=== PATIENT | male | born 1950 | race Caucasian/White ===

== ENCOUNTER → 2019-02-15 11:20 | Outpatient (POV) | payer BC, SELFPAY | PROVIDERS: PCP Internal Medicine Adolescent Medicine; Visit Provider Nurse Practitioner Family | DX: Z00.00 Encounter for general adult medical examination without abnormal findings (principal) ==

== ENCOUNTER → 2019-05-24 11:34 | Outpatient (CLI) | payer MEDICARE, OTHER, SELFPAY ==
[2019-05-24 11:59] LABS: Basophils % 0.6 % (0.1-2.0); Eosinophils # 0.1 K/mm3 (0.0-0.4); Eosinophils % 1.6 % (0.1-12.0); Hematocrit 37.1 % (42.0-52.0); Hemoglobin 11.7 g/dL (14.1-18.0); Lymphocytes # 1.3 K/mm3 (0.7-4.5); Lymphocytes % 20.4 % (10-50); Mean Corpuscular HGB Conc 31.4 g/dL (31.8-35.4); Mean Corpuscular Hemoglobin 27.8 pg (27.0-31.2); Mean Corpuscular Volume 88.6 fl (80-94); Mean Platelet Volume 7.3 fl (7.4-10.4); Monocytes # 0.3 K/mm3 (0.1-1.0); Monocytes % 4.9 % (1.7-9.3); Neutrophils # 4.6 K/mm3 (1.8-7.8); Neutrophils % 72.4 % (37.0-80.0); Platelet Count 213 K/mm3 (142-424); Red Blood Count 4.19 M/mm3 (4.60-6.20); Red Cell Distribution Width 14.5 % (11.5-17.5); White Blood Count 6.3 K/mm3 (4.8-10.8)
[2019-05-24 14:30] LABS: Alanine Aminotransferase 24 U/L (12-78); Albumin Level 3.7 gm/dL (3.4-5.0); Albumin/Globulin Ratio 1.1 (1.1-1.8); Alkaline Phosphatase 166 U/L (46-116); Anion Gap 15.6 mEq/L (5-15); Aspartate Amino Transferase 15 U/L (15-37); Bilirubin,Total 0.6 mg/dL (0.2-1.0); Blood Urea Nitrogen 23 mg/dL (7-18); Carbon Dioxide 25 mmol/L (21.0-32.0); Chloride 106 mmol/L (98-107); Estimated Glomerular Filt Rate 66 ml/min (>60); GFR (African American) 80 ML/MIN (>60); Globulin 3.4 gm/dl (1.3-3.2); Glucose 106 mg/dL (74-106); Potassium 5.6 mmoL/L (3.5-5.1); Sodium 141 mmol/L (136-145); Total Protein,Serum 7.1 gm/dL (6.4-8.2)
== END ==
PROVIDERS: Visit Provider Internal Medicine Adolescent Medicine
DX: R63.4 Abnormal weight loss (principal); R06.09 Other forms of dyspnea; R10.84 Generalized abdominal pain
CPT/HCPCS: 36415; 80053; 85025

== ENCOUNTER → 2019-05-27 11:23 | Outpatient (CLI) | payer MEDICARE, OTHER, SELFPAY ==
[2019-05-27 12:15] VITALS: PULSE 76; PULSE 82
== END ==
PROVIDERS: PCP Internal Medicine Adolescent Medicine; Visit Provider Internal Medicine Adolescent Medicine
DX: R06.09 Other forms of dyspnea (principal); R63.4 Abnormal weight loss; R10.84 Generalized abdominal pain
CPT/HCPCS: 94060; 94640; 94726; 94729

== ENCOUNTER → 2019-06-02 08:43 | Outpatient (CLI) | payer MEDICARE, OTHER, SELFPAY ==
--- NOTE | 2019-06-02 08:56 | CT_ITS ---
PROCEDURE: CT ABDOMEN PELVIS WO/W CON CLINICAL INDICATION: WEIGHT LOSS,ABD PAIN Generalized abdominal pain with weight loss COMPARISON: No exams were available for comparison TECHNIQUE: IV Contrast: 75ML OPTIRAY 350 Oral Contrast 450ml Redicat Axial images obtained with sagittal and coronal reformats. All CT scans at the facility use one or more dose reduction, viz: automated exposure control, ma/kV adjustment per patient size (including targeted exams where dose is matched to indication, i.e. head), or iterative reconstruction technique. FINDINGS: The liver, spleen, adrenal glands, and pancreas and gallbladder have an unremarkable appearance. There is a heterogeneous right renal mass projecting off of the lower pole of the right kidney which measures 8 x 8.5 by 9 cm transverse AP and longitudinal. This is highly suspicious for renal cell carcinoma. This is mostly well-defined except for along the inferior border or the lesion appears to have erupted through the renal capsule and extending into the pararenal space inferiorly. There is some calcification involving the right renal hilum which may be vascular The left kidney has an unremarkable appearance. The renal vein on the right is unremarkable. No retroperitoneal adenopathy. There are few scattered small lymph nodes in the right retroperitoneum. These however are not enlarged. No intestinal obstruction or free air. No evidence of appendicitis or diverticulitis. There is diverticulosis of the colon and a moderate amount of retained colonic feces is noted. No acute bony anomalies. There are scattered sclerotic foci in the left hip and may be due to bone islands. There is sclerosis of the SI joints on both sides right more extensive than left no free fluid or free air evident IMPRESSION: 9 cm right renal mass as described above consistent with renal cell carcinoma. Dictated by: Wisam Ch MD 06/02/2019 13:01 Electronically signed by Wisam Ch MD in [facility] 06/02/2019 13:01
--- NOTE | 2019-06-02 08:56 | CT_ITS ---
PROCEDURE: CT CHEST WO/W CON CLINCAL INDICATION: DYSPNEA Shortness of breath with weight loss COMPARISON: CT ABDOMEN PELVIS WO/W CON from 06/02/2019 TECHNIQUE: IV Contrast: 75ml Optiray 350 Axial images obtained with sagittal and coronal reformats. All CT scans at the facility use one or more dose reduction, viz: automated exposure control, ma/kV adjustment per patient size (including targeted exams where dose is matched to indication, i.e. head), or iterative reconstruction technique. FINDINGS: There has been a prior CABG. There is extensive coronary artery calcification. There is gynecomastia. No evidence of aortic aneurysm or dissection. No evidence of central pulmonary embolus. No mediastinal or hilar mass or adenopathy. A 7 mm noncalcified nodule is present in the right middle lobe posteriorly. 4 mm noncalcified nodules present in the right apex. No effusions or infiltrates. The no acute bony anomalies. No adenopathy. No mediastinal or hilar mass. Thyroid gland is slightly enlarged on the left IMPRESSION: No acute finding. 7 mm right middle lobe nodule and 4 mm right upper lobe nodule. Suggest 6 month follow-up. Coronary artery calcifications. Prior CABG Dictated by: Wisam Ch MD 06/02/2019 12:47 Electronically signed by Wisam Ch MD in [facility] 06/02/2019 12:47
== END ==
PROVIDERS: PCP Internal Medicine Adolescent Medicine; Visit Provider Internal Medicine Adolescent Medicine
DX: R63.4 Abnormal weight loss (principal); R10.84 Generalized abdominal pain; R06.09 Other forms of dyspnea
CPT/HCPCS: 71270; 74178; Q9967

== ENCOUNTER → 2019-10-05 08:42 | Outpatient (CLI) | payer MEDICARE, OTHER, SELFPAY ==
--- NOTE | 2019-10-05 08:48 | NM_ITS ---
CLINICAL INDICATION: KIDNEY CA COMPARISON: Plain radiographs 10/05/2019 TECHNIQUE: Routine whole body radionuclide bone scan with delayed anterior and posterior projection whole-body images with collimated bilateral skull images. 25.9 millicuries technetium 99 M MDP was administered. FINDINGS: There are foci of increased tracer uptake in the region of the facet joints bilaterally at L5-S1 and along the right lateral margins of multiple mid to lower thoracic disc spaces. Hypertrophic degenerative changes were seen on the plain radiographs in these regions and are felt to be responsible. Increased tracer uptake is seen at both acromioclavicular and glenohumeral joints and both sternoclavicular joints, both knee joints right greater than left, and at the 3rd left metacarpophalangeal joint. This uptake at joint spaces is most consistent with degenerative joint disease. There is otherwise normal bio distribution of tracer with no findings specific for metastatic disease. Note is made of absence of the right kidney. IMPRESSION: Multiple foci of increased tracer accumulation most consistent with hypertrophic degenerative disease. No findings specific for metastatic disease. Dictated by: Sathish Mcclain 10/05/2019 16:10 Electronically signed by Sathish Mcclain in [facility] 10/05/2019 16:10
--- NOTE | 2019-10-05 12:45 | XR_ITS ---
PROCEDURE: XR MULTIPLE SPINE 6+V CLINICAL INDICATION: HOT SPOT ON BONE SCAN DONE TODAY COMPARISON: No exams were available for comparison FINDINGS: There is multilevel degenerative disc disease throughout the spine from T4-5 to L1-2. Anterior and lateral osteophytes are seen bridging multiple disc spaces. No acute fracture dislocation or destructive lesions are apparent. Postsurgical clips are seen in the right renal bed. Splenic arterial calcifications are noted. Chronic appearing slight anterior wedge deformities of T5, T6 and T7 are noted IMPRESSION: No acute findings. Chronic appearing mild wedge deformities T5 through T7 and multilevel degenerative disc disease with osteophytes Dictated by: Sathish Mcclain 10/05/2019 16:03 Electronically signed by Sathish Mcclain in [facility] 10/05/2019 16:03
== END ==
PROVIDERS: PCP Internal Medicine Adolescent Medicine; Visit Provider Internal Medicine Hematology & Oncology
DX: C64.1 Malignant neoplasm of right kidney, except renal pelvis (principal)
CPT/HCPCS: 72084; 78306; A9503

== ENCOUNTER → 2019-10-14 09:14 | Outpatient (CLI) | payer MEDICARE, OTHER, SELFPAY ==
--- NOTE | 2019-10-14 09:29 | CT_ITS ---
PROCEDURE: CT CHEST WO CON CLINICAL INDICATION: KIDNEY CANCER Follow-up renal cell carcinoma COMPARISON: CT CHEST WO/W CON from 06/02/2019 CT ABDOMEN PELVIS WO CON from 10/14/2019 TECHNIQUE: Axial images obtained with sagittal and coronal reformats. All CT scans at the facility use one or more dose reduction, viz: automated exposure control, ma/kV adjustment per patient size (including targeted exams where dose is matched to indication, i.e. head), or iterative reconstruction technique. FINDINGS: HEART AND MEDIASTINAL STRUCTURES: Prior CABG. There is dense coronary artery calcification. No mediastinal or hilar mass or adenopathy. Normal heart size. LUNGS AND PLEURAL SPACES: There are numerous noncalcified pulmonary nodules which have increased in size from the previous study. For example, there is a 10 mm nodule in the right middle lobe posteriorly previously measuring 5 mm. There are least 2 nodules in the right upper lobe at 3 and 6 mm which have slightly increased in size. A 4 mm nodule has developed in the left upper lobe. No effusions. BONY STRUCTURES: No acute bony abnormalities apparent. UPPER ABDOMEN: See abdomen report ADDITIONAL FINDINGS: There is bilateral gynecomastia. IMPRESSION: There has been slight progression small bilateral pulmonary nodules consistent with progression metastatic disease. Dictated by: Wisam Ch MD 10/14/2019 16:05 Electronically signed by Wisam Ch MD in [facility] 10/14/2019 16:05
--- NOTE | 2019-10-14 09:29 | CT_ITS ---
PROCEDURE: CT ABDOMEN PELVIS WO CON CLINICAL INDICATION: KIDNEY CANCER Follow-up renal cell carcinoma COMPARISON: CT ABDOMEN PELVIS WO CON from 06/02/2019 TECHNIQUE: Axial images obtained with sagittal and coronal reformats. All CT scans at the facility use one or more dose reduction, viz: automated exposure control, ma/kV adjustment per patient size (including targeted exams where dose is matched to indication, i.e. head), or iterative reconstruction technique. FINDINGS: Study is performed without contrast due to patient's renal function. The liver, gallbladder, spleen, and adrenal glands have an unremarkable appearance. No pancreatic mass evident. There has been a prior right nephrectomy. No evidence of tumor recurrence in the nephrectomy bed. Unremarkable appendix. There is mild ectasia of the left renal pelvis but no evidence of left renal mass or ureteral calculus. Prostate is enlarged at 6 cm. There is a moderate amount of retained colonic feces. No abdominal or pelvic mass or retroperitoneal mass or adenopathy is evident. There are 2 sclerotic foci of the left femoral head. These are not significantly changed. No bony destructive process is a IMPRESSION: Status post right nephrectomy. No evidence of abdominal or pelvic metastasis. The prostate is enlarged Dictated by: Wisam Ch MD 10/14/2019 16:10 Electronically signed by Wisam Ch MD in [facility] 10/14/2019 16:10
[2019-10-14 09:42] LABS: Blood Urea Nitrogen 23 mg/dl (9-20); Estimated Glomerular Filt Rate 40 ml/min (>60); GFR (African American) 48 ML/MIN (>60)
== END ==
PROVIDERS: PCP Internal Medicine Adolescent Medicine; Visit Provider Internal Medicine Hematology & Oncology
DX: C64.1 Malignant neoplasm of right kidney, except renal pelvis (principal)
CPT/HCPCS: 36415; 71250; 74176; 82565; 84520

== ENCOUNTER → 2020-02-11 12:02 | Outpatient (CLI) | payer MEDICARE, OTHER, SELFPAY ==
[2020-02-11 14:03] LABS: Blood Urea Nitrogen 30 mg/dl (9-20); Estimated Glomerular Filt Rate 37 ml/min (>60); GFR (African American) 45 ML/MIN (>60)
== END ==
PROVIDERS: Visit Provider Internal Medicine Hematology & Oncology
DX: Z01.818 Encounter for other preprocedural examination (principal)
CPT/HCPCS: 36415; 82565; 84520

== ENCOUNTER → 2020-02-14 08:58 | Outpatient (CLI) | payer MEDICARE, OTHER, SELFPAY ==
--- NOTE | 2020-02-14 09:05 | CT_ITS ---
PROCEDURE: CT ABDOMEN PELVIS WO CON CLINICAL INDICATION: RT KIDNEY CA,EXCEPT RENAL PELVIS COMPARISON: CT ABDOMEN PELVIS WO CON from 10/14/2019 TECHNIQUE: Axial images obtained with sagittal and coronal reformats. All CT scans at the facility use one or more dose reduction, viz: automated exposure control, ma/kV adjustment per patient size (including targeted exams where dose is matched to indication, i.e. head), or iterative reconstruction technique. FINDINGS: The liver, gallbladder, spleen, pancreas, and adrenal glands have an unremarkable appearance. There is mild ectasia of the left renal collecting system. No renal or ureteral calculi. There has been a prior right nephrectomy. The prostate is enlarged at 4.9 cm. There is a mild amount of retained colonic feces. Bone islands noted in the left femur. IMPRESSION: Prior right nephrectomy. No convincing evidence of abdominal metastasis. Dictated by: Wisam Ch MD 02/15/2020 13:25 Electronically signed by Wisam Ch MD in [facility] 02/15/2020 13:25
--- NOTE | 2020-02-14 09:05 | CT_ITS ---
PROCEDURE: CT CHEST WO CON CLINICAL INDICATION: RT KIDNEY CA,EXCEPT RENAL PELVIS Follow-up renal cell carcinoma, metastatic disease COMPARISON: CT CHEST WO CON from 10/14/2019 CT ABDOMEN PELVIS WO CON from 02/14/2020 TECHNIQUE: Axial images obtained with sagittal and coronal reformats. All CT scans at the facility use one or more dose reduction, viz: automated exposure control, ma/kV adjustment per patient size (including targeted exams where dose is matched to indication, i.e. head), or iterative reconstruction technique. FINDINGS: HEART AND MEDIASTINAL STRUCTURES: There is severe coronary artery calcification. No mediastinal or hilar mass or adenopathy. There is mild nonspecific thickening of the esophagus. Prior CABG LUNGS AND PLEURAL SPACES: There are numerous noncalcified pulmonary nodules which have slightly increased in size compared to the previous exam consistent with progression of metastatic disease for instance, there is a 14 mm nodule in the right upper lobe which previously measured 10 mm. There are at least 2 other smaller right upper lobe nodules which have slightly increased in size. No effusions. No infiltrates. BONY STRUCTURES: No acute bony abnormalities apparent. UPPER ABDOMEN: Please see abdomen report ADDITIONAL FINDINGS: Gynecomastia IMPRESSION: Scattered small bilateral noncalcified pulmonary nodules which have slightly increased in size consistent with enlarging metastatic foci Dictated by: Wisam Ch MD 02/15/2020 12:18 Electronically signed by Wisam Ch MD in [facility] 02/15/2020 12:18
== END ==
PROVIDERS: PCP Internal Medicine Adolescent Medicine; Visit Provider Internal Medicine Hematology & Oncology
DX: C64.1 Malignant neoplasm of right kidney, except renal pelvis (principal)
CPT/HCPCS: 71250; 74176

== ENCOUNTER → 2020-06-08 11:02 | Outpatient (CLI) | payer MEDICARE, OTHER, SELFPAY ==
--- NOTE | 2020-06-08 11:07 | XR_ITS ---
PROCEDURE: XR LUMBAR SPINE MIN 4V CLINICAL INDICATION: LOW BACK PAIN AT MULTIPLE SITES Chronic low back pain COMPARISON: CR XR MULTIPLE SPINE 6+V from 10/05/2019 FINDINGS: No fracture or dislocation. No lytic or blastic change. There is normal mineralization. Minimal lumbar curvature convex left. There is mild multilevel lumbar spondylosis with degenerative disc disease from L1-S1 most prominent at L1-L2. Facet arthritic changes are present at L4-5 and L5-S1. There is fusion of the right SI joint superiorly. Surgical clips are present in the right upper quadrant and right lower quadrant. Other findings:None. IMPRESSION: Degenerative changes. No acute finding with no significant change from 10/05/2019. Dictated by: Wisam Ch MD 06/08/2020 14:30 Wisam Ch MD in [facility] 06/08/2020 14:30
== END ==
PROVIDERS: PCP Internal Medicine Adolescent Medicine; Visit Provider Internal Medicine Adolescent Medicine
DX: M54.5 Low back pain (principal)
CPT/HCPCS: 72110

== ENCOUNTER → 2020-06-21 08:24 | Outpatient (CLI) | payer MEDICARE, OTHER, SELFPAY ==
--- NOTE | 2020-06-21 08:27 | CT_ITS ---
PROCEDURE: CT ABDOMEN PELVIS WO CON CLINICAL INDICATION: RT KIDNEY CA follow-up renal cell carcinoma COMPARISON: CT CT ABDOMEN PELVIS WO CON from 02/14/2020 TECHNIQUE: Axial images obtained with sagittal and coronal reformats. All CT scans at the facility use one or more dose reduction, viz: automated exposure control, ma/kV adjustment per patient size (including targeted exams where dose is matched to indication, i.e. head), or iterative reconstruction technique. FINDINGS: The liver, gallbladder, spleen, adrenal glands, have an unremarkable appearance. There are few punctate calcifications within the pancreas nonspecific and could be due to prior pancreatitis. There has been a prior right nephrectomy. No evidence of tumor recurrence in the nephrectomy bed. There are few small lymph nodes in the retroperitoneum on the right which are less than 1 cm in short axis and are not significantly changed. There is mild prominence of the left renal pelvis. There are few scattered small mesenteric lymph nodes. Mild amount of retained colonic feces is noted throughout the colon. The prostate remains enlarged. There are few scattered colonic diverticula but no evidence of diverticulitis. Small periportal lymph nodes are present which are stable. No acute bony finding. No bony destructive process. There is fusion of the right SI joint. IMPRESSION: Overall stable CT appearance of the abdomen and pelvis status post prior right nephrectomy. Dictated by: Wisam Ch MD 06/22/2020 10:36 Wisam Ch MD in [facility] 06/22/2020 10:36
--- NOTE | 2020-06-21 08:27 | CT_ITS ---
PROCEDURE: CT CHEST WO CON CLINICAL INDICATION: follow up, hx right kidney ca, right kidney removed no c/o pain or any symptoms at this time redicat prior 02/14/20 COMPARISON: CT CT CHEST WO CON from 02/14/2020 TECHNIQUE: Axial images obtained with sagittal and coronal reformats. All CT scans at the facility use one or more dose reduction, viz: automated exposure control, ma/kV adjustment per patient size (including targeted exams where dose is matched to indication, i.e. head), or iterative reconstruction technique. FINDINGS: HEART AND MEDIASTINAL STRUCTURES: No mediastinal or hilar mass or adenopathy. There has been a prior CABG. There is severe coronary artery calcification. LUNGS AND PLEURAL SPACES: There are scattered bilateral noncalcified pulmonary nodules. A few of these nodules have actually decreased in size. One nodule in the central aspect of the right upper lobe previously measured 8 mm and now measures 5 mm. However, the dominant nodule is present in the right middle lobe centrally measuring 1 point 9 cm previously measuring 1.4 cm. There is a 5 mm nodule in the lingula previously measuring 7 mm. No effusions or infiltrates. BONY STRUCTURES: No acute bony abnormalities apparent. UPPER ABDOMEN: Unremarkable. ADDITIONAL FINDINGS: No other significant abnormalities. IMPRESSION: There are noncalcified bilateral pulmonary nodules consistent with metastatic disease. These have shown a mixed response. The most dominant nodule has increased in size with other smaller nodules which have decreased in size. Dictated by: Wisam Ch MD 06/22/2020 10:23 Wisam Ch MD in [facility] 06/22/2020 10:23
== END ==
PROVIDERS: PCP Internal Medicine Adolescent Medicine; Visit Provider Internal Medicine Hematology & Oncology
DX: C64.1 Malignant neoplasm of right kidney, except renal pelvis (principal)
CPT/HCPCS: 71250; 74176

== ENCOUNTER → 2020-10-16 08:22 | Outpatient (CLI) | payer MEDICARE, OTHER, SELFPAY ==
--- NOTE | 2020-10-16 08:33 | CT_ITS ---
PROCEDURE: CT ABDOMEN PELVIS WO CON CLINICAL INDICATION: MALIGNANT NEOPLASM OF RT KIDNEY, EXCEPT RENAL PELVIS Follow up renal cancer 4 month flu COMPARISON: CT CT ABDOMEN PELVIS WO CON from 06/21/2020 TECHNIQUE: Axial images obtained with sagittal and coronal reformats. All CT scans at the facility use one or more dose reduction, viz: automated exposure control, ma/kV adjustment per patient size (including targeted exams where dose is matched to indication, i.e. head), or iterative reconstruction technique. FINDINGS: Evaluation for metastasis is somewhat limited without IV contrast. No focal liver lesion identified. The spleen and adrenal glands are unremarkable. There are few calcifications within the pancreas. No pancreatic mass or inflammatory change. There has been a prior right nephrectomy. There are few small retroperitoneal lymph nodes on the right not significantly changed. No evidence of recurrence mass in the surgical bed. The left kidney shows mild prominence of the renal pelvis. No renal calculi. This is not significantly changed. No intestinal obstruction or free air. The prostate is enlarged at 5.7 cm. No acute bony findings. There are 2 sclerotic foci of the left femoral head and may represent bone islands. IMPRESSION: Stable CT appearance of the abdomen and pelvis. Status post right nephrectomy with no convincing evidence of intra-abdominal metastasis or tumor recurrence in the renal bed. There are few small lymph nodes in the epigastric region and in the retroperitoneum and peritoneum not significantly changed. Dictated by: Wisam Ch MD 10/17/2020 11:13 Wisam Ch MD in [facility] 10/17/2020 11:13
--- NOTE | 2020-10-16 08:34 | CT_ITS ---
PROCEDURE: CT CHEST WO CON CLINICAL INDICATION: MALIGNANT NEOPLASM OF RT KIDNEY, EXCEPT RENAL PELVIS Follow up-right renal cancer 4 month flu COMPARISON: CT CT CHEST WO CON from 06/21/2020 TECHNIQUE: Axial images obtained with sagittal and coronal reformats. All CT scans at the facility use one or more dose reduction, viz: automated exposure control, ma/kV adjustment per patient size (including targeted exams where dose is matched to indication, i.e. head), or iterative reconstruction technique. FINDINGS: There has been a prior median sternotomy with CABG. Severe coronary artery calcifications are present. Normal heart size. No mediastinal or hilar mass or adenopathy. Incidental note made of gynecomastia. There is mild diffuse esophageal thickening which could be due to nondistention or esophagitis. Numerous noncalcified pulmonary nodules are once again noted. The largest nodule is in the right middle lobe posteriorly with some extension into the inferior aspect of the right upper lobe extending through the minor fissure. This mass measures 3.1 by 3.3 by 2.6 cm transverse, cephalad caudad, and a PE respectively. This has increased in size previously measuring 1.9 by 2.1 by 1.9 cm. There are other smaller nodules are present and have increased in size. No obvious new nodules identified. No effusions or infiltrates. No lytic or blastic bony lesions. IMPRESSION: Pulmonary metastasis which have increased in size compared to the previous exam Dictated by: Wisam Ch MD 10/17/2020 10:21 Wisam Ch MD in [facility] 10/17/2020 10:21
== END ==
PROVIDERS: PCP Internal Medicine Adolescent Medicine; Visit Provider Internal Medicine Hematology & Oncology
DX: C64.1 Malignant neoplasm of right kidney, except renal pelvis (principal)
CPT/HCPCS: 71250; 74176

== ENCOUNTER → 2020-12-06 11:26 | Outpatient (CLI) | payer MEDICARE, OTHER, SELFPAY ==
[2020-12-06 12:18] LABS: Alanine Aminotransferase 61 U/L (12-78); Albumin Level 4.7 g/dl (3.5-5.0); Albumin/Globulin Ratio 1.9 (1.1-1.8); Alkaline Phosphatase 121 U/L (38-126); Anion Gap 11.8 mEq/L (5-15); Aspartate Amino Transferase 51 U/L (17-59); Blood Urea Nitrogen 21 mg/dl (9-20); Calcium 9.1 mg/dl (8.4-10.2); Carbon Dioxide 27 mmol/L (22.0-30.0); Chloride 107 mmol/L (98-107); Estimated Glomerular Filt Rate 43 ml/min (>60); GFR (African American) 52 ML/MIN (>60); Globulin 2.5 g/dL (1.3-3.2); Glucose 123 mg/dl (74-100); Potassium 4.8 mmoL/L (3.5-5.1); Sodium 141 mmol/L (136-145); Total Protein,Serum 7.2 g/dl (6.3-8.2)
[2020-12-06 12:30] LABS: Hemoglobin A1C 6.5 % (4.0-6.0)
== END ==
PROVIDERS: Visit Provider Internal Medicine Adolescent Medicine
DX: E11.9 Type 2 diabetes mellitus without complications (principal); Z79.84 Long term (current) use of oral hypoglycemic drugs
CPT/HCPCS: 36415; 80053; 83036

== ENCOUNTER → 2020-12-20 11:48 | Outpatient (CLI) | payer MEDICARE, OTHER, SELFPAY ==
[2020-12-20 12:40] LABS: Chloride 105 mmol/L (98-107); Potassium 4.8 mmoL/L (3.5-5.1); Sodium 138 mmol/L (136-145)
[2020-12-20 12:42] LABS: Blood Urea Nitrogen 15 mg/dl (9-20); Estimated Glomerular Filt Rate 50 ml/min (>60); GFR (African American) 60 ML/MIN (>60)
[2020-12-20 12:43] LABS: Alanine Aminotransferase 181 U/L (12-78); Albumin Level 4.4 g/dl (3.5-5.0); Albumin/Globulin Ratio 1.8 (1.1-1.8); Alkaline Phosphatase 140 U/L (38-126); Anion Gap 14.8 mEq/L (5-15); Aspartate Amino Transferase 64 U/L (17-59); Bilirubin,Total 0.9 mg/dl (0.2-1.3); Calcium 9.1 mg/dl (8.4-10.2); Carbon Dioxide 23 mmol/L (22.0-30.0); Globulin 2.5 g/dL (1.3-3.2); Glucose 208 mg/dl (74-100); Total Protein,Serum 6.9 g/dl (6.3-8.2)
== END ==
PROVIDERS: Visit Provider Internal Medicine Hematology & Oncology
DX: C64.9 Malignant neoplasm of unspecified kidney, except renal pelvis (principal)
CPT/HCPCS: 36415; 80053

== ENCOUNTER → 2020-12-27 09:36 | Outpatient (CLI) | payer MEDICARE, OTHER, SELFPAY ==
[2020-12-27 10:45] LABS: Chloride 105 mmol/L (98-107)
[2020-12-27 10:46] LABS: Potassium 4.9 mmoL/L (3.5-5.1); Sodium 138 mmol/L (136-145)
[2020-12-27 10:48] LABS: Alanine Aminotransferase 107 U/L (12-78); Anion Gap 14.9 mEq/L (5-15); Aspartate Amino Transferase 47 U/L (17-59); Blood Urea Nitrogen 21 mg/dl (9-20); Carbon Dioxide 23 mmol/L (22.0-30.0); Estimated Glomerular Filt Rate 40 ml/min (>60); GFR (African American) 48 ML/MIN (>60)
[2020-12-27 10:49] LABS: Albumin Level 4.5 g/dl (3.5-5.0); Albumin/Globulin Ratio 1.8 (1.1-1.8); Alkaline Phosphatase 120 U/L (38-126); Calcium 9.4 mg/dl (8.4-10.2); Globulin 2.5 g/dL (1.3-3.2); Glucose 152 mg/dl (74-100)
== END ==
PROVIDERS: Visit Provider Internal Medicine Hematology & Oncology
DX: C64.9 Malignant neoplasm of unspecified kidney, except renal pelvis (principal)
CPT/HCPCS: 36415; 80053

== ENCOUNTER → 2021-01-09 08:43 | Outpatient (CLI) | payer MEDICARE, OTHER, SELFPAY ==
--- NOTE | 2021-01-09 08:50 | CT_ITS ---
PROCEDURE: CT CHEST WO CON CLINICAL INDICATION: KIDNEY CA Follow up Hx of rt renal cancer Rt kidney removed No symptoms at this time follow-up renal cell carcinoma COMPARISON: CT CT CHEST WO CON from 10/16/2020 TECHNIQUE: Axial images obtained with sagittal and coronal reformats. All CT scans at the facility use one or more dose reduction, viz: automated exposure control, ma/kV adjustment per patient size (including targeted exams where dose is matched to indication, i.e. head), or iterative reconstruction technique. FINDINGS: HEART AND MEDIASTINAL STRUCTURES: There has been a prior median sternotomy. Normal heart size. No mediastinal or hilar adenopathy. There is a small lymph node in the upper mediastinum anteriorly at approximately 10 mm unchanged. LUNGS AND PLEURAL SPACES: Numerous pulmonary nodules are once again noted as previously described. These nodules do appear slightly smaller. The largest nodule which is in the right middle lobe measures 2.8 x 2.4 x 2.8 cm previously 3.1 by 2.6 x 3.3 cm. No new nodules are identified. Previously noted nodule in the right upper lobe centrally measures 4 mm previously measuring 7 mm. Right lower lobe nodule is 6 mm previously 9 mm. Nodule within the lingula is 7 mm previously 8 mm. No effusions or infiltrates. BONY STRUCTURES: No bony destructive process apparent. UPPER ABDOMEN: Please see abdomen report ADDITIONAL FINDINGS: Gynecomastia IMPRESSION: Overall slight improvement in the pulmonary metastasis. Dictated by: Wisam Ch MD 01/10/2021 08:25 Wisam Ch MD in [facility] 01/10/2021 08:25
--- NOTE | 2021-01-09 08:50 | CT_ITS ---
PROCEDURE: CT ABDOMEN PELVIS WO CON CLINICAL INDICATION: Follow up Hx of rt renal cancer Rt kidney removed No symptoms at this time COMPARISON: CT CT ABDOMEN PELVIS WO/W CON from 06/02/[address] ABDOMEN PELVIS WO CON from 10/16/2020 TECHNIQUE: Axial images obtained with sagittal and coronal reformats. All CT scans at the facility use one or more dose reduction, viz: automated exposure control, ma/kV adjustment per patient size (including targeted exams where dose is matched to indication, i.e. head), or iterative reconstruction technique. FINDINGS: No focal liver lesion demonstrated on this unenhanced exam. The gallbladder, spleen, adrenal glands, have an unremarkable appearance. There are few scattered punctate pancreatic calcifications but no obvious pancreatic mass. There are small nodes in the periportal region and portal caval area not significantly changed. Prior right nephrectomy. No evidence of tumor recurrence in the renal bed. There is mild prominence of the left renal pelvis as before. Unremarkable bowel gas pattern. No evidence of appendicitis. There is a mild amount of retained colonic feces. The prostate is enlarged at 5.8 cm. Stable sclerotic foci are present in the left femoral head and may be due to bone islands. No bony destructive process. IMPRESSION: Stable CT appearance of the abdomen. Prior right nephrectomy with no convincing evidence of intra-abdominal metastasis. Dictated by: Wisam Ch MD 01/10/2021 08:56 Wisam Ch MD in [facility] 01/10/2021 08:56
== END ==
PROVIDERS: PCP Internal Medicine Adolescent Medicine; Visit Provider Internal Medicine Hematology & Oncology
DX: C64.1 Malignant neoplasm of right kidney, except renal pelvis (principal)
CPT/HCPCS: 71250; 74176

== ENCOUNTER → 2021-03-07 11:18 | Outpatient (CLI) | payer MEDICARE, OTHER, SELFPAY ==
[2021-03-07 12:22] LABS: Chloride 108 mmol/L (98-107); Potassium 4.9 mmoL/L (3.5-5.1); Sodium 145 mmol/L (136-145)
[2021-03-07 12:24] LABS: Alanine Aminotransferase 32 U/L (12-78); Blood Urea Nitrogen 21 mg/dl (9-20); Estimated Glomerular Filt Rate 50 ml/min (>60); GFR (African American) 60 ML/MIN (>60)
[2021-03-07 12:25] LABS: Albumin Level 4.3 g/dl (3.5-5.0); Albumin/Globulin Ratio 1.7 (1.1-1.8); Alkaline Phosphatase 109 U/L (38-126); Anion Gap 12.9 mEq/L (5-15); Aspartate Amino Transferase 26 U/L (17-59); Bilirubin,Total 0.9 mg/dl (0.2-1.3); Calcium 9.1 mg/dl (8.4-10.2); Carbon Dioxide 29 mmol/L (22.0-30.0); Chol/HDL Ratio 2.9 (1-3.5); Cholesterol 111 mg/dl (140-200); Globulin 2.6 g/dL (1.3-3.2); Glucose 72 mg/dl (74-100); HDL Cholesterol 38 mg/dl (40-60); Magnesium 1.9 mg/dl (1.6-2.3); Total Protein,Serum 6.9 g/dl (6.3-8.2); Triglycerides 72 mg/dl (30-150); VLDL Cholesterol 14 mg/dL (0-40)
[2021-03-07 12:35] LABS: Basophils % 0.5 % (0.1-2.0); Eosinophils # 0.1 K/mm3 (0.0-0.4); Eosinophils % 1.4 % (0.1-12.0); Hematocrit 41.4 % (42.0-52.0); Hemoglobin 14.4 g/dL (14.1-18.0); Lymphocytes # 1.2 K/mm3 (0.7-4.5); Lymphocytes % 23.3 % (10-50); Mean Corpuscular HGB Conc 34.8 g/dL (31.8-35.4); Mean Corpuscular Hemoglobin 32.5 pg (27.0-31.2); Mean Corpuscular Volume 93.4 fl (80-94); Mean Platelet Volume 7.7 fl (7.4-10.4); Monocytes # 0.4 K/mm3 (0.1-1.0); Neutrophils # 3.4 K/mm3 (1.8-7.8); Neutrophils % 67.9 % (37.0-80.0); Platelet Count 179 K/mm3 (142-424); Red Blood Count 4.43 M/mm3 (4.60-6.20); Red Cell Distribution Width 15.4 % (11.5-17.5)
[2021-03-07 12:36] LABS: Direct LDL Cholesterol 56.59 mg/dL (100-129)
[2021-03-07 12:42] LABS: Free Thyroxine Index 3.5 ug/dL (5.93-13.13); T4 (Thyroxine) 12.5 ug/dl (5.53-11.0); Triiodothryronine (T3) Uptake 28 % (23.5-40.5)
[2021-03-07 12:56] LABS: Thyroid Stimulating Hormone 2.17 uIU/mL (0.465-4.68)
[2021-03-07 13:30] LABS: 25-OH Vitamin D, Total 50.4 ng/mL (30-100)
[2021-03-07 14:02] LABS: Vitamin B12 556 pg/mL (239-931)
== END ==
PROVIDERS: Visit Provider Internal Medicine Adolescent Medicine
DX: I25.10 Atherosclerotic heart disease of native coronary artery without angina pectoris (principal); E78.2 Mixed hyperlipidemia; R27.0 Ataxia, unspecified; Z85.528 Personal history of other malignant neoplasm of kidney
CPT/HCPCS: 36415; 80053; 80061; 82306; 82607; 83735; 84436; 84443; 84479; 85025

== ENCOUNTER → 2021-04-18 08:53 | Outpatient (CLI) | payer MEDICARE, OTHER, SELFPAY ==
--- NOTE | 2021-04-18 08:55 | CT_ITS ---
PROCEDURE: CT ABDOMEN PELVIS WO CON CLINICAL INDICATION: MALIGNANT NEOPLASM OF RT KIDNEY, EXCEPT RENAL PELVIS COMPARISON: CT CT ABDOMEN PELVIS WO/W CON from 06/02/[address] ABDOMEN PELVIS WO CON from 01/09/[address] CHEST WO CON from 04/18/2021 TECHNIQUE: Axial images obtained with sagittal and coronal reformats. All CT scans at the facility use one or more dose reduction, viz: automated exposure control, ma/kV adjustment per patient size (including targeted exams where dose is matched to indication, i.e. head), or iterative reconstruction technique. FINDINGS: LOWER THORAX: Please see chest CT report performed on the same day ABDOMEN & PELVIS: The liver, gallbladder, spleen, and adrenal glands are unremarkable. Pancreas has an unremarkable appearance. There has prior right nephrectomy. No evidence of tumor recurrence in the nephrectomy bed. Small area of decreased attenuation is present left kidney may be due to small renal cyst. There is mild ectasia of the left renal collecting system similar to the previous exam. No renal or ureteral calculi evident on the left. Unremarkable appendix. No intestinal obstruction or free air. There is colonic diverticulosis but no evidence of diverticulitis. There is a mild amount of residual colonic feces. The prostate is enlarged at 5.8 cm. There is partial fusion of the right SI joint. Small sclerotic foci are present in the left femoral head may be due to bone islands IMPRESSION: Stable CT appearance of the abdomen and pelvis. Prior right nephrectomy with no convincing evidence of abdominal or pelvic metastasis. Dictated by: Wisam Ch MD 04/18/2021 11:37 Wisam Ch MD in [facility] 04/18/2021 11:37
--- NOTE | 2021-04-18 08:55 | CT_ITS ---
PROCEDURE: CT CHEST WO CON CLINICAL INDICATION: MALIGNANT NEOPLASM OF RT KIDNEY, EXCEPT RENAL PELVIS COMPARISON: CT CT CHEST WO CON from 01/09/2021 TECHNIQUE: Axial images obtained with sagittal and coronal reformats. All CT scans at the facility use one or more dose reduction, viz: automated exposure control, ma/kV adjustment per patient size (including targeted exams where dose is matched to indication, i.e. head), or iterative reconstruction technique. FINDINGS: HEART AND MEDIASTINAL STRUCTURES: No mediastinal or hilar mass or adenopathy. There is mild thickening of the esophagus throughout. There has been a prior CABG with coronary artery calcification noted. Aortic valve calcification also present. LUNGS AND PLEURAL SPACES: There are numerous bilateral noncalcified pulmonary nodules consistent with metastatic disease. The largest nodule is in the right middle lobe posteriorly measuring 3.3 x 2.5 x 3 cm previously 2.8 x 2.4 x 2.8 cm. A nodule is present in the lingula which measures 1.4 by 1.3 cm previously 0.7 cm. A 5 mm nodules present in the right upper lobe centrally previously 4 mm. No new nodules are evident. There are mild atelectatic changes in the left lung base. No pleural effusions apparent.. Right lower lobe nodule at 6 mm is unchanged. BONY STRUCTURES: No acute bony abnormalities apparent. UPPER ABDOMEN: See abdomen report ADDITIONAL FINDINGS: No other significant abnormalities. IMPRESSION: Progression of pulmonary metastasis. Three nodules have increased in size with 1 nodule unchanged. Dictated by: Wisam Ch MD 04/18/2021 11:26 Wisam Ch MD in [facility] 04/18/2021 11:26
== END ==
PROVIDERS: PCP Internal Medicine Adolescent Medicine; Visit Provider Internal Medicine Hematology & Oncology
DX: C64.1 Malignant neoplasm of right kidney, except renal pelvis (principal)
CPT/HCPCS: 71250; 74176

== ENCOUNTER 2021-04-18 09:30 | Outpatient (RCR) | payer MEDICARE, OTHER, SELFPAY ==
--- NOTE | 2021-03-13 11:55 | [facility].PTOPEV ---
PT Outpatient Evaluation Rehab PT Outpatient Evaluation Start: 03/13/21 11:38 Freq: Status: Active Protocol: Document 03/13/21 11:39 THOR (Rec: 03/13/21 11:55 THOR [id number]) Electronically Signed By Taurus Parker, PT 03/13/21 11:39 Outpatient Therapy Subjective History Subjective History Pt reports shortness of breath and limited endurance for ~ 1 yr, which he contributes to bilateral LE weakness. Pt reports x2 falls in the last 2 weeks d/t 'I rosa get going forward, and I can't slow down so I get going faster and faster until I fall.' Pt reports last two falls 'banged up the left knee'. Pt reports 'shuffling feet' has become more problematic in this time frame as well. PMH: kidney cx- kidney sx., now progressed to lung cx., receiving daily chemotherapy. Chief Complaint Pain,Weakness,Decreased Coordination Symptom Type Ache,Dull Symptoms Relieved By Rest/Positioning Symptoms Aggravated By Standing,Physical Activity, Walking Prior Functional Limitations Standing,Walking,Stairs, Balance Current Functional Limitations Standing,Walking,Stairs, Balance Symptom Description Constant but Variable Level of pain today (0-10) 3 Pain scale - at its best (0-10) 2 Pain scale - at its worst (0-10) 4 Hip/Knee Eval Gait Observation General Gait Pattern Observation Ataxic Gait,Shuffling Step MMT bilateral Hip Flexion Strength Grade 4- Good- Hip Abduction Strength Grade 4- Good- Hip Adduction Strength Grade 4- Good- Hip Extension Strength Grade 4 Good Knee Extension Strength Grade 4 Good Knee Flexion Strength Grade 4 Good Balance Eval Timed Up and Go Test 3. Is the Timed Up and Go Test result < yes 12 seconds? Tinetti Sitting Balance Sitting Balance Steady, safe Arising from Chair Ability to Arise Able, uses arms to help Attempts to Arise Able, requires >1 attempt Standing Balance Immediate Standing Balance Steady with support Standing Balance Steady, wide stance Nudged Response Begins to fall Standing with Eyes Closed Unsteady Turning Step Pattern Turning 360 Degrees Discontinuous
--- NOTE | 2021-04-11 10:04 | HMH.RHREAS ---
Rehab Reassessment Rehab OP Re-assessment Start: 04/11/21 09:46 Freq: Status: Active Protocol: Document 04/11/21 09:46 THOR (Rec: 04/11/21 10:04 THOR [id number]) Electronically Signed By Taurus Parker, PT 04/11/21 09:46 Rehab Re-assessment Subjective Subjective PT REPORTS IMPROVED STRENGTH IN BILATERAL LE'S SINCE I EVAL , WELL IMPROVED BALANCE AND OVERALL FUNCTION RELATED TO T/F'S Objective Objective Notes MMT:B HIP FLX 4+-5/5, B HIP ABD 4/5, B HIP ADD 4/5, B HIP EXT 4-4+/5, B KNEE FLX 4+-5/5, B KNEE EXT 5/5 TINETTI: 12 TU SEC W/SC Assessment Progress Assessment Progressing as Expected Assessment Notes IMPROVED BALANCE, STRENGTH, HOWEVER STILL HAS SIGNIFICANT GAIT AND PROPRIOCEPTIVE DEFICIT Patient goals met STG'S 12/23 LTG'S 09/26 Goals Not Met STG'S 10/23, LTG'S 02/23 Plan Plan PT TO CONT. W/SKILLED P.T. TO MAKE FURTHER IMPROVEMENTS IN BALANCE, GAIT, AND STRENGTH TO ALLOW FOR OPTIMAL FUNCTION Frequency of Therapy 1-2X/WK Duration of therapy 3-4WKS Time and Billing Re-Eval Time 15 Re-Eval Billing Units 0 PHYSICIAN CERTIFICATION: I certify the specified therapy services for Tito Daniel are required, authorized, and reviewed every 30 days.
== END 2021-04-18 09:35 | disposition home or self-care (01) ==
LOC: PT 09:30
PROVIDERS: PCP Internal Medicine Adolescent Medicine; Visit Provider Internal Medicine Adolescent Medicine
DX: R26.89 Other abnormalities of gait and mobility (principal)
CPT/HCPCS: 97110; 97112; 97163; 97164

== ENCOUNTER → 2021-06-04 12:51 | Outpatient (CLI) | payer MEDICARE, OTHER, SELFPAY ==
--- NOTE | 2021-06-04 12:59 | XR_ITS ---
PROCEDURE: XR RIBS RT MIN 3V W CXR1V CLINICAL INDICATION: RT SIDED CHEST WALL PAIN COMPARISON: CT CT CHEST WO CON from 04/18/2021 FINDINGS: No fracture or dislocation. No obvious lytic or blastic change. IMPRESSION: No acute findings. Dictated by: Wisam Ch MD 06/04/2021 13:35 Wisam Ch MD in [place] 06/04/2021 13:35
--- NOTE | 2021-06-04 12:59 | XR_ITS ---
PROCEDURE: XR CHEST 2V CLINICAL HISTORY: RT SIDED CHEST WALL PAIN COMPARISON: CT CT CHEST WO CON from 04/18/2021 FINDINGS: There is cardiomegaly without failure. There has been a prior CABG . There is a 3.4 x 2.8 cm mass in the right upper lobe centrally and a a 1.6 cm nodule in the left upper lobe anteriorly similar to the previous CT scan 04/18/2021. These findings are suspicious for neoplasm/metastatic disease. No acute bony abnormalities. IMPRESSION: Findings compatible with pulmonary metastasis. Dictated by: Wisam Ch MD 06/04/2021 13:32 Wisam Ch MD in [place] 06/04/2021 13:32
== END ==
PROVIDERS: PCP Internal Medicine Adolescent Medicine; Visit Provider Internal Medicine Adolescent Medicine
DX: R07.89 Other chest pain (principal)
CPT/HCPCS: 71046; 71101

== ENCOUNTER 2021-06-20 10:00 | Outpatient (RCR) | payer MEDICARE, OTHER, SELFPAY ==
--- NOTE | 2021-05-28 13:55 | HMH.PTOPEV ---
PT Outpatient Evaluation Rehab PT Outpatient Evaluation Start: 05/28/21 13:23 Freq: Status: Active Protocol: Document 05/28/21 13:23 THOR (Rec: 05/28/21 13:55 THOR [id number]) Electronically Signed By Taurus Parker, PT 05/28/21 13:23 Outpatient Therapy Subjective History Subjective History Pt reports h/o falls and balance issues secondary to Parkinson's disease for the last ~2 years. Pt reports loss of balance or sudden weakness , maile. right foot/ankle, 'it seems to drag a lot'. Pt reports intermittent LBP and R hip pain as well. PMH: kidney cx. Chief Complaint Pain,Weakness,Decreased Coordination Symptom Type Ache,Dull Symptoms Relieved By Nothing Symptoms Aggravated By Standing,Walking Prior Functional Limitations Standing,Walking,Balance Current Functional Limitations Standing,Walking,Balance Symptom Description Constant but Variable Level of pain today (0-10) 6 Pain scale - at its best (0-10) 3 Pain scale - at its worst (0-10) 6 Hip/Knee Eval Gait Observation General Gait Pattern Observation Ataxic Gait,Shuffling Step Assistive Device Assistive Devices Straight Cane MMT bilateral Hip Flexion Strength Grade 4 Good Hip Abduction Strength Grade 4- Good- Hip Adduction Strength Grade 4- Good- Hip Extension Strength Grade 4 Good Knee Extension Strength Grade 5 Normal Knee Flexion Strength Grade 5 Normal Ankle/Foot Eval MMT Ankle Dorsiflexion Strength Grade 4 Good Balance Eval Hx of Falls Hx Falls Yes Number in last 6 months 6 Timed Up and Go Test 1. Is the Timed Up and Go test result > yes or = to 12 seconds? Tinetti Sitting Balance Sitting Balance Steady, safe Arising from Chair Ability to Arise Able, uses arms to help Attempts to Arise Able, requires >1 attempt Standing Balance Immediate Standing Balance Steady with support Standing Balance Steady, wide stance Nudged Response Staggers, catches self Standing with Eyes Closed Unsteady Turning Step Pattern Turning 360 Degrees Discontinuous steps Stability Turning 360 Degrees Unsteady, grabs/staggers Sitting Down Sitting Down Uses arms or unsteady Gait and Step Initiation of Gait Hesitancy, mult. attempts Right Foot Step Length Does pass stance foot Right Foot Step Height Does not clear floor Left Foot Step Length
== END 2021-06-20 10:05 | disposition home or self-care (01) ==
LOC: PT 10:00
PROVIDERS: PCP Internal Medicine Adolescent Medicine; Visit Provider Internal Medicine Adolescent Medicine
DX: R26.89 Other abnormalities of gait and mobility (principal)
CPT/HCPCS: 97014; 97110; 97112; 97163; G0283

== ENCOUNTER → 2021-07-01 10:00 | Outpatient (CLI) | payer MEDICARE, OTHER, SELFPAY ==
[2021-07-01] VITALS (8 sets, daily range): BP systolic 105–122; BP diastolic 66–80; PULSE 76–84; RESP 18; TEMP 36.9–37; O2SAT 94–96
== END ==
PROVIDERS: PCP Internal Medicine Adolescent Medicine; Visit Provider Internal Medicine Adolescent Medicine
DX: U07.1 COVID-19 (principal); Z23 Encounter for immunization
CPT/HCPCS: 96365

== ENCOUNTER 2021-07-06 13:11 | Observation (INO) | payer MEDICARE, OTHER, SELFPAY ==
[2021-07-06 10:59] VITALS: BMI 29.3
--- NOTE | 2021-07-06 11:07 | CA_ITS ---
APPROVED REPORT Right Lower Extremity Venous Study for DVT. 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: CT Indications Lower Extremity Pain: Right Lower Extremity Edema: Right RIGHT LEG SWELLING Risk Factors Malignancy renal cancer, HTN, HLD, CAD, Smoker Vein Imaging CFV (R): compressive, spontaneous, phasic, augmentation SFJ (R): compressive, spontaneous, phasic, augmentation FEM (R): compressive, spontaneous, phasic, augmentation POP (R): compressive, spontaneous, phasic, augmentation DFV (R): compressive, spontaneous, phasic, augmentation PTV (R): compressive, spontaneous, phasic, augmentation GSV (R): compressive, spontaneous, phasic, augmentation SSV (R): Not Visualized Peroneals (R):compressive, spontaneous, phasic, augmentation GAS (R): compressive, spontaneous, phasic, augmentation Findings RLE negative for DVT/SVT Vessels fully compressible. Mid calf difficult to scan due to edema Conclusion RLE negative for DVT/SVT Vessels fully compressible. Mid calf difficult to scan due to edema Electronically signed by : Wisam Ch MD 07/06/2021 12:49:56
[2021-07-06 11:18] VITALS: BP 114/62; PULSE 64; RESP 18; TEMP 36; O2SAT 95
--- NOTE | 2021-07-06 11:25 | PC.NURSE ---
1125-gretchen from vascular lab here to do rle doppler
[2021-07-06 11:27] LABS: Basophils % 0.2 % (0.1-2.0); Hematocrit 37.5 % (42.0-52.0); Hemoglobin 12.9 g/dL (14.1-18.0); Lymphocytes # 0.5 K/mm3 (0.7-4.5); Lymphocytes % 8.4 % (10-50); Mean Corpuscular HGB Conc 34.5 g/dL (31.8-35.4); Mean Corpuscular Volume 86.9 fl (80-94); Mean Platelet Volume 7.9 fl (7.4-10.4); Monocytes # 0.3 K/mm3 (0.1-1.0); Monocytes % 5.4 % (1.7-9.3); Neutrophils # 5.1 K/mm3 (1.8-7.8); Neutrophils % 85.9 % (37.0-80.0); Platelet Count 370 K/mm3 (142-424); Red Blood Count 4.31 M/mm3 (4.60-6.20); White Blood Count 5.9 K/mm3 (4.8-10.8)
[2021-07-06 11:29] LABS: MANUAL DIFFERENTIAL MANUAL DIFFERENTIAL (MANUAL DIFF)
[2021-07-06 11:37] LABS: Alanine Aminotransferase 6 U/L (12-78); Albumin Level 3.3 g/dl (3.5-5.0); Albumin/Globulin Ratio 1.1 (1.1-1.8); Alkaline Phosphatase 211 U/L (38-126); Aspartate Amino Transferase 39 U/L (17-59); Bilirubin,Total 0.8 mg/dl (0.2-1.3); Blood Urea Nitrogen 62 mg/dl (9-20); Calcium 8.3 mg/dl (8.4-10.2); Carbon Dioxide 21 mmol/L (22.0-30.0); Chloride 98 mmol/L (98-107); Creatinine Clearance Estimated 31 mL/min (50-200); Estimated Glomerular Filt Rate 23 ml/min (>60); GFR (African American) 28 ML/MIN (>60); Globulin 3.1 g/dL (1.3-3.2); Glucose 80 mg/dl (74-100); Sodium 130 mmol/L (136-145); Total Protein,Serum 6.4 g/dl (6.3-8.2)
[2021-07-06 11:56] LABS: Eosinophils % 1 % (0-3); Lymphocytes % 10 % (10-50); Monocytes % 5 % (2-9); Neutrophils % 81 % (42-76); Nucleated Red Blood Cells 1; Platelet Estimate Normal; RBC Morphology Normal; Total Cells Counted 100
--- NOTE | 2021-07-06 11:58 | PC.NURSE ---
1158-spoke with darshan jimenez aprn to increase ns rate to 150ml/hr
[2021-07-06 12:08] LABS: Thyroid Stimulating Hormone 1.33 uIU/mL (0.465-4.68)
[2021-07-06 13:16] VITALS: BMI 29.8
--- NOTE | 2021-07-06 13:30 | PC.NURSE ---
1330-gave report to fabby morris; pt to room 201 will transfer after echo.
--- NOTE | 2021-07-06 13:30 | PC.NURSE ---
1330- [facility] operating room surgical technologist here to do echo.
--- NOTE | 2021-07-06 13:36 | NM_ITS ---
PROCEDURE: NM PUL VENT AND PERFUSE CLINICAL INDICATION: shortness of breath COMPARISON: CR XR CHEST 2V from 07/06/2021 TECHNIQUE: Dose 36.5 mCi technetium DTPA the a inhaled and 8.67 mCi technetium MAA IV. FINDINGS: No segmental mismatch perfusion/ventilation defects are evident. Matching segmental defect is present in the left upper lobe anteriorly and in the left perihilar region. There is some clumping of the radiopharmaceutical centrally which may be seen with small airway disease. IMPRESSION: Low probability for pulmonary embolus. Dictated by: Wisam Ch MD 07/06/2021 16:42 Wisam Ch MD in [facility] 07/06/2021 16:42
--- NOTE | 2021-07-06 13:42 | P.CONPHA_ITS ---
[facility] Pharmacy VTE Monitoring - Patient Demographics Admission date: 07/06/21 Report Date: 07/06/21 Time: 13:42 Allergies/Adverse Reactions: Patient Allergies No Known Allergies Allergy (Verified 06/08/19 11:12) Height: 1.73 m Weight: 87.543 kg - VTE Risk Labs: VTE Related Lab Results Hgb 12.9 g/dL (14.1-18.0) L 07/06/21 11:10 Hct 37.5 % (42.0-52.0) L 07/06/21 11:10 Plt Count 370 K/mm3 (142-424) 07/06/21 11:10 BUN 62 mg/dl (9-20) H 07/06/21 11:10 Creatinine 2.70 mg/dl (0.66-1.25) H 07/06/21 11:10 Estimated Creat Clear 31 mL/min (50-200) 07/06/21 11:10 - Prophylaxis VTE Prophylaxis Ordered?: Yes Types of VTE Prophylaxis: TEDS Knee High, Pharmacological Location of Applied Device: Bilateral Lower Extremeties Pharmacologic Type: Enoxaparin
[2021-07-06 14:15] VITALS: BP 154/68; PULSE 72; RESP 18
--- NOTE | 2021-07-06 14:15 | PC.NURSE ---
1415-pt transferred to 2nd floor room 201 via wheelchair; gave report to tyshawn sewell rn.
--- NOTE | 2021-07-06 15:54 | XR_ITS ---
PROCEDURE: XR CHEST 2V CLINICAL HISTORY: s/p covid, sob COMPARISON: CT CT CHEST WO CON from 04/18/2021 CR XR RIBS RT MIN 3V W CXR1V from 06/04/2021 CR XR CHEST 2V from 06/04/2021 FINDINGS: There is cardiomegaly. There has been a prior CABG. No CHF. There is a small left pleural effusion. Two pulmonary nodules are visualized 1 in the right midlung at 18 mm previously 28 mm. Left midlung nodule at 7 mm previously 19 mm. IMPRESSION: Cardiomegaly with small left effusion with decreasing size pulmonary nodules suggesting improvement in metastatic disease. Dictated by: Wisam Ch MD 07/06/2021 17:01 Wisam hC MD in [facility] 07/06/2021 17:01
[2021-07-06 16:00] VITALS: BP 119/63; PULSE 94; RESP 18; TEMP 36.8; O2SAT 94
--- NOTE | 2021-07-06 18:03 | HMH.HP ---
*Admission Date: 07/06/21 *Chief complaint: weakness, dehydration *History of present illness: 71 year old with metastatic renal cell carcinoma who recently had COVID-19 was seen today for increased weakness, dehydration and confusion. reported 2 week history of diarrhea and poor oral intake. Seen at PCP office last week, dx with COVID-19. Treated with regeneron. (Released from quarantine yesterday.) Patient reports orthostasis, headaches and decreased urine output. He has developed ascites and significant LE over the last week. Currently followed by Dr. Piyush Pierre for RCC, getting Q3 week treatments of Opdivo and Yervoy. reports he was scheduled for 4th and final treatment today. Sent to [facility] for labs/IVF's. Found to have creatinine of 2.7 and sodium 130. He was admitted for aggressive hydration and further evaluation. Preliminary echo- Mild , MR/TR with EF 55%. Venous Doppler RLE negative for DVT. VQ scan is pending. [facility] History I have reviewed the patient's past medical history: Yes Medical History: Reports:: Coronary Artery Disease, Diabetes Mellitus Type 2, Gastroesophageal Reflux Disease(GERD), Hyperlipidemia, Hypertension, Kidney Stones Denies:: Cancer, Diabetes Mellitus Type 1, Internal Pacemaker, Lung Disease, MRSA, Seizures *Have you ever received a pneumonia vaccine?: No *Have you received a flu vaccine this season?: No Other Medical History: Reports: Glaucoma, Other (metastatic renal cell carcinoma) Laterality Cases: Bilateral: Tonsillectomy Other Surgeries: Yes: CABG (3 vessel), Cancer Surgery, Colonoscopy, Other (renal stone, eye). No: Pacemaker Amputation: No Fractures: No - *Social History Smoking Status: Former smoker # Packs/Day (cigarettes): 1 #Yrs smoked (if former smoker): 30 Alcohol Intake: never Substance Use Type: denies use *Occupational Status:: unemployed Housing: house Household Members: spouse *Travel in the last 8 weeks: None Family Hx:: Other Review of Systems - Review of Systems Review of systems:: pertinent systems reviewed and negative unless documented below - Constitutional Reports fatigue, Reports malaise, Reports weight loss - *Cardiovascular Reports leg swelling - *Respiratory Reports cough, Reports shortness of breath - *Gastrointestinal Reports loose stools - *Genitourinary Reports decreased urination - *Musculoskeletal Reports muscle weakness - *Neurologic Reports confusion Meds Home Medications Medication Instructions Recorded Confirmed Type Amlodipine Besylate [Amlodipine 5 mg PO DAILY 04/20/19 06/08/19 History 10mg Tab] Aspirin [Aspir 81] 81 mg PO DAILY 04/20/19 06/08/19 History Atorvastatin Calcium [Atorvastatin 80 mg PO HS 04/20/19 06/08/19 History 80mg Tab] Calcium Carb/Vitamin D3/Vit K1 1 each PO DAILY 04/20/19 06/08/19 History [Calcium + D Soft Chewable Tab] Celecoxib [Celebrex 200mg cap] 200 mg PO BID 04/20/19 06/08/19 History Citalopram Hydrobromide 20 mg PO DAILY 04/20/19 06/08/19 History [Citalopram HBr] Ezetimibe [Zetia] 10 mg PO DAILY 04/20/19 06/08/19 History Metformin HCl [Metformin ER 500 mg PO BID 04/20/19 06/08/19 History Gastric] [place]-3 Fatty Acids [Fish Oil] 300 mg PO DAILY 04/20/19 06/08/19 History Omeprazole 20 mg PO DAILY 04/20/19 06/08/19 History Allergies Allergy/AdvReac Type Severity Reaction Status Date / Time No Known Allergies Allergy Verified 06/08/19 11:12 Exam Vital signs and Labs for Last 24 Hours: Temp Pulse Resp BP Pulse Ox 98.2 F 94 H 18 119/63 94 L 07/06/21 16:00 07/06/21 16:00 07/06/21 16:00 07/06/21 16:00 07/06/21 16:00 Laboratory Results - last 24 hr 07/06/21 11:10: WBC 5.9, RBC 4.31 L, Hgb 12.9 L, Hct 37.5 L, MCV 86.9, MCH 30.0, MCHC 34.5, RDW 14.0, Plt Count 370, MPV 7.9, Neut % (Auto) 85.9 H, Lymph % (Auto) 8.4 L, [place] % (Auto) 5.4, Eos % (Auto) 0.0 L, Baso % (Auto) 0.2, Neut # (Auto) 5.1, Lymph # (Auto) 0.5 L, [place] # (Auto) 0.3, Eos # (Auto) 0.0,
[2021-07-06 18:10] LABS: Coronavirus 19, PCR Not Detected (NotDetected); Influenza A, PCR Not Detected (NotDetected); Influenza B, PCR Not Detected (NotDetected)
[2021-07-06 18:12] LABS: Microscopic, Urine URINE MICROSCOPIC (MICROSCOPIC)
[2021-07-06 18:42] LABS: Appearance,Urine CLEAR (Clear); Bilirubin,Urine Negative (Negative); Blood, Urine Negative (Negative); Color,Urine YELLOW (Yellow); Glucose,Urine (UA) Negative (Negative); Ketones,Urine Negative (Negative); Leukocyte Esterase,Urine Negative (Negative); Nitrate,Urine Negative (Negative); PH,Urine 5.5 (5.0-8.5); Protein,Urine TRACE (Negative); Specific Gravity, Urine 1.025 (1.005-1.030); Urobilinogen,Urine 0.2 EU/dl (0.2)
[2021-07-06 19:36] VITALS: BP 141/72; PULSE 79; RESP 18; TEMP 36.7; O2SAT 93
[2021-07-06 22:15] LABS: POC Glucose,Bedside 193 (70-110)
[2021-07-07 04:00] VITALS: BP 123/87; PULSE 83; RESP 14; TEMP 36.8; O2SAT 93
[2021-07-07 05:30] VITALS: BMI 29.6
[2021-07-07 08:00] VITALS: BP 134/86; PULSE 93; RESP 16; TEMP 36.8; O2SAT 96
--- NOTE | 2021-07-07 08:19 | HMH.ACPN2 ---
Internal Medicine - PN: Subj *Date: 07/07/21 *Time: 08:19 Interval history: Patient is pleasant, alert but somewhat disoriented as to his symptoms and to time of year. He is smiling and cooperative. Exam Vital signs and Labs for Last 24 Hours: Temp Pulse Resp BP Pulse Ox 98.2 F 83 14 123/87 93 L 07/07/21 04:00 07/07/21 04:00 07/07/21 04:00 07/07/21 04:00 07/07/21 04:00 Laboratory Results - last 24 hr 07/06/21 11:10: WBC 5.9, RBC 4.31 L, Hgb 12.9 L, Hct 37.5 L, MCV 86.9, MCH 30.0, MCHC 34.5, RDW 14.0, Plt Count 370, MPV 7.9, Neut % (Auto) 85.9 H, Lymph % (Auto) 8.4 L, [place] % (Auto) 5.4, Eos % (Auto) 0.0 L, Baso % (Auto) 0.2, Neut # (Auto) 5.1, Lymph # (Auto) 0.5 L, [place] # (Auto) 0.3, Eos # (Auto) 0.0, Baso # (Auto) 0.0, Total Counted 100, Neutrophils % (Manual) 81 H, Band Neutrophils % 3.0, Lymphocytes % (Manual) 10, Monocytes % (Manual) 5, Eosinophils % (Manual) 1, Nucleated RBCs 1, Platelet Estimate Normal, RBC Morphology Normal 07/06/21 11:10: Sodium 130 L, Potassium 5.0, Chloride 98, Carbon Dioxide 21 L, Anion Gap 16.0 H, BUN 62 H, Creatinine 2.70 H, Estimated Creat Clear 31, Estimated GFR 23 L, Est GFR ( Amer) 28 L, Glucose 80, Calcium 8.3 L, Total Bilirubin 0.8, AST 39, ALT 6 L, Alkaline Phosphatase 211 H, Total Protein 6.4, Albumin 3.3 L, Globulin 3.1, Albumin/Globulin Ratio 1.1, TSH 1.33 07/06/21 17:45: Urine Color Yellow, Urine Appearance Clear, Urine pH 5.5, Ur Specific [place] 1.025, Urine Protein Trace, Urine Glucose (UA) Negative, Urine Ketones Negative, Urine Blood Negative, Urine Nitrate Negative, Urine Bilirubin Negative, Urine Urobilinogen 0.2, Ur Leukocyte Esterase Negative, Urine RBC None, Urine WBC None, Ur Squamous Epith Cells None, Urine Bacteria None 07/06/21 17:45: SARS-CoV-2 (PCR) Not detected, Influenza A Untype (PCR) Not detected, Influenza Type B (PCR) Not detected 07/06/21 20:19: POC Glucose 193 H I & O for Last 24 hours: Intake & Output 07/04/21 07/05/21 07/06/21 07/07/21 11:59 11:59 11:59 11:59 Intake Total 2876 / 2876 Output Total 550 / 550 Balance 2326 / 2326 Weight 193 lb 195 lb 5.273 oz Narrative: Breathing easily. No oxygen requirement. Lungs have rhonchi bilaterally. Heart rate regular with previously noted systolic ejection murmur. No gallops. Abdomen soft, some evidence of ascitic fluid. Extremities have 2+ edema to mid recinos. No skin breakdown. Alvarado catheter is draining clear yellow urine. Neurologic exam is nonfocal but he is a little bit cognitively impaired compared to his baseline. 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 Category: Medical Code(s): C78.00 - Secondary malignant neoplasm of unspecified lung; C64.9 - Malignant neoplasm of unspecified kidney, except renal pelvis (2) Type 2 diabetes mellitus Status: Chronic Qualifiers: Diabetes mellitus intermediate insulin use: without intermediate use Diabetes mellitus complication status: without complication Qualified Code(s): E11.9 - Type 2 diabetes mellitus without complications Category: Medical Code(s): E11.9 - Type 2 diabetes mellitus without complications (3) Essential (primary) hypertension Status: Chronic Category: Medical Code(s): I10 - Essential (primary) hypertension (4) HEIDE (acute kidney injury) Status: Acute Category: Medical Code(s): N17.9 - Acute kidney failure, unspecified (5) Dehydration Status: Acute Category: Medical Code(s): E86.0 - Dehydration (6) Ascites Status: Acute Category: Medical Code(s): R18.8 - Other ascites (7) Depression Status: Chronic Category: Medical Code(s): F32.A - Depression, unspecified (8) Hyperlipidemia Status: Acute Category: Medical Code(s): E78.5 - Hyperlipidemia, unspecified - Assessment and plan all Dx Assessment and Plan for all problems:: Labs pending this morning related to kidney injury. Echocardiogram shows preserved ejecti
--- NOTE | 2021-07-07 08:41 | MR_ITS ---
PROCEDURE INFORMATION: Exam: MR Head Without Contrast Exam date and time: 07/07/2021 8:41 AM Age: 71 years old Clinical indication: Altered mental status/memory loss; Confusion or disorientation; Patient HX: AMS, mental status change, HX liver cancer TECHNIQUE: Imaging protocol: MR of the head without contrast. COMPARISON: NM BONE SCAN WHOLE BODY 10/05/2019 12:24 PM FINDINGS: Brain: T2/FLAIR hyperintense signal within the periventricular and subcortical white matter bilaterally, compatible with chronic small vessel ischemic changes, demyelination, or gliosis. There is parenchymal atrophy. No mass, hemorrhage, or acute infarction. Old lacunar infarction within the left basal ganglia and left caudate head nucleus. Cerebral ventricles: Normal. No ventriculomegaly. Bones/joints: Unremarkable. Paranasal sinuses: Right maxillary sinus mucous retention cysts. Mastoid air cells: Normal as visualized. No mastoid effusion. Orbital cavity: Unremarkable. Soft tissues: Unremarkable. IMPRESSION: No acute intracranial abnormality.
[2021-07-07 09:12] LABS: Basophils % 0.4 % (0.1-2.0); Hematocrit 35.7 % (42.0-52.0); Hemoglobin 12.4 g/dL (14.1-18.0); Lymphocytes # 0.8 K/mm3 (0.7-4.5); Lymphocytes % 12.9 % (10-50); Mean Corpuscular HGB Conc 34.7 g/dL (31.8-35.4); Mean Corpuscular Hemoglobin 29.4 pg (27.0-31.2); Mean Corpuscular Volume 84.8 fl (80-94); Mean Platelet Volume 7.7 fl (7.4-10.4); Monocytes # 0.4 K/mm3 (0.1-1.0); Monocytes % 5.9 % (1.7-9.3); Neutrophils % 80.7 % (37.0-80.0); Platelet Count 371 K/mm3 (142-424); Red Blood Count 4.21 M/mm3 (4.60-6.20); Red Cell Distribution Width 14.1 % (11.5-17.5); White Blood Count 6.2 K/mm3 (4.8-10.8)
[2021-07-07 09:20] LABS: Chloride 101 mmol/L (98-107); Potassium 4.9 mmoL/L (3.5-5.1); Sodium 131 mmol/L (136-145)
[2021-07-07 09:23] LABS: Alanine Aminotransferase 8 U/L (12-78); Albumin Level 3.3 g/dl (3.5-5.0); Alkaline Phosphatase 251 U/L (38-126); Anion Gap 15.9 mEq/L (5-15); Aspartate Amino Transferase 35 U/L (17-59); Bilirubin,Total 0.6 mg/dl (0.2-1.3); Blood Urea Nitrogen 55 mg/dl (9-20); Carbon Dioxide 19 mmol/L (22.0-30.0); Creatinine Clearance Estimated 35 mL/min (50-200); Estimated Glomerular Filt Rate 27 ml/min (>60); GFR (African American) 32 ML/MIN (>60); Globulin 3.2 g/dL (1.3-3.2); Glucose 111 mg/dl (74-100); Total Protein,Serum 6.5 g/dl (6.3-8.2)
[2021-07-07 16:00] VITALS: BP 131/71; PULSE 82; RESP 22; TEMP 36.7; O2SAT 94
--- NOTE | 2021-07-07 18:57 | PC.NURSE ---
pt is confused. he is able to be somewhat reoriented but is having trouble remembering simple ques and following through with tasks.
[2021-07-07 20:00] VITALS: BP 141/85; PULSE 87; RESP 16; TEMP 36.9; O2SAT 94
[2021-07-08 04:00] VITALS: BP 128/67; PULSE 78; RESP 20; TEMP 36.8; O2SAT 95
[2021-07-08 04:38] VITALS: BMI 29.5
[2021-07-08 04:49] VITALS: BMI 29.0
--- NOTE | 2021-07-08 06:33 | PC.NURSE ---
Patient is alert to his name, date of , and knowing that he is in the hospital. Patient has some mild cognitive deficit. He will ramble very softly some words that this RN is unable to understand. When asked about what was said patient doesn't respond with an answer, he just giggles.
[2021-07-08 06:36] LABS: POC Glucose,Bedside 98 (70-110)
[2021-07-08 08:00] VITALS: BP 141/75; PULSE 81; RESP 22; TEMP 36.9; O2SAT 96
--- NOTE | 2021-07-08 08:04 | HMH.ACPN2 ---
Internal Medicine - PN: Subj *Date: 07/08/21 *Time: 08:04 Interval history: Over the last 24 hours patient's urine output has improved. He has had no further diarrhea. MRI of brain yesterday was negative for acute processes or metastases. Patient continues to be somewhat sluggish, continues to state that he feels poorly and tired. Exam Vital signs and Labs for Last 24 Hours: Temp Pulse Resp BP Pulse Ox 98.3 F 78 20 128/67 95 07/08/21 04:00 07/08/21 04:00 07/08/21 04:00 07/08/21 04:00 07/08/21 04:00 Laboratory Results - last 24 hr 07/07/21 08:52: WBC 6.2, RBC 4.21 L, Hgb 12.4 L, Hct 35.7 L, MCV 84.8, MCH 29.4, MCHC 34.7, RDW 14.1, Plt Count 371, MPV 7.7, Neut % (Auto) 80.7 H, Lymph % (Auto) 12.9, [place] % (Auto) 5.9, Eos % (Auto) 0.0 L, Baso % (Auto) 0.4, Neut # (Auto) 5.0, Lymph # (Auto) 0.8, [place] # (Auto) 0.4, Eos # (Auto) 0.0, Baso # (Auto) 0.0 07/07/21 08:52: Sodium 131 L, Potassium 4.9, Chloride 101, Carbon Dioxide 19 L, Anion Gap 15.9 H, BUN 55 H, Creatinine 2.40 H, Estimated Creat Clear 35, Estimated GFR 27 L, Est GFR ( Amer) 32 L, Glucose 111 H D, Calcium 8.0 L, Total Bilirubin 0.6, AST 35, ALT 8 L D, Alkaline Phosphatase 251 H, Total Protein 6.5, Albumin 3.3 L, Globulin 3.2, Albumin/Globulin Ratio 1.0 L 07/08/21 06:10: POC Glucose 98 I & O for Last 24 hours: Intake & Output 07/05/21 07/06/21 07/07/21 07/08/21 11:59 11:59 11:59 11:59 Intake Total 3356 / 3356 360 / 360 Output Total 550 / 550 1575 / 1575 Balance 2806 / 2806 -1215 / -1215 Weight 193 lb 195 lb 5.273 oz 191 lb 12.835 oz Narrative: Patient is oriented to place and person, disoriented to year and month. He appears somewhat sluggish but is able to focus and have a conversation although his speech is very slowed although not slurred. Lungs have some rhonchi but good air movement, heart rate regular. Abdomen is soft, swelling is improved. Leg swelling is improved. Alvarado catheter draining clear yellow urine. ENT exam clear. 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 Category: Medical Code(s): C78.00 - Secondary malignant neoplasm of unspecified lung; C64.9 - Malignant neoplasm of unspecified kidney, except renal pelvis (2) Type 2 diabetes mellitus Status: Chronic Qualifiers: Diabetes mellitus circulation supervisor insulin use: without circulation supervisor use Diabetes mellitus complication status: without complication Qualified Code(s): E11.9 - Type 2 diabetes mellitus without complications Category: Medical Code(s): E11.9 - Type 2 diabetes mellitus without complications (3) Essential (primary) hypertension Status: Chronic Category: Medical Code(s): I10 - Essential (primary) hypertension (4) HEIDE (acute kidney injury) Status: Acute Category: Medical Code(s): N17.9 - Acute kidney failure, unspecified (5) Dehydration Status: Acute Category: Medical Code(s): E86.0 - Dehydration (6) Ascites Status: Acute Category: Medical Code(s): R18.8 - Other ascites (7) Depression Status: Chronic Category: Medical Code(s): F32.A - Depression, unspecified (8) Hyperlipidemia Status: Acute Category: Medical Code(s): E78.5 - Hyperlipidemia, unspecified - Assessment and plan all Dx Assessment and Plan for all problems:: Kidney injury improving. Mental status is still sluggish. Continue IV fluids and supportive care, no further diarrhea. We will discuss with tomorrow next step/goals of care given his significant downward trend in his physiologic status.
[2021-07-08 13:06] VITALS: BMI 29.0
[2021-07-08 16:00] VITALS: BP 140/74; PULSE 79; RESP 20; TEMP 36.6; O2SAT 95
[2021-07-08 20:00] VITALS: BP 140/69; PULSE 83; RESP 20; TEMP 36.6; O2SAT 94
[2021-07-08 21:16] LABS: POC Glucose,Bedside 176 (70-110)
[2021-07-08 21:16] LABS: POC Glucose,Bedside 84 (70-110)
[2021-07-08 21:16] LABS: POC Glucose,Bedside 160 (70-110)
[2021-07-08 21:16] LABS: POC Glucose,Bedside 105 (70-110)
[2021-07-08 21:16] LABS: POC Glucose,Bedside 141 (70-110)
[2021-07-08 21:16] LABS: POC Glucose,Bedside 158 (70-110)
[2021-07-09 04:00] VITALS: BP 136/70; PULSE 78; RESP 20; TEMP 36.6; O2SAT 94
[2021-07-09 04:31] VITALS: BMI 29.5
[2021-07-09 07:35] LABS: Basophils % 0.2 % (0.1-2.0); Hematocrit 36.3 % (42.0-52.0); Lymphocytes # 1.1 K/mm3 (0.7-4.5); Lymphocytes % 18.6 % (10-50); Mean Corpuscular HGB Conc 33.2 g/dL (31.8-35.4); Mean Corpuscular Hemoglobin 28.7 pg (27.0-31.2); Mean Corpuscular Volume 86.6 fl (80-94); Mean Platelet Volume 7.7 fl (7.4-10.4); Monocytes # 0.4 K/mm3 (0.1-1.0); Monocytes % 6.1 % (1.7-9.3); Neutrophils # 4.3 K/mm3 (1.8-7.8); Neutrophils % 75.1 % (37.0-80.0); Platelet Count 302 K/mm3 (142-424); Red Blood Count 4.19 M/mm3 (4.60-6.20); Red Cell Distribution Width 14.3 % (11.5-17.5); White Blood Count 5.7 K/mm3 (4.8-10.8)
[2021-07-09 07:52] VITALS: BP 134/72; PULSE 81; RESP 20; TEMP 37.3; O2SAT 95
[2021-07-09 07:59] LABS: Anion Gap 9.2 mEq/L (5-15); Blood Urea Nitrogen 37 mg/dl (9-20); Calcium 7.9 mg/dl (8.4-10.2); Carbon Dioxide 21 mmol/L (22.0-30.0); Chloride 108 mmol/L (98-107); Creatinine Clearance Estimated 46 mL/min (50-200); Estimated Glomerular Filt Rate 37 ml/min (>60); GFR (African American) 45 ML/MIN (>60); Glucose 122 mg/dl (74-100); Potassium 4.2 mmoL/L (3.5-5.1); Sodium 134 mmol/L (136-145)
--- NOTE | 2021-07-09 08:55 | HMH.DCSUM ---
General - General Admission date:: 07/06/21 Discharge date: 07/09/21 HPI HPI: 71 year old with metastatic renal cell carcinoma who recently had COVID-19 was seen today for increased weakness, dehydration and confusion. reported 2 week history of diarrhea and poor oral intake. Seen at PCP office last week, dx with COVID-19. Treated with regeneron. (Released from quarantine yesterday.) Patient reports orthostasis, headaches and decreased urine output. He has developed ascites and significant LE over the last week. Currently followed by Dr. Piyush Pierre for RCC, getting Q3 week treatments of Opdivo and Yervoy. reports he was scheduled for 4th and final treatment today. Sent to [facility] for labs/IVF's. Found to have creatinine of 2.7 and sodium 130. He was admitted for aggressive hydration and further evaluation. Preliminary echo- Mild , MR/TR with EF 55%. Venous Doppler RLE negative for DVT. VQ scan is pending. Hospital Course Hospital Course: Patient was admitted to hospital. IV fluids were given because of acute kidney injury. Because of his increasing edema echocardiogram was done which revealed preserved ejection fraction. MRI of brain was done which revealed no lesions, no evidence of stroke and essentially normal exam. Patient improved slowly over the next couple of days with IV fluids and supportive care. This morning he was feeling better, creatinine was trending back toward his baseline. I discussed case with his and daughter and patient. They note that his confusion has been present for the past couple of weeks but it comes and goes. His exam had improved with improvement of his edema as his urine output and kidney function improved and the decision was made to discharge patient. He will have a PT and OT evaluation before discharge. Probable home health referral for PT/OT/nursing care/home safety evaluation if recommended by PT as patient can only leave the house with a great deal of difficulty. We will continue his regular medicines and I will see him on his follow-up on July 23 as scheduled. I think this episode was a consequence of residual COVID-19 effect with gastritis and pneumonitis as well as side effects of his recent chemotherapy and immunotherapy for cancer. Objective Vital signs: Temp Pulse Resp BP Pulse Ox 99.1 F 81 20 134/72 95 07/09/21 07:52 07/09/21 07:52 07/09/21 07:52 07/09/21 07:52 07/09/21 07:52 no acute distress - *Routine HEENT Exam Head: Present: normocephalic Eye: Present: EOMI, PERRL ENT: Present: mucous membranes moist - *Routine Neck Exam Present: supple - *Routine Respiratory Exam Present: CTA bilaterally - *Routine Cardiovascular Exam Present: RRR - *Routine Abdominal Exam Present: soft, normoactive bowel sounds. Absent: tenderness - *Routine Extremities Exam Present: edema. Absent: cyanosis, clubbing Comments: 1+ ankle edema to shins, improved over admission - *Routine Skin Exam Present: warm. Absent: rash - *Routine Neurological Exam Present: alert, CN II-XII intact Minimally confused to date and year but oriented to place and person. Oriented to reason why he is here and his recent cancer treatments. - Detailed Eye Exam Eyelids: Bilateral normal inspection Results Labs on day of discharge: Labs from last 24 hours 07/09/21 07/09/21 07/08/21 07:19 07:19 16:24 WBC 5.7 RBC 4.19 L Hgb 12.0 L Hct 36.3 L MCV 86.6 MCH 28.7 MCHC 33.2 RDW 14.3 Plt Count 302 MPV 7.7 Neut % (Auto) 75.1 Lymph % (Auto) 18.6 [place] % (Auto) 6.1 Eos % (Auto) 0.0 L Baso % (Auto) 0.2 Neut # (Auto) 4.3 Lymph # (Auto) 1.1 [place] # (Auto) 0.4 Eos # (Auto) 0.0 Baso # (Auto) 0.0 Sodium 134 L Potassium 4.2 Chloride 108 H Carbon Dioxide 21 L Anion Gap 9.2 BUN 37 H D Creatinine 1.80 H D Estimated Creat Clear 46 Estimated GFR 37 L Est GFR (Af
--- NOTE | 2021-07-09 10:30 | HMH.PTEV ---
Physical Therapy Evaluation Rehab PT IP Evaluation Start: 07/08/21 11:48 Freq: ONCE Status: Active Protocol: Document 07/09/21 10:19 PHOMELITON (Rec: 07/09/21 10:30 PHORNE [id number]) Subjective/History History History 71 yowm adm to [facility] with dehydration. Hx of Parkinson's disease and metastatic renal cell CA. He lives with , ramp to enter the home, uses cane or walker for ambulation at home. Subjective Subjective Pt reports feeling tired, but agrees to treatment this am. Rehab PT IP Eval Objective Appearance Patient Behavior Appropriate Patient Orientation Person,Place Difficulty following instructions none Speech Pattern Clear Ambulation Patient Able to Ambulate Yes Ambulation Observation IP General Gait Pattern Observation Shuffling Step Ambulation Distance (feet) 30 Ambulation Assistive Device None Ambulation Ability Contact Guard/Hand Hold Balance Ability to Arise Able, uses arms to help Sitting Balance Steady, safe Standing Balance Steady, wide stance Dynamic Sitting Balance Ability Good Dynamic Standing Balance Ability Fair Transfers Bed Transfer Ability Contact Guard/Hand Hold Chair Transfer Ability Contact Guard/Hand Hold Sit to Stand Bed Transfer Ability Contact Guard/Hand Hold Sit to Stand Chair Transfer Ability Contact Guard/Hand Hold Rehab PT IP prob,goals,plan Problems Date of Evaluation: 07/09/21 Discharge Plan PT Discharge Plan Pt is appropriate to return home once medically stable. Recommend home health therapy. G -code Required No Eval Complexity Eval Charge Codes 04316 - Moderate Complexity PHYSICIAN CERTIFICATION: I certify the specified therapy services for Tito Daniel are required, authorized, and reviewed every 30 days.
--- NOTE | 2021-07-09 10:44 | HMH.OTEV ---
OT Inpatient Evaluation Rehab OT IP Evaluation Start: 07/08/21 11:48 Freq: ONCE Status: Complete Protocol: Document 07/09/21 10:31 [facility] (Rec: 07/09/21 10:43 [facility] [id number]) Rehab OT IP Assessment Subjective History Pt oriented x 3 on arrival. Pt agreeable to engage in therapy evaluation. present and supportive. Pt was admitted on 07/06/21 due to weakness and dehydration following COVID dx. Pt has a past medical history of Parkinson's, Coronary Artery Disease, Diabetes Mellitus Type 2, Gastroesophageal Reflux Disease(GERD), Hyperlipidemia, Hypertension, Kidney Stones. Pt reports prior to being in the hosptial he lived at home with his . Pt claims he is able to dress, feed, and shower himself independently. However, he is dependent upon his for all IADLS. Pt does use a walker to increase functional mobility. Subjective I can usually do a lot. Pt completed bed mobility with sba and went from supine to sitting at eob. Pt stood from eob with cga. Objective Patient Orientation Person,Place,Birthday Upper Extremity Gross ROM Min Limitation <25% Shoulder ROM Limitations Muscle Weakness Elbow ROM Limitations Muscle Weakness Wrist Limitations of Range of Motion Muscle Weakness Bed Mobility bed mobility-scooting,bed mobility - supine/sit,bed mobility - rolling Assist Level Supervision/Stand by Transfer Training Sit/Stand Transfer Assist Level Contact Guard/Hand Hold Rehab OT IP prob,goals,plan Problems Date of Evaluation: 07/09/21 Rehab Potential Rehab Potential Innapropriate for Skilled Therapy Discharge Plan OT Discharge Plan At this time patient is being discharged home with assistance/supervision 10/03 from . Pt would benefit from Home h
--- NOTE | 2021-07-09 15:47 | SW/DCPLANNER ---
RECEIVED REFERRAL FOR HOME HEALTH SERVICES FOR THIS PATIENT THAT DISCHARGED TODAY HE WILL RECEIVE HOME HEALTH PT/OT SN EVAL AND TREAT, ALSO HOME SAFETY.. PATIENT WILL BE SEEN IN THE AM AND WILL RECEIVE SERVICES FROM [facility]....
[2021-07-09 20:46] LABS: POC Glucose,Bedside 129 (70-110)
== END 2021-07-09 10:25 | disposition home health service (06) ==
LOC: 2ND 13:14
PROVIDERS: Admitting Provider Internal Medicine Adolescent Medicine; PCP Internal Medicine Adolescent Medicine; Visit Provider Nurse Practitioner Family
DX: E86.0 Dehydration (principal); C78.02 Secondary malignant neoplasm of left lung; C64.1 Malignant neoplasm of right kidney, except renal pelvis; R18.8 Other ascites; Z86.16 Personal history of COVID-19; E11.9 Type 2 diabetes mellitus without complications; N17.9 Acute kidney failure, unspecified; I10 Essential (primary) hypertension; I25.10 Atherosclerotic heart disease of native coronary artery without angina pectoris; K21.9 Gastro-esophageal reflux disease without esophagitis; Z79.899 Other long term (current) drug therapy; Z79.84 Long term (current) use of oral hypoglycemic drugs; Z95.1 Presence of aortocoronary bypass graft; Z20.822 Contact with and (suspected) exposure to COVID-19
CPT/HCPCS: G0378; G0379; 36415; 70551; 71046; 78582; 80048; 80053; 81001; 82962; 84443; 85007; 85025; 93306; 93971; 96360; 96361; 97162; 97166; A9540; A9567; C9803; U0003; U0005

== ENCOUNTER 2021-07-11 12:16 | Observation (INO) | payer MEDICARE, OTHER, SELFPAY ==
[2021-07-11] VITALS (14 sets, daily range): BP systolic 125–161; BP diastolic 64–95; PULSE 84–98; RESP 16–20; TEMP 36.7–37.6; O2SAT 92–96; BMI 29.3; BMI 30.9; BMI 31.0
[2021-07-11 13:16] LABS: Chloride 108 mmol/L (98-107); Potassium 4.9 mmoL/L (3.5-5.1); Sodium 137 mmol/L (136-145)
[2021-07-11 13:18] LABS: Basophils % 0.2 % (0.1-2.0); Hematocrit 38.8 % (42.0-52.0); Hemoglobin 12.5 g/dL (14.1-18.0); Lymphocytes # 0.6 K/mm3 (0.7-4.5); Lymphocytes % 5.5 % (10-50); Mean Corpuscular HGB Conc 32.3 g/dL (31.8-35.4); Mean Corpuscular Hemoglobin 28.5 pg (27.0-31.2); Mean Corpuscular Volume 88.2 fl (80-94); Mean Platelet Volume 7.5 fl (7.4-10.4); Monocytes # 0.4 K/mm3 (0.1-1.0); Monocytes % 3.2 % (1.7-9.3); Neutrophils # 10.1 K/mm3 (1.8-7.8); Neutrophils % 90.9 % (37.0-80.0); Platelet Count 276 K/mm3 (142-424); Red Blood Count 4.39 M/mm3 (4.60-6.20); Red Cell Distribution Width 14.6 % (11.5-17.5); White Blood Count 11.1 K/mm3 (4.8-10.8)
--- NOTE | 2021-07-11 13:18 | HMH.EDGENADL ---
ED Disposition Clinical Impression: Anasarca Sepsis Qualifiers: Sepsis type: sepsis due to unspecified organism Sepsis acute organ dysfunction status: without acute organ dysfunction Qualified Code(s): A41.9 - Sepsis, unspecified organism UTI (urinary tract infection) Qualifiers: Urinary tract infection type: acute pyelonephritis Qualified Code(s): N10 - Acute pyelonephritis Disposition: Admitted as Observation Condition on Discharge: Fair Referrals: Anson Davison MD [Primary Care Provider] - - Critical Care Critical Care Time: No Attestation: On 07/11/21, the high probability of a clinically significant, sudden or life threatening deterioration of the following system(s) required my full and direct attention, intervention and personal management. The time I documented below is in addition to time spent performing reported procedures but includes the following listed in this critical care notation. Medical Decision Making - Medical Records Medical records reviewed: Yes: I reviewed the patient's medical records. MR Comment: Reviewed discharge summary from admission 07/06/2021. Reviewed results of imaging studies including brain MRI which showed no acute disease, pulmonary perfusion study which was low probability for pulmonary embolus, Dopplers of the legs which did not show any DVT, chest x-ray which showed small left effusion, cardiomegaly, and decreased size of nodules. Reviewed labs which were remarkable for acute kidney injury and hyponatremia. Creatinine 2.7 on admission, decreased to 1.8 by discharge. - Sina Inquiry Pt receiving controlled substance: No Vital Signs: 07/11/21 12:18 07/11/21 13:01 07/11/21 13:31 Temperature 98.7 F 99.7 F H Temperature Source Oral Oral Pulse Rate 93 H 92 H Pulse Rate [Right Radial] 97 H Respiratory Rate 20 20 Blood Pressure 125/83 134/77 Blood Pressure [Right Arm] 146/95 H Blood Pressure Mean 98 95 Blood Pressure Mean [Right Arm] 112 Blood Pressure Source [Right Arm] Automatic Cuff Blood Pressure Position [Right Arm] Sitting 02 Sat by Pulse Oximetry 94 L 94 L 94 L Oxygen Delivery Method Room Air Room Air 07/11/21 14:01 07/11/21 14:30 Temperature Temperature Source Pulse Rate 95 H 92 H Pulse Rate [Right Radial] Respiratory Rate Blood Pressure 161/88 H 139/86 Blood Pressure [Right Arm] Blood Pressure Mean 112 102 Blood Pressure Mean [Right Arm] Blood Pressure Source [Right Arm] Blood Pressure Position [Right Arm] 02 Sat by Pulse Oximetry 96 92 L Oxygen Delivery Method - Lab Data Lab Results 07/11/21 12:58: WBC 11.1 H D, RBC 4.39 L, Hgb 12.5 L, Hct 38.8 L, MCV 88.2, MCH 28.5, MCHC 32.3, RDW 14.6, Plt Count 276, MPV 7.5, Neut % (Auto) 90.9 H, Lymph % (Auto) 5.5 L, [place] % (Auto) 3.2, Eos % (Auto) 0.0 L, Baso % (Auto) 0.2, Neut # (Auto) 10.1 H, Lymph # (Auto) 0.6 L, [place] # (Auto) 0.4, Eos # (Auto) 0.0, Baso # (Auto) 0.0, Total Counted 100, Neutrophils % (Manual) 84 H, Lymphocytes % (Manual) 12, Monocytes % (Manual) 4, Platelet Estimate Normal, RBC Morphology Normal 07/11/21 12:58: Sodium 137, Potassium 4.9, Chloride 108 H, Carbon Dioxide 21 L, Anion Gap 12.9, BUN 28 H, Creatinine 1.80 H, Estimated Creat Clear 46, Estimated GFR 37 L, Est GFR ( Amer) 45 L, Glucose 146 H, Calcium 8.6, Total Bilirubin 0.9, AST 37, ALT < 4 L, Alkaline Phosphatase 281 H, Total Protein 6.6, Albumin 3.4 L, Globulin 3.2, Albumin/Globulin Ratio 1.1 07/11/21 12:58: Lactate 0.9 07/11/21 12:58: Troponin I < 0.01 07/11/21 14:17: Urine Color Dk yellow, Urine Appearance Cloudy, Urine pH 6.0, Ur Specific [place] 1.020, Urine Protein 2+, Urine Glucose (UA) Negative, Urine Ketones Negative, Urine Blood 1+, Urine Nitrate Positive, Urine Bilirubin Negative, Urine Urobilinogen 0.2, Ur Leukocyte Esterase 1+ A, Urine RBC 3-5, Urine WBC 20-50, Ur Squamous Epith Cells Occasional, Urine Bacteria 4+ Result diagrams: 07/11/21 12:58 07/11/21 12:58 Orders (Tests/
[2021-07-11 13:19] LABS: Albumin Level 3.4 g/dl (3.5-5.0); Albumin/Globulin Ratio 1.1 (1.1-1.8); Alkaline Phosphatase 281 U/L (38-126); Anion Gap 12.9 mEq/L (5-15); Aspartate Amino Transferase 37 U/L (17-59); Bilirubin,Total 0.9 mg/dl (0.2-1.3); Blood Urea Nitrogen 28 mg/dl (9-20); Calcium 8.6 mg/dl (8.4-10.2); Carbon Dioxide 21 mmol/L (22.0-30.0); Creatinine Clearance Estimated 46 mL/min (50-200); Estimated Glomerular Filt Rate 37 ml/min (>60); GFR (African American) 45 ML/MIN (>60); Globulin 3.2 g/dL (1.3-3.2); Glucose 146 mg/dl (74-100); Lactic Acid 0.9 mmol/L (0.7-2.1); Total Protein,Serum 6.6 g/dl (6.3-8.2)
[2021-07-11 13:21] LABS: Alanine Aminotransferase < 4 U/L (12-78)
[2021-07-11 13:27] LABS: MANUAL DIFFERENTIAL MANUAL DIFFERENTIAL (MANUAL DIFF)
--- NOTE | 2021-07-11 13:28 | XR_ITS ---
PROCEDURE: XR CHEST PORTABLE CLINICAL HISTORY: fever COMPARISON: CT CT CHEST WO CON from 04/18/2021 CR XR RIBS RT MIN 3V W CXR1V from 06/04/2021 CR XR CHEST 2V from 06/04/2021 CR XR CHEST 2V from 07/06/2021 FINDINGS: Mild cardiomegaly without failure. Prior CABG. Small left pleural effusion once again noted. No lobar consolidation or collapse. No change pulmonary nodules. No acute bony findings. IMPRESSION: Overall no change small left pleural effusion with pulmonary metastasis Dictated by: Wisam Ch MD 07/11/2021 14:38 Wisam Ch MD in [place] 07/11/2021 14:38
--- NOTE | 2021-07-11 13:38 | ECG_ITS ---
APPROVED REPORT Exam: Resting ECG HR:88 bpm ECG Measurements Heart Rate 88 AXES WI 206 P 45 QRSd 134 QRS 63 QT 392 T 12 QTc 474 Conclusion Normal sinus rhythm Right bundle branch block T wave abnormality, consider inferior ischemia Abnormal ECG Electronically signed by : Anson Davison MD 07/13/2021 12:13:46
[2021-07-11 13:48] LABS: Lymphocytes % 12 % (10-50); Monocytes % 4 % (2-9); Neutrophils % 84 % (42-76); Platelet Estimate Normal; RBC Morphology Normal; Total Cells Counted 100
[2021-07-11 13:54] LABS: Troponin I < 0.01 ng/ml (0.00-0.034)
[2021-07-11 14:21] LABS: Microscopic, Urine URINE MICROSCOPIC (MICROSCOPIC)
[2021-07-11 14:25] LABS: Appearance,Urine CLOUDY (Clear); Bilirubin,Urine Negative (Negative); Blood, Urine 1+ (Negative); Color,Urine DK YELLOW (Yellow); Glucose,Urine (UA) Negative (Negative); Ketones,Urine Negative (Negative); Leukocyte Esterase,Urine 1+ (Negative); Nitrate,Urine POSITIVE (Negative); Protein,Urine 2+ (Negative); Urobilinogen,Urine 0.2 EU/dl (0.2)
[2021-07-11 14:42] LABS: Bacteria,Urine 4+ /lpf; Squamous Epithelial Cell,Urine Occasional #/hpf (0-5); WBC,Urine 20-50 #/hpf (0-3)
--- NOTE | 2021-07-11 14:57 | PC.NURSE ---
telephone interceptor operator paging Dr. Franklin who is welder production line combination for Dr. Davison per their office staff
--- NOTE | 2021-07-11 15:02 | PC.NURSE ---
Dr Ram speaking to Dr Franklin
[2021-07-11 15:51] LABS: Influenza B, PCR Not Detected (NotDetected)
[2021-07-11 15:53] LABS: Coronavirus 19, PCR Not Detected (NotDetected); Influenza A, PCR Not Detected (NotDetected)
--- NOTE | 2021-07-11 17:08 | PC.NURSE ---
report called to [facility] on second floor, states she will send staff to transport pt to assigned room
[2021-07-11 17:24] LABS: Troponin I < 0.01 ng/ml (0.00-0.034)
--- NOTE | 2021-07-11 18:08 | HMH.HP ---
*Admission Date: 07/11/21 *Chief complaint: weakness, anasarca *History of present illness: Mr. Daniel is a 71yo M with metastatic renal cell ca., recent COVID-19 ~2 weeks ago, solitary kidney, and recent admission from 07/06-07/09. Previous admission for dehydration, weakness, and confusion. Improved with IV fluids. He has had progressive weakness, swelling of LE bilaterally and diarrhea. Of note, RCC treated with Dual MAb therapy (opdivo/Yervoy). On presentation today his reports he has had diarrhea for 2 weeks. His appetite is still poor, states was barely able to get pt out of bed this morning, states generalized weakness. reports BLE swelling is worsening, 3+edema noted. 2+ edema noted to RUE. Reports pt had a fever earlier this morning. States pt has diarrhea this morning, she gave him lomotil, reports he was nauseated, she gave him zofran for this. states that he is now swelling in his arms as well as his legs. He had a fever of 101.9F this morning. No antipyretic given. He has had nausea and dry heaves. Weakness continues, worse today, she could not get him up to walk today. Poor appetite continues. denies cough. Patient denies any pain currently but has had some headaches past few days. Denies abdominal pain. His abdomen has been distended, he was diagnosed with ascites in the hospital. Recent ECHO obtained last visit with normal EF 55% [facility] History I have reviewed the patient's past medical history: Yes Medical History: Reports:: Cancer, Coronary Artery Disease, Diabetes Mellitus Type 2, Gastroesophageal Reflux Disease(GERD), Hyperlipidemia, Hypertension, Kidney Stones Denies:: Diabetes Mellitus Type 1, Internal Pacemaker, Lung Disease, MRSA, Seizures *Have you ever received a pneumonia vaccine?: Yes *Have you received a flu vaccine this season?: Yes Other Medical History: Reports: Glaucoma, Other (metastatic renal cell carcinoma) Laterality Cases: Bilateral: Tonsillectomy Other Surgeries: Yes: CABG (3 vessel), Cancer Surgery, Colonoscopy, Other (renal stone, eye). No: Pacemaker Amputation: No Fractures: No - *Social History Smoking Status: Former smoker # Packs/Day (cigarettes): 1 #Yrs smoked (if former smoker): 30 Smoking End Date: 2006 Alcohol Intake: former Substance Use Type: denies use *Occupational Status:: retired Housing: house Household Members: spouse *Travel in the last 8 weeks: Outside the [facility] Family Hx:: Other Review of Systems - Review of Systems Review of systems:: pertinent systems reviewed and negative unless documented below (14 point review of systems performed, pertinent positives and negatives as per HPI) - *Neurologic Reports weakness Meds Home Medications Medication Instructions Recorded Confirmed Type Amlodipine Besylate [Amlodipine 10 mg PO DAILY 04/20/19 07/11/21 History 10mg Tab] Atorvastatin Calcium [Lipitor 80mg 80 mg PO HS 04/20/19 07/11/21 History Tab] Calcium Carb/Vitamin D3/Vit K1 1 each PO DAILY 04/20/19 07/11/21 History [Calcium + D Soft Chewable Tab] Citalopram Hydrobromide 20 mg PO DAILY 04/20/19 07/11/21 History [Citalopram HBr] Omeprazole 20 mg PO DAILY 04/20/19 07/11/21 History Aspirin [Aspirin 81mg EC Tab] 81 mg PO DAILY 07/07/21 07/11/21 History Carbidopa/Levodopa [Sinemet CR 1 tab PO TID 07/07/21 07/11/21 History 50/200mg tablet] [place]-3 Fatty Acids/Fish Oil 1 each PO DAILY 07/07/21 07/11/21 History [[place] 3 Fish Oil Softgel] carvediloL [Carvedilol 12.5mg Tab] 12.5 mg PO BID 07/07/21 07/11/21 History Ezetimibe 10 mg PO DAILY 07/11/21 07/11/21 History Glimepiride 1 mg PO DAILY 07/11/21 07/11/21 History Metformin HCl 500 mg PO BID 07/11/21 07/11/21 History Allergies Allergy/AdvReac Type Severity Reaction Status Date / Time No Known Allergies Allergy Verified 06/08/19 11:12 Exam Vital signs and Labs for Last 24 Hours: Temp Pulse Resp BP Pulse Ox 98.1 F 84 20
--- NOTE | 2021-07-11 20:54 | HMH.PHAVTE ---
[facility] Pharmacy VTE Monitoring - Patient Demographics Admission date: 07/11/21 Report Date: 07/11/21 Time: 20:54 Allergies/Adverse Reactions: Patient Allergies No Known Allergies Allergy (Verified 06/08/19 11:12) Height: 1.73 m Weight: 92.675 kg Patient Problems: Current Active Problems Metastatic renal cell carcinoma to lung (Chronic) Type 2 diabetes mellitus (Chronic) Essential (primary) hypertension (Chronic) Ascites (Acute) Sepsis (Acute) UTI (urinary tract infection) (Acute) Anasarca (Acute) Anasarca associated with disorder of kidney (Acute) - VTE Risk Labs: VTE Related Lab Results Hgb 12.5 g/dL (14.1-18.0) L 07/11/21 12:58 Hct 38.8 % (42.0-52.0) L 07/11/21 12:58 Plt Count 276 K/mm3 (142-424) 07/11/21 12:58 BUN 28 mg/dl (9-20) H 07/11/21 12:58 Creatinine 1.80 mg/dl (0.66-1.25) H 07/11/21 12:58 Estimated Creat Clear 46 mL/min (50-200) 07/11/21 12:58 VTE Risk Level: Moderate Risk Clinical Trial Participant: No - Prophylaxis VTE Prophylaxis Ordered?: Yes Types of VTE Prophylaxis: TEDS Knee High
--- NOTE | 2021-07-11 21:04 | HMH.PHAINT ---
verified home medication list using list from [facility] outpatient pharmacy
[2021-07-11 22:05] LABS: Chloride 107 mmol/L (98-107); Potassium 3.9 mmoL/L (3.5-5.1); Sodium 136 mmol/L (136-145)
[2021-07-11 22:08] LABS: Anion Gap 10.9 mEq/L (5-15); Blood Urea Nitrogen 30 mg/dl (9-20); Calcium 7.9 mg/dl (8.4-10.2); Carbon Dioxide 22 mmol/L (22.0-30.0); Creatinine Clearance Estimated 51 mL/min (50-200); Estimated Glomerular Filt Rate 40 ml/min (>60); GFR (African American) 48 ML/MIN (>60); Glucose 109 mg/dl (74-100)
[2021-07-11 22:55] LABS: Adenovirus F 40/41, stool Not Detected (NotDetected); Astrovirus Not Detected (NotDetected); Campylobacter Not Detected (NotDetected); Clostridium Difficile A/B, PCR Not Detected (NotDetected); Cryptosporidium Not Detected (NotDetected); Cyclospora Cayetanesis Not Detected (NotDetected); Entamoeba histolytica Not Detected (NotDetected); Enteroaggregative E coli Not Detected (NotDetected); Enteropathogenic E coli Not Detected (NotDetected); Enterotoxigenic E coli Not Detected (NotDetected); Giardia lamblia Not Detected (NotDetected); Norovirus Not Detected (NotDetected); Plesimonas Shigalloides, PCR Not Detected (NotDetected); Rotavirus A Not Detected (NotDetected); Salmonella, PCR Not Detected (NotDetected); Sapovirus Not Detected (NotDetected); Shiga-like toxin E coli Not Detected (NotDetected); Shigella Enterovasive E coli Not Detected (NotDetected); Vibrio Cholerae Not Detected (NotDetected); Vibrio, PCR Not Detected (NotDetected); Yersinia Entercolitica, PCR Not Detected (NotDetected)
--- NOTE | 2021-07-12 03:49 | PC.NURSE ---
A&OX4, BUT IS VERY SLOW TO RESPOND AND FOLLOW COMMANDS. TOLERATING RA WELL. PT IS A X2 ASSIST IN BED. PT HAS REMAINED INCONTINENT OF BOWELS. HAS HAD DIARRHEA, SAMPLE COLLECTED. NEGATIVE RESULTS FROM PANEL. KEPT CLEAN AND DRY. F/C DRAINING BRIGHT YELLOW URINE. MONITORING I&OS. PT HAS HAD NO C/O THUS FAR. ABLE TO SWALLOW NIGHTTIME MEDS WITHOUT DIFFICULTY. HAS SLEPT MAJORITY OF SHIFT. VSS WILL CONTINUE TO MONITOR.
[2021-07-12 04:00] VITALS: BP 126/70; PULSE 96; RESP 20; TEMP 36.5; O2SAT 95
[2021-07-12 04:44] VITALS: BMI 30.4
[2021-07-12 05:16] LABS: POC Glucose,Bedside 106 (70-110)
[2021-07-12 05:16] LABS: POC Glucose,Bedside 102 (70-110)
--- NOTE | 2021-07-12 07:29 | HMH.ACPN2 ---
Internal Medicine - PN: Subj *Date: 07/12/21 *Time: 08:33 Interval history: Resting on interview today. Slept well overnight. Has diuresed well over the past 24 hours with -1-1/2 L of urine output. Reviewed labs this morning, electrolytes stable. Breathing a little bit more comfortably today. Currently awaiting microbiology/cultures to propagate for adjustments in antibiotics. Afebrile. Diarrhea panel reviewed, no infectious etiology. Exam Vital signs and Labs for Last 24 Hours: Temp Pulse Resp BP Pulse Ox 97.7 F 96 H 20 126/70 95 07/12/21 04:00 07/12/21 04:00 07/12/21 04:00 07/12/21 04:00 07/12/21 04:00 Laboratory Results - last 24 hr 07/11/21 12:58: WBC 11.1 H D, RBC 4.39 L, Hgb 12.5 L, Hct 38.8 L, MCV 88.2, MCH 28.5, MCHC 32.3, RDW 14.6, Plt Count 276, MPV 7.5, Neut % (Auto) 90.9 H, Lymph % (Auto) 5.5 L, [place] % (Auto) 3.2, Eos % (Auto) 0.0 L, Baso % (Auto) 0.2, Neut # (Auto) 10.1 H, Lymph # (Auto) 0.6 L, [place] # (Auto) 0.4, Eos # (Auto) 0.0, Baso # (Auto) 0.0, Total Counted 100, Neutrophils % (Manual) 84 H, Lymphocytes % (Manual) 12, Monocytes % (Manual) 4, Platelet Estimate Normal, RBC Morphology Normal 07/11/21 12:58: Sodium 137, Potassium 4.9, Chloride 108 H, Carbon Dioxide 21 L, Anion Gap 12.9, BUN 28 H, Creatinine 1.80 H, Estimated Creat Clear 46, Estimated GFR 37 L, Est GFR ( Amer) 45 L, Glucose 146 H, Calcium 8.6, Total Bilirubin 0.9, AST 37, ALT < 4 L, Alkaline Phosphatase 281 H, Total Protein 6.6, Albumin 3.4 L, Globulin 3.2, Albumin/Globulin Ratio 1.1 07/11/21 12:58: Lactate 0.9 07/11/21 12:58: Troponin I < 0.01 07/11/21 14:17: Urine Color Dk yellow, Urine Appearance Cloudy, Urine pH 6.0, Ur Specific [place] 1.020, Urine Protein 2+, Urine Glucose (UA) Negative, Urine Ketones Negative, Urine Blood 1+, Urine Nitrate Positive, Urine Bilirubin Negative, Urine Urobilinogen 0.2, Ur Leukocyte Esterase 1+ A, Urine RBC 3-5, Urine WBC 20-50, Ur Squamous Epith Cells Occasional, Urine Bacteria 4+ 07/11/21 15:51: SARS-CoV-2 (PCR) Not detected, Influenza A Untype (PCR) Not detected, Influenza Type B (PCR) Not detected 07/11/21 16:45: Troponin I < 0.01 07/11/21 20:01: POC Glucose 106 07/11/21 21:52: Sodium 136, Potassium 3.9 D, Chloride 107, Carbon Dioxide 22, Anion Gap 10.9, BUN 30 H, Creatinine 1.70 H, Estimated Creat Clear 51, Estimated GFR 40 L, Est GFR ( Amer) 48 L, Glucose 109 H D, Calcium 7.9 L 07/11/21 22:30: Stl Aeromonas (PCR) Not detected, Stl C. cayetanensis PCR Not detected, Stool Rotavirus (PCR) Not detected, Stl Adenov F 40/41 PCR Not detected, Stool Astrovirus (PCR) Not detected, Stool Campylobacter PCR Not detected, Stl C.difficile Tox PCR Not detected, Stool Cryptosporidium PCR Not detected, Stl E.coli Shiga Tox PCR Not detected, Stool E coli O157 PCR Not detected, Stl Enterotoxigenic E PCR Not detected, Stool EPEC (PCR) Not detected, Stool EAEC (PCR) Not detected, Stl E. histolytica PCR Not detected, Stool Giardia Lamblia PCR Not detected, Stool Salmonella PCR Not detected, Stool Sapovirus (PCR) Not detected, Stl P. shigelloides PCR Not detected, Stl Shigella/EIEC PCR Not detected, St Y.enterocolitica PCR Not detected, Stool Vibrio (PCR) Not detected, Stl Vibrio cholerae PCR Not detected, Stl Norovirus GI/GII PCR Not detected 07/12/21 05:02: POC Glucose 102 I & O for Last 24 hours: Intake & Output 11/22/07/10/21 07/11/21 07/12/21 23:59 23:59 23:59 23:59 Intake Total 290 / 290 Output Total 1125 / 1775 1650 / 1650 Balance -1125 / -1775 -1360 / -1360 Weight 92.675 kg 91.172 kg Narrative: - Constitutional NAD on RA, chronically ill appearing - *Routine HEENT Exam Head: Present: normocephalic Eye: Present: EOMI, PERRL ENT: Present: mucous membranes moist - *Routine Neck Exam Present: supple. Absent: lymphadenopathy - *Routine Respiratory Exam Present: intervally improved crackles, diminished air movement; no wheeze or rhonchi - *Routine Cardiovascular Exam Present:
[2021-07-12 07:48] LABS: Basophils % 0.1 % (0.1-2.0); Hematocrit 33.4 % (42.0-52.0); Lymphocytes # 0.9 K/mm3 (0.7-4.5); Lymphocytes % 9.3 % (10-50); Mean Corpuscular HGB Conc 32.7 g/dL (31.8-35.4); Mean Corpuscular Hemoglobin 28.7 pg (27.0-31.2); Mean Corpuscular Volume 87.8 fl (80-94); Mean Platelet Volume 8.1 fl (7.4-10.4); Monocytes # 0.4 K/mm3 (0.1-1.0); Monocytes % 4.7 % (1.7-9.3); Neutrophils # 8.2 K/mm3 (1.8-7.8); Neutrophils % 85.8 % (37.0-80.0); Platelet Count 218 K/mm3 (142-424); Red Blood Count 3.81 M/mm3 (4.60-6.20); Red Cell Distribution Width 14.6 % (11.5-17.5); White Blood Count 9.5 K/mm3 (4.8-10.8)
[2021-07-12 07:49] LABS: MANUAL DIFFERENTIAL MANUAL DIFFERENTIAL (MANUAL DIFF)
[2021-07-12 08:00] VITALS: BP 151/84; PULSE 91; RESP 17; TEMP 36.8; O2SAT 95
[2021-07-12 08:01] LABS: Anion Gap 8.6 mEq/L (5-15); Blood Urea Nitrogen 28 mg/dl (9-20); Carbon Dioxide 23 mmol/L (22.0-30.0); Chloride 107 mmol/L (98-107); Creatinine Clearance Estimated 48 mL/min (50-200); Estimated Glomerular Filt Rate 37 ml/min (>60); GFR (African American) 45 ML/MIN (>60); Glucose 98 mg/dl (74-100); Potassium 3.6 mmoL/L (3.5-5.1); Sodium 135 mmol/L (136-145)
[2021-07-12 08:03] LABS: Magnesium 1.7 mg/dl (1.6-2.3)
[2021-07-12 08:56] LABS: NT Pro Brain Natriuretic Pep. 1020 pg/mL (0-125)
[2021-07-12 09:05] LABS: Lymphocytes % 10 % (10-50); Monocytes % 6 % (2-9); Neutrophils % 84 % (42-76); Total Cells Counted 100
[2021-07-12 09:06] LABS: Platelet Estimate Normal; RBC Morphology Normal
[2021-07-12 09:23] LABS: Hemoglobin 10.9 g/dL (14.1-18.0)
[2021-07-12 12:29] LABS: POC Glucose,Bedside 174 (70-110)
[2021-07-12 15:23] VITALS: BP 142/75; PULSE 86; RESP 18; TEMP 36.7; O2SAT 94
[2021-07-12 18:16] LABS: Anion Gap 8.7 mEq/L (5-15); Blood Urea Nitrogen 29 mg/dl (9-20); Calcium 7.9 mg/dl (8.4-10.2); Carbon Dioxide 24 mmol/L (22.0-30.0); Chloride 104 mmol/L (98-107); Creatinine Clearance Estimated 54 mL/min (50-200); Estimated Glomerular Filt Rate 43 ml/min (>60); GFR (African American) 52 ML/MIN (>60); Glucose 178 mg/dl (74-100); Potassium 3.7 mmoL/L (3.5-5.1); Sodium 133 mmol/L (136-145)
[2021-07-12 20:00] VITALS: BP 146/74; PULSE 84; RESP 18; TEMP 37; O2SAT 94
[2021-07-13 04:00] VITALS: BP 116/72; PULSE 85; RESP 16; TEMP 37.4; O2SAT 93
--- NOTE | 2021-07-13 05:05 | PC.NURSE ---
pt A&Ox4, has rested t/o most of shift, has remained on room air t/o shift with O2 sats 93-94%, did complain of a headache this shift and was treated per OCT, lasix given per OCT, pt had 750 mL out to calderon at bedside, did have one loose stool this shift
[2021-07-13 06:35] LABS: Basophils % 0.2 % (0.1-2.0); Hematocrit 32.1 % (42.0-52.0); Hemoglobin 10.9 g/dL (14.1-18.0); Lymphocytes # 0.4 K/mm3 (0.7-4.5); Lymphocytes % 8.7 % (10-50); Mean Corpuscular Hemoglobin 28.8 pg (27.0-31.2); Mean Corpuscular Volume 84.6 fl (80-94); Mean Platelet Volume 7.5 fl (7.4-10.4); Monocytes # 0.2 K/mm3 (0.1-1.0); Monocytes % 3.7 % (1.7-9.3); Neutrophils # 4.1 K/mm3 (1.8-7.8); Neutrophils % 87.4 % (37.0-80.0); Platelet Count 196 K/mm3 (142-424); Red Blood Count 3.79 M/mm3 (4.60-6.20); Red Cell Distribution Width 14.3 % (11.5-17.5); White Blood Count 4.6 K/mm3 (4.8-10.8)
[2021-07-13 06:40] LABS: MANUAL DIFFERENTIAL MANUAL DIFFERENTIAL (MANUAL DIFF)
[2021-07-13 06:44] LABS: Albumin Level 2.5 g/dl (3.5-5.0); Albumin/Globulin Ratio 0.9 (1.1-1.8); Alkaline Phosphatase 203 U/L (38-126); Anion Gap 8.6 mEq/L (5-15); Aspartate Amino Transferase 32 U/L (17-59); Bilirubin,Total 0.5 mg/dl (0.2-1.3); Blood Urea Nitrogen 27 mg/dl (9-20); Calcium 7.9 mg/dl (8.4-10.2); Carbon Dioxide 25 mmol/L (22.0-30.0); Chloride 105 mmol/L (98-107); Creatinine Clearance Estimated 48 mL/min (50-200); Estimated Glomerular Filt Rate 37 ml/min (>60); GFR (African American) 45 ML/MIN (>60); Globulin 2.8 g/dL (1.3-3.2); Glucose 123 mg/dl (74-100); Magnesium 1.7 mg/dl (1.6-2.3); Potassium 3.6 mmoL/L (3.5-5.1); Sodium 135 mmol/L (136-145); Total Protein,Serum 5.3 g/dl (6.3-8.2)
[2021-07-13 06:48] LABS: Alanine Aminotransferase < 4 U/L (12-78)
[2021-07-13 06:58] LABS: Hypochromasia 1+; Lymphocytes % 5 % (10-50); Microcytosis 1+; Monocytes % 1 % (2-9); Neutrophils % 94 % (42-76); Platelet Estimate Normal; Total Cells Counted 100
[2021-07-13 08:00] VITALS: BP 131/74; PULSE 90; RESP 16; TEMP 37.3; O2SAT 93
--- NOTE | 2021-07-13 08:42 | HMH.ACPN2 ---
Internal Medicine - PN: Subj *Date: 07/13/21 *Time: 10:26 Interval history: at bedside this morning. Patient breathing comfortably. Has diuresed quite well with negative 700 cc yesterday, -600 cc so far today. Viewed labs this morning, kidney function remained stable. Afebrile. Urine culture still pending but showing gram-negative rods at this time. Still having diarrhea/loose stools 2-3 times a day. Questions answered this morning. Concern for 's ability to care for patient at home and need for possible rehab or placement. Discussed having physical therapy see Mr. Daniel today Exam Vital signs and Labs for Last 24 Hours: Temp Pulse Resp BP Pulse Ox 99.3 F 85 16 116/72 93 L 07/13/21 04:00 07/13/21 04:00 07/13/21 04:00 07/13/21 04:00 07/13/21 04:00 Laboratory Results - last 24 hr 07/11/21 14:17: Urine Color Dk yellow, Urine Appearance Cloudy, Urine pH 6.0, Ur Specific [place] 1.020, Urine Protein 2+, Urine Glucose (UA) Negative, Urine Ketones Negative, Urine Blood 1+, Urine Nitrate Positive, Urine Bilirubin Negative, Urine Urobilinogen 0.2, Ur Leukocyte Esterase 1+ A, Urine RBC 3-5, Urine WBC 20-50, Ur Squamous Epith Cells Occasional, Urine Bacteria 4+ 07/12/21 06:45: NT-Pro-B Natriuret Pep 1020 H 07/12/21 06:50: Hgb 10.9 L D, Total Counted 100, Neutrophils % (Manual) 84 H, Lymphocytes % (Manual) 10, Monocytes % (Manual) 6, Platelet Estimate Normal, RBC Morphology Normal 07/12/21 12:12: POC Glucose 174 H 07/12/21 17:54: Sodium 133 L, Potassium 3.7, Chloride 104, Carbon Dioxide 24, Anion Gap 8.7, BUN 29 H, Creatinine 1.60 H, Estimated Creat Clear 54, Estimated GFR 43 L, Est GFR ( Amer) 52 L, Glucose 178 H D, Calcium 7.9 L 07/13/21 06:13: WBC 4.6 L D, RBC 3.79 L, Hgb 10.9 L, Hct 32.1 L, MCV 84.6, MCH 28.8, MCHC 34.0, RDW 14.3, Plt Count 196, MPV 7.5, Neut % (Auto) 87.4 H, Lymph % (Auto) 8.7 L, [place] % (Auto) 3.7, Eos % (Auto) 0.0 L, Baso % (Auto) 0.2, Neut # (Auto) 4.1, Lymph # (Auto) 0.4 L, [place] # (Auto) 0.2, Eos # (Auto) 0.0, Baso # (Auto) 0.0, Total Counted 100, Neutrophils % (Manual) 94 H, Lymphocytes % (Manual) 5 L, Monocytes % (Manual) 1 L, Platelet Estimate Normal, Hypochromasia 1+, Microcytosis 1+ 07/13/21 06:13: Sodium 135 L, Potassium 3.6, Chloride 105, Carbon Dioxide 25, Anion Gap 8.6, BUN 27 H, Creatinine 1.80 H, Estimated Creat Clear 48, Estimated GFR 37 L, Est GFR ( Amer) 45 L, Glucose 123 H D, Calcium 7.9 L, Magnesium 1.7, Total Bilirubin 0.5, AST 32, ALT < 4 L, Alkaline Phosphatase 203 H, Total Protein 5.3 L, Albumin 2.5 L, Globulin 2.8, Albumin/Globulin Ratio 0.9 L I & O for Last 24 hours: Intake & Output 07/10/21 07/11/21 07/12/21 07/13/21 23:59 23:59 23:59 23:59 Intake Total 1370 / 1370 Output Total 1125 / 1775 2075 / 2825 750 / 750 Balance -1125 / -1775 -705 / -1455 -750 / -750 Weight 92.675 kg 91.172 kg Microbiology Reports for the Last 24 Hours: Microbiology 07/11/21 14:17 Urine,Clean Catch Urine Culture - Preliminary Gram Negative Rods Narrative: - Constitutional NAD on RA, chronically ill appearing - *Routine HEENT Exam Head: Present: normocephalic Eye: Present: EOMI, PERRL ENT: Present: mucous membranes moist - *Routine Neck Exam Present: supple. Absent: lymphadenopathy - *Routine Respiratory Exam Present: Diminished air movement, clear to auscultation bilaterally, no wheeze, crackles, or rhonchi - *Routine Cardiovascular Exam Present: RRR, murmur - *Routine Abdominal Exam Present: soft, normoactive bowel sounds, tenderness, distended - *Routine Extremities Exam Present: 2+ edema to knee, improved with noticeable wrinkles in legs.. Absent: cyanosis, clubbing - *Routine Skin Exam Present: warm. Absent: rash - *Routine Neurological Exam Present: alert Assessment and Plan (1) Sepsis Status: Acute Qualifiers: Sepsis type: sepsis due to unspecified organism Sepsis acute organ dysfunctio
[2021-07-13 09:06] VITALS: BMI 29.7
[2021-07-13 09:14] VITALS: BMI 29.7
--- NOTE | 2021-07-13 11:54 | SW/DCPLANNER ---
Addendum entered by Cassi Erazo 07/13/21 14:23: DID A CALL BACK TO [facility]NA[facility] AT [facility] AND PATIENT HAS NOT BEE ACCEPTED YET.. THERE WAS QUESTION REGARDING HIS CHEMOTHERAPY AND SHE HAS TO GET AN APPROVAL BEFORE SHE CAN COMMIT.. WAITING TO HEAR BACK. Original Note: RECEIVED A CALL FROM [facility] STATING DAUGHTER WAS THERE AND WISHES FOR HER FATHER TO GO THERE FOR SOME REHAB SERVICES POST HOSPITAL STAY... DAUGHTER WAS ON THE PHONE WITH PATIENT AND AND THEY ARE IN AGREEMENT TO GO IF ACCEPTED. I DID TELL YVONNE @ [facility] THAT PATIENT IS IN AN OBSERVATION STATUS... WILL FAX OVER PT/OT EVAL ONCE IT HAS BEEN COMPLETED..
--- NOTE | 2021-07-13 15:01 | HMH.OTEV ---
OT Inpatient Evaluation Rehab OT IP Evaluation Start: 07/13/21 10:24 Freq: ONCE Status: Complete Protocol: Document 07/13/21 14:55 ILYAROXANA (Rec: 07/13/21 15:00 ILYAROXANA [id number]) Rehab OT IP Assessment Subjective History Mr. Daniel is a 71yo M with metastatic renal cell ca., recent COVID-19 ~2 weeks ago, solitary kidney, and recent admission from 07/06-07/09. Previous admission for dehydration, weakness, and confusion. Improved with IV fluids. He has had progressive weakness, swelling of LE bilaterally and diarrhea. Of note, RCC treated with Dual MAb therapy (opdivo/Yervoy). On presentation today his reports he has had diarrhea for 2 weeks. His appetite is still poor, states was barely able to get pt out of bed this morning, states generalized weakness. reports BLE swelling is worsening, 3+edema noted. 2+ edema noted to RUE . Reports pt had a fever earlier this morning. States pt has diarrhea this morning, she gave him lomotil, reports he was nauseated, she gave him zofran for this. states that he is now swelling in his arms as well as his legs. He had a fever of 101.9F this morning. No antipyretic given. He has had nausea and dry heaves. Weakness continues, worse today, she could not get him up to walk today. Poor appetite continues. denies cough. Patient denies any pain currently but has had some headaches past few days. Denies abdominal pain. His abdomen has been distended, he was diagnosed with ascites in the hospital. Recent ECHO obtained last
--- NOTE | 2021-07-13 15:38 | HMH.PTEV ---
Physical Therapy Evaluation Rehab PT IP Evaluation Start: 07/13/21 10:24 Freq: ONCE Status: Active Protocol: Document 07/13/21 15:19 PDESEROUX (Rec: 07/13/21 15:38 PDESEROUX [id number]) Subjective/History History History Pt. is a 71 year old male who is readmitted to [facility] Inpatient secondary to c/o diarrhea, CHF, Sepsis, and an UTI. Pt. reports, I was in here a few weeks ago for the same thing. Pt. also c/o fatigue, weaknesss, and a poor appetite. Pt. stated having a fall at home last week secondary to weakness and fatigue. Pt. reports having a decline of food and drink intake secondary to having diarrhea consistently. Pt. reports wanting to eat, but states having to go to the bathroom everytime. Pt. reports living in a 1-story home w/ his spouse w/ no stairs to negotiate on the inside. Pt. reports having a walker, bed-side commode, and a shower chair at home. Pt. reports having assistance w/ his ADLs at home from his spouse, but states she has a bad back. Physical Therapist mentioned SNF and an Inpatient rehab Facility to work on getting stonger and returning back to ADLs, pt. stated I'll do whatever it takes. PMH includes Cancer, Coronary Artery Disease, Diabetes Mellitus Type 2, Gastroesophageal Reflux Disease(GERD), Hyperlipidemia, Hypertension, and Kidney Stones. Subjective Subjective Pt. reports, I've been having a lot of diarrhea. Rehab PT IP Eval Objective Appearance Patient Behavior Appropriate,Cooperative, Fatigued,Wandering Patient Orientation Person,Place,Day of Week, Situation Difficulty fo
--- NOTE | 2021-07-13 15:38 | HMH.PTEV ---
Physical Therapy Evaluation Rehab PT IP Evaluation Start: 07/13/21 10:24 Freq: ONCE Status: Active Protocol: Document 07/13/21 15:19 PDESEROUX (Rec: 07/13/21 15:38 PDESEROUX [id number]) Subjective/History History History Pt. is a 71 year old male who is readmitted to [facility] Inpatient secondary to c/o diarrhea, CHF, Sepsis, and an UTI. Pt. reports, I was in here a few weeks ago for the same thing. Pt. also c/o fatigue, weaknesss, and a poor appetite. Pt. stated having a fall at home last week secondary to weakness and fatigue. Pt. reports having a decline of food and drink intake secondary to having diarrhea consistently. Pt. reports wanting to eat, but states having to go to the bathroom everytime. Pt. reports living in a 1-story home w/ his spouse w/ no stairs to negotiate on the inside. Pt. reports having a walker, bed-side commode, and a shower chair at home. Pt. reports having assistance w/ his ADLs at home from his spouse, but states she has a bad back. Physical Therapist mentioned SNF and an Inpatient rehab Facility to work on getting stonger and returning back to ADLs, pt. stated I'll do whatever it takes. PMH includes Cancer, Coronary Artery Disease, Diabetes Mellitus Type 2, Gastroesophageal Reflux Disease(GERD), Hyperlipidemia, Hypertension, and Kidney Stones. Subjective Subjective Pt. reports, I've been having a lot of diarrhea. Rehab PT IP Eval Objective Appearance Patient Behavior Appropriate,Cooperative, Fatigued,Wandering Patient Orientation Person,Place,Day of Week, Situation Difficulty fo
[2021-07-13 16:00] VITALS: BP 134/80; PULSE 86; RESP 18; TEMP 37.2; O2SAT 94
[2021-07-13 16:38] LABS: POC Glucose,Bedside 124 (70-110)
--- NOTE | 2021-07-13 17:50 | PC.NURSE ---
Pt has been pleasant this shift. x6 small, watery bowel movements thus far this shift. Pt medicated per OCT. Alvarado cath removed this shift, clear dark yellow urine noted. VSS. No other acute changes or complaints, will continue to monitor.
[2021-07-13 18:38] LABS: Chloride 103 mmol/L (98-107); Potassium 3.6 mmoL/L (3.5-5.1); Sodium 135 mmol/L (136-145)
[2021-07-13 18:41] LABS: Anion Gap 11.6 mEq/L (5-15); Blood Urea Nitrogen 31 mg/dl (9-20); Carbon Dioxide 24 mmol/L (22.0-30.0); Creatinine Clearance Estimated 49 mL/min (50-200); Estimated Glomerular Filt Rate 40 ml/min (>60); GFR (African American) 48 ML/MIN (>60); Glucose 170 mg/dl (74-100)
[2021-07-13 20:00] VITALS: BP 138/75; PULSE 93; RESP 17; TEMP 37.8
[2021-07-14] VITALS: BP 126/72; PULSE 84; RESP 17; TEMP 36.6; O2SAT 95
[2021-07-14 05:00] VITALS: BMI 64.3
--- NOTE | 2021-07-14 07:09 | PC.NURSE ---
Pt temp 100.1 at beginning of shift, tylenol administered per MAR with favorable results. No complaints voiced to staff thus far.
[2021-07-14 08:00] VITALS: BP 133/78; PULSE 83; RESP 18; TEMP 37; O2SAT 93
[2021-07-14 08:01] LABS: Basophils % 0.2 % (0.1-2.0); Hematocrit 34.4 % (42.0-52.0); Hemoglobin 11.5 g/dL (14.1-18.0); Lymphocytes # 0.6 K/mm3 (0.7-4.5); Lymphocytes % 10.9 % (10-50); Mean Corpuscular HGB Conc 33.3 g/dL (31.8-35.4); Mean Corpuscular Hemoglobin 28.2 pg (27.0-31.2); Mean Corpuscular Volume 84.6 fl (80-94); Mean Platelet Volume 8.4 fl (7.4-10.4); Monocytes # 0.3 K/mm3 (0.1-1.0); Monocytes % 5.4 % (1.7-9.3); Neutrophils # 4.3 K/mm3 (1.8-7.8); Neutrophils % 83.5 % (37.0-80.0); Platelet Count 238 K/mm3 (142-424); Red Blood Count 4.07 M/mm3 (4.60-6.20); Red Cell Distribution Width 14.2 % (11.5-17.5); White Blood Count 5.1 K/mm3 (4.8-10.8)
[2021-07-14 08:02] LABS: Albumin Level 2.4 g/dl (3.5-5.0); Albumin/Globulin Ratio 0.8 (1.1-1.8); Alkaline Phosphatase 253 U/L (38-126); Anion Gap 8.7 mEq/L (5-15); Aspartate Amino Transferase 52 U/L (17-59); Bilirubin,Total 0.5 mg/dl (0.2-1.3); Blood Urea Nitrogen 30 mg/dl (9-20); Calcium 7.9 mg/dl (8.4-10.2); Carbon Dioxide 26 mmol/L (22.0-30.0); Chloride 104 mmol/L (98-107); Creatinine Clearance Estimated 36 mL/min (50-200); Estimated Glomerular Filt Rate 37 ml/min (>60); GFR (African American) 45 ML/MIN (>60); Glucose 146 mg/dl (74-100); Magnesium 1.6 mg/dl (1.6-2.3); Potassium 3.7 mmoL/L (3.5-5.1); Sodium 135 mmol/L (136-145); Total Protein,Serum 5.4 g/dl (6.3-8.2)
[2021-07-14 08:08] LABS: Alanine Aminotransferase < 4 U/L (12-78)
--- NOTE | 2021-07-14 08:20 | HMH.DCSUM ---
General - General Admission date:: 07/11/21 Discharge date: 07/14/21 HPI HPI: Mr. Daniel is a 71yo M with metastatic renal cell ca., recent COVID-19 ~2 weeks ago, solitary kidney, and recent admission from 07/06-07/09. Previous admission for dehydration, weakness, and confusion. Improved with IV fluids. He has had progressive weakness, swelling of LE bilaterally and diarrhea. Of note, RCC treated with Dual MAb therapy (opdivo/Yervoy). On presentation today his reports he has had diarrhea for 2 weeks. His appetite is still poor, states was barely able to get pt out of bed this morning, states generalized weakness. reports BLE swelling is worsening, 3+edema noted. 2+ edema noted to RUE. Reports pt had a fever earlier this morning. States pt has diarrhea this morning, she gave him lomotil, reports he was nauseated, she gave him zofran for this. states that he is now swelling in his arms as well as his legs. He had a fever of 101.9F this morning. No antipyretic given. He has had nausea and dry heaves. Weakness continues, worse today, she could not get him up to walk today. Poor appetite continues. denies cough. Patient denies any pain currently but has had some headaches past few days. Denies abdominal pain. His abdomen has been distended, he was diagnosed with ascites in the hospital. Recent ECHO obtained last visit with normal EF 55% Hospital Course Hospital Course: 71yo M with metastatic RCC, CKD, Solitary kidney, recent COVID, Parkinson's, worsening weakness and anasarca. HEIDE on CKD on admission, findings consistent with Sepsis and UTI. Concern for volume overload/CHF exacerbation. Abx initiated in ED. Problems addressed as follows during admission: [facility] Systolic CHF exacerbation Volume overload/anasarca -On admission BNP was obtained along with echo. BNP elevated above the thousand. Echo showed reduced ejection fraction with left ventricular EF 40 to 50%. This was decreased from his previous admission. Initiated diuresis with Lasix IV twice daily. Alvarado catheter was placed to monitor strict fluid balance. Was -1 L/day during admission. Transition to oral Bumex. Plan for 1 mg Bumex daily moving forward. Will need to monitor electrolytes closely in the outpatient setting as well as kidney function given the competing conditions of heart failure and CKD with solitary kidney. Compression stockings initiated to assist with fluid mobilization and improve edema in lower extremities. -Required intermittent potassium and magnesium repletion during admission. -No oxygen required during admission, lung exam improved with diuresis UTI -Abnormal UA on admission. Culture obtained. Culture grew E. coli that is pansensitive. Patient was initiated on ceftriaxone, received 4 days total of therapy including day of discharge. Transition to oral cefdinir to complete 7-day total empiric. Diarrhea - diarrhea panel obtained, no infectious etiology. - If greater than 3 bowel movements a day, administered Lomotil - initiated probiotic Debility -Acute on chronic. Physical therapy assessed patient, recommended custodial care to help with improving mobility. Patient is a 2 person max assist at this time. Also recommend speech eval once he gets to the intermediate. We will continue to follow along at [facility]. -Verbal order for PT/OT/speech to eval and treat. nutritional deficiency, moderate protein calorie malnutrition Medically stable for discharge to the intermediate setting. Examined on day of discharge. Extensive discussion with about multiple chronic progressive conditions. Recommended she and family have goals of care discussion moving forward in light of patient's chronic kidney disease with solitary kidney, CHF, progressive Parkinson's, and metastatic renal cell carcinoma. Please obtain labs Friday of next week (July 17) obtain CBC, CMP, magnesium levels. Objective Vital
[2021-07-14 16:46] LABS: POC Glucose,Bedside 139 (70-110)
[2021-07-14 16:46] LABS: POC Glucose,Bedside 152 (70-110)
== END 2021-07-14 12:20 ==
LOC: ER 15:12 → 2ND 15:21
PROVIDERS: Admitting Provider Internal Medicine Adolescent Medicine; Emergency Provider Emergency Medicine; PCP Internal Medicine Adolescent Medicine; Visit Provider Internal Medicine Adolescent Medicine
DX: I13.0 Hypertensive heart and chronic kidney disease with heart failure and stage 1 through stage 4 chronic kidney disease, or unspecified chronic kidney disease (principal); N39.0 Urinary tract infection, site not specified; I50.23 Acute on chronic systolic (congestive) heart failure; C78.00 Secondary malignant neoplasm of unspecified lung; Z86.16 Personal history of COVID-19; N18.9 Chronic kidney disease, unspecified; Z90.5 Acquired absence of kidney; C64.9 Malignant neoplasm of unspecified kidney, except renal pelvis; I25.10 Atherosclerotic heart disease of native coronary artery without angina pectoris; Z95.1 Presence of aortocoronary bypass graft; Z79.84 Long term (current) use of oral hypoglycemic drugs; Z79.899 Other long term (current) drug therapy; E11.22 Type 2 diabetes mellitus with diabetic chronic kidney disease
CPT/HCPCS: G0378; 36415; 71045; 80048; 80053; 81001; 82962; 83605; 83735; 83880; 84484; 85007; 85025; 87040; 87086; 87088; 87186; 87507; 93005; 96374; 96375; 97161; 97165; 99285; C9803; U0003; U0005

== ENCOUNTER → 2021-07-28 10:04 | Outpatient (REF) | payer MEDICARE, OTHER, SELFPAY | LOC: LAB 10:04 | PROVIDERS: Visit Provider Nurse Practitioner Family | DX: R19.7 Diarrhea, unspecified (principal) ==

== ENCOUNTER → 2021-07-29 09:31 | Outpatient (CLI) | payer MEDICARE, OTHER, SELFPAY | PROVIDERS: PCP Internal Medicine Adolescent Medicine; Visit Provider Internal Medicine Adolescent Medicine | DX: N39.0 Urinary tract infection, site not specified (principal) ==

== ENCOUNTER → 2021-09-20 10:02 | Outpatient (CLI) | payer MEDICARE, OTHER, SELFPAY ==
[2021-09-20 10:31] LABS: Basophils # 0.1 K/mm3 (0-0.2); Basophils % 1.4 % (0.1-2.0); Eosinophils % 0.6 % (0.1-12.0); Hematocrit 38.5 % (42.0-52.0); Hemoglobin 12.5 g/dL (14.1-18.0); Lymphocytes # 2.2 K/mm3 (0.7-4.5); Lymphocytes % 49.3 % (10-50); Mean Corpuscular HGB Conc 32.3 g/dL (31.8-35.4); Mean Corpuscular Hemoglobin 28.4 pg (27.0-31.2); Mean Corpuscular Volume 87.8 fl (80-94); Mean Platelet Volume 7.4 fl (7.4-10.4); Monocytes # 0.4 K/mm3 (0.1-1.0); Monocytes % 7.9 % (1.7-9.3); Neutrophils # 1.8 K/mm3 (1.8-7.8); Neutrophils % 40.9 % (37.0-80.0); Platelet Count 232 K/mm3 (142-424); Red Blood Count 4.39 M/mm3 (4.60-6.20); Red Cell Distribution Width 18.8 % (11.5-17.5); White Blood Count 4.4 K/mm3 (4.8-10.8)
[2021-09-20 11:12] LABS: Alanine Aminotransferase 13 U/L (12-78); Albumin Level 3.1 g/dl (3.5-5.0); Albumin/Globulin Ratio 1.1 (1.1-1.8); Alkaline Phosphatase 231 U/L (38-126); Anion Gap 8.9 mEq/L (5-15); Aspartate Amino Transferase 38 U/L (17-59); Bilirubin,Total 0.6 mg/dl (0.2-1.3); Blood Urea Nitrogen 20 mg/dl (9-20); Calcium 8.4 mg/dl (8.4-10.2); Carbon Dioxide 30 mmol/L (22.0-30.0); Chloride 101 mmol/L (98-107); Estimated Glomerular Filt Rate 50 ml/min (>60); GFR (African American) 60 ML/MIN (>60); Globulin 2.8 g/dL (1.3-3.2); Glucose 114 mg/dl (74-100); Potassium 4.9 mmoL/L (3.5-5.1); Sodium 135 mmol/L (136-145); Total Protein,Serum 5.9 g/dl (6.3-8.2)
[2021-09-20 11:39] LABS: Hemoglobin A1C 6.2 % (4.0-6.0)
== END ==
PROVIDERS: PCP Internal Medicine Adolescent Medicine; Visit Provider Internal Medicine Adolescent Medicine
DX: C64.9 Malignant neoplasm of unspecified kidney, except renal pelvis (principal); E11.9 Type 2 diabetes mellitus without complications; Z79.84 Long term (current) use of oral hypoglycemic drugs
CPT/HCPCS: 36415; 80053; 83036; 85025

== ENCOUNTER → 2021-09-27 09:15 | Outpatient (CLI) | payer MEDICARE, OTHER, SELFPAY ==
--- NOTE | 2021-09-27 09:20 | CT_ITS ---
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 Oral contrast was administered. Coronal reformatted images were also obtained.This study was performed with techniques to keep radiation doses as low as reasonably achievable (ALARA). Individualized dose reduction techniques using automated exposure control or adjustment of mA and/or kV according to the patient's size were employed. Abdomen: There are postoperative changes from right nephrectomy. There is no evidence of renal stone or hydronephrosis. There is gallbladder wall thickening of uncertain significance. The liver, spleen and pancreas have an unremarkable, unenhanced appearance. No mass or adenopathy is seen. There are moderate vascular calcifications. Pelvis: The appendix appears normal. There is no evidence of ureteral dilation or ureteral stone. There are multiple, small retroperitoneal lymph nodes which are stable. There is no definite adenopathy. There is mild ascending colon wall thickening, mild colitis is not excluded. There is scattered diverticula in the descending colon. There is mild wall thickening of small bowel loops in the right pelvis which is likely inflammatory. IMPRESSION: Postoperative changes from right nephrectomy. Findings are worrisome for colitis/enteritis. Gallbladder wall thickening of uncertain significance. Consider right upper quadrant ultrasound. Reviewed, Interpreted and Dictated by Chris Guillen III, MD Transcribed by Yin Simental Authenticated by Chris Guillen III, MD on 09/27/2021 11:24:05 AM [facility]
--- NOTE | 2021-09-27 09:20 | CT_ITS ---
FINAL REPORT TECHNIQUE: Axial images were obtained from the lung apex to the mid abdomen by computed tomography. Coronal reformatted images were obtained. This study was performed with techniques to keep radiation doses as low as reasonably achievable, (ALARA). Individualized dose reduction techniques using automated exposure control or adjustment of mA and/or kV according to the patient''s size were employed. CLINICAL HISTORY: maliganant neoplasm of right kidney removal of right renal f/u COMPARISON: April 18, 2021 FINDINGS: There is no axillary adenopathy. There is no hilar adenopathy. An anterior mediastinal nodule measures 12 mm and was 11 mm. This may represent a borderline sized lymph node. Heart size is normal. There has been median sternotomy. There is no pericardial or pleural effusion. There has been overall improvement in pulmonary nodules. There is a right upper lobe nodule measuring 2 mm on image 22 and was previously 5 mm. A right middle lobe nodule measures 19 mm and previously measured 26 mm. A left upper lobe nodule measures 8 mm and was previously 16 mm. No new masses or nodules are identified. IMPRESSION: Overall improvement in pulmonary nodules consistent with improvement in pulmonary metastatic disease. Stable anterior mediastinal nodule of uncertain etiology. Reviewed, Interpreted and Dictated by Chris Guillen III, MD Transcribed by Yin Simental Authenticated by Chris Guillen III, MD on 09/27/2021 11:23:58 AM [facility]
== END ==
PROVIDERS: PCP Internal Medicine Adolescent Medicine; Visit Provider Internal Medicine Hematology & Oncology
DX: C64.1 Malignant neoplasm of right kidney, except renal pelvis (principal)
CPT/HCPCS: 71250; 74176

== ENCOUNTER 2022-01-15 15:30 | Outpatient (RCR) | payer MEDICARE, OTHER, SELFPAY ==
--- NOTE | 2021-11-13 16:42 | HMH.PTOPEV ---
PT Outpatient Evaluation Rehab PT Outpatient Evaluation Start: 11/13/21 15:48 Freq: Status: Active Protocol: Document 11/13/21 16:04 SCARLETTLAUREN (Rec: 11/13/21 16:42 MARLEE [id number]) Electronically Signed By Mansoor Daniel PT 11/13/21 16:04 Outpatient Therapy Subjective History Subjective History THis is the initial Physical Therapy evalaution for Tito Daniel. Pt is a 71 y/o male referred to PT for frquent falls and gait disturbances. Pt reports he has not had any falls but is significantly weakened from long hopsital stay. Pt reports he was hospitalized for ~ 3 months due to reaction to Chemo which produced severe diarrhea, dehydration and weakness. Pt has PMH of Renal cell carcinoma, RCC metasteses, Parkinson's, CKD, and Type II DM Chief Complaint Weakness Symptom Type Other Symptoms Relieved By Rest/Positioning Symptoms Aggravated By Physical Activity,Walking Prior Functional Limitations None Current Functional Limitations Housework,Standing,Recreation Activity,Walking,Stairs, Balance Symptom Description Constant and Continuous Balance Eval Subjective Hx of Complaint Comment started after long hospitalization and NSG home stay Chief Complaint vertigo No Did you feel dizzy, unsteady or faint? Yes Prior Functional Limitations Prior Functional [place] Level Fully Independent Current Functional Limitations Comment Assistive device, SBA/CGA for transfers and gait Hx of Falls Hx Falls Yes Number in last 6 months 2 Gait/Posture Asssessment General Gait Observation Shuffling Step,Decrease Stride Lngth (R),Decrease Stride Lngth (L) Assistive Devices Straight Cane Level of Transfer Assist Standby Assistance Body Alignment Posture Rigid Timed Up and Go Test 1. Is the Timed Up and Go test result > yes or = to 12 seconds? [place] Feet Together/Eyes open/Stable Surface pass Feet Together/Eyes Closed/Stable Surface pass Feet Together/Eyes open/Unstable Surface pass Feet Together/Eyes Closed/Unstable fail Surface
== END 2022-01-15 15:35 | disposition home or self-care (01) ==
LOC: PT 15:30
PROVIDERS: PCP Internal Medicine Adolescent Medicine; Visit Provider Internal Medicine Adolescent Medicine
DX: R29.6 Repeated falls (principal); R26.89 Other abnormalities of gait and mobility
CPT/HCPCS: 97110; 97112; 97163; 97164

== ENCOUNTER → 2022-01-22 07:56 | Outpatient (CLI) | payer MEDICARE, OTHER, SELFPAY ==
--- NOTE | 2022-01-22 08:02 | CT_ITS ---
FINAL REPORT TECHNIQUE: Axial images through the abdomen and pelvis were performed without contrast. Oral contrast was given. This study was performed with techniques to keep radiation doses as low as reasonably achievable, (ALARA). Individualized dose reduction techniques using automated exposure control or adjustment of mA and/or kV according to the patient's size were employed. CLINICAL HISTORY: KIDNEY CANCER COMPARISON: 09/27/2021 FINDINGS: ABDOMEN: The lung bases are clear. The heart size is normal. Limited images of the liver are unremarkable. There is a gallstone in the gallbladder. The spleen is normal. No adrenal mass is identified. The aorta is normal in caliber. There is no significant free fluid. The right kidney has been removed. The left kidney is normal. There is increased stranding in the small bowel mesentery with multiple small lymph nodes, may represent mesenteric panniculitis or postinflammatory change. Note is made of moderate vascular calcification. PELVIS: The appendix is unremarkable. The urinary bladder is unremarkable. There is no significant free fluid. IMPRESSION: Cholelithiasis. Findings may represent mesenteric panniculitis or postinflammatory change. Reviewed, Interpreted and Dictated by Chris Guillen III, MD Transcribed by Stacie Rajan Authenticated and [facility]
--- NOTE | 2022-01-22 08:02 | CT_ITS ---
FINAL REPORT TECHNIQUE: Axial CT images were performed from the lung apices through the upper abdomen. Coronal reformats were submitted. This study was performed with techniques to keep radiation doses as low as reasonably achievable (ALARA). Individualized dose reduction techniques using automated exposure control or adjustment of mA and/or kV according to the patient's size were employed. CLINICAL HISTORY: kidney cancer with poss lung mets COMPARISON: 09/27/2021 FINDINGS: The patient is status post median sternotomy. Note is made of mild gynecomastia. There is a small right thyroid lobe nodule, stable. There is no axillary adenopathy. There is no hilar or mediastinal mass or adenopathy. Heart size is normal. There is no pericardial or pleural effusion. Right middle lobe nodule measures 12 mm, previously measured 19 mm. There is a lingular nodule measuring 5 mm, previously measuring 8 mm. No new pulmonary mass or nodule is identified. There is postoperative change in the right abdomen. IMPRESSION: Right middle lobe and lingular nodules have decreased in size. Reviewed, Interpreted and Dictated by Chris Guillen III, MD Transcribed by Stacie Rajan Authenticated and . [facility]
== END ==
PROVIDERS: PCP Internal Medicine Adolescent Medicine; Visit Provider Internal Medicine Hematology & Oncology
DX: C64.1 Malignant neoplasm of right kidney, except renal pelvis (principal)
CPT/HCPCS: 71250; 74176

== ENCOUNTER → 2022-05-28 07:50 | Outpatient (CLI) | payer MEDICARE, OTHER, SELFPAY ==
--- NOTE | 2022-05-28 07:53 | CT_ITS ---
FINAL REPORT CLINICAL HISTORY: MALIGNANT NEOPLASM OF RT KIDNEY COMPARISON: January 22, 2022 FINDINGS: Axial images were obtained from the lung apex to the mid abdomen by computed tomography. Coronal reformatted images were obtained. This study was performed with techniques to keep radiation doses as low as reasonably achievable, (ALARA). Individualized dose reduction techniques using automated exposure control or adjustment of mA and/or kV according to the patient's size were employed. There is evidence of median sternotomy. There is no axillary adenopathy. There is no hilar or mediastinal adenopathy. Heart size is normal. There is no pericardial or pleural effusion. A spiculated right middle lobe nodule measures 16 mm and previously measured 16 mm, worrisome for neoplasm. A 5 mm nodule in the lingula previously measured 5 mm. There is no new mass or pulmonary nodule. IMPRESSION: Stable pulmonary nodules worrisome for neoplasm. Reviewed, Interpreted and Dictated by Chris Guillen III, MD Transcribed by Marquis Grey Authenticated and [facility]
--- NOTE | 2022-05-28 07:53 | CT_ITS ---
FINAL REPORT TECHNIQUE: Axial CT images were performed from the lung bases through the pubic symphysis. Coronal reformats were submitted and reviewed. This study was performed with techniques to keep radiation doses as low as reasonably achievable (ALARA). Individualized dose reduction techniques using automated exposure control or adjustment of mA and/or kV according to the patient's size were employed. CLINICAL HISTORY: malignant neoplasm of right kidney COMPARISON: January 22, 2022 FINDINGS: Abdomen: There is a gallstone in the gallbladder. The liver, spleen and pancreas are unremarkable. There are no adrenal masses. There has been right nephrectomy. There is a stable 11 mm low-attenuation mass in the mid left kidney that cannot be accurately characterized without contrast. There is no hydronephrosis. There is moderate vascular calcification. There is persistent but improved mesenteric stranding that may represent mesenteric panniculitis. Pelvis: The appendix is unremarkable. There are no distal ureteral stones. The urinary bladder is unremarkable. There is diverticulosis of the descending and sigmoid colon. The prostate is enlarged. There are small inguinal hernias containing fat. IMPRESSION: Prior right nephrectomy. Stable low-attenuation mass in the mid left kidney cannot be accurately characterized without contrast. This could be further evaluated with follow-up renal mass protocol CT or MRI. Persistent but improved mesenteric panniculitis. Cholelithiasis. Reviewed, Interpreted and Dictated by Chris Guillen III, MD Transcribed by Marquis Grey Authenticated and . [facility]
== END ==
PROVIDERS: PCP Internal Medicine Adolescent Medicine; Visit Provider Internal Medicine Hematology & Oncology
DX: C64.1 Malignant neoplasm of right kidney, except renal pelvis (principal)
CPT/HCPCS: 71250; 74176

== ENCOUNTER → 2022-09-30 07:47 | Outpatient (CLI) | payer MEDICARE, OTHER, SELFPAY ==
--- NOTE | 2022-09-30 07:51 | CT_ITS ---
FINAL REPORT TECHNIQUE: Thin section axial images were obtained from the lung apices through the upper abdomen without contrast. This study was performed with techniques to keep radiation doses as low as reasonably achievable (ALARA). Individualized dose reduction techniques using automated exposure control or adjustment of mA and/or kV according to the patient's size were employed. CLINICAL HISTORY: UROLOGIC CANCER,SURVEILLANCE,RT KIDNEY CA COMPARISON: 05/28/2022 FINDINGS: There is no axillary lymphadenopathy. There is an anterior mediastinal lymph node measuring 13 mm which is unchanged. There are no additional mediastinal or hilar lymph nodes. A subcarinal lymph node is stable. There is no pleural or pericardial effusion. A spiculated right middle lobe nodule measures 15 mm and is unchanged. There is a stable lingular nodule. No new nodules are identified. There is no acute osseous abnormality. IMPRESSION: Stable nodules as above with no new nodule identified. 13 mm anterior mediastinal lymph node, unchanged. Reviewed, Interpreted and Dictated by Angela Childers MD Transcribed by Yin Simental Authenticated and . [facility]
--- NOTE | 2022-09-30 07:51 | CT_ITS ---
FINAL REPORT TECHNIQUE: Thin section axial images were obtained from the lung bases to the pubic symphysis without IV contrast. Coronal reconstruction images were obtained from the axial data. Exam was performed using dose reduction technique. CLINICAL HISTORY: pain COMPARISON: 05/28/2022 FINDINGS: There are no renal or ureteral stones. There is no hydronephrosis or perinephric stranding. The liver is homogeneous. There are gallstones in the gallbladder. There is mild abnormal attenuation surrounding the gallbladder this is unchanged from the prior exam. The spleen, pancreas and adrenals are unremarkable. The right kidney is absent. The hypodense left renal mass described on the prior exam is not well visualized today. Abdominal GI tract is without acute abnormality. No abdominal lymphadenopathy or ascites is identified. There is no evidence of small bowel obstruction. The appendix is normal. There is stable abnormal attenuation at the root of the mesentery. No lymphadenopathy or ascites is identified. The prostate is enlarged. Wall thickening of the urinary bladder is likely related to chronic outlet obstruction. There is diverticulosis without diverticulitis. No acute osseous abnormality is identified. IMPRESSION: 1. No convincing evidence of metastatic disease to the abdomen or pelvis. 2. Left renal lesion less well appreciated. 3. Abnormal attenuation surrounding the gallbladder is unchanged. Reviewed, Interpreted and Dictated by Angela Childers MD Transcribed by Yin Simental Authenticated and . [facility]
== END ==
PROVIDERS: PCP Internal Medicine Adolescent Medicine; Visit Provider Internal Medicine Hematology & Oncology
DX: C64.1 Malignant neoplasm of right kidney, except renal pelvis (principal)
CPT/HCPCS: 71250; 74176

== ENCOUNTER → 2023-02-03 07:38 | Outpatient (CLI) | payer MEDICARE, OTHER, SELFPAY ==
--- NOTE | 2023-02-03 07:44 | CT_ITS ---
FINAL REPORT TECHNIQUE: Axial images were obtained through the chest without contrast. CLINICAL HISTORY: UROLOGIC CANCER SERVEILLANCE 3 month check up COMPARISON: 09/30/2022 FINDINGS: A prior sternotomy is noted. There is a 12 mm mediastinal node, anterior, seen best in image number 20, there is slightly smaller than noted on the previous chest CT of 2021. There is a 16 mm subcarinal node which is stable. Dense calcifications are noted in the coronary arteries. There are no new mediastinal nodes visualized. There is a noncalcified 12 mm mass in the right mid lung, seen best on image number 40, which is also stable. The heart size is normal. There is no pericardial or pleural effusion. Limited images of the upper abdomen are unremarkable. No suspicious infiltrate identified. IMPRESSION: Noncalcified 12 mm mass in the right mid lung, stable since the prior chest CT of September 2022. 12 mm anterior mediastinal node not significantly changed since September 2022 but smaller in size since September 2021. 15 mm subcarinal node, stable since September 2022 Reviewed, Interpreted and Dictated by Micheal Parker MD Transcribed by Pamela Healy Authenticated and [facility]
--- NOTE | 2023-02-03 07:44 | CT_ITS ---
FINAL REPORT TECHNIQUE: Axial images through the abdomen and pelvis were performed without contrast. This study was performed with techniques to keep radiation doses as low as reasonably achievable, (ALARA). Individualized dose reduction techniques using automated exposure control or adjustment of mA and/or kV according to the patient's size were employed. CLINICAL HISTORY: UROLOGIC CANCER SERVEILLANCE 3 month check up COMPARISON: 09/30/2022 FINDINGS: Abdomen: The lung bases are clear. The liver parenchyma is homogeneous. The gallbladder is present with a few tiny calcified stones once again noted. The spleen, pancreas, and adrenals are unremarkable. The right kidney is surgically absent. There is mild stranding in the root of the mesentery, similar to previous CT examinations. Pelvis: The urinary bladder is unremarkable. The appendix is not visualized. There is no pelvic mass or inflammation. There is a large amount of stool in the sigmoid colon and rectum, and a large prostate is once again identified. IMPRESSION: Right kidney surgically absent. Mild stranding in the root of the mesentery, similar to previous exam of 09/30/2022. Large amount of stool in the sigmoid colon and rectum. A prominent prostate gland is once again noted. Few tiny dependent stones in the gallbladder, also unchanged since the previous exam. Reviewed, Interpreted and Dictated by Micheal Parker MD Transcribed by Pamela Healy Authenticated and [facility]
== END ==
PROVIDERS: PCP Internal Medicine Adolescent Medicine; Visit Provider Internal Medicine Hematology & Oncology
DX: C64.1 Malignant neoplasm of right kidney, except renal pelvis (principal)
CPT/HCPCS: 71250; 74176

== ENCOUNTER → 2023-03-13 10:41 | Outpatient (CLI) | payer MEDICARE, OTHER, SELFPAY ==
[2023-03-13 10:52] LABS: Microscopic, Urine URINE MICROSCOPIC (MICROSCOPIC)
[2023-03-13 11:05] LABS: Basophils % 0.6 % (0.1-2.0); Eosinophils # 0.2 K/mm3 (0.0-0.4); Eosinophils % 3.6 % (0.1-12.0); Hematocrit 38.7 % (42.0-52.0); Hemoglobin 12.8 g/dL (14.1-18.0); Lymphocytes # 1.7 K/mm3 (0.7-4.5); Lymphocytes % 36.6 % (10-50); Mean Corpuscular HGB Conc 33.1 g/dL (31.8-35.4); Mean Corpuscular Hemoglobin 27.7 pg (27.0-31.2); Mean Corpuscular Volume 83.7 fl (80-94); Mean Platelet Volume 8.4 fl (7.4-10.4); Monocytes # 0.3 K/mm3 (0.1-1.0); Monocytes % 5.7 % (1.7-9.3); Neutrophils # 2.4 K/mm3 (1.8-7.8); Neutrophils % 53.6 % (37.0-80.0); Platelet Count 146 K/mm3 (142-424); Red Blood Count 4.63 M/mm3 (4.60-6.20); Red Cell Distribution Width 14.1 % (11.5-17.5); White Blood Count 4.6 K/mm3 (4.8-10.8)
[2023-03-13 11:23] LABS: Albumin Level 4.1 g/dl (3.5-5.0); Anion Gap 12.1 mEq/L (5-15); Blood Urea Nitrogen 22 mg/dl (9-20); Calcium 8.5 mg/dl (8.4-10.2); Carbon Dioxide 26 mmol/L (22.0-30.0); Chloride 109 mmol/L (98-107); Estimated Glomerular Filt Rate 37 ml/min (>60); GFR (African American) 45 ML/MIN (>60); Glucose 182 mg/dl (74-100); Phosphorous 3.7 mg/dl (2.5-4.5); Potassium 5.1 mmoL/L (3.5-5.1); Sodium 142 mmol/L (136-145)
[2023-03-13 12:05] LABS: Appearance,Urine CLEAR (Clear); Bilirubin,Urine Negative (Negative); Blood, Urine TRACE-I (Negative); Color,Urine YELLOW (Yellow); Glucose,Urine (UA) TRACE (Negative); Ketones,Urine Negative (Negative); Leukocyte Esterase,Urine Negative (Negative); Nitrate,Urine Negative (Negative); Protein,Urine 2+ (Negative); Urobilinogen,Urine 0.2 EU/dl (0.2)
[2023-03-13 12:21] LABS: Creatinine,Urine Random 85 mg/dL (Not Estab.)
[2023-03-13 12:30] LABS: Bacteria,Urine Trace /lpf; Squamous Epithelial Cell,Urine Occasional #/hpf (0-5)
== END ==
PROVIDERS: PCP Internal Medicine Adolescent Medicine; Visit Provider Internal Medicine Nephrology
DX: N28.9 Disorder of kidney and ureter, unspecified (principal)
CPT/HCPCS: 36415; 80069; 81001; 82570; 84155; 85025

== ENCOUNTER → 2023-03-26 07:38 | Outpatient (CLI) | payer MEDICARE, OTHER, SELFPAY ==
--- NOTE | 2023-03-26 07:40 | CA_ITS ---
FINAL REPORT TECHNIQUE: Grayscale, color Doppler and duplex Doppler ultrasound of the kidneys, aorta and renal arteries was performed. Multiple velocities were measured. CLINICAL HISTORY: NO STENOSIS SEEN IN THE LEFT RENAL ARTERY. RIGHT KIDNEY IS SURGICALLY ABSENT PROMINENT LEFT RENAL PELVIS COMPARISON: None FINDINGS: Aorta velocity: 257 cm/sec Right kidney surgically absent. Left Kidney: 11.8 cm. No evidence of hydronephrosis or mass. Left intrarenal RI: 0.55-0.78 Left renal artery velocity: 180 cm/sec. Left RAR (Renal Artery-Aortic Ratio): 0.70 IMPRESSION: Less than 60% stenosis with elevated left renal artery velocity. Consider correlation with CT angiogram. Reviewed, Interpreted and Dictated by Chris Guillen III, MD Transcribed by Cassi Lao Authenticated and [facility]
== END ==
PROVIDERS: PCP Internal Medicine Adolescent Medicine; Visit Provider Internal Medicine Nephrology
DX: N17.8 Other acute kidney failure (principal); I10 Essential (primary) hypertension
CPT/HCPCS: 93976

== ENCOUNTER → 2023-04-14 11:21 | Outpatient (CLI) | payer MEDICARE, OTHER, SELFPAY ==
[2023-04-14 11:48] LABS: Microscopic, Urine URINE MICROSCOPIC (MICROSCOPIC)
[2023-04-14 12:33] LABS: Appearance,Urine CLEAR (Clear); Bilirubin,Urine Negative (Negative); Blood, Urine TRACE-I (Negative); Color,Urine YELLOW (Yellow); Glucose,Urine (UA) Negative (Negative); Ketones,Urine Negative (Negative); Leukocyte Esterase,Urine Negative (Negative); Nitrate,Urine Negative (Negative); Protein,Urine 2+ (Negative); Urobilinogen,Urine 0.2 EU/dl (0.2)
[2023-04-14 12:51] LABS: Creatinine,Urine Random 132 mg/dL (Not Estab.)
[2023-04-14 13:01] LABS: Albumin Level 4.1 g/dl (3.5-5.0); Anion Gap 14.9 mEq/L (5-15); Blood Urea Nitrogen 30 mg/dl (9-20); Calcium 8.7 mg/dl (8.4-10.2); Carbon Dioxide 28 mmol/L (22.0-30.0); Chloride 102 mmol/L (98-107); Creatine Kinase 54 U/L (55-170); Estimated Glomerular Filt Rate 35 ml/min (>60); GFR (African American) 42 ML/MIN (>60); Glucose 186 mg/dl (74-100); Phosphorous 3.9 mg/dl (2.5-4.5); Potassium 4.9 mmoL/L (3.5-5.1); Sodium 140 mmol/L (136-145)
[2023-04-14 13:03] LABS: Bacteria,Urine Trace /lpf; RBC,Urine Occasional #/hpf (0-3); Squamous Epithelial Cell,Urine Occasional #/hpf (0-5)
[2023-04-14 13:14] LABS: Intact Parathyroid Hormone 130.7 pg/mL (7.5-53.5)
[2023-04-16 15:59] LABS: Albumin, U 75.2 % (.); Alpha-2-Globulin, U 3.6 % (.); Beta Globulin, U 9.6 % (.); Gamma Globulin, U 7.6 % (.); M-Spike, % Not Observed % (Not Observed); Protein,Total,Urine 136.2 mg/dL (Not Estab.)
== END ==
PROVIDERS: PCP Internal Medicine Adolescent Medicine; Visit Provider Internal Medicine Nephrology
DX: N17.9 Acute kidney failure, unspecified (principal)
CPT/HCPCS: 36415; 80069; 81001; 82550; 82570; 83970; 84155; 84156; 84166; 86335; 87205

== ENCOUNTER → 2023-05-07 10:53 | Outpatient (CLI) | payer MEDICARE, OTHER, SELFPAY ==
[2023-05-07 11:02] LABS: Microscopic, Urine URINE MICROSCOPIC (MICROSCOPIC)
[2023-05-07 11:18] LABS: Appearance,Urine CLEAR (Clear); Bilirubin,Urine Negative (Negative); Blood, Urine TRACE-I (Negative); Color,Urine YELLOW (Yellow); Glucose,Urine (UA) Negative (Negative); Ketones,Urine Negative (Negative); Leukocyte Esterase,Urine Negative (Negative); Nitrate,Urine Negative (Negative); Protein,Urine 2+ (Negative); Specific Gravity, Urine 1.025 (1.005-1.030); Urobilinogen,Urine 0.2 EU/dl (0.2)
[2023-05-07 11:22] LABS: Basophils % 0.5 % (0.1-2.0); Eosinophils # 0.2 K/mm3 (0.0-0.4); Hematocrit 42.3 % (42.0-52.0); Hemoglobin 14.2 g/dL (14.1-18.0); Lymphocytes # 1.7 K/mm3 (0.7-4.5); Mean Corpuscular HGB Conc 33.6 g/dL (31.8-35.4); Mean Corpuscular Hemoglobin 28.3 pg (27.0-31.2); Mean Corpuscular Volume 84.4 fl (80-94); Mean Platelet Volume 7.5 fl (7.4-10.4); Monocytes # 0.3 K/mm3 (0.1-1.0); Monocytes % 5.6 % (1.7-9.3); Neutrophils # 3.5 K/mm3 (1.8-7.8); Platelet Count 157 K/mm3 (142-424); Red Blood Count 5.01 M/mm3 (4.60-6.20); Red Cell Distribution Width 14.4 % (11.5-17.5); White Blood Count 5.7 K/mm3 (4.8-10.8)
[2023-05-07 12:05] LABS: Creatinine,Urine Random 121 mg/dL (Not Estab.)
[2023-05-07 12:14] LABS: Albumin Level 4.2 g/dl (3.5-5.0); Anion Gap 12.9 mEq/L (5-15); Blood Urea Nitrogen 29 mg/dl (9-20); Calcium 8.7 mg/dl (8.4-10.2); Carbon Dioxide 25 mmol/L (22.0-30.0); Chloride 107 mmol/L (98-107); Estimated Glomerular Filt Rate 35 ml/min (>60); GFR (African American) 42 ML/MIN (>60); Glucose 153 mg/dl (74-100); Phosphorous 4.2 mg/dl (2.5-4.5); Potassium 4.9 mmoL/L (3.5-5.1); Sodium 140 mmol/L (136-145)
[2023-05-07 12:29] LABS: Bacteria,Urine Trace /lpf; RBC,Urine Occasional #/hpf (0-3); Squamous Epithelial Cell,Urine Occasional #/hpf (0-5)
== END ==
PROVIDERS: PCP Internal Medicine Adolescent Medicine; Visit Provider Internal Medicine Nephrology
DX: N17.9 Acute kidney failure, unspecified (principal)
CPT/HCPCS: 36415; 80069; 81001; 82570; 84155; 85025

== ENCOUNTER → 2023-05-20 14:07 | Outpatient (CLI) | payer MEDICARE, OTHER, SELFPAY ==
--- NOTE | 2023-05-20 14:13 | MR_ITS ---
FINAL REPORT CLINICAL HISTORY: HEADACHE ABOVE EYE REGION on the lt side COMPARISON: July 07, 2021 MRI FINDINGS: Multiplanar MR imaging of the brain was performed without contrast. There is age-appropriate atrophy. There are scattered foci of increased T2 signal in the cerebral white matter that have a nonspecific appearance but are consistent with moderate chronic ischemic/gliotic changes. Several chronic lacunar infarcts are seen which are stable. There is no evidence of intracranial hemorrhage or mass. No abnormal ventricular dilatation is identified. No abnormal extra-axial fluid collection is seen. No abnormality is seen on the diffusion weighted images. The posterior fossa and brainstem are unremarkable. Normal major vessel vascular flow voids are seen. Mucosal thickening is noted in multiple sinuses. IMPRESSION: Moderate chronic ischemic/gliotic changes. Stable multifocal chronic lacunar infarcts. No acute intracranial abnormality. Authenticated and [facility]
== END ==
PROVIDERS: PCP Internal Medicine Adolescent Medicine; Visit Provider Internal Medicine Adolescent Medicine
DX: R51.9 Headache, unspecified (principal)
CPT/HCPCS: 70551

== ENCOUNTER → 2023-06-05 08:13 | Outpatient (CLI) | payer MEDICARE, OTHER, SELFPAY ==
--- NOTE | 2023-06-05 08:20 | CT_ITS ---
FINAL REPORT TECHNIQUE: Axial images through the abdomen and pelvis were performed without contrast. This study was performed with techniques to keep radiation doses as low as reasonably achievable, (ALARA). Individualized dose reduction techniques using automated exposure control or adjustment of mA and/or kV according to the patient's size were employed. CLINICAL HISTORY: .CANCER FOLLOW-UP COMPARISON: 02/03/2023 FINDINGS: ABDOMEN: The lung bases are clear. The heart size is normal. Limited images of the liver are unremarkable. The spleen is normal. No adrenal mass is identified. The aorta is normal in caliber. A right nephrectomy has been performed as seen on the prior CT of January. There is interval improvement in the mild stranding in the small bowel mesentery noted on prior CTs. There are multiple small mesenteric nodes, also stable. Gallstones with mild gallbladder wall thickening remain present. Vascular calcifications are again noted. PELVIS: The appendix is normal in appearance. Scattered diverticula remain present in the colon. The prostate remains somewhat enlarged, however stable. There are small bilateral inguinal hernias containing fat. The urinary bladder is unremarkable. There is no significant free fluid or adenopathy. IMPRESSION: Prior right nephrectomy. Interval improvement in the mild stranding in the small bowel mesentery since the prior CT of January 2023. Gallstones are once again identified. No new intra abdominal abnormalities are identified. Reviewed, Interpreted and Dictated by Chris Guillen III, MD Transcribed by Pamela Healy Authenticated and [facility]
--- NOTE | 2023-06-05 08:20 | CT_ITS ---
FINAL REPORT TECHNIQUE: Axial images were obtained from the lung apex to the mid abdomen by computed tomography. Coronal reformatted images were obtained. This study was performed with techniques to keep radiation doses as low as reasonably achievable, (ALARA). Individualized dose reduction techniques using automated exposure control or adjustment of mA and/or kV according to the patient''s size were employed. CLINICAL HISTORY: MALIGNANT NEOPLASM OF RT KIDNEY COMPARISON: 02/03/2023 FINDINGS: There is an 8 mm focus of decreased signal in the right lobe of the thyroid gland, likely a nodule, stable since the prior CT of January. There is an anterior mediastinal node, 12 mm in size, also stable. There is a subcarinal node, 15 mm in size, also stable. There is a spiculated nodule in the right middle lobe lateral segment, 12 mm in size, stable. No new masses or nodules are identified. Mild gynecomastia is present. There is no axillary adenopathy. Heart size is normal. There is no pericardial or pleural effusion. IMPRESSION: 12 mm spiculated nodule in the lateral segment of the right middle lobe remained stable since January. The anterior mediastinal and subcarinal nodes noted on the prior CT also remained stable. 8 mm right thyroid lobe mass, stable. No new masses or nodules are identified. Reviewed, Interpreted and Dictated by Chris Guillen III, MD Transcribed by Pamela Healy Authenticated and [facility]
== END ==
PROVIDERS: PCP Internal Medicine Adolescent Medicine; Visit Provider Internal Medicine Hematology & Oncology
DX: C64.1 Malignant neoplasm of right kidney, except renal pelvis (principal)
CPT/HCPCS: 71250; 74176

== ENCOUNTER → 2023-06-09 09:28 | Outpatient (CLI) | payer MEDICARE, OTHER, SELFPAY ==
[2023-06-09 10:00] LABS: Basophils % 0.3 % (0.1-2.0); Eosinophils # 0.1 K/mm3 (0.0-0.4); Eosinophils % 1.1 % (0.1-12.0); Hematocrit 31.2 % (42.0-52.0); Hemoglobin 11.1 g/dL (14.1-18.0); Lymphocytes # 1.7 K/mm3 (0.7-4.5); Lymphocytes % 25.6 % (10-50); Mean Corpuscular HGB Conc 35.5 g/dL (31.8-35.4); Mean Corpuscular Hemoglobin 30.5 pg (27.0-31.2); Mean Corpuscular Volume 86.1 fl (80-94); Mean Platelet Volume 7.3 fl (7.4-10.4); Monocytes # 0.3 K/mm3 (0.1-1.0); Monocytes % 4.7 % (1.7-9.3); Neutrophils # 4.6 K/mm3 (1.8-7.8); Neutrophils % 68.4 % (37.0-80.0); Platelet Count 174 K/mm3 (142-424); Red Blood Count 3.63 M/mm3 (4.60-6.20); Red Cell Distribution Width 14.4 % (11.5-17.5); White Blood Count 6.7 K/mm3 (4.8-10.8)
[2023-06-09 10:35] LABS: Alanine Aminotransferase 15 U/L (12-78); Albumin Level 3.8 g/dl (3.5-5.0); Albumin/Globulin Ratio 1.4 (1.1-1.8); Alkaline Phosphatase 97 U/L (38-126); Anion Gap 14.5 mEq/L (5-15); Aspartate Amino Transferase 21 U/L (17-59); Bilirubin,Total 0.5 mg/dl (0.2-1.3); Blood Urea Nitrogen 39 mg/dl (9-20); Calcium 8.7 mg/dl (8.4-10.2); Carbon Dioxide 24 mmol/L (22.0-30.0); Chloride 103 mmol/L (98-107); Chol/HDL Ratio 3.7 (1-3.5); Cholesterol 89 mg/dl (140-200); Estimated Glomerular Filt Rate 35 ml/min (>60); GFR (African American) 42 ML/MIN (>60); Globulin 2.7 g/dL (1.3-3.2); Glucose 157 mg/dl (74-100); HDL Cholesterol 24 mg/dl (40-60); Potassium 4.5 mmoL/L (3.5-5.1); Sodium 137 mmol/L (136-145); Total Protein,Serum 6.5 g/dl (6.3-8.2); Triglycerides 115 mg/dl (30-150); VLDL Cholesterol 23 mg/dL (0-40)
[2023-06-09 10:46] LABS: Direct LDL Cholesterol 47.41 mg/dL (100-129)
== END ==
PROVIDERS: PCP Internal Medicine Adolescent Medicine; Visit Provider Internal Medicine Adolescent Medicine
DX: I25.10 Atherosclerotic heart disease of native coronary artery without angina pectoris (principal); I10 Essential (primary) hypertension; E78.5 Hyperlipidemia, unspecified; Z85.528 Personal history of other malignant neoplasm of kidney; Z87.891 Personal history of nicotine dependence
CPT/HCPCS: 36415; 80053; 80061; 85025

== ENCOUNTER → 2023-07-05 09:56 | Outpatient (CLI) | payer MEDICARE, OTHER, SELFPAY ==
[2023-07-05 10:15] LABS: Basophils % 0.3 % (0.1-2.0); Eosinophils # 0.1 K/mm3 (0.0-0.4); Eosinophils % 2.3 % (0.1-12.0); Hematocrit 26.4 % (42.0-52.0); Hemoglobin 8.8 g/dL (14.1-18.0); Lymphocytes # 1.5 K/mm3 (0.7-4.5); Lymphocytes % 26.9 % (10-50); Mean Corpuscular HGB Conc 33.5 g/dL (31.8-35.4); Mean Corpuscular Hemoglobin 28.9 pg (27.0-31.2); Mean Corpuscular Volume 86.2 fl (80-94); Mean Platelet Volume 9.1 fl (7.4-10.4); Monocytes # 0.2 K/mm3 (0.1-1.0); Monocytes % 4.1 % (1.7-9.3); Neutrophils # 3.6 K/mm3 (1.8-7.8); Neutrophils % 66.4 % (37.0-80.0); Platelet Count 99 K/mm3 (142-424); Red Blood Count 3.07 M/mm3 (4.60-6.20); Red Cell Distribution Width 15.9 % (11.5-17.5); White Blood Count 5.5 K/mm3 (4.8-10.8)
[2023-07-05 10:36] LABS: Alanine Aminotransferase 12 U/L (12-78); Albumin Level 4.1 g/dl (3.5-5.0); Albumin/Globulin Ratio 1.6 (1.1-1.8); Alkaline Phosphatase 89 U/L (38-126); Aspartate Amino Transferase 29 U/L (17-59); Bilirubin,Total 0.8 mg/dl (0.2-1.3); Blood Urea Nitrogen 32 mg/dl (9-20); Carbon Dioxide 25 mmol/L (22.0-30.0); Chloride 103 mmol/L (98-107); Estimated Glomerular Filt Rate 31 ml/min (>60); GFR (African American) 38 ML/MIN (>60); Globulin 2.5 g/dL (1.3-3.2); Glucose 179 mg/dl (74-100); Sodium 138 mmol/L (136-145); Total Protein,Serum 6.6 g/dl (6.3-8.2)
== END ==
PROVIDERS: PCP Internal Medicine Adolescent Medicine; Visit Provider Internal Medicine Adolescent Medicine
DX: Z95.2 Presence of prosthetic heart valve (principal)
CPT/HCPCS: 36415; 80053; 85025

== ENCOUNTER 2023-07-15 10:03 | Outpatient (RCR) | payer MEDICARE, OTHER, SELFPAY | END 2023-08-17 11:30 | disposition home or self-care (01) | LOC: PT 10:03 | PROVIDERS: Visit Provider Internal Medicine Cardiovascular Disease | DX: I35.0 Nonrheumatic aortic (valve) stenosis (principal) ==

== ENCOUNTER 2023-08-14 11:48 | Outpatient (CLI) | payer MEDICARE, OTHER, SELFPAY ==
[2023-08-14 11:51] VITALS: BMI 29.0
--- NOTE | 2023-08-14 12:03 | PC.NURSE ---
[id number] carey collected labs via venipuncture stick with butterfly needle; pt d/c home; to call results.
[2023-08-14 12:38] LABS: Lactate Dehydrogenase 527 U/L (313-618)
[2023-08-14 13:45] LABS: Vitamin B12 495 pg/mL (239-931)
[2023-08-15 12:10] LABS: Haptoglobin <10 mg/dL (34-355)
[2023-08-16 12:28] LABS: Peripheral Smear Review Scanned Result
== END 2023-08-14 12:20 | disposition home or self-care (01) ==
PROVIDERS: Visit Provider Internal Medicine Medical Oncology
DX: D50.9 Iron deficiency anemia, unspecified (principal)
CPT/HCPCS: 36415; 82607; 82746; 83010; 83615; 85044; 86880

== ENCOUNTER 2023-08-19 09:43 | Outpatient (CLI) | payer MEDICARE, OTHER, SELFPAY ==
[2023-08-19 09:56] VITALS: BMI 29.0
[2023-08-19 10:15] VITALS: BP 130/62; PULSE 63; RESP 16; TEMP 36.6; O2SAT 99
[2023-08-19] MEDS: SODIUM CHLORIDE 0.9% 10ML FLUSH SYRINGE 10 ML IV (10:15)
[2023-08-19] MEDS: SODIUM CHLORIDE 0.9% 50ML BAG 50 ML IV (10:15)
[2023-08-19] MEDS: IRON SUCROSE COMPLEX 200 MG in 0.9 % SODIUM CHLORIDE 100 ML 220 MG IV (10:15)
[2023-08-19 10:21] LABS: Basophils % 0.6 % (0.1-2.0); Eosinophils # 0.1 K/mm3 (0.0-0.4); Eosinophils % 1.6 % (0.1-12.0); Hematocrit 29.5 % (42.0-52.0); Hemoglobin 9.7 g/dL (14.1-18.0); Lymphocytes # 1.3 K/mm3 (0.7-4.5); Lymphocytes % 26.3 % (10-50); Mean Corpuscular HGB Conc 32.7 g/dL (31.8-35.4); Mean Corpuscular Hemoglobin 25.9 pg (27.0-31.2); Mean Corpuscular Volume 79.2 fl (80-94); Mean Platelet Volume 8.5 fl (7.4-10.4); Monocytes # 0.2 K/mm3 (0.1-1.0); Monocytes % 4.8 % (1.7-9.3); Neutrophils # 3.2 K/mm3 (1.8-7.8); Neutrophils % 66.6 % (37.0-80.0); Platelet Count 123 K/mm3 (142-424); Red Blood Count 3.73 M/mm3 (4.60-6.20); Red Cell Distribution Width 16.9 % (11.5-17.5); White Blood Count 4.8 K/mm3 (4.8-10.8)
[2023-08-19 10:32] LABS: Blood Urea Nitrogen 36 mg/dl (9-20); Carbon Dioxide 25 mmol/L (22.0-30.0); Chloride 106 mmol/L (98-107); Creatinine Clearance Estimated 38 mL/min (50-200); Estimated Glomerular Filt Rate 33 ml/min (>60); GFR (African American) 40 ML/MIN (>60); Phosphorous 3.9 mg/dl (2.5-4.5)
[2023-08-19 10:35] LABS: Albumin Level 4.5 g/dl (3.5-5.0); Anion Gap 10.8 mEq/L (5-15); Calcium 8.5 mg/dl (8.4-10.2); Glucose 194 mg/dl (74-100); Potassium 4.8 mmoL/L (3.5-5.1); Sodium 137 mmol/L (136-145)
[2023-08-19 10:52] VITALS: BP 128/64; PULSE 65; RESP 16; TEMP 36.6; O2SAT 98
[2023-08-19 11:16] LABS: Microscopic, Urine URINE MICROSCOPIC (MICROSCOPIC)
[2023-08-19 11:20] LABS: Appearance,Urine CLEAR (Clear); Bilirubin,Urine Negative (Negative); Blood, Urine TRACE-I (Negative); Color,Urine YELLOW (Yellow); Glucose,Urine (UA) Negative (Negative); Ketones,Urine Negative (Negative); Leukocyte Esterase,Urine Negative (Negative); Nitrate,Urine Negative (Negative); PH,Urine 5.5 (5.0-8.5); Protein,Urine 1+ (Negative); Urobilinogen,Urine 0.2 EU/dl (0.2)
[2023-08-19 11:35] LABS: Occult Blood,Stool Negative (Negative)
[2023-08-19 11:53] LABS: Squamous Epithelial Cell,Urine Occasional #/hpf (0-5)
[2023-08-19 15:29] LABS: Creatinine,Urine Random 112 mg/dL (Not Estab.)
== END 2023-08-19 11:00 | disposition home or self-care (01) ==
LOC: INF 09:45
PROVIDERS: Student in an Organized Health Care Education/Training Program; Surgery; PCP Internal Medicine Adolescent Medicine; Visit Provider Internal Medicine Medical Oncology
DX: D50.9 Iron deficiency anemia, unspecified (principal)
CPT/HCPCS: 36415; 80069; 81001; 82272; 82570; 84155; 85025; 96365; G0328; J1756

== ENCOUNTER 2023-08-26 09:20 | Outpatient (CLI) | payer MEDICARE, OTHER, SELFPAY ==
[2023-08-26 09:39] VITALS: BP 127/58; PULSE 57; RESP 16; TEMP 36.9; O2SAT 97
[2023-08-26] MEDS: SODIUM CHLORIDE 0.9% 50ML BAG 50 ML IV (09:39)
[2023-08-26] MEDS: SODIUM CHLORIDE 0.9% 10ML FLUSH SYRINGE 10 ML IV (09:39)
[2023-08-26] MEDS: IRON SUCROSE COMPLEX 200 MG in 0.9 % SODIUM CHLORIDE 100 ML 220 MG IV (09:39)
[2023-08-26 10:14] VITALS: BP 130/69; PULSE 59; RESP 16; TEMP 36.9; O2SAT 97
== END 2023-08-26 10:20 | disposition home or self-care (01) ==
LOC: INF 09:22
PROVIDERS: PCP Internal Medicine Adolescent Medicine; Visit Provider Internal Medicine Medical Oncology
DX: D50.9 Iron deficiency anemia, unspecified (principal)
CPT/HCPCS: 96365; J1756

== ENCOUNTER 2023-09-02 12:22 | Outpatient (CLI) | payer MEDICARE, OTHER, SELFPAY ==
[2023-09-02] MEDS: SODIUM CHLORIDE 0.9% 50ML BAG 50 ML IV (12:39)
[2023-09-02 12:40] VITALS: BP 154/76; PULSE 64; RESP 16; TEMP 36.6; O2SAT 97
[2023-09-02] MEDS: SODIUM CHLORIDE 0.9% 10ML FLUSH SYRINGE 10 ML IV (12:40)
[2023-09-02] MEDS: IRON SUCROSE COMPLEX 200 MG in 0.9 % SODIUM CHLORIDE 100 ML 220 MG IV (12:40)
[2023-09-02 13:15] VITALS: BP 141/70; PULSE 60; RESP 18; TEMP 36.6; O2SAT 98
== END 2023-09-02 13:15 | disposition home or self-care (01) ==
LOC: INF 12:23
PROVIDERS: PCP Internal Medicine Adolescent Medicine; Visit Provider Internal Medicine Medical Oncology
DX: D50.9 Iron deficiency anemia, unspecified (principal)
CPT/HCPCS: 96365; J1756

== ENCOUNTER 2023-09-09 11:38 | Outpatient (CLI) | payer MEDICARE, OTHER, SELFPAY ==
[2023-09-09 12:01] VITALS: BP 140/74; PULSE 59; RESP 18; TEMP 36.3; O2SAT 98
[2023-09-09] MEDS: IRON SUCROSE COMPLEX 200 MG in 0.9 % SODIUM CHLORIDE 100 ML 220 MG IV (12:01)
[2023-09-09] MEDS: SODIUM CHLORIDE 0.9% 10ML FLUSH SYRINGE 10 ML IV (12:41)
[2023-09-09] MEDS: SODIUM CHLORIDE 0.9% 50ML BAG 50 ML IV (12:41)
[2023-09-09 12:45] VITALS: BP 135/79; PULSE 62; RESP 18; O2SAT 98
== END 2023-09-09 12:55 | disposition home or self-care (01) ==
LOC: INF 11:39
PROVIDERS: PCP Internal Medicine Adolescent Medicine; Visit Provider Internal Medicine Medical Oncology
DX: D50.9 Iron deficiency anemia, unspecified (principal)
CPT/HCPCS: 96365; J1756

== ENCOUNTER 2023-09-10 09:44 | Outpatient (CLI) | payer MEDICARE, OTHER, SELFPAY ==
[2023-09-10 10:38] LABS: Basophils % 0.7 % (0.1-2.0); Eosinophils # 0.2 K/mm3 (0.0-0.4); Eosinophils % 3.4 % (0.1-12.0); Hemoglobin 11.6 g/dL (14.1-18.0); Lymphocytes # 1.3 K/mm3 (0.7-4.5); Lymphocytes % 27.2 % (10-50); Mean Corpuscular HGB Conc 34.2 g/dL (31.8-35.4); Mean Corpuscular Hemoglobin 27.8 pg (27.0-31.2); Mean Corpuscular Volume 81.3 fl (80-94); Mean Platelet Volume 8.1 fl (7.4-10.4); Monocytes # 0.3 K/mm3 (0.1-1.0); Monocytes % 6.1 % (1.7-9.3); Neutrophils % 62.6 % (37.0-80.0); Platelet Count 105 K/mm3 (142-424); Red Blood Count 4.17 M/mm3 (4.60-6.20); Red Cell Distribution Width 19.4 % (11.5-17.5); White Blood Count 4.9 K/mm3 (4.8-10.8)
[2023-09-10 10:42] LABS: Chloride 108 mmol/L (98-107)
[2023-09-10 10:43] LABS: Potassium 5.4 mmoL/L (3.5-5.1); Sodium 139 mmol/L (136-145)
[2023-09-10 10:45] LABS: Alanine Aminotransferase 14 U/L (12-78); Albumin Level 4.2 g/dl (3.5-5.0); Albumin/Globulin Ratio 1.5 (1.1-1.8); Alkaline Phosphatase 95 U/L (38-126); Anion Gap 12.4 mEq/L (5-15); Aspartate Amino Transferase 31 U/L (17-59); Bilirubin,Total 0.8 mg/dl (0.2-1.3); Blood Urea Nitrogen 24 mg/dl (9-20); Carbon Dioxide 24 mmol/L (22.0-30.0); Estimated Glomerular Filt Rate 42 ml/min (>60); GFR (African American) 51 ML/MIN (>60); Globulin 2.8 g/dL (1.3-3.2)
[2023-09-10 10:46] LABS: Calcium 8.5 mg/dl (8.4-10.2); Chol/HDL Ratio 3.2 (1-3.5); Cholesterol 96 mg/dl (140-200); Glucose 119 mg/dl (74-100); HDL Cholesterol 30 mg/dl (40-60); Triglycerides 79 mg/dl (30-150); VLDL Cholesterol 16 mg/dL (0-40)
[2023-09-10 10:57] LABS: Direct LDL Cholesterol 53.88 mg/dL (100-129)
[2023-09-10 13:22] LABS: Hemoglobin A1C 5.2 % (4.0-6.0)
== END 2023-09-10 23:59 ==
LOC: LAB 09:45
PROVIDERS: PCP Internal Medicine Adolescent Medicine; Visit Provider Internal Medicine Adolescent Medicine
DX: E11.59 Type 2 diabetes mellitus with other circulatory complications (principal); I25.10 Atherosclerotic heart disease of native coronary artery without angina pectoris; D50.9 Iron deficiency anemia, unspecified; I13.0 Hypertensive heart and chronic kidney disease with heart failure and stage 1 through stage 4 chronic kidney disease, or unspecified chronic kidney disease; Z79.84 Long term (current) use of oral hypoglycemic drugs
CPT/HCPCS: 36415; 80053; 80061; 83036; 85025

== ENCOUNTER 2023-09-16 11:32 | Outpatient (CLI) | payer MEDICARE, OTHER, SELFPAY ==
[2023-09-16 11:50] VITALS: BP 136/64; PULSE 53; RESP 18; TEMP 36.9; O2SAT 97
[2023-09-16] MEDS: IRON SUCROSE COMPLEX 200 MG in 0.9 % SODIUM CHLORIDE 100 ML 220 MG IV (11:50)
[2023-09-16 12:36] VITALS: BP 148/69; PULSE 64; RESP 18; O2SAT 97
[2023-09-16] MEDS: SODIUM CHLORIDE 0.9% 10ML FLUSH SYRINGE 10 ML IV (12:41)
[2023-09-16] MEDS: SODIUM CHLORIDE 0.9% 50ML BAG 50 ML IV (12:41)
== END 2023-09-16 12:40 | disposition home or self-care (01) ==
LOC: INF 11:32
PROVIDERS: PCP Internal Medicine Adolescent Medicine; Visit Provider Internal Medicine Medical Oncology
DX: D50.9 Iron deficiency anemia, unspecified (principal)
CPT/HCPCS: 96365; J1756

== ENCOUNTER 2023-09-19 07:22 | Day surgery (SDC) | payer MEDICARE, OTHER, SELFPAY ==
[2023-09-17 13:33] VITALS: BMI 28.8
[2023-09-19] VITALS (8 sets, daily range): BP systolic 110–147; BP diastolic 64–80; PULSE 61–73; RESP 17–20; TEMP 36.9–37.3; O2SAT 92–99
[2023-09-19] MEDS: LACTATED RINGERS 1000ML 1,000 ML 25 ML IV (07:44)
--- NOTE | 2023-09-19 07:58 | P.PNANES_ITS ---
[facility] Disclaimer: The information contained in this section may have been updated after the patient was seen, as this information can be updated by other users. Medical History Anemia Depression Diabetes type 2, controlled Heart failure HLD (hyperlipidemia) HTN (hypertension) Iron deficiency anemia Parkinson disease Renal cell carcinoma Surgical History History of colonoscopy History of esophagogastroduodenoscopy (EGD) Family History Other No significant family history Social History Smoking Status: Former smoker second hand exposure: No alcohol intake: former substance use type: denies use current occupational status: retired Travel in the last 8 weeks: Outside the [facility] household members: spouse housing: house caffeine: No [facility] Anesthesia Checklist Patient Identification Patient Identification: Arm Band Structural Data Admitted From: Home Planned Operative Procedure/s: EGD/Colonoscopy Consent for Planned Operative Procedure(s) Verified: Yes Verified Documents: Surgical Consent and History and Physical NPO Status Verified Time NPO: 00:00 Additional verifications Anesthesia Reactions: No Airway Assessment Mallampati Score:: Class II C-Spine Mobility Assessed: Yes TMJ Mobility Assessed: Yes Dentition: Good Dentition Neurological Assessment Level of Consciousness: Awake, Alert and Appropriate Anesthesia Plan Anesthesia Risk discussed: Yes Anesthesia Plan: Verified ASA Class: III Anesthesia Type: MAC
[2023-09-19 09:04] LABS: POC Glucose,Bedside 129 (70-110)
--- NOTE | 2023-09-19 10:13 | P.HP_ITS ---
HPI HPI HPI: Patient is a 73-year-old male with complex medical history and numerous medical problems apparently referred by Sera Mcdonough for guillory endoscopy for evaluation of anemia. Patient has a history of renal cell cancer metastatic to the lung, diabetes, hypertension, chronic renal insufficiency, hyperlipidemia, congestive heart failure. He had apparently undergone heart valve replacement in [place] about a month ago. Recently he was found to have hemoglobin of 8.8 with hematocrit of 26.4. He has a baseline hemoglobin of approximately 12 which is variable. In 2019 he had been having weight loss and Dr. Lázaro Juarez performed EGD on 04/26/2019 which revealed nonerosive GERD and mild prepyloric gastropathy. This was followed with colonoscopy on 05/21/2019 which revealed a transverse colon serrated adenoma. Ultimately was proven that his weight loss was secondary to the renal cell cancer and he underwent surgery later that year. He had undergone transcatheter aortic valve replacement with bioprosthetic valve on 06/26/2023. Apparently after his aortic valve surgery he was on clopidogrel. He was having major nosebleed which had subsequently stopped. He is currently not on any anticoagulant. . He is seeing hematology/oncology after my appointment for his anemia. Initially his states that she feels colonoscopy may be a bit much for him to undergo and that consideration may be given for possible upper endoscopy initially. Patient denies any rectal bleeding. Denies any symptoms of melena. After patient was seen by hematology it was recommended he undergo upper endoscopy and colonoscopy. [facility] Disclaimer: The information contained in this section may have been updated after the patient was seen, as this information can be updated by other users. Medical History Anemia Depression Diabetes type 2, controlled Heart failure HLD (hyperlipidemia) HTN (hypertension) Iron deficiency anemia Parkinson disease Renal cell carcinoma Surgical History History of colonoscopy History of esophagogastroduodenoscopy (EGD) Family History Other No significant family history Social History Smoking Status: Former smoker second hand exposure: No alcohol intake: former substance use type: denies use current occupational status: retired Travel in the last 8 weeks: Outside the [facility] household members: spouse housing: house caffeine: No Review of Systems Review of Systems Review of systems:: pertinent systems reviewed and negative unless documented below Meds Home Medications and Allergies Home Medications Medication Instructions Recorded Confirmed Type amlodipine 10 mg tablet 10 mg PO DAILY bp 30 days #30 tabs 07/13/21 09/19/23 Rx aspirin 81 mg tablet,delayed 81 mg PO DAILY CIRCULATION 30 days 07/13/21 09/19/23 Rx release #30 tabs atorvastatin 80 mg tablet 80 mg PO HS Cholesterol 30 days 07/13/21 09/19/23 Rx #30 tabs carbidopa ER 50 mg-levodopa 200 mg 1 tab PO TID parkinsons 30 days 07/13/21 09/19/23 Rx tablet,extended release #90 tabs carvedilol 12.5 mg tablet 12.5 mg PO BID High blood pressure 07/13/21 09/19/23 Rx 30 days #60 tabs citalopram 20 mg tablet 20 mg PO DAILY Anxiety 30 days #30 07/13/21 09/19/23 Rx tabs glimepiride 1 mg tablet 1 mg PO DAILY Diabetes 30 days #30 07/13/21 09/19/23 Rx tabs tramadol 50 mg tablet 50 mg PO BIDP PRN Pain 08/14/23 09/19/23 History New Prescriptions to Start Prescriptions: Allergies Allergy/AdvReac Type Severity Reaction Status Date / Time No Known Allergies Allergy Verified 09/19/23 07:35 Exam Data for Last 24 hours Vital signs and Labs for Last 24 Hours: Temp Pulse Resp BP Pulse Ox O2 Del Method O2 Flow Rate 98.5 F 73 17 140/71 97 Nasal Cannula 5 09/19/23 07:36 09/19/23 07:36 09/19/23 07:36 09/19/23 07:36 09/19/23 07:36 09/19/23 09:29 09/19/23 09:29 Laboratory Results - last 24 hr 09/19/23 07:39: POC Glucose 129 H I & O for Last 24 hours: Intake & Output 09/16/23 09/17/23 09/18/23 09/19/23 11:59 11:59 11:59 11:59 Weight 184 lb Constitutional Constitutional: no acute distress *Routine HEENT Exam Head: Present normocephalic Eye: Present EOMI ENT: Present mucous membranes moist *Routine Respiratory Exam Respiratory: Present CTA bilaterally *Routine Cardiovascular Exam Cardiovascular: Present RRR *Routine Abdominal Exam Abdominal: Present soft *Routine Rectal Exam Rectal:: deferred *Routine Genitalia Exam Genitalia:: deferred Results Results Lab Results Last 24 Hours:: Laboratory Results - last 24 hr 09/19/23 07:39: POC Glucose 129 H Assessment and Plan *Assessment and plan (1) Iron deficiency anemia: Status: Acute Category: Medical Code(s): D50.9 - Iron deficiency anemia, unspecified Plan Proceed with panendoscopy for iron deficiency anemia.
--- NOTE | 2023-09-19 10:17 | P.PCN_ITS ---
Procedure: Date: 09/19/23 Patient Date of :: 1950 Procedure Performed:: Esophagogastroduodenoscopy with biopsy Total colonoscopy with polypectomy using hot snare and cold snare Indications:: Patient is a 73-year-old male with complex medical history and numerous medical problems apparently referred by Sera Mcdonough for guillory endoscopy for evaluation of anemia. Patient has a history of renal cell cancer metastatic to the lung, diabetes, hypertension, chronic renal insufficiency, hyperlipidemia, congestive heart failure. He had apparently undergone heart valve replacement in [place] about a month ago. Recently he was found to have hemoglobin of 8.8 with hematocrit of 26.4. He has a baseline hemoglobin of approximately 12 which is variable. In 2019 he had been having weight loss and Dr. Lázaro Juarez performed EGD on 04/26/2019 which revealed nonerosive GERD and mild prepyloric gastropathy. This was followed with colonoscopy on 05/21/2019 which revealed a transverse colon serrated adenoma. Ultimately was proven that his weight loss was secondary to the renal cell cancer and he underwent surgery later that year. He had undergone transcatheter aortic valve replacement with bioprosthetic valve on 06/26/2023. Apparently after his aortic valve surgery he was on clopidogrel. He was having major nosebleed which had subsequently stopped. He is currently not on any anticoagulant. . He is seeing hematology/oncology after my appointment for his anemia. Initially his states that she feels colonoscopy may be a bit much for him to undergo and that consideration may be given for possible upper endoscopy initially. Patient denies any rectal bleeding. Denies any symptoms of melena. After patient was seen by hematology it was recommended he undergo upper endoscopy and colonoscopy. Performing Provider:: Chris Mehta MD Referring Provider:: Anson Davison MD Sedation:: MAC sedation Procedure:: Patient history was obtained and appropriate physical examination was performed. Patient's medications and allergies were reviewed. Informed consent was obtained after explaining the benefits, alternatives, and risks of the procedure including, but not limited to, bleeding, perforation, missed lesions, and adverse reaction to anesthesia medications. Patient was transported to endoscopy procedure room. Patient was connected to monitoring devices. Throughout the procedure the patient's blood pressure, pulse, and oxygen saturations were monitored continuously. Patient identification and planned procedure were verified by the staff. Patient was positioned in lateral decubitus position. Attention was first turned to upper endoscopy. Olympus endoscope was inserted via the oropharynx. There was some minor cricopharyngeal spasm. Overall esophagus appeared relativ venkat unremarkable. Gastroesophageal junction was encountered at 42 cm from the incisors. Stomach was cannulated and insufflated. Retroflexion was difficult to evaluate the gastroesophageal junction. Patient had diffuse erosive gastritis characterized by multiple punctate erosions with some heme material and minor blood clot. No active bleeding. Pylorus was traversed. Duodenum appeared normal. Endoscope was withdrawn into the stomach. Gastric antral mucosal biopsy was obtained for histopathologic analysis and H. pylori assessment. Endoscope was withdrawn Next attention was turned to colonoscopy. Digital anorectal exam was performed. Variable stiffness Olympus colonoscope was inserted and advanced under direct visualization to the cecum. Adequacy of the colonic preparation was noted. The colonoscope was advanced a short distance into the terminal ileum. The colonoscope was then slowly withdrawn while carefully examining the color, texture, anatomy, and integrity of the mucosoa circumferentially. Within the rectum retroflexion was performed. Colonoscope was then withdrawn. . There were noted to be a few diverticuli. In the descending colon there was a moderate adenomatous appearing polyp removed with hot snare. Adjacent to this there was a tiny diminutive polyp removed with cold snare. Colonoscope was withdrawn. . Findings:: Gastroesophageal junction at 42 cm Somewhat erosive diffuse hemorrhagic gastritis Left-sided diverticuli Polyps as noted above (moderate approximately 10 mm adenomatous polyp in the soraida cending colon, diminutive to 90 adjacent polyp) Recommendations:: Patient likely benefit from proton pump inhibitors given the gastritis. I will see about his H. pylori status and treat if appropriate. If H. pylori is positive consideration may be given for interval follow-up endoscopy to assess for adequate treatment and healing of the hemorrhagic gastric erosions. Complications:: None immediately apparent Estimated blood obtained (mL): 2 Colonoscopy Component Colonoscopy Component Was a colonoscopy performed during today's procedure?: Yes Recommended follow up colonoscopy of at least 10 years?: No If no, follow up colonoscopy recommended in ___ years?: 5 Reason for not recommending >/= 10 yr follow-up interval?: Polyps
--- NOTE | 2023-09-19 10:20 | P.PNANES_ITS ---
[facility] Anesthesia Record Part I Anesthesia Record I Intake, IV Amount: 300 Hydration: Adequate Estimated blood loss (mL): 1 Urine output (mL): 0 Blood Products used (#): none Blood Pressure: 110/64 SaO2: 92 Pulse Rate: 67 Airway Patency: Patent Respiratory Rate: 18 Temperature: 99.1 F Patient is:: Drowsy and Stable Stable to PACU at:: 10:20
--- NOTE | 2023-09-19 10:43 | SUR.PHASEII ---
Pt has eyes open and answers questions but is not alert, just staring out into the air. VSS, drinking water when offered. Continue to talk to him and at bedside and allow pt to wake up more.
--- NOTE | 2023-09-19 11:08 | SUR.PHASEII ---
Pt doing better, alert and at baseline.
== END 2023-09-19 11:08 | disposition home or self-care (01) ==
PROVIDERS: PCP Internal Medicine Adolescent Medicine; Visit Provider Surgery
PROC: 0DJ08ZZ Inspection of Upper Intestinal Tract, Via Natural or Artificial Opening Endoscopic (ICD-10-PCS; CPT 43235; principal; 2023-09-19 08:30)
DX: D50.9 Iron deficiency anemia, unspecified (principal); K29.01 Acute gastritis with bleeding; D12.4 Benign neoplasm of descending colon; E11.9 Type 2 diabetes mellitus without complications
CPT/HCPCS: 43239; 45385; 82962; 88305; J2704

== ENCOUNTER 2023-10-13 08:28 | Outpatient (CLI) | payer MEDICARE, OTHER, SELFPAY ==
--- NOTE | 2023-10-13 08:35 | CT_ITS ---
FINAL REPORT TECHNIQUE: Thin section axial images were obtained from the lung bases to the pubic symphysis without IV contrast. Coronal reconstruction images were obtained from the axial data. Exam was performed using dose reduction technique. CLINICAL HISTORY: MALIGNANT NEOPLASM OF RT KIDNEY COMPARISON: 06/05/2023 FINDINGS: The unenhanced liver is homogeneous without focal lesion. Gallstones are seen in the gallbladder. The spleen and adrenal glands are without acute abnormality. The pancreas is unremarkable. There are changes from right nephrectomy. There is no evidence of renal stones in left kidney. An extrarenal pelvis is noted. There is no evidence of mass. The abdominal GI tract demonstrates apparent endoscopy clip in the mid stomach. There is mild wall thickening of the proximal small bowel loops without evidence of small bowel obstruction. There is abnormal attenuation at the root of the mesentery which is unchanged. Small mesenteric lymph nodes are stable. There is no lymphadenopathy or ascites. The prostate is enlarged. There is wall thickening of the urinary bladder, likely related to chronic outlet obstruction. The appendix is unremarkable. Pelvic GI tract demonstrates no acute findings. There is no lymphadenopathy. No free fluid is seen. No acute osseous abnormality is identified. IMPRESSION: No evidence of recurrent or metastatic disease to the abdomen or pelvis. Stable chronic findings. Wall thickening of the proximal small bowel, enteritis not excluded. Reviewed, Interpreted and Dictated by Angela Childers MD Transcribed by Cassi Lao Authenticated and . [facility]
--- NOTE | 2023-10-13 08:35 | CT_ITS ---
FINAL REPORT TECHNIQUE: Thin section axial images were obtained from the lung apices through the upper abdomen without contrast. This study was performed with techniques to keep radiation doses as low as reasonably achievable (ALARA). Individualized dose reduction techniques using automated exposure control or adjustment of mA and/or kV according to the patient's size were employed. CLINICAL HISTORY: MALIGNANT NEOPLASM OF RT KIDNEY COMPARISON: 06/05/2023 FINDINGS: There is no mediastinal, hilar, or axillary lymphadenopathy. There are stable mediastinal and subcarinal nodes. There is a stable hypodense nodule in the right thyroid. No pleural or pericardial effusion. There is a stable 14 mm right middle lobe nodule. No new mass or nodule identified. There is no consolidation.. Limited, unenhanced evaluation of the upper abdomen is without acute abnormality. There is no acute osseous abnormality. IMPRESSION: Stable right middle lobe nodule. Stable mediastinal and subcarinal nodes. No new abnormality. Reviewed, Interpreted and Dictated by Angela Childers MD Transcribed by Cassi Lao Authenticated and [facility]
[2023-10-13] MEDS: BARIUM SULFATE(READI-CAT2);450ML BOTTLE 450 ML PO (11:01)
== END 2023-10-13 23:59 ==
LOC: RAD 08:28
PROVIDERS: PCP Internal Medicine Adolescent Medicine; Visit Provider Internal Medicine Hematology & Oncology
DX: C64.1 Malignant neoplasm of right kidney, except renal pelvis (principal)
CPT/HCPCS: 71250; 74176

== ENCOUNTER 2023-11-07 12:37 | Outpatient (CLI) | payer MEDICARE, OTHER, SELFPAY ==
[2023-11-07 12:58] LABS: Basophils # 0.1 K/mm3 (0-0.2); Basophils % 0.9 % (0.1-2.0); Eosinophils # 0.3 K/mm3 (0.0-0.4); Eosinophils % 3.7 % (0.1-12.0); Hematocrit 43.7 % (42.0-52.0); Hemoglobin 14.4 g/dL (14.1-18.0); Lymphocytes # 1.5 K/mm3 (0.7-4.5); Lymphocytes % 22.6 % (10-50); Mean Corpuscular Hemoglobin 29.3 pg (27.0-31.2); Mean Corpuscular Volume 88.9 fl (80-94); Mean Platelet Volume 7.9 fl (7.4-10.4); Monocytes # 0.3 K/mm3 (0.1-1.0); Monocytes % 5.1 % (1.7-9.3); Neutrophils # 4.5 K/mm3 (1.8-7.8); Neutrophils % 67.7 % (37.0-80.0); Platelet Count 109 K/mm3 (142-424); Red Blood Count 4.92 M/mm3 (4.60-6.20); Red Cell Distribution Width 17.6 % (11.5-17.5); White Blood Count 6.7 K/mm3 (4.8-10.8)
[2023-11-07 13:34] LABS: Iron 110 ug/dL (49-181)
[2023-11-07 13:44] LABS: Total Iron Binding Capacity 287 ug/dL (261-462)
[2023-11-07 14:09] LABS: Ferritin 75.3 ng/ml (17.9-464)
== END 2023-11-07 23:59 ==
PROVIDERS: PCP Internal Medicine Adolescent Medicine; Visit Provider Internal Medicine Medical Oncology
DX: D64.9 Anemia, unspecified (principal)
CPT/HCPCS: 36415; 82728; 83540; 83550; 85025

== ENCOUNTER 2023-11-17 12:37 | Outpatient (CLI) | payer MEDICARE, OTHER, SELFPAY ==
[2023-11-17 12:42] LABS: Microscopic, Urine URINE MICROSCOPIC (MICROSCOPIC)
[2023-11-17 12:56] LABS: Basophils # 0.1 K/mm3 (0-0.2); Basophils % 0.8 % (0.1-2.0); Eosinophils # 0.2 K/mm3 (0.0-0.4); Eosinophils % 3.9 % (0.1-12.0); Hemoglobin 13.1 g/dL (14.1-18.0); Lymphocytes # 1.5 K/mm3 (0.7-4.5); Mean Corpuscular HGB Conc 32.8 g/dL (31.8-35.4); Mean Corpuscular Volume 88.7 fl (80-94); Mean Platelet Volume 8.1 fl (7.4-10.4); Monocytes # 0.3 K/mm3 (0.1-1.0); Monocytes % 4.8 % (1.7-9.3); Neutrophils % 66.4 % (37.0-80.0); Platelet Count 94 K/mm3 (142-424); Red Blood Count 4.51 M/mm3 (4.60-6.20); Red Cell Distribution Width 16.9 % (11.5-17.5); White Blood Count 6.1 K/mm3 (4.8-10.8)
[2023-11-17 13:00] LABS: Appearance,Urine CLEAR (Clear); Bilirubin,Urine Negative (Negative); Blood, Urine TRACE-I (Negative); Color,Urine YELLOW (Yellow); Glucose,Urine (UA) Negative (Negative); Ketones,Urine Negative (Negative); Leukocyte Esterase,Urine Negative (Negative); Nitrate,Urine Negative (Negative); Protein,Urine 2+ (Negative); Specific Gravity, Urine 1.025 (1.005-1.030); Urobilinogen,Urine 0.2 EU/dl (0.2)
[2023-11-17 13:23] LABS: Bacteria,Urine Trace /lpf; Squamous Epithelial Cell,Urine Occasional #/hpf (0-5)
[2023-11-17 13:47] LABS: Creatinine,Urine Random 82 mg/dL (Not Estab.)
[2023-11-17 14:00] LABS: Albumin Level 3.9 g/dl (3.5-5.0); Anion Gap 8.1 mEq/L (5-15); Blood Urea Nitrogen 34 mg/dl (9-20); Calcium 8.7 mg/dl (8.4-10.2); Carbon Dioxide 27 mmol/L (22.0-30.0); Chloride 108 mmol/L (98-107); Estimated Glomerular Filt Rate 37 ml/min (>60); GFR (African American) 45 ML/MIN (>60); Glucose 224 mg/dl (74-100); Phosphorous 4.1 mg/dl (2.5-4.5); Potassium 5.1 mmoL/L (3.5-5.1); Sodium 138 mmol/L (136-145)
== END 2023-11-17 23:59 ==
PROVIDERS: PCP Internal Medicine Adolescent Medicine; Visit Provider Student in an Organized Health Care Education/Training Program
DX: N18.9 Chronic kidney disease, unspecified (principal)
CPT/HCPCS: 36415; 80069; 81001; 82570; 84156; 85025

== ENCOUNTER 2024-01-19 09:50 | Outpatient (CLI) | payer MEDICARE, OTHER, SELFPAY ==
[2024-01-19 09:59] LABS: Microscopic, Urine URINE MICROSCOPIC (MICROSCOPIC)
[2024-01-19 10:43] LABS: Appearance,Urine CLEAR (Clear); Bilirubin,Urine Negative (Negative); Blood, Urine TRACE-I (Negative); Color,Urine YELLOW (Yellow); Glucose,Urine (UA) Negative (Negative); Ketones,Urine Negative (Negative); Leukocyte Esterase,Urine Negative (Negative); Nitrate,Urine Negative (Negative); PH,Urine 5.5 (5.0-8.5); Protein,Urine 2+ (Negative); Specific Gravity, Urine 1.025 (1.005-1.030); Urobilinogen,Urine 0.2 EU/dl (0.2)
[2024-01-19 10:58] LABS: Creatinine,Urine Random 80 mg/dL (Not Estab.)
[2024-01-19 10:59] LABS: Bacteria,Urine Trace /lpf; Squamous Epithelial Cell,Urine Occasional #/hpf (0-5)
[2024-01-19 11:03] LABS: Chloride 109 mmol/L (98-107); Potassium 4.9 mmoL/L (3.5-5.1); Sodium 139 mmol/L (136-145)
[2024-01-19 11:04] LABS: Chol/HDL Ratio 3.5 (1-3.5); Cholesterol 112 mg/dl (140-200); HDL Cholesterol 32 mg/dl (40-60); Triglycerides 104 mg/dl (30-150); VLDL Cholesterol 21 mg/dL (0-40)
[2024-01-19 11:06] LABS: Anion Gap 11.9 mEq/L (5-15); Blood Urea Nitrogen 39 mg/dl (9-20); Carbon Dioxide 23 mmol/L (22.0-30.0); Estimated Glomerular Filt Rate 29 ml/min (>60); GFR (African American) 36 ML/MIN (>60); Phosphorous 3.6 mg/dl (2.5-4.5)
[2024-01-19 11:07] LABS: Calcium 9.1 mg/dl (8.4-10.2); Glucose 128 mg/dl (74-100)
[2024-01-19 11:15] LABS: Direct LDL Cholesterol 61.08 mg/dL (100-129)
== END 2024-01-19 23:59 | disposition home or self-care (01) ==
LOC: LAB 09:52
PROVIDERS: Internal Medicine Nephrology; PCP Internal Medicine Adolescent Medicine; Visit Provider Internal Medicine Endocrinology, Diabetes & Metabolism
DX: E11.22 Type 2 diabetes mellitus with diabetic chronic kidney disease (principal); N18.9 Chronic kidney disease, unspecified; R80.9 Proteinuria, unspecified; Z79.4 Long term (current) use of insulin
CPT/HCPCS: 36415; 80061; 80069; 81001; 82570; 84156

== ENCOUNTER 2024-02-17 09:24 | Outpatient (CLI) | payer MEDICARE, OTHER, SELFPAY ==
[2024-02-17 09:30] LABS: Microscopic, Urine URINE MICROSCOPIC (MICROSCOPIC)
[2024-02-17 10:22] LABS: Appearance,Urine CLEAR (Clear); Bilirubin,Urine Negative (Negative); Blood, Urine Negative (Negative); Color,Urine YELLOW (Yellow); Glucose,Urine (UA) Negative (Negative); Ketones,Urine Negative (Negative); Leukocyte Esterase,Urine Negative (Negative); Nitrate,Urine Negative (Negative); Protein,Urine 2+ (Negative); Urobilinogen,Urine 0.2 EU/dl (0.2)
[2024-02-17 10:25] LABS: Basophils % 0.7 % (0.1-2.0); Eosinophils # 0.2 K/mm3 (0.0-0.4); Eosinophils % 3.1 % (0.1-12.0); Hematocrit 37.6 % (42.0-52.0); Hemoglobin 12.8 g/dL (14.1-18.0); Lymphocytes # 1.6 K/mm3 (0.7-4.5); Lymphocytes % 26.4 % (10-50); Mean Corpuscular Hemoglobin 30.4 pg (27.0-31.2); Mean Corpuscular Volume 89.3 fl (80-94); Mean Platelet Volume 7.2 fl (7.4-10.4); Monocytes # 0.3 K/mm3 (0.1-1.0); Monocytes % 4.1 % (1.7-9.3); Neutrophils % 65.8 % (37.0-80.0); Platelet Count 118 K/mm3 (142-424); Red Blood Count 4.21 M/mm3 (4.60-6.20); Red Cell Distribution Width 14.3 % (11.5-17.5); White Blood Count 6.1 K/mm3 (4.8-10.8)
[2024-02-17 10:33] LABS: Creatinine,Urine Random 101 mg/dL (Not Estab.)
[2024-02-17 11:07] LABS: Chloride 111 mmol/L (98-107); Sodium 140 mmol/L (136-145)
[2024-02-17 11:08] LABS: Albumin Level 4.2 g/dl (3.5-5.0); Potassium 5.9 mmoL/L (3.5-5.1)
[2024-02-17 11:10] LABS: Blood Urea Nitrogen 45 mg/dl (9-20); Estimated Glomerular Filt Rate 27 ml/min (>60); GFR (African American) 32 ML/MIN (>60)
[2024-02-17 11:11] LABS: Anion Gap 11.9 mEq/L (5-15); Carbon Dioxide 23 mmol/L (22.0-30.0); Glucose 134 mg/dl (74-100); Phosphorous 4.2 mg/dl (2.5-4.5)
== END 2024-02-17 23:59 | disposition home or self-care (01) ==
LOC: LAB 09:26
PROVIDERS: PCP Internal Medicine Adolescent Medicine; Visit Provider Student in an Organized Health Care Education/Training Program
DX: N18.9 Chronic kidney disease, unspecified (principal)
CPT/HCPCS: 36415; 80069; 81001; 82570; 84156; 85025

== ENCOUNTER 2024-04-20 10:44 | Outpatient (CLI) | payer MEDICARE, OTHER, SELFPAY ==
[2024-04-20 10:51] LABS: Microscopic, Urine URINE MICROSCOPIC (MICROSCOPIC)
[2024-04-20 11:16] LABS: Basophils % 0.7 % (0.1-2.0); Eosinophils # 0.2 K/mm3 (0.0-0.4); Hematocrit 40.3 % (42.0-52.0); Hemoglobin 12.9 g/dL (14.1-18.0); Lymphocytes # 1.5 K/mm3 (0.7-4.5); Lymphocytes % 29.3 % (10-50); Mean Corpuscular HGB Conc 31.9 g/dL (31.8-35.4); Mean Corpuscular Hemoglobin 29.8 pg (27.0-31.2); Mean Corpuscular Volume 93.3 fl (80-94); Mean Platelet Volume 8.2 fl (7.4-10.4); Monocytes # 0.2 K/mm3 (0.1-1.0); Monocytes % 4.8 % (1.7-9.3); Neutrophils # 3.1 K/mm3 (1.8-7.8); Neutrophils % 62.2 % (37.0-80.0); Platelet Count 120 K/mm3 (142-424); Red Blood Count 4.32 M/mm3 (4.60-6.20); Red Cell Distribution Width 14.2 % (11.5-17.5)
[2024-04-20 11:26] LABS: Appearance,Urine CLEAR (Clear); Bilirubin,Urine Negative (Negative); Blood, Urine TRACE-I (Negative); Color,Urine YELLOW (Yellow); Glucose,Urine (UA) Negative (Negative); Ketones,Urine Negative (Negative); Leukocyte Esterase,Urine Negative (Negative); Nitrate,Urine Negative (Negative); Protein,Urine 3+ (Negative); Specific Gravity, Urine 1.025 (1.005-1.030); Urobilinogen,Urine 0.2 EU/dl (0.2)
[2024-04-20 11:58] LABS: Albumin Level 3.6 g/dl (3.5-5.0); Anion Gap 6.1 mEq/L (5-15); Blood Urea Nitrogen 25 mg/dl (9-20); Calcium 8.8 mg/dl (8.4-10.2); Carbon Dioxide 26 mmol/L (22.0-30.0); Chloride 111 mmol/L (98-107); Estimated Glomerular Filt Rate 35 ml/min (>60); GFR (African American) 42 ML/MIN (>60); Glucose 161 mg/dl (74-100); Phosphorous 3.4 mg/dl (2.5-4.5); Potassium 5.1 mmoL/L (3.5-5.1); Sodium 138 mmol/L (136-145)
[2024-04-20 12:10] LABS: RBC,Urine Occasional #/hpf (0-3)
[2024-04-20 13:12] LABS: Creatinine,Urine Random 79 mg/dL (Not Estab.)
== END 2024-04-20 23:59 | disposition home or self-care (01) ==
LOC: LAB 10:46
PROVIDERS: PCP Internal Medicine Adolescent Medicine; Visit Provider Hospitalist
DX: N28.9 Disorder of kidney and ureter, unspecified (principal)
CPT/HCPCS: 36415; 80069; 81001; 82570; 84156; 85025

== ENCOUNTER 2025-06-20 12:01 | Inpatient (IN) | payer MEDICARE, SELFPAY ==
--- OUTSIDE RECORDS SUMMARY | 2024-08-16 09:00 | XMS_ITS ---
Author Organization [facility] Address [address] [facility] [address] [place] [address] Care Team Providers Care Mixing Place Supervisor Name Role Phone Anson Davison Primary Care Provider [phone] REASON FOR VISIT diarrhea, coughing, nausea Encounters Encounter Location Date Provider Diagnosis [facility] [address] [place], [place] [address] 08/16/2024 Anson Davison Plan Of Treatment Next Appt Details Provider Name:Anson Davison, 09/14/2025 09:30:00 AM, [address], [address], [place], [place], [address], Progress Notes * Tito DANIEL WDOB:[birth year] (75 yo M)Acc No.[id number]:08/16/2024 Progress Notes Patient: Kyle ROJAS Tito Rose Provider: Kyle Davison MD :1950 A ge:74 Y S ex:Male Date:08/16/2024 Address:[place], [id number] Subjective: * Chief Complaints: * 1 . Diarrhea, coughing, nausea. * Medical History: Objective: * Vitals: Assessment: Plan: * Treatment: * * Electronic signature of Tayo Davison MD FAAP on 06/20/2025 at 12:22 PM EST Sign off status: Pending * Provider: Kyle Davison MD Date: 1 Generated for Lily ramirez/Carmen/Janine on: 08/20/2024 12:22 PM EST
--- OUTSIDE RECORDS SUMMARY | 2024-08-25 09:30 | XMS_ITS ---
Author Organization [facility] Address [address] [facility] [address] [facility] [address] [place] [address] Care Team Providers Care Online Marketer Name Role Phone Anson Davison Primary Care Provider REASON FOR VISIT 3 Month F/U, SPV, Need a CSA Encounters Encounter Location Date Provider Diagnosis [facility] [address] [facility] [address] [facility] [address] [place] [address] 08/25/2024 Anson Davison Plan Of Treatment Next Appt Details Provider Name:Anson Davison, 09/14/2025 09:30:00 AM, [address] [facility] [address] [facility], [address], [place], [place], [address], Progress Notes * RONITito WDOB:[birth year] (75 yo M)Acc No.[id number]:08/25/2024 Progress Notes Patient: Tito FLOWERS Provider: Kyle Davison MD :1950 A ge:74 Y S ex:Male Date:08/25/2024 Address:[place], [id number] Subjective: * Chief Complaints: * 1 . 3 Month F/U, SPV, Need a CSA. * Medical History: Objective: * Vitals: Assessment: Plan: * Treatment: * * Electronic signature of Tayo Davison MD FAAP on 06/20/2025 at 12:21 PM EST Sign off status: Pending * Provider: Kyle Davison MD Date: 0 08/25/2024 Generated for Lily ramirez/Carmen/Janine on: 1 08/20/2024 12:21 PM EST
--- OUTSIDE RECORDS SUMMARY | 2024-11-20 16:30 | XMS_ITS ---
Author Organization [facility] Address [address] [place] [address] Care Team Providers Care Pediatric Medical Assistant Name Role Phone Anson Davison Primary Care Provider Migration, Provider Unavailable Unavailable REAS[facility] VISIT [facility] Conversion Encounter Medications Medication SIG (Take, Route, Frequency, Duration) Notes Start Date End Date Status Carvedilol 25 MG 1 tab orally 2 times a day; Duration: 90 days Active Citalopram Hydrobromide 20 MG 1 tab(s) orally once a day; Duration: 90 days Active Omeprazole 40 MG 1 cap(s) orally once a day; Duration: 90 days Active Magnesium Oxide 400 MG 1 tab(s) orally once a day; Duration: 90 days Active Atorvastatin Calcium 80 MG 1 tab(s) orally once a day; Duration: 90 days Active Farxiga 10 MG 1 tab(s) orally once a day Active Glimepiride 1 MG 1 tab(s) orally once a day; Duration: 90 days Active amLODIPine Besylate 10 MG 1 tab(s) orally once a day; Duration: 90 day(s) Active PreserVision AREDS 2 ANTIOXIDANT MULTIPLE VITAMINS AND MINERALS 1 TAB(S) CHEWED 2 TIMES A DAY *Please review and pick correct strength[facility]ulatio n [facility]. If intended option is not shown, discontinue and re-order from Quick Search* Active NURTEC ODT 75 MG 1 TAB(S) ORALLY ONCE prn *Please review for potential replacement for e-prescription and drug interaction check* 03/24/2024 Active Carbidopa-Levodopa 25-100 MG 1 tab orally 2 times a day; Duration: 90 days Active traMADol HCl 50 MG 1 tab(s) orally twice daily; Duration: 30 days 09/13/2024 Active Zetia 10 MG 1 tab(s) orally once a day; Duration: 90 days Active Qulipta 30 MG 1 tab(s) orally once a day 09/13/2024 Active Encounters Encounter Location Date Provider Diagnosis [facility] [address] [facility] [address] [facility] [address] [place] [address] 11/20/2024 Provider Migration Plan Of Treatment Next Appt Details Provider Name:Anson Davison, 09/14/2025 09:30:00 AM, [address], [address], [place], [address], Progress Notes * Tito DANIEL WDOB:[birth year] (75 yo M)Acc No.[id number]:11/20/2024 Patient: Tito FLOWERS Provider: Carlo alvarenga Migration :1950 A ge:74 Y S ex:Male Date:11/20/2024 Address:[address] [place] [address] [place], [id number] Pcp:Anson Davison Subjective: * Chief Complaints: * 1 . [facility] To [facility] Conversion Encounter. * Medical History: * Medications: T aking Farxiga 10 MG Tablet 1 tab(s) orally once a day , Taking PreserVision AREDS 2 ANTIOXIDANT MULTIPLE VITAMINS AND MINERALS TABLET, CHEWABLE 1 TAB(S) CHEWED 2 TIMES A DAY , Notes to Pharmacist: *Please [facility] and [facility]. If intended option is not shown, discontinue and re-order from Quick Search*, Taking Glimepiride 1 MG Tablet 1 tab(s) orally once a day , Taking NURTEC ODT 75 MG TABLET, DISINTEGRATING 1 TAB(S) ORALLY ONCE , Notes to Pharmacist: prn *Please review for potential replacement for e-prescription and drug interaction check*, Taking Carvedilol 25 MG Tablet 1 tab orally 2 times a day , Taking Omeprazole 40 MG Capsule Delayed Release 1 cap(s) orally once a day , Taking Citalopram Hydrobromide 20 MG Tablet 1 tab(s) orally once a day , Taking Atorvastatin Calcium 80 MG Tablet 1 tab(s) orally once a day , Taking Magnesium Oxide 400 MG Tablet 1 tab(s) orally once a day , Taking Qulipta 30 MG Tablet 1 tab(s) orally once a day , Taking traMADol HCl 50 MG Tablet 1 tab(s) orally twice daily , Taking Carbidopa- Levodopa 25-100 MG Tablet 1 tab orally 2 times a day , Taking Zetia 10 MG Tablet 1 tab(s) orally once a day , Taking amLODIPine Besylate 10 MG Tablet 1 tab(s) orally once a day Objective: * Vitals: Assessment: Plan: * Treatment: * * Electronic signature of Prov ider Migration on 06/20/2025 at 12:22 PM EST Sign off status: Pending * Provider: Carlo alvarenga Migration Date: 0 11/20/2024 Generated for Lily ramirez/Carmen/Janine on: 08/20/2024 12:22 PM EST
--- OUTSIDE RECORDS SUMMARY | 2025-04-26 06:40 | XMS_ITS | Encounter Summary ---
Author Organization [facility] Address [address] [place] [address] Care Team Providers Care Batch Room Technician Name Role Phone Anson Davison MD Primary Care Provider [phone] Encounter Details Date Type Department Care Team (Late Contact Info) Description 04/26/2025 7:40 AM EDT Ancillary Procedure [facility] [address] [place] [address] Social History Tobacco Use Types Packs/Day Years Used Date Smoking Tobacco: Former Cigarettes Q uit: 2010 Passive Smoke Exposure: Past Smokeless Tobacco: Never Alcohol Use Standard Drinks/Week Comments Not Currently 0 (1 standard drink = 0.6 oz pur e alcohol) PHQ-2 Answer Date Recorded Patient Health Questionnaire-2 Score 0 01/04/2025 PHQ-2A Answer Date Recorded Patient Health Questionnaire-2 Score 0 12/27/2022 Sex and Gender Information Value Date Recorded Sex Assigned at Not on file Legal Sex Male 8:40 PM EDT Gender Identity Not on file Sexual Orientation Not on file documented as of this encounter Plan of Treatment Upcoming Encounters Date Type Department Care Team (Late st Contact Info) Description 06/28/2025 11:00 AM EST Office Visit [facility] [address] [place] [address] Tushar Mcgee MD [address] [address] 07/12/2025 8:00 AM EST Office Visit [facility] [address] [place] [id number] (1), Elliott Worthy Fellow 09/07/2025 9:15 AM EST Office Visit [facility] [address] [place] [address] Leonardo Cali MD [address] [place] [address] documented as of this encounter Procedures Procedure Name Priority Date/Time Associated Diagnosis Comments OCT, RETINA - OU - BOTH EYES Routine 04/26/2025 9:12 AM EDT Exudative age-related macular degeneration of left eye with active choroidal neovascularization ([facility]/HCC) documented in this encounter Results * OCT, Retina - OU - Both Eyes (04/26/2025 9:12 AM EDT) Anatomical Region Laterality Modality Head Optical Coherenc e Tomography Narrative 04/26/2025 9:12 AM EDT Right Eye Quality was good. Scan locations included subfoveal. Progression has been stable. Left Eye Quality was good. Scan locations included subfoveal. Progression has worsened. Notes Right eye (OD) drusen, no Choroidal Neovascular Membrane, no subretinal fluid (SRF) Left eye (OS) Choroidal Neovascular Membrane with increased Intraretinal fluid us Tushar Mcgee MD OPHTH TOMOGRAPHY Final Result documented in this encounter Visit Diagnoses Not on filedocumented in this encounter Additional Health Concerns Assessment Noted Time A fall risk assessment has been complete d for the patient 04/26/2025 8:08 AM EDT A Body Mass Index follow-up plan has been documented for the patient 02/07/2025 8:43 AM EDT documented as of this encounter Care Teams Batch Room Technician Relationship Specialty Start Date End Date Anson Davison MD [address] [place] [address] PCP - General 12/29/20 documented as of this encounter
--- OUTSIDE RECORDS SUMMARY | 2025-04-26 07:00 | XMS_ITS | Encounter Summary ---
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 Name Role Phone Anson Davison MD Primary Care Provider [phone] Reason for Referral * Clinic-Administered Medication (Routine) - Authorized Specialty Diagnoses / Procedures Referred By Wilfrid montoya Referred To Contact Diagnoses Exudative age-related macular degeneration of left eye with active choroidal neovascularization (CMS/HCC) Procedures [place] AFLIBERCEPT INJECTION Tushar Mcgee MD [address] [address] Phone: tel: fax: Referral ID Status Reason Start Date Expiration Date V isits Requested Visits Authorized [id number] Authorized 04/26/2025 10/26/2026 1 1 Reason for Visit * Reason Comments Follow-up Encounter Details Date Type Department Care Team (Latest Contact Info) Description 04/26/2025 8:00 AM EDT Procedure Visit [facility] [address] [place] [address] Tushar Mcgee MD [address] [address] Exudative age-related macular degeneration of left eye with active choroidal neovascularization (CMS/HCC) (Primary Dx); 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 Exudative age-related macular degeneration of left eye with active choroidal neovascularization (CMS/HCC) OCT, Retina - OU - Both Eyes, Intravitreal Injection, Pharmacologic Agent - OS - Left Eye,Aflibercept (Eylea) prefilled syringe solution prefilled syringe 2 mg 2. Early dry stage nonexudative 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 3. 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 Combined forms of age-related cataract of right eye 5. Pseudophakia of left eye Clinic Note: Tito Daniel is a 75 y.o. male who presents to the clinic today for the follow up of Right eye (OD) Non exudative age-related macular degeneration (AMD) - last evaluated 02/07/25 Left eye (OS) Exudative age-related macular degeneration (AMD) - status post (s/p) multiple IntraVitreal Avastin, last 10/20/23 - Switch to Intravitreal Eylea last 02/07/25 - visual acuity (VA) 20/30 - OCT trace increase in Intraretinal fluid, Choroidal Neovascular Membrane - Intravitreal Eylea today at 11 weeks instead of 9-10 weeks - Reduce interval to 9 weeks Right eye (OD) Cataract Left eye (OS) Pseudophakia - managed with Dr Cali Type 2 diabetes mellitus (DM) -Since 9-10 years, on Glimepiride. -Last HbA1C: 5.9 -No signs of diabetic retinopathy Follow up in 9 weeks (on 06/28/2025) for Dilated Exam OS, OCT, Injection, OK to OB. Patient expressed understanding of the diagnoses, plan, and follow up. Thanks for involving Retina / Ocular Oncology services at [facility] in the care. Electronically signed by: Tushar Mcgee MD 04/26/2025 9:13 AM Tobacco Cessation Initiative: Tobacco Use: Medium Risk (04/26/2025) Patient History Smoking Tobacco Use: Former Smokeless Tobacco Use: Never Passive Exposure: Past The patient has been counseled on tobacco cessation: Not Applicable Cosigned by Tushar Mcgee MD at 04/26/2025 9:13 AM EDT Associated attestation - Tushar Mcgee MD - 04/26/2025 9:13 AM EDT I saw and evaluated the patient with the resident/fellow. I discussed the case with the resident/fellow and agree with the findings and plan as documented. documented in this encounter Plan of Treatment Upcoming Encounters Date Type Department Care Team (Late st Contact Info) Description 06/28/2025 11:00 AM EST Office Visit [facility] [address] [place] [address] Tushar Mcgee MD [address] [address] 07/12/2025 8:00 AM EST Office Visit [facility] [address] [place] [address] (1), Elliott Worthy Fellow 09/07/2025 9:15 AM EST Office Visit [facility] [address] [place] [address] Leonardo Cali MD [address] [phone] documented as of this encounter Procedures Procedure Name Priority Date/Time Associated Diagnosis Comments INTRAVITREAL INJECTION, PHARMACOLOGIC AGENT - OS - LEFT EYE Routine 04/26/2025 9:13 AM EDT Exudative age-related macular degeneration of left eye with active choroidal neovascularization (CMS/HCC) OCT, RETINA - OU - BOTH EYES Routine 04/26/2025 9:12 AM EDT Exudative age-related macular degeneration of left eye with active choroidal neovascularization (CMS/HCC) documented in this encounter Results * Intravitreal Injection, Pharmacologic Agent - OS - Left Eye (04/26/2025 9:13 AM EDT) Anatomical Region Laterality Modality Head Other Narrative 04/26/2025 9:13 AM EDT Time Out 04/26/2025. 9:13 AM. Confirmed correct patient, procedure, site, and patient consented. Anesthesia Topical anesthesia was used. Anesthetic medications included Proparacaine 0.5%. Procedure Preparation included 5% betadine to ocular surface. A 30 gauge needle was used. Injection: 2 mg Aflibercept 2 MG/0.05ML Route: Intravitreal, Site: Left Eye [facility]: [id number], Lot: [id number], Expiration date: 07/17/2026 Post-op Post injection exam found visual acuity of at least counting fingers. The patient tolerated the procedure well. There were no complications. The patient received written and verbal post procedure care education. Post injection medications were not given. 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 type 2 diabetes mellitus Combined forms of age-related cataract of right eye Pseudophakia of left eye Lens replaced by other means documented in this encounter Administered Medications Inactive Administered Medications - up to 3 most recent administrations Medication Order MAR Action Action Date Dose Rate Site Aflibercept (Eylea) prefilled syringe solution prefilled syringe 2 mg 2 mg, Intravitreal, Once PRN Procedure, 1 dose, Starting on Fri04/26/25 at 0913, Until Fri04/26/25 at 09, RoutineIndications:Exudative age-related macular degeneration of left eye with active choroidal neovascularization (CMS/HCC) Given 04/26/2025 9:13 AM EDT 2 mg Left Eye documented in this encounter Additional Health Concerns Assessment Noted Time A fall risk assessment has been complete d for the patient 04/26/2025 8:08 AM EDT A Body Mass Index follow-up plan has been documented for the patient 02/07/2025 8:43 AM EDT documented as of this encounter Care Teams Concrete Paving Machine Operator Relationship Specialty Start Date End Date Anson Davison MD [address] [place] [address] PCP - General 12/29/20 documented as of this encounter
--- OUTSIDE RECORDS SUMMARY | 2025-04-29 07:30 | XMS_ITS | Encounter Summary ---
Author Organization [employer] ([place], [place], [place], [place], [place]) Address [address] [place] [address] Care Team Providers Care K 9 Handler/ Deputy Name Role Phone Diego Johnson MD Unavailable Piyush Pierre MD Unavailable [phone] Reason for Referral * Consultation (Routine) - Authorized Specialty Diagnoses / Procedures Referred By Wilfrid t Referred To Contact Neurology Diagnoses Parkinson's disease (HCC) Dizziness Chronic headache New PT - Parksinson's, Dizziness, Chronic LIZ's [place] [address] [place] [phone] Phone: tel: fax: Jenn Celis MD [address] [place] [address] [address] [place] [address] Phone: tel: fax: Referral ID Status Reason Start Date Expiration Date Visits Requested Visits Authorized [id number] Authorized Specialty Services Required 04/29/2025 04/29/2026 1 1 * Echocardiography (Routine) - Closed Specialty Diagnoses / Procedures Referred By Wilfrid montoya Referred To Contact Cardiology Diagnoses CAD (coronary artery disease) Parkinson's disease (HCC) S/P TAVR (transcatheter aortic valve replacement) Procedures ECHO COMPLETE (DOPPLER / COLOR) [place] [address] [place] [phone] Phone: tel: fax: [facility] [address] [place] [address] Phone: tel: fax: Referral ID Status Reason Start Date Expiration Date Visits Re quested Visits Authorized [id number] Closed 04/29/2025 04/29/2026 1 1 Reason for Visit * Reason Comments Follow-up Annual visit Encounter Details Date Type Department Care Team (Late st Contact Info) Description 04/29/2025 8:30 AM EDT Office Visit [facility] Cardiology [address] [place] [phone] Cricket Zimmerman MD [address] [place] [phone] Dizziness (Primary Dx); CAD (coronary artery disease); Primary hypertension; Diabetes (HCC); Parkinson's disease (HCC); Personal history of kidney cancer; Mixed hyperlipidemia; S/P TAVR (transcatheter aortic valve replacement) Social History Tobacco Use Types Packs/Day Years Used Date Smoking Tobacco: Former Cigarettes 977 2006 Passive Smoke Exposure: Past Smokeless Tobacco: Never Alcohol Use Standard Drinks/Week Comments Never 0 (1 standard drink = 0.6 oz pur e alcohol) Family and Community Support Answer Brando e Recorded Help with Day to Day Activities Not on file 08/29/2023 Feeling Lonely or Isolated Not on file 08/29 Educational Attainment Answer Date Roni rded Speak language other than Bengali at home Not on file 08/29/2023 Want help with school or training Not on file 08/29/2023 Substance Use Answer Date Recorded Used prescription meds for non-medical reasons N ot on file 08/29/2023 Used illegal drugs past 12 months Not on file 08/29/2023 Sex and Gender Information Value Date Recorded Sex Assigned at Not on file Legal Sex Male 1:09 PM CDT Gender Identity Not on file Sexual Orientation Not on file Occupation Industry Job Start Date Job End Date Retired Not on file Not on file Not on file documented as of this encounter Last Filed Vital Signs Vital Sign Reading Time Taken Comments Blood Pressure 142/84 04/29/2025 8:19 AM EDT Pulse 51 04/29/2025 8:19 AM EDT Temperature - - Respiratory Rate - - Oxygen Saturation - - Inhaled Oxygen Concentration - - Weight 84.8 kg (187 lb) 04/29/2025 8:19 AM EDT Height 172.7 cm (5' 8 ) 04/29/2025 8:19 AM EDT Body Mass Index 28.43 04/29/2025 8:19 AM EDT documented in this encounter Progress Notes * Cricket Zimmerman MD - 04/29/2025 8:30 AM EDT Basic Information: Name: Tito Daniel, :1950 PCP: Anson Davison MD Referring MD: Anson Davison MD Reason for Visit: Chief Complaint Patient presents with Follow-up Annual visit HPI: Tito Daniel is a 75 y.o. male with prior history/studies of: CAD, severe aortic stenosis, DM, PD, HTN, HLD, Hx of cancer (kidney, lung) LABS: -01/2025 Cr- 2.2 . Troponin-12.5 (2022) , BNP-2,125 (2022) , LDL-61 (2023) , A1c-5.9 -TAVR 06/2023, Successful BAV 12/24/2022 -ECHO 10/2021- EF 65%, Moderate aortic stenosis, Mildly dilated aortic root -ECHO 08/2020-EF 60% sclerotic aortic valve leaflets, mild AR , mild , AV max PG 23.5 and Mean PG 13.45 mmHg -ECHO 12/2018- EF 60%, mild /AI -LHC 12/2016 -WILLIAM graft to mid LAD: patent SVG to Dist RCA: patent, SVG to OM1: patent -Nkcbkumqvs95/2011- EF 58% No evidence of ischemia -CABG X3 11/2007 Patient, a former [facility] patient, last was here 01/2024, is here for his annual visit. Patient's Renee is here with him today. She states he has been having all day dizzy spells for several weeks. She states his health has been on the decline since he Had parkinsons, he's constantly having balance issues. Had kidney cancer. And so forth. Pt states he has chronic heaache and feels like the room is spinning constantly instead of blacking out or nausea/vomiting/palpitation/dizziness. He did not take his BP meds today, BP today is 142/84. His says it is usually lower and he is usually very compliant with his meds, this morning is just in case if he needed to get labs. Patientdenies chest pain, shortness of breath, palpitations, or swelling. Otherwise patient and describe no significant issue. Objective: BP (!) 142/84 (BP Location: Left arm, Patient Position: Sitting) Pulse 51 Ht 1.727 m (5' 8 ) Wt 84.8 kg (187 lb) BMI 28.43 kg/m?? General- alert and aware, no acute distress. Appears stated age. Ambulating with cane. HEENT- normocephalic, sclera clear, oral membranes moist Neck- supple, No noted JVD Lungs- clear to auscultate throughout, no wheezes Heart- Normal S1,S2. Regular rate and rhythm Abd- soft, nondistended. + BS Ext- palpable pulses. No LE edema. Skin- Clear, dry. Warm Neuro- demonstrates normal mental status without neurologic deficit Psych- orientated to person, place, and time. Appropriate mood. EKG: sinus benson HR 51, 1st degree HB, RBBB. GA 252ms. QRS 162. Assessment/Plan: Plan: Dizziness spells/chronic headaches - dizzy all the time, room is spinning constantly - recently worse, episodic dizziness also over past few weeks. - EKG showed Sinus benson HR 51 with 1st dregg HB, RBBB - get ziopatch for 2 weeks to ensure no pauses causing his symptoms - refer to neurology for further evaluation in meantime. (Pt said she is making appointment). - pt with hx of BPPV before without much residual symptoms. - continue current meds, amlodipine 10, ASA 81, lipitor 80mg, zetia 10mg. - on coreg 25mg bid, decrease to 12.5mg BID. - not had an echo since 2022, will repeat to ensure no post TAVR issue. - RTC 1-2 months after seeing neurology Other medical conditions: CAD Hypertension Status post TAVR Renal cancer with metastases to the lungs Normal left ventricular systolic function History of CABG with patent grafts as of 2016 Continue current medications and managements. Extensive discussion was held with the patient regarding their condition and potential contributingfactors. The conversation addressed healthy lifestyle practices, including regular mild- to moderate-intensity exercise, a balanced diet, stress management techniques, and optimizing fluid status/hydration. The patient was educated on how to recognize and respond to any changes in symptoms, and theimportance of timely communication with the care team was emphasized. Follow-up appointments were encouraged to ensure ongoing assessment and adjustment of the treatment plan, and the patient expressed understanding and willingness to incorporate these strategies into their daily routine. I spent 45 minutes today on this patient's care, including chart review, discussion with the patient (plan of care, explaining their condition, and providing relevant education), medical decision making, and documentation. Review of Systems: Complete 14 point ROS Normal or Non-contributory except complaints described in HPI or other sections of this note. 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 Patient has a past surgical history that includes Coronary bypass surgery (2007); Nephrectomy (Right, 07/09/2019); Kidney stone surgery; and Tonsillectomy (1968). Patient reports that he quit smoking about 18 years ago. His smoking use included cigarettes. He started smoking about 48 years ago. He has a 30 pack- year smoking history. He has been exposed to tobacco smoke. He has never used smokeless tobacco. Allergies Patient has no known allergies. Home Medications Outpatient Medications Marked as Taking for the 04/29/25 encounter (Office Visit) with Cricket Zimmerman MD Medication Sig Dispense Refill amLODIPine (NORVASC) 10 MG tablet Take 1 tablet (10 mg total) by mouth daily. aspirin 81 MG EC tablet Take 1 tablet (81 mg total) by mouth daily. aspirin/acetaminophen/caffeine (EXCEDRIN EXTRA STRENGTH ORAL) Take by mouth. atogepant (Qulipta) 10 mg tab Take 60 mg by mouth daily. atorvastatin (LIPITOR) 80 MG tablet Take 1 tablet (80 mg total) by mouth nightly. carbidopa-levodopa (SINEMET) 25-100 mg per tablet Take by mouth 3 (three) times daily. carvediloL (COREG) 25 MG tablet 0.5 tablets (12.5 mg total) 2 (two) times daily with breakfast and dinner. (Patient taking differently: 1 tablet (25 mg total) 2 (two) times daily with breakfast and dinner.) citalopram (CeleXA) 20 MG tablet Take 1 tablet (20 mg total) by mouth daily. dapagliflozin propanediol (Farxiga) 5 mg tablet Take 1 tablet (5 mg total) by mouth daily. ezetimibe (ZETIA) 10 mg tablet Take 1 tablet (10 mg total) by mouth nightly. ferrous sulfate 325 (65 FE) MG tablet Take 1 tablet (325 mg total) by mouth daily with breakfast. glimepiride (AMARYL) 1 MG tablet Take by mouth every morning before breakfast. magnesium oxide (MAG-OX) 400 mg (241.3 mg magnesium) tablet Take 1 tablet (400 mg total) by mouth nightly. Missing or Non-Formulary Medication OTC 2 hemp capsules oral at bedtime and AM 1/2 dropper of hemp oil daily. rimegepant (Nurtec ODT) 75 mg TbDL 1 TAB(S) ORALLY ONCE traMADoL (ULTRAM) 50 mg tablet Take 1 tablet (50 mg total) by mouth 2 (two) times daily as needed (headaches). Labs Office Visit on 01/24/2025 Component Date Value WBC 01/24/2025 6.3 RBC 01/24/2025 4.91 Hemoglobin 01/24/2025 14.5 Hematocrit 01/24/2025 43.4 MCV 01/24/2025 88 MCH 01/24/2025 29.5 MCHC 01/24/2025 33.4 RDW 01/24/2025 13.5 Platelets 01/24/2025 103 (L) MPV 01/24/2025 9.1 % Neutros 01/24/2025 63 % Lymphs 01/24/2025 27 % Monos 01/24/2025 7 % Eos 01/24/2025 3 % Baso 01/24/2025 0 # Neutros 01/24/2025 3.94 # Lymphs 01/24/2025 1.72 # Monos 01/24/2025 0.42 # Eos 01/24/2025 0.19 # Baso 01/24/2025 0.02 Protein, Total 01/24/2025 7.5 Albumin 01/24/2025 3.9 Total Bilirubin 01/24/2025 0.7 Bilirubin, Direct 01/24/2025 0.2 Alkaline Phosphatase 01/24/2025 144 (H) Globulin 01/24/2025 3.6 A/G Ratio 01/24/2025 1.1 AST 01/24/2025 20 ALT 01/24/2025 29 Sodium 01/24/2025 137 Potassium 01/24/2025 5.0 Chloride 01/24/2025 109 CO2 01/24/2025 26 Anion Gap 01/24/2025 7 (L) BUN 01/24/2025 33 (H) Creatinine 01/24/2025 2.20 (H) BUN/Creatinine 01/24/2025 15 Glucose 01/24/2025 167 (H) Calcium 01/24/2025 8.9 Osmolality Calc 01/24/2025 284.9 eGFR (mL/min/1.73m2) 01/24/2025 30 (L) No results found for: TROPONINTHS , TROPONINI , PROBNP , LACTATE , HGBA1C , LDL Results Review: Prev Cardiac and Vascular Hx/Eval CAD, severe aortic stenosis, DM, PD, HTN, HLD, Hx of cancer (kidney, lung) LABS: Cr- 2.2 . Troponin-12.5 (2022) , BNP-2,125 (2022) , LDL-61 (2023) , A1c-5.9 -TAVR 06/2023, Successful BAV 12/24/2022 -ECHO 10/2021- EF 65%, Moderate aortic stenosis, Mildly dilated aortic root -ECHO 08/2020-EF 60% sclerotic aortic valve leaflets, mild AR , mild , AV max PG 23.5 and Mean PG 13.45 mmHg -ECHO 12/2018- EF 60%, mild /AI -LHC 12/2016 -WILLIAM graft to mid LAD: patent SVG to Dist RCA: patent, SVG to OM1: patent -Gujtnddyyh62/2011- EF 58% No evidence of ischemia -CABG X3 11/2007 Problem List: Patient Active Problem List Diagnosis Malignant neoplasm of right kidney, except renal pelvis (HCC) CAD (coronary artery disease) Murmur HTN (hypertension) HLD (hyperlipidemia) Diabetes (HCC) Personal history of kidney cancer Personal history of lung cancer Parkinson's disease (HCC) CAD (coronary artery disease) Severe aortic stenosis S/P TAVR (transcatheter aortic valve replacement) Assessment: 1. CAD (coronary artery disease) 2. Primary hypertension 3. Diabetes (HCC) 4. Parkinson's disease (HCC) 5. Personal history of kidney cancer 6. Mixed hyperlipidemia 7. S/P TAVR (transcatheter aortic valve replacement) Requested Prescriptions No prescriptions requested or ordered in this encounter No orders of the defined types were placed in this encounter. documented in this encounter Miscellaneous Notes * Addendum Note - Bernice Witt - 04/29/2025 8:30 AM EDTAddended by: BERNICE WITT on: 05/04/2025 08:38 AM Modules accepted: Orders documented in this encounter Plan of Treatment Upcoming Encounters Date Type Department Care Team (Late st Contact Info) Description 06/21/2025 7:30 AM EST Office Visit [facility] Neurology - [place] [address] [place] [address] Cricket Zimmerman MD [address] [place] [phone] Jenn Celis MD [address] [facility] [address] [place], [place] [id number] 06/27/2025 11:15 AM EST Office Visit [facility] Cardiology [address] [place] [address] Cricket Zimmerman MD [address] [place] [address] 11/01/2025 10:45 AM EDT Office Visit [facility] [address] [place] [address] Piyush Pierre MD [address] [facility] [address] [place] [address] Pending Results Name Type Priority Associated Diagnoses Date /Time 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 Cardiac Services Routine CAD (coronary artery disease) Parkinson's disease (HCC) S/P TAVR (transcatheter aortic valve replacement) 06/09/2025 1:47 PM EDT Scheduled Orders Name Type Priority Associated Diagnoses Orde r Schedule 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 Cardiac Services Routine CAD (coronary artery disease) Parkinson's disease (HCC) S/P TAVR (transcatheter aortic valve replacement) Expected: 04/29/2025, Expires: 05/29/2026 Scheduled Referrals Name Type Priority Associated Diagnoses Order Schedule Ambulatory referral to Neurology Outpatient Referral Routine CAD (coronary artery disease) Parkinson's disease (HCC) S/P TAVR (transcatheter aortic valve replacement) Expected: 04/29/2025, Expires: 10/27/2025 documented as of this encounter Procedures Procedure Name Priority Date/Time Associated Diagnosis Comments [id number] 12-LEAD Routine 05/04/2025 8:38 AM EDT CAD (coronary artery disease) Dizziness documented in this encounter Results * ECHO COMPLETE (DOPPLER / COLOR) WO CONTRAST (05/09/2025 12:43 PM EDT) Anatomical Region Laterality Modality Heart Vascular Ultraso und 05/09/2025 8:38 AM EDT Narrative 05/09/2025 4:37 PM EDT TRANSTHORACIC ECHOCARDIOGRAPHY REPORT Demographics Patient Name: RONI Rose : 1950 Medical Record [id number] Age: 75 year(s) Number: Corporate ID Number: [id number] Gender Male Hand Filer Balance Wheel: Fredy Cisneros RVT Height: 67 inches ,RDCS Referring Physician: CRICKET ZIMMERMAN MD Weight: 187 pounds Interpreting YRN GABRIEL MD BMI: 29.29 kg/m^2 Physician: Date of Service: 05/09/2025 Blood 134/77 mmHg Pressure: Type of Study: TTE procedure: ECHO COMPLETE (DOPPLER / COLOR) W OR WO CONTRAST. Patient Status: Routine OP Study Location: Echo LabTechnical Quality: Adequate visualization Allergies - NKDA. History/Tech Notes: Indication: coronary artery disease I25.10, S/P TAVR Z95.2, Parkinsons disease G20.A1 Impression: ######################################## Normal sized left ventricle. Mild to moderate left ventricular hypertrophy. Visually estimated ejection fraction 60% +/- 5%. Abnormal systolic strain pattern. Normal left ventricular diastolic function. S/P TAVR. Peak/Mean P.5/16mmHg, V max 2.8 m/s. Moderate paravalvular aortic regurgitation with multiple jets. No central aortic regurgitation. ######################################## Measurements Summary: LVEDd: 4.76 cm LVESd: 2.13 cm IVSEd: 1.22 cm AO Root:3.35 cm LVPWd: 1.31 cm Contractility Score Normal Left Ventricular contractility was noted. LV regional wall motion: (0-Not visualized 1-Normal 2-Hypokinesis 3-Akinesis 4-Dyskinesis 5-Aneurysm) Left Ventricle Peak E-wave: 0.9 m/s Peak A-wave: 1.01 m/s E/A ratio: 0.9 Volume tivgjdkmu747.62 ml Volume .91 ml LVOT diameter: 1.91 cm Normal sized left ventricle. Mild to moderateleft ventricular hypertrophy. Visually estimated ejection fraction 60% +/- 5%. Abnormal systolic strain pattern. Normal left ventricular diastolic function. No left ventricular masses or thrombi. Right Ventricle Diastolic dimension: 3.73 RV systolic pressure: 14.68 mmHg cm Normal sized right ventricle. Normal TAPSE c/w normal right ventricular function Left Atrium LA area: 17.86 cm^2 LA volume:55.68 ml LA dimension: 3.6 cm LA/Aorta: 1.07 Normal sized left atrium. Normal left atrial volume index 28 ml/m^2. Intact atrial septum. No atrial mass or thrombus. Right Atrium Normal sized right atrium. Intact atrial septum. No atrial mass or thrombus. Mitral Valve Deceleration time: 321.74 msec Thickened mitral valve leaflets. Mild (1+) mitral regurgitation. No mitral stenosis. No masses or vegetations seen. Aortic Valve AI P1/2t: 637.78 Area continuity: 1.09 Peak velocity: 2.85 msec cm^2 m/s AV VTI: 60.97 cm Mean velocity: 1.87 Peak gradient: 32.5 LVOT VTI: 23.2 cm m/s mmHg Mean gradient: 16.25 mmHg S/P TAVR. Peak/Mean P.5/16mmHg. Moderate paravalvular aortic regurgitation with multiple jets. No central aortic regurgitation. No aortic stenosis. No masses or vegetations seen. Tricuspid Valve TR velocity: 1.71 m/s TR gradient: 11.62144 mmHg Estimated RAP: 3 mmHg RVSP: 14.68 mmHg Structurally normal tricuspid valve. Mild (1+) tricuspid regurgitation. No tricuspid stenosis. No masses or vegetations seen. Pulmonic Valve Acceleration time: 117.98 msec PASP: 14.68 mmHg Structurally normal pulmonic valve. No pulmonic regurgitation. No pulmonic stenosis. No masses or vegetations seen. Great Vessels Aorta Aortic Root: 3.35 cm LVOT Diameter: 1.91 cm Visualized thoracic aorta is normal. Normal aortic root. No evidence of dissection. Normal IVC with appropriate collapse. Pericardium / Pleura No pericardial effusion. Procedure Note Yrn Gabriel MD - 05/09/2025 TRANSTHORACIC ECHOCARDIOGRAPHY REPORT Demographics Patient Name: RONI Rose : 1950 Medical Record [id number] Age: 75 year(s) Number: Corporate ID Number: [id number] Gender Male Hand Filer Balance Wheel: Fredy Cisneros RVT Height: 67 inches ,[facility] Referring Physician: CRICKET ZIMMERMAN MD Weight: 187 pounds Interpreting YRN GABRIEL MD BMI: 29.29kg/m^2 Physician: Date of Service: 05/09/2025 Blood 134/77 mmHg Pressure: Type of Study: TTE procedure: ECHO COMPLETE (DOPPLER / COLOR) W OR WO CONTRAST. Patient Status: Routine OP Study Location: Echo LabTechnical Quality: Adequate visualization Allergies - NKDA. History/Tech Notes: Indication: coronary artery disease I25.10, S/P TAVR Z95.2, Parkinsons disease G20.A1 Impression: ######################################## Normal sized left ventricle. Mild to moderate left ventricular hypertrophy. Visually estimated ejection fraction 60% +/- 5%. Abnormal systolic strain pattern. Normal left ventricular diastolic function. S/P TAVR. Peak/Mean P.5/16mmHg, V max 2.8 m/s. Moderateparavalvular aortic regurgitation with multiple jets. No central aorticregurgitation. ######################################## Measurements Summary: LVEDd: 4.76 cm LVESd: 2.13 cm IVSEd: 1.22 cm AO Root:3.35 cm LVPWd: 1.31 cm Contractility Score Normal Left Ventricular contractility was noted. LV regional wall motion: (0-Not visualized 1-Normal 2-Hypokinesis 3-Akinesis 4-Dyskinesis 5-Aneurysm) Left Ventricle Peak E-wave: 0.9 m/s Peak A-wave: 1.01 m/s E/A ratio: 0.9 Volume yjxrlzxng206.62 ml Volume wbotkqxm12.91 ml LVOT diameter: 1.91 cm Normal sized left ventricle. Mild to moderateleft ventricular hypertrophy. Visually estimated ejection fraction 60% +/- 5%. Abnormal systolic strain pattern. Normal left ventricular diastolic function. No left ventricular masses or thrombi. Right Ventricle Diastolic dimension: 3.73 RV systolic pressure: 14.68 mmHg cm Normal sized right ventricle. Normal TAPSE c/w normal right ventricular function Left Atrium LA area: 17.86 cm^2 LA volume:55.68 ml LA dimension: 3.6 cm LA/Aorta: 1.07 Normal sized left atrium. Normal left atrial volume index 28 ml/m^2. Intact atrial septum. No atrial mass or thrombus. Right Atrium Normal sized right atrium. Intact atrial septum. No atrial mass or thrombus. Mitral Valve Deceleration time: 321.74 msec Thickened mitral valve leaflets. Mild (1+) mitral regurgitation. No mitral stenosis. No masses or vegetations seen. Aortic Valve AI P1/2t: 637.78 Area continuity: 1.09 Peak velocity: 2.85 msec cm^2 m/s AV VTI: 60.97 cm Mean velocity: 1.87 Peak gradient: 32.5 LVOT VTI: 23.2 cm m/s mmHg Mean gradient: 16.25 mmHg S/P TAVR. Peak/Mean P.5/16mmHg. Moderate paravalvular aortic regurgitation with multiple jets. No central aortic regurgitation. No aortic stenosis. No masses or vegetations seen. Tricuspid Valve TR velocity: 1.71 m/s TR gradient: 11.72752 mmHg Estimated RAP: 3 mmHg RVSP: 14.68 mmHg Structurally normal tricuspid valve. Mild (1+) tricuspid regurgitation. No tricuspid stenosis. No masses or vegetations seen. Pulmonic Valve Acceleration time: 117.98 msec PASP: 14.68 mmHg Structurally normal pulmonic valve. No pulmonic regurgitation. No pulmonic stenosis. No masses or vegetations seen. Great Vessels Aorta Aortic Root: 3.35 cm LVOT Diameter: 1.91 cm Visualized thoracic aorta is normal. Normal aortic root. No evidence of dissection. Normal IVC with appropriate collapse. Pericardium / Pleura No pericardial effusion. us Cricket Zimmerman MD CV ECHO ORDERABLES Final Resul t * ECG 12 lead (05/04/2025 8:38 AM EDT) us Cricket Zimmerman MD ECG ORDERABLES Final Result documented in this encounter Visit Diagnoses Diagnosis Dizziness- Primary Dizziness and giddiness CAD (coronary artery disease) Coronary atherosclerosis of unspecified type of vessel, [place] or graft Primary hypertension Unspecified essential hypertension Diabetes (HCC) Type II or unspecified type diabetes mellitus without mention of complication, not stated as uncontrolled Parkinson's disease (HCC) Paralysis agitans Personal history of kidney cancer Personal history of malignant neoplasm of kidney Mixed hyperlipidemia S/P TAVR (transcatheter aortic valve replacement) CAD (coronary artery disease) Coronary atherosclerosis of unspecified type of vessel, [place] or graft Parkinson's disease (HCC) Paralysis agitans S/P TAVR (transcatheter aortic valve replacement) documented in this encounter Care Teams K 9 Handler/ Deputy Relationship Specialty Start Date End Date Diego Johnson MD [address] [facility] [address] [place] [address] Interventional Cardiology 01/23/[address] MD [facility] [address] [address] Hematology and Oncology 01/25/25 documented as of this encounter
--- OUTSIDE RECORDS SUMMARY | 2025-05-06 07:21 | XMS_ITS | Encounter Summary ---
Author Organization [employer] ([place], [place], [place], [place], [place]) Address [address] [place] [address] Care Team Providers Care Turning Sander Tender Name Role Phone Diego Johnson MD Unavailable [phone] Piyush Pierre MD Unavailable [phone] Reason for Referral * CAT Scan (Routine) - Closed Specialty Diagnoses / Procedures Referred By Wilfrid montoya Referred To Contact Radiology Diagnoses Malignant neoplasm of right kidney, except renal pelvis (HCC) Procedures [place] [address] [place] [address] [address] [place] [address] Phone: tel: fax: [facility] - [facility] [address] [facility] [address] [place] [address] Phone: tel: fax: Referral ID Status Reason Start Date Expiration Date Visits Re quested Visits Authorized [id number] Closed 04/29/2025 04/29/2026 1 1 Reason for Visit * CAT Scan (Routine) - Closed Specialty Diagnoses / Procedures Referred By Wilfrid montoya Referred To Contact Radiology Diagnoses Malignant neoplasm of right kidney, except renal pelvis (HCC) Procedures CT CAP w/o Piyush Pierre MD [address] [facility] [address] [place] [address] Phone: tel: fax: [facility] [address] [facility] [address] [place] [address] Phone: tel: fax: Referral ID Status Reason Start Date Expiration Date Visits Re quested Visits Authorized [id number] Closed 04/29/2025 04/29/2026 1 1 Encounter Details Date Type Department Care Team (Latest Contact Info) Description 05/06/2025 8:21 AM EDT - 05/06/2025 11:59 PM EDT Hospital Encounter [facility] [address] [facility] [address] [place] [address] Piyush Pierre MD [address] [facility] [address] [place] [address] Malignant neoplasm of right kidney, except renal pelvis (HCC) Discharge Disposition: Home or Self Care Social History Tobacco Use Types Packs/Day Years Used Date Smoking Tobacco: Former Cigarettes 30 1 977 - 2007 Passive Smoke Exposure: Past Smokeless Tobacco: Never Alcohol Use Standard Drinks/Week Comments Never 0 (1 standard drink = 0.6 oz pur e alcohol) Family and Community Support Answer Brando e Recorded Help with Day to Day Activities Not on file 08/29/2023 Feeling Lonely or Isolated Not on file 08/29 Educational Attainment Answer Date Roni rded Speak language other than Uzbek at home Not on file 08/29/2023 Want [...] on file documented as of this encounter Medications at Time of Discharge amLODIPine (NORVASC) 10 MG tablet Take 1 tablet (10 mg total) by mouth daily. 07/29/2022 aspirin 81 MG EC tablet Take 1 tablet (81 mg total) by mouth daily. aspirin/acetamino phen/caffeine (EXCEDRIN EXTRA STRENGTH ORAL) Take by mouth. atogepant (Qulipta) 10 mg tab Take 60 mg by mouth daily. atorvastatin (LIPITOR) 80 MG tablet Take 1 tablet (80 mg total) by mouth nightly. 07/15/2022 carbidopa-levodop a (SINEMET) 25-100 mg per tabletIndications :parkinsonism Take by mouth 3 (three) times daily. citalopram (CeleXA) 20 MG tablet Take 1 tablet (20 mg total) by mouth daily. 07/29/2022 dapagliflozin propanediol (Farxiga) 5 mg tablet Take 1 tablet (5 mg total) by mouth daily. ezetimibe (ZETIA) 10 mg tablet Take 1 tablet (10 mg total) by mouth nightly. ferrous sulfate 325 (65 FE) MG tablet Take 1 tablet (325 mg total) by mouth daily with breakfast. glimepiride (AMARYL) 1 MG tablet Take by mouth every morning before breakfast. 09/27/2022 magnesium oxide (MAG-OX) 400 mg (241.3 mg magnesium) tablet Take 1 tablet (400 mg total) by mouth nightly. 01/18/2022 Missing or Non-Formulary Medication OTC 2 hemp capsules oral at bedtime and AM 1/2 dropper of hemp oil daily. rimegepant (Nurtec ODT) 75 mg TbDL 1 TAB(S) ORALLY ONCE 03/24/2024 traMADoL (ULTRAM) 50 mg tablet Take 1 tablet (50 mg total) by mouth 2 (two) times daily as needed (headaches). 05/28/2023 carvediloL (COREG) 25 MG tablet 0.5 tablets (12.5 mg total) 2 (two) times daily with breakfast and dinner. 05/02/2022 documented as of this encounter Plan of Treatment Upcoming Encounters Date Type Department Care Team (Late st Contact Info) Description 06/21/2025 7:30 AM EST Office Visit [facility] [address] [place] [phone] [place] [address] [place] [phone] Jenn Celis MD [address] [place], [place] [id number] 06/27/2025 11:15 AM EST Office Visit [facility] [address] [place] [address] [place] [address] [place] [phone] 11/01/2025 10:45 AM EDT Office Visit [facility] [place] [id number] [place] [phone] Piyush Pierre MD [address] [facility] [address] [place] [address] documented as of this encounter Procedures Procedure Name Priority Date/Time Associated Diagnosis Comments CT CHEST ABDOMEN PELVIS WO CONTRAST Routine 05/06/2025 9:13 AM EDT Malignant neoplasm of right kidney, except renal pelvis (HCC) documented in this encounter Results * CT CAP w/o (05/06/2025 9:13 AM EDT) Anatomical Region Laterality Modality Chest, Abdomen, Pelvis, Hip Comp uted Tomography (CT) 05/06/2025 10:1 8 AM EDT Impressions 05/06/2025 10:53 AM EDT Essentially stable exam from prior. Recommend continued follow-up. The prostate is enlarged measuring up to 6 cm, correlate clinically. The urinary bladder is decompressed but somewhat thick-walled, correlate clinically. Images reviewed, interpreted, and dictated by Dr. Sathish Singh. Transcribed by Oriana Will PA-C. Narrative 05/06/2025 10:[address] SCAN OF THE CHEST, ABDOMEN, AND PELVIS WITHOUT CONTRAST. HISTORY: Renal cell carcinoma with lung metastasis, restaging. COMPARISON: January 2025. PROCEDURE: Axial images were obtained from the lung apex to the pubic symphysis by computed tomography. This study was performed with techniques to keep radiation doses as low as reasonably achievable, (ALARA). Automatic exposure control and/or changing of the mA/ kV according to patient size were utilized for radiation dose reduction. FINDINGS: CHEST: A lack of IV contrast limits assessment of solid organs, the mediastinum and vascularity. There is atherosclerosis. There is no axillary adenopathy. There is no hilar or mediastinal adenopathy. Heart size is normal. There is no pericardial or pleural effusion. There is evidence of prior granulomatous disease. There is a prosthetic aortic valve. There is a stable-appearing 9 mm nodule in the right middle lobe on image 29 of series 2. There is no pneumothorax. There is no significant pleural effusion. There are bilateral retroareolar soft tissue densities, correlate for gynecomastia. ABDOMEN: The liver is normal. There are small stones in the neck of the gallbladder. The spleen is unremarkable. No adrenal mass is present. The pancreas is normal. There are surgical clips in the right nephrectomy bed. There is no definite evidence of recurrence in the nephrectomy bed. There is an extrarenal pelvis on the left. There is no renal stone identified. The aorta is normal in caliber. There is atherosclerosis. There is no free fluid. There is no mesenteric or periaortic adenopathy. There is scattered diverticulosis. There is no abnormally dilated bowel. PELVIS: The appendix is not identified. The prostate is enlarged measuring up to 6 cm, correlate clinically. The urinary bladder is decompressed but somewhat thick-walled, correlate clinically. There is no significant free fluid or adenopathy. There is no acute osseous abnormality. Procedure Note Sathish Singh DO - 05/06/2025 CT SCAN OF THE CHEST, ABDOMEN, AND PELVIS WITHOUT CONTRAST. HISTORY: Renal cell carcinoma with lung metastasis, restaging. COMPARISON: January 2025. PROCEDURE: Axial images were obtained from the lung apex to the pubic symphysis by computed tomography. This study was performed with techniques to keep radiation doses as low as reasonably achievable, (ALARA). Automatic exposure control and/or changing of the mA/ kV according to patient size were utilized for radiation dose reduction. FINDINGS: CHEST: A lack of IV contrast limits assessment of solid organs, the mediastinum and vascularity. There is atherosclerosis. There is no axillary adenopathy. There is no hilar or mediastinal adenopathy. Heart size is normal. There is no pericardial or pleural effusion. There is evidence of prior granulomatous disease. There is a prosthetic aortic valve. There is a stable-appearing 9 mm nodule in the right middle lobe on image 29 of series 2. There is no pneumothorax. There is no significant pleural effusion. There are bilateral retroareolar soft tissue densities, correlate for gynecomastia. ABDOMEN: The liver is normal. There are small stones in the neck of the gallbladder. The spleen is unremarkable. No adrenal mass is present. The pancreas is normal. There are surgical clips in the right nephrectomy bed. There is no definite evidence of recurrence in the nephrectomy bed. There is an extrarenal pelvis on the left. There is no renal stone identified. The aorta is normal in caliber. There is atherosclerosis. There is no free fluid. There is no mesenteric or periaortic adenopathy. There is scattered diverticulosis. There is no abnormally dilated bowel. PELVIS: The appendix is not identified. The prostate is enlarged measuring up to 6 cm, correlate clinically. The urinary bladder is decompressed but somewhat thick-walled, correlate clinically. There is no significant free fluid or adenopathy. There is no acute osseous abnormality. IMPRESSION: Essentially stable exam from prior. Recommend continued follow-up. The prostate is enlarged measuring up to 6 cm, correlate clinically. The urinary bladder is decompressed but somewhat thick-walled, correlate clinically. Images reviewed, interpreted, and dictated by Dr. Sathish Singh. Transcribed by Oriana Will PA-C. us Piyush Pierre MD IMG CT ORDERABLES Final Result documented in this encounter Visit Diagnoses Diagnosis Malignant neoplasm of right kidney, except renal pelvis (HCC) documented in this encounter Administered Medications Inactive Administered Medications - up to 3 most recent administrations Medication Order MAR Action Action Date Dose Rate Site barium (READI-CAT 2) suspension 2% 450 mL Once, oral, On Fri05/06/25 at 0930, For 1 dose, Intra-op Given 05/06/2025 9:07 AM EDT 450 mLs documented in this encounter Care Teams Turning Sander Tender Relationship Specialty Start Date End Date Diego Johnson MD [address] [facility] [address] [place] [address] Interventional Cardiology 01/23/24 Piyush Pierre MD [address] [facility] [address] [place] [address] Hematology and Oncology 01/25/25 documented as of this encounter
--- OUTSIDE RECORDS SUMMARY | 2025-05-06 09:15 | XMS_ITS | Encounter Summary ---
Author Organization [facility] ([place], [place], [place], [place], [place]) Address [address] [place] [address] Care Team Providers Care Supervisor Gas Meter Repair Name Role Phone Diego Johnson MD Unavailable [phone] Piyush Pierre MD Unavailable [phone] Reason for Referral * CAT Scan (Routine) - New Request Specialty Diagnoses / Procedures Referred By Wilfrid montoya Referred To Contact Radiology Diagnoses Malignant neoplasm of right kidney, except renal pelvis (HCC) Procedures [place] [address] [place] [phone] Phone: tel: fax: Referral ID Status Reason Start Date Expiration Date V isits Requested Visits Authorized [id number] New Request 11/04/2025 11/04/2026 1 1 Encounter Details Date Type Department Care Team (Late st Contact Info) Description 05/06/2025 10:15 AM EDT [facility] [address] [place] [address] Piyush Pierre MD [address] [facility] [address] [place] [address] Malignant neoplasm of right kidney, except renal pelvis (HCC) Social History Tobacco Use Types Packs/Day Years Used Date Smoking Tobacco: Former Cigarettes 09 16 1 977 - 2006 Passive Smoke Exposure: Past Smokeless Tobacco: Never Tobacco Cessation:Counseling Given: Not Answered Alcohol Use Standard Drinks/Week Comments Never 0 (1 standard drink = 0.6 oz pur e alcohol) Family and Community Support Answer Brando e Recorded Help with Day to Day Activities Not on file 08/29/2023 Feeling Lonely or Isolated Not on file 08/29 Educational Attainment Answer Date Roni rded Speak language other than Finnish at home Not on file 08/29/2023 Want [...] Sign Reading Time Taken Comments Blood Pressure 125/71 05/06/2025 10:37 AM EDT Pulse 62 05/06/2025 10:37 AM EDT Temperature 36.6 C (97.8 F) 05/06/2025 10:37 AM EDT Respiratory Rate 18 05/06/2025 10:37 AM EDT Oxygen Saturation 95% 05/06/2025 10:37 AM EDT Inhaled Oxygen Concentration - - Weight - - Height 170.2 cm (5' 7 ) 05/06/2025 10:37 AM EDT Body Mass Index - - documented in this encounter Progress Notes * Piyush Pierre MD - 05/06/2025 10:15 AM EDT Chief Complaint: History of Present Illness: Tito Daniel is a 75 y.o. male who presents today for follow up of renal cell carcinoma. He is 6years out from his diagnosis. He has not had any new issues. He of course has the Parkinson's disease and that also limits him. He had a nosebleed this morning when I saw him. 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, NYHA class II and CKD stage III (HCC) CAD (coronary artery disease) 11/07/2022 Dyslipidemia GERD (gastroesophageal reflux disease) HLD (hyperlipidemia) 11/07/2022 HTN (hypertension) 11/07/2022 Kidney cancer, primary, with metastasis from kidney to other site (HCC) Murmur 11/07/2022 Nephrolithiasis Parkinson's disease (HCC) 11/07/2022 Personal history of kidney cancer 11/07/2022 no tx since 2020 Personal history of lung cancer 11/07/2022 from kidney -monitoring w/ CT scans 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 A. 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 B. Pulmonary lesions found 10/07 concerning for recurrent disease. C. Votrient 10/27/2020-04/2021. Progression D. Opdivo/yervoy 04/2021-05/2021. Discontinued due to diarrhea. Response Malignant neoplasm of right kidney, except renal pelvis (HCC) 10/02/2022 Initial Diagnosis Malignant neoplasm of right kidney, except renal pelvis (HCC) Allergies: Patient has no known allergies. Medications: Current Outpatient Medications on File Prior to Visit Medication Sig Dispense Refill amLODIPine (NORVASC) 10 [...] 2 (two) times daily as needed (headaches). No current facility-administered medications on file prior to visit. Review of Systems: Review of Systems All other systems reviewed and are negative. Vitals: Vitals: 05/06/25 1037 BP: 125/71 Pulse: 62 Resp: 18 Temp: 97.8 ??F (36.6 ??C) SpO2: 95% Height: 1.702 m (5' 7 ) Physical Exam: Physical Exam Vitals reviewed. Constitutional: Appearance: Normal appearance. HENT: Head: Normocephalic and atraumatic. Mouth/Throat: Mouth: Mucous membranes are moist. Pharynx: Oropharynx is clear. No oropharyngeal exudate. Eyes: Extraocular Movements: Extraocular movements intact. Conjunctiva/sclera: Conjunctivae normal. Pupils: Pupils are equal, round, and reactive to light. Neck: Comments: No cervical supraclavicular or axillary adenopathy Cardiovascular: Rate and Rhythm: Normal rate and regular rhythm. Pulses: Normal pulses. Heart sounds: Normal heart sounds. Pulmonary: Effort: Pulmonary effort is normal. Breath sounds: Normal breath sounds. Comments: No dullness to percussion in the lung bases bilaterally Abdominal: General: Abdomen is flat. Palpations: Abdomen is soft. Comments: No hepatomegaly below the right costal margin Musculoskeletal: General: Normal range of motion. Cervical back: Normal range of motion and neck supple. Comments: No areas of bone pain Neurological: General: No focal deficit present. Mental Status: He is alert. Mental status is at baseline. Comments: He has an antalgic gait and stone facies as 1 would predict with his neurologic diagnosis. He has no other deficits Relevant Results: Office Visit on 05/06/2025 Component Date Value Ref Range Status WBC 05/06/2025 5.5 4.5 - 11.0 K/??L Final RBC 05/06/2025 5.16 4.50 - 5.50 M/??L Final Hemoglobin 05/06/2025 15.4 13.5 - 17.5 GM/DL Final Hematocrit 05/06/2025 44.8 41.0 - 53.0 % Final MCV 05/06/2025 87 80 - 100 fL Final MCH 05/06/2025 29.8 26.0 - 34.0 pg Final MCHC 05/06/2025 34.4 31.0 - 37.0 GM/DL Final RDW 05/06/2025 13.3 12.0 - 16.8 % Final Platelets 05/06/2025 119 (L) 140 - 440 K/CU MM Final MPV 05/06/2025 9.8 6.7 - 10.8 fL Final % Neutros 05/06/2025 64 45 - 80 % Final % Lymphs 05/06/2025 26 15 - 45 % Final % Monos 05/06/2025 7 0 - 10 % Final % Eos 05/06/2025 2 0 - 5 % Final % Baso 05/06/2025 0 0 - 3 % Final # Neutros 05/06/2025 3.51 2.00 - 8.80 K/??L Final # Lymphs 05/06/2025 1.44 0.70 - 5.50 K/??L Final # Monos 05/06/2025 0.40 0.00 - 1.70 K/??L Final # Eos 05/06/2025 0.12 0.00 - 0.80 K/??L Final # Baso 05/06/2025 0.02 0.00 - 0.20 K/??L Final Sodium 05/06/2025 138 136 - 146 meq/L Final Potassium 05/06/2025 5.0 3.5 - 5.1 meq/L Final Chloride 05/06/2025 105 98 - 108 meq/L Final CO2 05/06/2025 25 22 - 29 meq/L Final Anion Gap 05/06/2025 13 9 - 20 Final BUN 05/06/2025 30 (H) 7 - 18 mg/dL Final Creatinine 05/06/2025 2.00 (H) 0.70 - 1.30 mg/dL Final BUN/Creatinine 05/06/2025 15 8 - 20 Final Glucose 05/06/2025 104 70 - 105 mg/dL Final Calcium Ionized (mg/dL) 05/06/2025 4.74 4.36 - 5.20 mg/dL Final Protein, Total 05/06/2025 7.7 6.4 - 8.2 gm/dL Final Albumin 05/06/2025 3.9 3.4 - 5.0 g/dL Final Total Bilirubin 05/06/2025 0.7 0.2 - 1.3 mg/dL Final Bilirubin, Direct 05/06/2025 0.2 0.0 - 0.2 mg/dL Final Alkaline Phosphatase 05/06/2025 155 (H) 27 - 136 U/L Final Globulin 05/06/2025 3.8 1.5 - 4.5 g/dL Final A/G Ratio 05/06/2025 1.0 (L) 1.1 - 2.5 Final AST 05/06/2025 16 5 - 37 U/L Final [employer] has become aware of sulfasalazine and sulfapyridine drug interference in the assays ALT, AST, T4, CKMB, glucose, and ammonia. The probability of misinterpretation of results for the assays is remote and would be limited to scenarios where a patient has taken the drug and had a blood sample drawn before clearance of the drug to a level that does not interfere with laboratory testing. Venipuncture should occur prior to administration of the drug. ALT 05/06/2025 20 12 - 78 U/L Final [employer] has become aware of sulfasalazine and sulfapyridine drug interference in the assays ALT, AST, T4, CKMB, glucose, and ammonia. The probability of misinterpretation of results for the assays is remote and would be limited to scenarios where a patient has taken the drug and had a blood sample drawn before clearance of the drug to a level that does not interfere with laboratory testing. Venipuncture should occur prior to administration of the drug. CT CAP w/o Result Date: 05/06/2025 CT SCAN OF THE CHEST, ABDOMEN, AND PELVIS WITHOUT CONTRAST. HISTORY: Renal cell carcinoma with lungmetastasis, restaging. COMPARISON: January 2025. PROCEDURE: Axial images were obtained from the lung apex to the pubic symphysis by computed tomography. This study was performed with techniques to keep radiation doses as low as reasonably achievable, (ALARA). Automatic exposure control and/or changingof the mA/ kV according to patient size were utilized for radiation dose reduction. FINDINGS: CHEST: A lack of IV contrast limits assessment of solid organs, the mediastinum and vascularity. There isatherosclerosis. There is no axillary adenopathy. There is no hilar or mediastinal adenopathy. Heart size is normal. There is no pericardial or pleural effusion. There is evidence of prior granulomatous disease. There is a prosthetic aortic valve. There is a stable- appearing 9 mm nodule in the right middle [...] adenopathy. There is no acute osseous abnormality. Essentially stable exam from prior. Recommend continued follow-up. The prostate is enlarged measuring up to 6 cm, correlate clinically. The urinary bladder is decompressed but somewhat thick-walled, correlate clinically. Images reviewed, interpreted, and dictated by Dr. Sathish Singh. Transcribed by Oriana Will PA-C. Intravitreal Injection, Pharmacologic Agent - OS - Left Eye Result Date: 04/26/2025 Time Out 04/26/2025. 9:13 AM. Confirmed correct patient, procedure, site, and patient consented. Anesthesia Topical anesthesia was used. Anesthetic medications included Proparacaine 0.5%. Procedure Preparation included 5% betadine to ocular surface. A 30 gauge needle was used. Injection: 2 mg Afliberc ept 2 MG/0.05ML Route: Intravitreal, Site: Left Eye [facility]: [id number], Lot: [id number], Expiration date: 07/17/2026 Post-op Post injection exam found visual acuity of at least counting fingers. The patient tolerated the procedure well. There were no complications. The patient received written and verbal post procedure care education. Post injection medications were not given. OCT, Retina - OU - Both Eyes Result Date: 04/26/2025 Right Eye Quality was good. Scan locations included subfoveal. Progression has been stable. Left Eye Quality was good. Scan locations included subfoveal. Progression has worsened. Notes Right eye (OD) drusen, no Choroidal Neovascular Membrane, no subretinal fluid (SRF) Left eye (OS) Choroidal Neovascular Membrane with increased Intraretinal fluid Cancer Staging Malignant neoplasm of right kidney, except renal pelvis (HCC) Staging form: Kidney, AJCC 8th Edition - Clinical stage from 07/09/2019: Stage III (cT3a, cN0, cM0) - Unsigned Plan: His CT scan was great as was his blood test. His creatinine stable at 2. He will return to see me in 6 months. I think after 6 years we can go farther and his agreed. Will do a CT and blood test at that time. I have answered their questions Signed: Electronically signed by Piyush Pierre MD 05/06/25 4:04 PM EDT Anson Davison MD documented in this encounter Plan of Treatment Upcoming Encounters Date Type Department Care Team (Late st Contact Info) Description 06/21/2025 7:30 AM EST Office Visit [facility] Neurology - [place] [address] [place] [phone] [place] [address] [place] [phone] Jenn Celis MD [address] [place] [address] 06/27/2025 11:15 AM EST Office Visit [facility] Cardiology [address] [place] [address] [place] [address] [place] [phone] 11/01/2025 10:45 AM EDT [facility] [address] [place] [phone] Piyush Pierre MD [address] [place] [address] [place] [address] Scheduled Orders Name Type Priority Associated Diagnoses Orde r Schedule CBC with automated diff Lab Routine Malignant neoplasm of right kidney, except renal pelvis (HCC) Expected: 11/04/2025, Expires: 02/02/2026 Comprehensive metabolic panel Lab Routine Malignant neoplasm of right kidney, except renal pelvis (HCC) Expected: 11/04/2025 (Approximate), Expires: 02/02/2026 CT CAP w/o Imaging Routine Malignant neoplasm of right kidney, except renal pelvis (HCC) Expected: 11/04/2025, Expires: 06/05/2026 documented as of this encounter Procedures Procedure Name Priority Date/Time Associated Diagnosis Comments CBC W/ AUTO DIFF Routine 05/06/2025 10:1 3 AM EDT Malignant neoplasm of right kidney, except renal pelvis (HCC) ONOCOLOGY CHEMISTRY PANEL Routine 05/06/2025 10:13 AM EDT Malignant neoplasm of right kidney, except renal pelvis (HCC) HEPATIC FUNCTION PANEL Routine 05/06/2025 10:13 AM EDT Malignant neoplasm of right kidney, except renal pelvis (HCC) documented in this encounter Results * (ABNORMAL) Hepatic function panel (05/06/2025 10:13 AM EDT) Protein, Total 7.7 6.4 - 8.2 gm/dL 05/06/2025 11:37 AM [facility] Albumin 3.9 3.4 - 5.0 g/dL 05/06/2025 11:37 AM [facility] Total Bilirubin 0.7 0.2 - 1.3 mg/dL 05/06/2025 11:37 AM [facility] Bilirubin, Direct 0.2 0.0 - 0.2 mg/dL 05/06/2025 11:37 AM [facility] Alkaline Phosphatase 155(H) 27 - 136 U/L 05/06/2025 11:37 AM [facility] Globulin 3.8 1.5 - 4.5 g/dL 05/06/2025 11:37 AM [facility] A/G Ratio 1.0(L) 1.1 - 2.5 05/06/2025 11:37 AM [facility] AST 16 5 - 37 U/L 05/06/2025 11:37 AM [facility] Comment:[employer] has become aware of sulfasalazine and sulfapyridine drug interference in the assays ALT, AST, T4, CKMB, glucose, and ammonia. The probability of misinterpretation of results for the assays is remote and would be limited to scenarios where a patient has taken the drug and had a blood sample drawn before clearance of the drug to a level that does not interfere with laboratory testing. Venipuncture should occur prior to administration of the drug. ALT 20 12 - 78 U/L 05/06/2025 11:37 AM [facility] Comment:[employer] has become aware of sulfasalazine and sulfapyridine drug interference in the assays ALT, AST, T4, CKMB, glucose, and ammonia. The probability of misinterpretation of results for the assays is remote and would be limited to scenarios where a patient has taken the drug and had a blood sample drawn before clearance of the drug to a level that does not interfere with laboratory testing. Venipuncture should occur prior to administration of the drug. Blood Venipuncture / Unknown 05/06/2025 10:13 AM EDT 05/06/2025 10:18 AM EDT us Piyush Pierre MD LAB BLOOD ORDERABLES Final Res ult [facility] [address] [phone] * (ABNORMAL) Oncology Basic Metabolic Panel (05/06/2025 10:13 AM EDT) Sodium 138 136 - 146 meq/L 05/06/2025 10:31 AM EDT [facility] Potassium 5.0 3.5 - 5.1 meq/L 05/06/2025 10:31 AM EDT [facility] Chloride 105 98 - 108 meq/L 05/06/2025 10:31 AM EDT [facility] CO2 25 22 - 29 meq/L 05/06/2025 10:31 AM EDT [facility] Anion Gap 13 9 - 20 05/06/2025 10:31 AM EDT [facility] BUN 30(H) 7 - 18 mg/dL 05/06/2025 10:31 AM EDT [facility] Creatinine 2.00(H) 0.70 - 1.30 mg/dL 05/06/2025 10:31 AM EDT [facility] BUN/Creatinine 15 8 - 20 05/06/2025 10:31 AM EDT [facility] Glucose 104 70 - 105 mg/dL 05/06/2025 10:31 AM EDT [facility] Calcium Ionized (mg/dL) 4.74 4.36 - 5.20 mg/dL 05/06/2025 10:31 AM EDT [facility] Blood Venipuncture / Unknown 05/06/2025 10:13 AM EDT 05/06/2025 10:18 AM EDT us Piyush Pierre MD LAB BLOOD ORDERABLES Final Res ult [facility] [address] [place] [address], [facility] [phone] * (ABNORMAL) CBC with automated diff (05/06/2025 10:13 AM EDT) WBC 5.5 4.5 - 11.0 K/ L 05/06/2025 10:25 AM EDT [facility] RBC 5.16 4.50 - 5.50 M/ L 05/06/2025 10:25 AM EDT [facility] Hemoglobin 15.4 13.5 - 17.5 GM/DL 05/06/2025 10:25 AM EDT [facility] Hematocrit 44.8 41.0 - 53.0 % 05/06/2025 10:25 AM EDT [facility] MCV 87 80 - 100 fL 05/06/2025 10:25 AM EDT [facility] MCH 29.8 26.0 - 34.0 pg 05/06/2025 10:25 AM EDT [facility] MCHC 34.4 31.0 - 37.0 GM/DL 05/06/2025 10:25 AM EDT [facility] RDW 13.3 12.0 - 16.8 % 05/06/2025 10:25 AM EDT [facility] Platelets 119(L) 140 - 440 K/CU MM 05/06/2025 10:25 AM EDT [facility] MPV 9.8 6.7 - 10.8 fL 05/06/2025 10:25 AM EDT [facility] % Neutros 64 45 - 80 % 05/06/2025 10:25 AM EDT [facility] % Lymphs 26 15 - 45 % 05/06/2025 10:25 AM EDT [facility] % Monos 7 0 - 10 % 05/06/2025 10:25 AM EDT [facility] % Eos 2 0 - 5 % 05/06/2025 10:25 AM EDT [facility] % Baso 0 0 - 3 % 05/06/2025 10:25 AM EDT [facility] # Neutros 3.51 2.00 - 8.80 K/ L 05/06/2025 10:25 AM EDT [facility] # Lymphs 1.44 0.70 - 5.50 K/ L 05/06/2025 10:25 AM EDT [facility] # Monos 0.40 0.00 - 1.70 K/ L 05/06/2025 10:25 AM EDT [facility] # Eos 0.12 0.00 - 0.80 K/ L 05/06/2025 10:25 AM EDT [facility] # Baso 0.02 0.00 - 0.20 K/ L 05/06/2025 10:25 AM EDT [facility] Blood Venipuncture / Unknown 05/06/2025 10:13 AM EDT 05/06/2025 10:18 AM EDT Narrative [facility] - 05/06/2025 10:25 AM EDT When CBC w/ Auto Diff is ordered the lab will add a Manual Differential as a quality check at no additional charge if: Lymphocytes greater than seventy five percent with normal or increased WBC Monocytes greater than Fifteen percent Basophil greater than four percent Bands >10% or several immature myeloids are seen on scan Blast? Flag noted Atypical Lymph flag noted us Piyush Pierre MD LAB BLOOD ORDERABLES Final Res ult [facility] [address] [place] [address] documented in this encounter Visit Diagnoses Diagnosis Malignant neoplasm of right kidney, except renal pelvis (HCC) documented in this encounter Care Teams Supervisor Gas Meter Repair Relationship Specialty Start Date End Date Diego Johnson MD [address] [facility] [address] [place] [address] Interventional Cardiology 01/23/24 Piyush Pierre MD [address] [place] [address] [address] [place] [address] Hematology and Oncology 01/25/25 documented as of this encounter
--- OUTSIDE RECORDS SUMMARY | 2025-05-06 11:30 | XMS_ITS | Encounter Summary ---
Author Organization [employer] ([place], [place], [place], [place], [place]) Address [address] [place] [address] Care Team Providers Care Gm Mobile Name Role Phone Diego Johnson MD Unavailable Piyush Pierre MD Unavailable [phone] Encounter Details Date Type Department Care Team (Late st Contact Info) Description 05/06/2025 12:30 PM EDT Office Visit [facility] Electrophysiology [address] [place] [address] CAD (coronary artery disease); Parkinson's disease (HCC); S/P TAVR (transcatheter aortic valve replacement) Social [...] Date Roni rded Speak language other than Portuguese at home Not on file 08/29/2023 Want [...] Description 06/21/2025 7:30 AM EST Office Visit [facility] Neurology - [facility] [address] [place] [phone] [place] [address] [place] [phone] Jenn Celis MD [facility] [address] [place], [place] [phone] 06/27/2025 11:15 AM EST Office Visit [facility] Cardiology [address] [place], [place] [phone] [place] [address] [place] [phone] 11/01/2025 10:45 AM EDT Office Visit [facility] - [facility] [address] [place] [phone] Piyush Pierre MD [address] [place] [address] [place] [address] Pending Results Name Type Priority Associated Diagnoses Date /Time 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 Cardiac Services Routine CAD (coronary artery disease) Parkinson's disease (HCC) S/P TAVR (transcatheter aortic valve replacement) 06/09/2025 1:47 PM EDT documented as of this encounter Visit Diagnoses Diagnosis CAD (coronary artery disease) Coronary atherosclerosis of unspecified type of vessel, galena or graft Parkinson's disease (HCC) Paralysis agitans S/P TAVR (transcatheter aortic valve replacement) documented in this encounter Care Teams Gm Mobile Relationship Specialty Start Date End Date Diego Johnson MD [address] [facility] [address] [place] [address] Interventional Cardiology 01/23/24 Piyush Pierre MD [address] [facility] [address] [place] [address] Hematology and Oncology 01/25/25 documented as of this encounter
--- OUTSIDE RECORDS SUMMARY | 2025-05-09 07:16 | XMS_ITS | Encounter Summary ---
Author Organization [employer] ([place], [place], [place], [place], [place]) Address [address] [place] [address] Care Team Providers Care Director Life Sales Name Role Phone Anson Davison MD Primary Care Provider [phone] Digeo Johnson MD Unavailable [phone] Piyush Pierre MD Unavailable [phone] Reason for Referral * Echocardiography (Routine) - Closed Specialty Diagnoses / Procedures Referred By Wilfrid montoya Referred To Contact Cardiology Diagnoses CAD (coronary artery disease) Parkinson's disease (HCC) S/P TAVR (transcatheter aortic valve replacement) Procedures ECHO COMPLETE (DOPPLER / COLOR) W OR WO CONTRAST Cricket Zimmerman MD [address] [place] [phone] Phone: tel: fax: [facility] Non-Invasive Cardiology [address] [place] [phone] Phone: tel: fax: Referral ID Status Reason Start Date Expiration Date Visits Re quested Visits Authorized [id number] Closed 04/29/2025 04/29/2026 1 1 Reason for Visit * Echocardiography (Routine) - Closed Specialty Diagnoses / Procedures Referred By Wilfrid montoya Referred To Contact Cardiology Diagnoses CAD (coronary artery disease) Parkinson's disease (HCC) S/P TAVR (transcatheter aortic valve replacement) Procedures ECHO COMPLETE (DOPPLER / COLOR) W OR WO CONTRAST Cricket Zimmerman MD [address] [place] [address] Phone: tel: fax: [facility] Non-Invasive Cardiology [address] [place] [address] Phone: tel: fax: Referral ID Status Reason Start Date Expiration Date Visits Re quested Visits Authorized [id number] Closed 04/29/2025 04/29/2026 1 1 Encounter Details Date Type Department Care Team (Late st Contact Info) Description 05/09/2025 8:16 AM EDT - 05/09/2025 11:59 PM EDT Hospital Encounter [facility] Non-Invasive Cardiology [address] [place] [address] Cricket Zimmerman MD [address] [place] [address] CAD (coronary artery disease); Parkinson's disease (HCC); S/P TAVR (transcatheter aortic valve replacement) Discharge Disposition: Home or Self Care Social History Tobacco Use Types Packs/Day Years Used Date Smoking Tobacco: Former Cigarettes 1 30 1 977 - 2006 Passive Smoke Exposure: Past Smokeless Tobacco: Never Alcohol Use Standard Drinks/Week Comments Never 0 (1 standard drink = 0.6 oz pur e alcohol) Family and Community Support Answer Brando e Recorded Help with Day to Day Activities Not on file 08/29/2023 Feeling Lonely or Isolated Not on file 08/29 Educational Attainment Answer Date Roni rded Speak language other than [place] at home Not on file 08/29/2023 Want [...] Description 06/21/2025 7:30 AM EST Office Visit [facility] Neurology - [facility] [address] [place] [phone] [place] [address] [place] [phone] Jenn Celis MD [address] [place] [address] [address] [place] [address] 06/27/2025 11:15 AM EST Office Visit [facility] Cardiology [address] [place] [phone] [place] [address] [place] [phone] 11/01/2025 10:45 AM EDT Office Visit [facility] - [facility] [address] [place] [address] Piyush Pierre MD [address] [facility] [address] [place] [address] documented as of this encounter Procedures Procedure Name Priority Date/Time Associated Diagnosis Comments ECHO COMPLETE (DOPPLER / COLOR) WO CONTRAST Routine 05/09/2025 12:43 PM EDT CAD (coronary artery disease) Parkinson's disease (HCC) S/P TAVR (transcatheter aortic valve replacement) documented in this encounter Results * ECHO COMPLETE (DOPPLER / COLOR) WO CONTRAST (05/09/2025 12:43 PM EDT) Anatomical Region Laterality Modality Heart Vascular Ultraso und 05/09/2025 8:38 AM EDT Narrative 05/09/2025 4:37 PM EDT TRANSTHORACIC ECHOCARDIOGRAPHY REPORT Demographics Patient Name: RONI Rose : 1950 Medical Record [id number] Age: 75 year(s) Number: Corporate ID Number: [id number] Gender Male Store Mgr: Fredy Cisneros RVT Height: 67 inches ,RDCS [...] A-wave: 1.01 m/s E/A ratio: 0.9 Volume szitsfgsb113.62 ml Volume rdbxwkaq05.91 ml LVOT diameter: 1.91 cm Normal sized [...] Valve TR velocity: 1.71 m/s TR gradient: 11.85689 mmHg Estimated RAP: 3 mmHg RVSP: 14.68 [...] Name: RONI Rose : 1950 Medical Record [id number] Age: 75 year(s) Number: Corporate ID Number: [id number] Gender Male Store Mgr: Fredy Cisneros RVT Height: 67 inches ,RDCS [...] A-wave: 1.01 m/s E/A ratio: 0.9 Volume sqrrrpkzu019.62 ml Volume mnfzibin61.91 ml LVOT diameter: 1.91 cm Normal sized [...] Valve TR velocity: 1.71 m/s TR gradient: 11.50716 mmHg Estimated RAP: 3 mmHg RVSP: 14.68 [...] MD CV ECHO ORDERABLES Final Resul t documented in this encounter Visit Diagnoses Diagnosis CAD (coronary artery disease) Coronary atherosclerosis of unspecified type of vessel, agdaagux or graft Parkinson's disease (HCC) Paralysis agitans S/P TAVR (transcatheter aortic valve replacement) documented in this encounter Care Teams Director Life Sales Relationship Specialty Start Date End Date Anson Davison MD [address] [place] [address] [place] [address] PCP - General Adolescent Medicine 05/09/25 Diego Johnson MD [address] [facility] [address] [place] [address] Interventional Cardiology 01/23/24 Piyush Pierre MD [address] [facility] [address] [place] [address] Hematology and Oncology 01/25/25 documented as of this encounter
--- OUTSIDE RECORDS SUMMARY | 2025-05-16 03:45 | XMS_ITS ---
Author Organization [facility] Address [address] [place] [address] Care Team Providers Care Insights Manager Name Role Phone Anson Davison Primary Care Provider [phone] Allergies No Known Allergies Results Component Value Reference Range Notes LIPID PANEL, STANDARD (7600) Reviewed date:05/18/2025 01:07:18 PM Interpretation: Performing Lab:CB, [facility] [facility], [id number] Allen Otoole Notes/Report: NON-FASTING; NON-FASTING; NON-FASTING FASTING:YES FASTING: YES CHOLESTEROL, TOTAL 107 <200 mg/dL HDL CHOLESTEROL 32 > OR = 40 mg/dL TRIGLYCERIDES 130 <150 mg/dL LDL-CHOLESTEROL 54 Reference range: <100 Desirable range <100 mg/dL for primary prevention; <70 mg/dL for patients with CHD or diabetic patients with > or = 2 CHD risk factors. LDL-C is now calculated using the Yobani-Osmany calculation, which is a validated novel method providing better accuracy than the Friedewald equation in the estimation of LDL-C. Yobani SS et al. CAMILO. 2013;310(19): 0938-6723 (http://education.[employer]/faq/SIN730) CHOL/HDLC RATIO 3.3 <5.0 (calc) NON HDL CHOLESTEROL 75 <130 mg/dL (calc) For patients with diabetes plus 1 major ASCVD risk factor, treating to a non-HDL-C goal of <100 mg/dL (LDL-C of <70 mg/dL) is considered a therapeutic option. COMPREHENSIVE METABOLIC PANE L (18617) Reviewed date:05/18/2025 01:07:18 PM Interpretation: Performing Lab:[facility] [employer] [facility] [id number] [employer] [facility], [id number] Allen Otoole Notes/Report: NON-FASTING; NON-FASTING; NON-FASTING FASTING:YES FASTING: YES GLUCOSE 113 65-99 mg/dL Fasting reference interval For someone without known diabetes, a glucose value between 100 and 125 mg/dL is consistent with prediabetes and should be confirmed with a follow-up test. UREA NITROGEN (BUN) 27 7-25 mg/dL CREATININE 2.20 0.70-1.28 mg/dL EGFR 30 > OR = 60 mL/min/1.73m2 BUN/CREATININE RATIO 12 6-22 (calc) SODIUM 139 135-146 mmol/L POTASSIUM 4.5 3.5-5.3 mmol/L CHLORIDE 104 98-110 mmol/L CARBON DIOXIDE 27 20-32 mmol/L CALCIUM 8.8 8.6-10.3 mg/dL PROTEIN, TOTAL 6.7 6.1-8.1 g/dL ALBUMIN 4.1 3.6-5.1 g/dL GLOBULIN 2.6 1.9-3.7 g/dL (calc) ALBUMIN/GLOBULIN RATIO 1.6 1.0-2.5 (calc) BILIRUBIN, TOTAL 0.8 0.2-1.2 mg/dL ALKALINE PHOSPHATASE 131 35-144 U/L AST 13 10-35 U/L ALT 13 9-46 U/L CBC (INCLUDES DIFF/PLT) (639 9) Reviewed date:05/18/2025 01:07:18 PM Interpretation: Performing Lab:[facility] [employer] [facility] [facility] [id number] [employer] [facility], [id number] Allen Otoole Notes/Report: NON-FASTING; NON-FASTING; NON-FASTING FASTING:YES FASTING: YES WHITE BLOOD CELL COUNT 5.4 3.8-10.8 Thousand/ uL RED BLOOD CELL COUNT 4.24 4.20-5.80 Million/uL HEMOGLOBIN 12.8 13.2-17.1 g/dL HEMATOCRIT 39.0 38.5-50.0 % MCV 92.0 80.0-100.0 fL MCH 30.2 27.0-33.0 pg MCHC 32.8 32.0-36.0 g/dL For adults, a slight decrease in the calculated MCHC value (in the range of 30 to 32 g/dL) is most likely not clinically significant; however, it should be interpreted with caution in correlation with other red cell parameters and the patient's clinical condition. RDW 13.0 11.0-15.0 % PLATELET COUNT 135 140-400 Thousand/uL MPV 9.3 7.5-12.5 fL ABSOLUTE NEUTROPHILS 3262 5457-1567 cells/uL ABSOLUTE LYMPHOCYTES 6119 373-8137 cells/uL ABSOLUTE MONOCYTES 281 200-950 cells/uL ABSOLUTE EOSINOPHILS 151 15-500 cells/uL ABSOLUTE BASOPHILS 22 0-200 cells/uL NEUTROPHILS 60.4 LYMPHOCYTES 31.2 MONOCYTES 5.2 EOSINOPHILS 2.8 BASOPHILS 0.4 REASON FOR VISIT 3 month F/U-fasting, hedaches/dizzines, flu shot Medications Medication SIG (Take, Route, Frequency, Duration) Notes Start Date End Date Status Nurtec 75 MG 1 tablet on the tong ue and allow to dissolve Orally Not-Taking Atorvastatin Calcium 80 MG Take 1 tablet by mouth once daily; Duration: 90 Active Citalopram Hydrobromide 20 MG Take 1 tablet by mouth once daily; Duration: 90 Active Carbidopa-Levodopa 25-100 MG 1 tablet orally 2 times a day; Duration: 90 days Active Carvedilol 25 MG 1 tablet orally 2 ti mes a day; Duration: 90 days Active Qulipta 60 MG 1 tab(s) orally once a day prn 09/13/2024 Active Magnesium Oxide 400 MG 1 tab(s) orally o nce a day; Duration: 90 days Active amLODIPine Besylate 10 MG 1 tab(s) orall y once a day; Duration: 90 day(s) Active Zetia 10 MG 1 tab(s) orally once a day; Duration: 90 days Active traMADol HCl 50 MG 1 tab(s) orally twic e daily; Duration: 30 days prn 09/13/2024 Active Omeprazole 40 MG 1 cap(s) orally once a day; Duration: 90 days Active Glimepiride 1 MG 1 tab(s) orally once a day; Duration: 90 days Active PreserVision AREDS 2 ANTIOXIDANT MULTIPLE VITAMINS AND MINERALS 1 TAB(S) CHEWED 2 TIMES A DAY Active Farxiga 10 MG 1 tab(s) orally once a day Active Aspirin 81 MG 1 tablet Orally Once a day Active Immunizations Vaccine Route Administration Date Status Comme nts Fluzone High Dose IM Intramuscular 05/16/2025 Administered Social History Tobacco Use: Social History Observation Description Date Details (start date - stop date) Former Smoker NA - NA Smoking: Question Answer Notes Are you a: former smoker How long has it been since you last smoked? 5-10 years Section Notes: lives at home with and family support Problems Problem Type SNOMED Code ICD Code Onset Dates Problem Status W/U Status Risk Notes Problem Parkinson's disease (disorder) (33230486) Parkinson's disease without dyskinesia or fluctuating manifestations (G20.A1) Active confirmed Vital Signs Temperature 97.3 degrees Fahrenheit 05/16/20 25 Blood pressure systolic 156 mm Hg 05/16/20 25 Blood pressure diastolic 76 mm Hg 025 Heart Rate 74 /min 05/16/2025 Height 67.2 in 05/16/2025 Weight 182.6 lbs 05/16/2025 BMI 28.43 kg/m2 05/16/2025 Encounters Encounter Location Date Provider Diagnosis [facility] PED [facility] [address] [place] [address] 05/16/2025 Anson Davison Hypertension, essent ial I10 ; Mixed hyperlipidemia E78.2 ; Parkinson's disease without dyskinesia or fluctuating manifestations G20.A1 ; Stage 3b chronic kidney disease (CKD) N18.32 ; Immunization(s) administered Z23 and Headache disorder R51.9 Assessments Encounter Date Diagnosis (ICD Code) Assessment Notes Treatment Notes Treatment Clinical Notes Section Notes 05/16/2025 Hypertension, essential (ICD-10 - I10) Blood pressure slightly elevated but did not take medicines today, there is some confusion about whether or not he is taking it one half or a full carvedilol tablet. He will try to sort this out, see cardiology in the interim and I will see him back in 4 weeks to reevaluate his blood pressure. 05/16/2025 Mixed hyperlipidemia (ICD-10 - E78.2) Labs ordered. Drawn in the office today. Please note I have ordered these and I will review these personally. 05/16/2025 Parkinson's disease without dyskinesia or fluctuating manifestations (ICD-10 - G20.A1) Patient's tremors gone away. I think he is tolerating the carbidopa/levo dopa well. His concerned about the nausea-he seems less so. He will follow with neurology and continue the medication 05/16/2025 Stage 3b chronic kidney disease (CKD) (ICD-10 - N18.32) Labs ordered today. Remains on xiga. 05/16/2025 Immunization(s) administered (ICD-10 - Z23) 05/16/2025 Headache disorder (ICD-10 - R51.9) Getting good relief with Qulipta. Samples given Plan Of Treatment Treatment Notes Assessment Notes Hypertension, essential Blood pressure slightly elevated but did not take medicines today, there is some confusion about whether or not he is taking it one half or a full carvedilol tablet. He will try to sort this out, see cardiology in the interim and I will see him back in 4 weeks to reevaluate his blood pressure. Mixed hyperlipidemia Labs ordered. Drawn in the office today. Please note I have ordered these and I will review these personally. Parkinson's disease without dyskinesia or fluctuating manifestations Patient's tremors gone away. I think he is tolerating the carbidopa/levodopa well. His concerned about the nausea-he seems less so. He will follow with neurology and continue the medication Stage 3b chronic kidney disease (CKD) La bs ordered today. Remains on ks. Headache disorder Getting good relief with Qulipta. Samples given Next Appt Details Provider Name:Anson Davison, 09/14/2025 09:30:00 AM, [address] [facility] [address] [facility], [address], [place], [address], Progress Notes * Tito DANIEL WDOB:[birth year] (75 yo M)Acc No.[id number]:05/16/2025 Progress Notes Patient: Tito FOLWERS Provider: Kyle Davison MD :1950 A ge:75 Y S ex:Male Date:05/16/2025 Address:[address] [place] [address] [id number] Subjective: * Chief Complaints: * 1 . 3 month F/U-fasting. 2. Hedaches/dizzines. 3. Flu shot. * HPI: eliana en: Here to follow-up his chronic medical problems. And spite of a host of medical difficulties X he doing pretty well and has really good functional status. Still complains of headaches that are ameliorated with CGRP blockers-because of insurance issues he is dependent upon our office for samples and has run out recently. Also on Farxiga for chronic kidney disease and needs samples of these. His tremors are much better on Parkinson's medications but he has some dizziness. He does not complain of this but his does. He otherwise has no complaints. His blood pressure is up a little bit today, currently following with cardiology from [facility], wearing a monitor device for dysrhythmias and will go back to see them in the next month. Of note he did not take his blood pressure medicine today. 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 * Surgical History: H eart Cath - with clear bypass grafts 12/2016, Colonoscopy , Triple bypass 2007, Tonsillectomy 1969, Kidney stone removal , Heart Cath 11/2016, lt eye-cataract surgery 10/2018, colonoscopy 05/2019, Right nephrectomy 06/2019, biopsy on head 11/2020, Valve in heart stretched 12/2022, Aorta Valve Replaced 06/2023. * Hospitalization/Major Diagno stic Procedure: T riple bypass, tonsillectomy, kidney stone 2007, - Right nephrectomy 06/2019, [facility] - diarrhea, dehydration 06/2021, [place] , Aorta Valve Replaced 06/2023. * Family History: F ather: , diagnosed with Heart Disease. M other: , stomach cancer, diagnosed with Cancer. P aternal Grand Father: . P aternal Grand Mother: . M aternal Grand Father: . M aternal Grand Mother: . P aternal uncle: .?Paternal aunt: . M aternal uncle: . M aternal aunt: . S iblings: , 2 brothers/2 sisters-heart disease1 sister-cancer, diagnosed with Heart Disease, Cancer. C desire: alive. 2 brother(s) , 3 sister(s) . 1 son(s) , 2 daughter(s) - healthy. .? * Social History: S moking A re you a: f ormer smoker, H ow long has it been since you last smoked??5-10 years. R ecreational drug use: no. Exercise: yes. Home smoke detector use: no. Caffeine: yes, frequency:occ coke. Living Will: No. Alcohol: no. Sexually active: no. Travel outside [place]: no. Occupation: retired. lives at home with and family support. * Medications: T aking Aspirin 81 MG Tablet Delayed Release 1 tablet Orally Once a day , Taking Farxiga 10 MG Tablet 1 tab(s) orally once a day , Taking PreserVision AREDS 2 ANTIOXIDANT MULTIPLE VITAMINS AND MINERALS TABLET, CHEWABLE 1 TAB(S) CHEWED 2 TIMES A DAY , Taking Glimepiride 1 MG Tablet 1 tab(s) orally once a day , Taking Omeprazole 40 MG Capsule Delayed Release 1 cap(s) orally once a day , Taking Magnesium Oxide 400 MG Tablet 1 tab(s) orally once a day , Taking Qulipta 60 MG Tablet 1 tab(s) orally once a day , Notes to Pharmacist: prn, Taking traMADol HCl 50 MG Tablet 1 tab(s) orally twice daily , Notes to Pharmacist: prn, Taking Zetia 10 MG Tablet 1 tab(s) orally once a day , Taking amLODIPine Besylate 10 MG Tablet 1 tab(s) orally once a day , Taking Carvedilol 25 MG Tablet 1 tablet orally 2 times a day , Taking Carbidopa-Levodopa 25-100 MG Tablet 1 tablet orally 2 times a day , Taking Citalopram Hydrobromide 20 MG Tablet Take 1 tablet by mouth once daily , Taking Atorvastatin Calcium 80 MG Tablet Take 1 tablet by mouth once daily , Not-Taking Nurtec 75 MG Tablet Disintegrating 1 tablet on the tongue and allow to dissolve Orally , Medication List reviewed and reconciled with the patient * Allergies: N .K.D.A. Objective: * Vitals: N urse: jl, Pain: 0, Temp: 97.3, RR: 18, HR: 74, BP: 156/76, Ht: 67.2, Wt: 182.6, BMI:28.43. * Examination: G eneral Examination: General P leasant and Cooperative, NAD on RA,. Heart: R egular Rate and Rhythm, no murmur, rubs or gallops. HEENT: p harynx and tonsils normal, TM's normal. Lungs: L CTAB, No wheezes, crackles or rhonchi, Good air movement,. Abdomen: S oft, NTND, BSNA, No organomegaly or peritoneal signs.. Assessment: * Assessment: 1. H ypertension, essential - I10 (Primary) 2 . M ixed hyperlipidemia - E78.2 3 . P arkinson's disease without dyskinesia or fluctuating manifestations - G20.A1 4 . S tage 3b chronic kidney disease (CKD) - N18.32 5 . Immunization(s) administered - Z23 6 . H eadache disorder - R51.9 ? Plan: * Treatment: 2. M ixed hyperlipidemia L AB: LIPID PANEL, STANDARD (7600) Value Reference Range T RIGLYCERIDES 130 <150 - mg/dL * C HOLESTEROL, TOTAL 107 <200 - mg/dL * H DL CHOLESTEROL 32 L > OR = 40 - mg/dL * L DL-CHOLESTEROL 54 - mg/dL (calc) * C HOL/HDLC RATIO 3.3 <5.0 - (calc) * N ON HDL CHOLESTEROL 75 <130 - mg/dL (calc) * Montserrat Abel 05/18/2025 01: 06:57 PM EDT > Renee-pts informedThis lab was reviewed by Montserrat Abel on 05/18/2025 at 13:07 PM EDT ?LAB: COMPREHENSIVE METABOLIC PANEL (11858)* Value Reference Range G LUCOSE 113 H 65-99 - mg/dL * U BRENT NITROGEN (BUN) 27 H 7-25 - mg/dL * C REATININE 2.20 H 0.70-1.28 - mg/dL * B UN/CREATININE RATIO 12 6-22 - (calc) * S ODIUM 139 135-146 - mmol/L * P OTASSIUM 4.5 3.5-5.3 - mmol/L * C HLORIDE 104 98-110 - mmol/L * C ARBON DIOXIDE 27 20-32 - mmol/L * C ALCIUM 8.8 8.6-10.3 - mg/dL * P ROTEIN, TOTAL 6.7 6.1-8.1 - g/dL * A LBUMIN 4.1 3.6-5.1 - g/dL * G LOBULIN 2.6 1.9-3.7 - g/dL (calc ) * A LBUMIN/GLOBULIN RATIO 1.6 1.0-2.5 - (calc) * B ILIRUBIN, TOTAL 0.8 0.2-1.2 - mg/dL * A LKALINE PHOSPHATASE 131 35-144 - U/L * A ST 13 10-35 - U/L * A LT 13 9-46 - U/L * E GFR 30 L > OR = 60 - mL/min/1 .73m2 * Montserrat Abel 05/18/2025 01: 06:57 PM EDT > Renee-pts informedThis lab was reviewed by Montserrat Abel on 05/18/2025 at 13:07 PM EDT ?LAB: CBC (INCLUDES DIFF/PLT) (5795)* Value Reference Range W JOSUÉ BLOOD CELL COUNT 5.4 3.8-10.8 - Thousan d/uL * R ED BLOOD CELL COUNT 4.24 4.20-5.80 - Million/ uL * H EMOGLOBIN 12.8 L 13.2-17.1 - g/dL * H EMATOCRIT 39.0 38.5-50.0 - % * M CV 92.0 80.0-100.0 - fL * M CH 30.2 27.0-33.0 - pg * M CHC 32.8 32.0-36.0 - g/dL * R DW 13.0 11.0-15.0 - % * P LATELET COUNT 135 L 140-400 - Thousand/u L * N EUTROPHILS 60.4 - % * A BSOLUTE NEUTROPHILS 3262 1275-1737 - cells/uL * L YMPHOCYTES 31.2 - % * A BSOLUTE LYMPHOCYTES 1058 143-4303 - cells/uL * M ONOCYTES 5.2 - % * A BSOLUTE MONOCYTES 281 200-950 - cells/uL * E OSINOPHILS 2.8 - % * A BSOLUTE EOSINOPHILS 151 15-500 - cells/uL * B ASOPHILS 0.4 - % * A BSOLUTE BASOPHILS 22 0-200 - cells/uL * M PV 9.3 7.5-12.5 - fL * Colten Montserrat Corado 05/18/2025 01: 06:57 PM EDT > Renee-pts Ousmane lab was reviewed by Montserrat Abel on 05/18/2025 at 13:07 PM EDT Notes: Labs ordered. Drawn in the office today. Please note I have ordered these and I will review these personally.??3.?Parkinson's disease without dyskinesia or fluctuating manifestations?LAB: LIPID PANEL, STANDARD (7600)* Value Reference Range T RIGLYCERIDES 130 <150 - mg/dL * C HOLESTEROL, TOTAL 107 <200 - mg/dL * H DL CHOLESTEROL 32 L > OR = 40 - mg/dL * L DL-CHOLESTEROL 54 - mg/dL (calc) * C HOL/HDLC RATIO 3.3 <5.0 - (calc) * N ON HDL CHOLESTEROL 75 <130 - mg/dL (calc) * Montserrat Abel 05/18/2025 01: 06:57 PM EDT > Renee-pts Ousmane lab was reviewed by Montserrat Abel on 05/18/2025 at 13:07 PM EDT ?LAB: COMPREHENSIVE METABOLIC PANEL (44503)* Value Reference Range G LUCOSE 113 H 65-99 - mg/dL * U BRENT NITROGEN (BUN) 27 H 7-25 - mg/dL * C REATININE 2.20 H 0.70-1.28 - mg/dL * B UN/CREATININE RATIO 12 6-22 - (calc) * S ODIUM 139 135-146 - mmol/L * P OTASSIUM 4.5 3.5-5.3 - mmol/L * C HLORIDE 104 98-110 - mmol/L * C ARBON DIOXIDE 27 20-32 - mmol/L * C ALCIUM 8.8 8.6-10.3 - mg/dL * P ROTEIN, TOTAL 6.7 6.1-8.1 - g/dL * A LBUMIN 4.1 3.6-5.1 - g/dL * G LOBULIN 2.6 1.9-3.7 - g/dL (calc ) * A LBUMIN/GLOBULIN RATIO 1.6 1.0-2.5 - (calc) * B ILIRUBIN, TOTAL 0.8 0.2-1.2 - mg/dL * A LKALINE PHOSPHATASE 131 35-144 - U/L * A ST 13 10-35 - U/L * A LT 13 9-46 - U/L * E GFR 30 L > OR = 60 - mL/min/1 .73m2 * Montserrat Abel 05/18/2025 01: 06:57 PM EDT > Renee-pts informedThis lab was reviewed by Montserrat Abel on 05/18/2025 at 13:07 PM EDT ?LAB: CBC (INCLUDES DIFF/PLT) (6120)* Value Reference Range W JOSUÉ BLOOD CELL COUNT 5.4 3.8-10.8 - Thousan d/uL * R ED BLOOD CELL COUNT 4.24 4.20-5.80 - Million/ uL * H EMOGLOBIN 12.8 L 13.2-17.1 - g/dL * H EMATOCRIT 39.0 38.5-50.0 - % * M CV 92.0 80.0-100.0 - fL * M CH 30.2 27.0-33.0 - pg * M CHC 32.8 32.0-36.0 - g/dL * R DW 13.0 11.0-15.0 - % * P LATELET COUNT 135 L 140-400 - Thousand/u L * N EUTROPHILS 60.4 - % * A BSOLUTE NEUTROPHILS 3262 8318-8228 - cells/uL * L YMPHOCYTES 31.2 - % * A BSOLUTE LYMPHOCYTES 4957 026-5273 - cells/uL * M ONOCYTES 5.2 - % * A BSOLUTE MONOCYTES 281 200-950 - cells/uL * E OSINOPHILS 2.8 - % * A BSOLUTE EOSINOPHILS 151 15-500 - cells/uL * B ASOPHILS 0.4 - % * A BSOLUTE BASOPHILS 22 0-200 - cells/uL * M PV 9.3 7.5-12.5 - fL * Montserrat Abel 05/18/2025 01: 06:57 PM EDT > Renee-pts rose marieThis lab was reviewed by Montserrat Abel on 05/18/2025 at 13:07 PM EDT Notes: Patient's tremors gone away. I think he is tolerating the carbidopa/levodopa well. His concerned about the nausea-he seems less so. He will follow with neurology and continue the medication??4.?Stage 3b chronic kidney disease (CKD)?LAB: LIPID PANEL, STANDARD (7600)* Value Reference Range T RIGLYCERIDES 130 <150 - mg/dL * C HOLESTEROL, TOTAL 107 <200 - mg/dL * H DL CHOLESTEROL 32 L > OR = 40 - mg/dL * L DL-CHOLESTEROL 54 - mg/dL (calc) * C HOL/HDLC RATIO 3.3 <5.0 - (calc) * N ON HDL CHOLESTEROL 75 <130 - mg/dL (calc) * Montserrat Abel 05/18/2025 01: 06:57 PM EDT > Renee-pts informedThis lab was reviewed by Montserrat Abel on 05/18/2025 at 13:07 PM EDT ?LAB: COMPREHENSIVE METABOLIC PANEL (70080)* Value Reference Range G LUCOSE 113 H 65-99 - mg/dL * U BRENT NITROGEN (BUN) 27 H 7-25 - mg/dL * C REATININE 2.20 H 0.70-1.28 - mg/dL * B UN/CREATININE RATIO 12 6-22 - (calc) * S ODIUM 139 135-146 - mmol/L * P OTASSIUM 4.5 3.5-5.3 - mmol/L * C HLORIDE 104 98-110 - mmol/L * C ARBON DIOXIDE 27 20-32 - mmol/L * C ALCIUM 8.8 8.6-10.3 - mg/dL * P ROTEIN, TOTAL 6.7 6.1-8.1 - g/dL * A LBUMIN 4.1 3.6-5.1 - g/dL * G LOBULIN 2.6 1.9-3.7 - g/dL (calc ) * A LBUMIN/GLOBULIN RATIO 1.6 1.0-2.5 - (calc) * B ILIRUBIN, TOTAL 0.8 0.2-1.2 - mg/dL * A LKALINE PHOSPHATASE 131 35-144 - U/L * A ST 13 10-35 - U/L * A LT 13 9-46 - U/L * E GFR 30 L > OR = 60 - mL/min/1 .73m2 * Montserrat Abel 05/18/2025 01: 06:57 PM EDT > Renee-pts Ousmane lab was reviewed by Montserrat Abel on 05/18/2025 at 13:07 PM EDT ?LAB: CBC (INCLUDES DIFF/PLT) (3561)* Value Reference Range W JOSUÉ BLOOD CELL COUNT 5.4 3.8-10.8 - Thousan d/uL * R ED BLOOD CELL COUNT 4.24 4.20-5.80 - Million/ uL * H EMOGLOBIN 12.8 L 13.2-17.1 - g/dL * H EMATOCRIT 39.0 38.5-50.0 - % * M CV 92.0 80.0-100.0 - fL * M CH 30.2 27.0-33.0 - pg * M CHC 32.8 32.0-36.0 - g/dL * R DW 13.0 11.0-15.0 - % * P LATELET COUNT 135 L 140-400 - Thousand/u L * N EUTROPHILS 60.4 - % * A BSOLUTE NEUTROPHILS 3262 5987-7784 - cells/uL * L YMPHOCYTES 31.2 - % * A BSOLUTE LYMPHOCYTES 9783 384-1745 - cells/uL * M ONOCYTES 5.2 - % * A BSOLUTE MONOCYTES 281 200-950 - cells/uL * E OSINOPHILS 2.8 - % * A BSOLUTE EOSINOPHILS 151 15-500 - cells/uL * B ASOPHILS 0.4 - % * A BSOLUTE BASOPHILS 22 0-200 - cells/uL * M PV 9.3 7.5-12.5 - fL * Montserrat Abel 05/18/2025 01: 06:57 PM EDT > Renee-pts Ousmane lab was reviewed by Montserrat Abel on 05/18/2025 at 13:07 PM EDT Notes: Labs ordered today. Remains on Farxiga.??5.?Headache disorder? Notes: Getting good relief with Qulipta. Samples given?? * Immunizations: Fluzone High Dose : 0.7 mL (Route: Intramuscular) given by LENY Delgado on Right Arm (Immunization(s) administered) * Procedure Codes: 9 0662 Influenza High Dose Vaccine >65 Years Old, Units: 1.40 , G0008 ADMINISTRATION-FLU VACCINE MEDICARE ONLY, G2211 Complex e/m visit add on * * Sign off status: Completed true * Provider: Kyle Davison MD Date: 0 05/16/2025 Generated for Massieli ashley/Carmen/eTransmitting on: 08/20/2024 12:22 PM EST History and Physical Notes * HPI (History of Present Illness) Category Sub-Category Detail Notes Category Not es gen Here to follow-up his chronic medical problems. And spite of a host of medical difficulties X he doing pretty well and has really good functional status. Still complains of headaches that are ameliorated with CGRP blockers-because of insurance issues he is dependent upon our office for samples and has run out recently. Also on [facility] for chronic kidney disease and needs samples of these. His tremors are much better on Parkinson's medications but he has some dizziness. He does not complain of this but his does. He otherwise has no complaints. His blood pressure is up a little bit today, currently following with cardiology from [facility], wearing a monitor device for dysrhythmias and will go back to see them in the next month. Of note he did not take his blood pressure medicine today Examination Category Sub-Category Detail Notes Category Not es General Examination HEENT: pharynx and tonsils normal, TM's normal Heart: Regular Rate and Rhy thm, no murmur, rubs or gallops Lungs: LCTAB, No wheezes, c rackles or rhonchi, Good air movement, Abdomen: Soft, NTND, BSNA, No organomegaly or peritoneal signs. General Pleasant and Cooper[place] tive, NAD on RA,
--- OUTSIDE RECORDS SUMMARY | 2025-06-15 06:45 | XMS_ITS ---
Author Organization [facility] Address [address] [place] [address] Care Team Providers Care Steel Burner Name Role Phone Anson Davison Primary Care Provider [phone] Allergies No Known Allergies Results Component Value Reference Range Notes BASIC METABOLIC PANEL (43722 ) Reviewed date:06/17/2025 12:14:23 PM Interpretation: Performing Lab:[facility], [facility] [address], [id number] [place] Notes/Report: NON-FASTING GLUCOSE 168 65-99 mg/dL Fasting reference interval For someone without known diabetes, a glucose value >125 mg/dL indicates that they may have diabetes and this should be confirmed with a follow-up test. UREA NITROGEN (BUN) 24 7-25 mg/dL CREATININE 2.06 0.70-1.28 mg/dL EGFR 33 > OR = 60 mL/min/1.73m2 BUN/CREATININE RATIO 12 6-22 (calc) SODIUM 141 135-146 mmol/L POTASSIUM 4.5 3.5-5.3 mmol/L CHLORIDE 105 98-110 mmol/L CARBON DIOXIDE 27 20-32 mmol/L CALCIUM 8.8 8.6-10.3 mg/dL REASON FOR VISIT 4 Week follow up, Blood pressure, still having headaches Medications Medication SIG (Take, Route, Frequency, Duration) Notes Start Date End Date Status amLODIPine Besylate 10 MG Take 1 tablet by mouth once daily; Duration: 90 Active Atorvastatin Calcium 80 MG Take 1 tablet by mouth once daily; Duration: 90 Active Carvedilol 12.5 MG 1 tablet Orally Twic e a day; Duration: 30 days 05/17/2025 Active Citalopram Hydrobromide 20 MG Take 1 tablet by mouth once daily; Duration: 90 Active Magnesium Oxide 400 MG 1 tab(s) orally o nce a day; Duration: 90 days Active Qulipta 60 MG 1 tab(s) orally once a day prn 09/13/2024 Active Carbidopa-Levodopa 25-100 MG 1 tablet orally 2 times a day; Duration: 90 days Active traMADol HCl 50 MG 1 tab(s) orally twic e daily; Duration: 30 days prn 09/13/2024 Active Zetia 10 MG 1 tab(s) orally once a day; Duration: 90 days Active Glimepiride 1 MG 1 tab(s) orally once a day; Duration: 90 days Active Omeprazole 40 MG 1 cap(s) orally once a day; Duration: 90 days Active PreserVision AREDS 2 ANTIOXIDANT MULTIPLE VITAMINS AND MINERALS 1 TAB(S) CHEWED 2 TIMES A DAY Active Aspirin 81 MG 1 tablet Orally Once a day Active Farxiga 10 MG 1 tab(s) orally once a day Active Social History Tobacco Use: Social History Observation Description Date Details (start date - stop date) Former Smoker NA - NA Smoking: Question Answer Notes Are you a: former smoker How long has it been since you last smoked? 5-10 years Section Notes: lives at home with and family support Vital Signs Temperature 98.4 degrees Fahrenheit 06/15/20 25 Blood pressure systolic 162 mm Hg 06/15/20 25 Blood pressure diastolic 80 mm Hg 025 Heart Rate 72 /min 06/15/2025 Height 67.2 in 06/15/2025 Weight 184 lbs 06/15/2025 BMI 28.64 kg/m2 06/15/2025 Encounters Encounter Location Date Provider Diagnosis [facility] PRABHA [address] [place] [address] 06/15/2025 Anson Davison Stage 3b chronic kidney disease (CKD) N18.32 ; Hypertension, essential I10 and Headache disorder R51.9 Assessments Encounter Date Diagnosis (ICD Code) Assessment Notes Treatment Notes Treatment Clinical Notes Section Notes 06/15/2025 Stage 3b chronic kidney disease (CKD) (ICD-10 - N18.32) Will track kidney function today, patient does not seem fluid overloaded. 06/15/2025 Hypertension, essential (ICD-10 - I10) Blood pressure remains little bit higher than I had like, has appoint with cardiology next week to adjust medications. Will reevaluate after this 06/15/2025 Headache disorder (ICD-10 - R51.9) Qulipta samples given. Patient is benefiting from these Plan Of Treatment Treatment Notes Assessment Notes Stage 3b chronic kidney disease (CKD) Wi ll track kidney function today, patient does not seem fluid overloaded. Hypertension, essential Blood pressure r emains little bit higher than I had like, has appoint with cardiology next week to adjust medications. Will reevaluate after this Headache disorder Qulipta samples give n. Patient is benefiting from these Next Appt Details Follow Up: prn, Reason: Provider Name:Anson Davison, 09/14/2025 09:30:00 AM, [address] [facility] [address] [facility], [address], [place], [address], Progress Notes * Tito DANIEL WDOB:[birth year] (75 yo M)Acc No.[id number]:06/15/2025 Progress Notes Patient: Tito FLOWERS Provider: Kyle Davison MD :1950 A ge:75 Y S ex:Male Date:06/15/2025 Address:[address] [place] [address] [place], [id number] Subjective: * Chief Complaints: * 1 . 4 Week follow up, Blood pressure, still having headaches. * HPI: g en: Took blood pressure this morning before coming in, and is on his medicine. Blood pressure is better, has follow-up with cardiology next week. Would like some Qulipta samples for his headaches which have really helped. 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 * Surgical History: H eart Cath - with clear bypass grafts 12/2016, Colonoscopy , Triple bypass 2007, Tonsillectomy 1970, Kidney stone removal , Heart Cath 11/2016, lt eye-cataract surgery 10/2018, colonoscopy 05/2019, Right nephrectomy 06/2019, biopsy on head 11/2020, Valve in heart stretched 12/2022, Aorta Valve Replaced 06/2023. * Hospitalization/Major Diagno stic Procedure: T riple bypass, tonsillectomy, kidney stone 2007, [facility]- Right nephrectomy 06/2019, [facility] - diarrhea, dehydration 06/2021, [facility] , Aorta Valve Replaced 06/2023. * Family [...] 2 brothers/2 sisters-heart disease1 sister-cancer, diagnosed with Cancer, Heart Disease. C desire: alive. 2 brother(s) , 3 [...] tab(s) orally once a day , Taking Carbidopa-Levodopa 25-100 MG Tablet 1 tablet orally 2 times a day , Taking Citalopram Hydrobromide 20 MG Tablet Take 1 tablet by mouth once daily , Taking Atorvastatin Calcium 80 MG Tablet Take 1 tablet by mouth once daily , Taking Carvedilol 12.5 MG Tablet 1 tablet Orally Twice a day , Taking amLODIPine Besylate 10 MG Tablet Take 1 tablet by mouth once daily , Discontinued Nurtec 75 MG Tablet Disintegrating 1 tablet on the tongue and allow to dissolve Orally , Medication List reviewed and reconciled with the patient * Allergies: N .K.D.A. Objective: * Vitals: N urse: be, Pain: 0, Temp: 98.4, RR: 16, HR: 72, BP: 162/80, Ht: 67.2, Wt: 184, BMI:28.64. * Examination: G eneral Examination: General P leasant and Cooperative, NAD on RA,. Heart: R egular Rate and Rhythm, no murmur, rubs or gallops. HEENT: p harynx and tonsils normal, TM's normal. Lungs: L CTAB, No wheezes, crackles or rhonchi, Good air movement,. Abdomen: S oft, NTND, BSNA, No organomegaly or peritoneal signs.. Assessment: * Assessment: 1. S tage 3b chronic kidney disease (CKD) - N18.32 (Primary) 2 . H ypertension, essential - I10 3 . H eadache disorder - R51.9 Plan: * Treatment: Value Reference Range G LUCOSE 168 H 65-99 - mg/dL * U BRENT NITROGEN (BUN) 24 7-25 - mg/dL * C REATININE 2.06 H 0.70-1.28 - mg/dL * B UN/CREATININE RATIO 12 6-22 - (calc) * S ODIUM 141 135-146 - mmol/L * P OTASSIUM 4.5 3.5-5.3 - mmol/L * C HLORIDE 105 98-110 - mmol/L * C ARBON DIOXIDE 27 20-32 - mmol/L * C ALCIUM 8.8 8.6-10.3 - mg/dL * E GFR 33 L > OR = 60 - mL/min/1 .73m2 * This lab was reviewed by Carmen Roach on 06/17/2025 at 12:14 PM EDT Notes: Will track kidney function today, patient does not seem fluid overloaded. ??2.?Hypertension, essential? Notes: Blood pressure remains little bit higher than I had like, has appoint with cardiology next week to adjust medications. Will reevaluate after this?? 3.?Headache disorder? Notes: Qulipta samples given. Patient is benefiting from these?? * Procedure Codes: G 2211 Complex e/m visit add on * Follow Up: p rn * * Sign off status: Completed true * Provider: Kyle Davison MD Date: Generated for Lily ramirez/Carmen/eTransmitting on: 08/20/2024 12:21 PM EST History and Physical Notes * HPI (History of Present Illness) Category Sub-Category Detail Notes Category Not es Took blood pressure this morning before coming in, and is on his medicine. Blood pressure is better, has follow-up with cardiology next week. Would like some Qulipta samples for his headaches which have really helped Examination Category Sub-Category Detail Notes Category Not es General Examination HEENT: pharynx and tonsils normal, TM's normal Heart: Regular Rate and Rhy thm, no murmur, rubs or gallops Lungs: LCTAB, No wheezes, c rackles or rhonchi, Good air movement, Abdomen: Soft, NTND, BSNA, No organomegaly or peritoneal signs. General Pleasant and Coopera tive, NAD on RA,
[2025-06-20] VITALS (22 sets, daily range): BP systolic 115–169; BP diastolic 69–88; PULSE 72–105; RESP 16–32; TEMP 36.8–39.5; O2SAT 94–99; BMI 30.6
--- NOTE | 2025-06-20 12:04 | ECG_ITS ---
APPROVED REPORT Exam: Resting ECG HR:101 bpm ECG Measurements Heart Rate 101 AXES UT 194 P 23 QRSd 152 QRS 66 QT 395 T 77 QTc 453 Conclusion SINUS TACHYCARDIA INTRAVENTRICULAR CONDUCTION DELAY [130+ ms QRS DURATION] POSSIBLE RIGHT VENTRICULAR HYPERTROPHY [SOME/ALL OF: PROMINENT R IN V1, LATE TRANSITION, RAD, FRANC, SSS] ABNORMAL ECG Electronically signed by : BETH LANIER, 06/27/2025 07:22:44
--- OUTSIDE RECORDS SUMMARY | 2025-06-20 12:20 | XMS_ITS | Encounter Summary ---
Author Organization [employer] ([place], [place], [place], [place], [place]) Address [address] [place] [address] Care Team Providers Care Scraper Hand Name Role Phone Diego Johnson MD Unavailable [phone] Piyush Pierre MD Unavailable [phone] Encounter Details Date Type Department Care Team (Latest Contact Info) Description 04/29/2025 Travel Social History Tobacco Use Types Packs/Day Years Used Date Smoking Tobacco: Former Cigarettes 977 - 2006 Passive Smoke Exposure: Past [...] Description 06/21/2025 7:30 AM EST Office Visit [facility] Neurology - Lacey García [address] [place] [phone] [place] [address] [place] [phone] Jenn Celis MD [address] [place] [address] 06/27/2025 11:15 AM EST Office Visit [facility] Cardiology [address] [place], [place] [phone] [place] [address] [place] [address] 11/01/2025 10:45 AM EDT Office Visit [facility] - [place] [address] [place] [phone] Piyush Pierre MD [address] [facility] [address] [place] [address] documented as of this encounter Visit Diagnoses Not on filedocumented in this encounter Care Teams Scraper Hand Relationship Specialty [place] [address] [place] [address] [address] [place] [address] Interventional Cardiology 01/23/24 Piyush Pierre MD [address] [facility] [address] [place] [address] Hematology and Oncology 01/25/25 documented as of this encounter
--- OUTSIDE RECORDS SUMMARY | 2025-06-20 12:21 | XMS_ITS | Referral Summary ---
Author Organization [employer] ([place], [place], [place], [place], [place]) Address [address] [place] [address] Care Team Providers Care Shrinker Name Role Phone Anson Davison MD Primary Care Provider [phone] Diego Johnson MD Unavailable [phone] Piyush Pierre MD Unavailable [phone] Encounters Date Type Department Care Team Description 05/17/2025 Orders Only [facility] Cardiology [address] [place] [phone] Alysia Ellison 05/09/2025 Travel 05/09/2025 8:16 AM EDT - 05/09/2025 11:59 PM EDT Hospital Encounter [facility] Non-Invasive Cardiology [address] [place] [address] Cricket Zimmerman MD CAD (coronary artery disease); Parkinson's disease (HCC); S/P TAVR (transcatheter aortic valve replacement) Discharge Disposition: Home or Self Care 05/06/2025 12:30 PM EDT Office Visit [facility] Electrophysiology [address] [place] [address] CAD (coronary artery disease); Parkinson's disease (HCC); S/P TAVR (transcatheter aortic valve replacement) 05/06/2025 Travel 05/06/2025 8:21 AM EDT - 05/06/2025 11:59 PM EDT Hospital Encounter [facility] [address] [facility] [address] [place] [address] Piyush Pierre MD Malignant neoplasm of right kidney, except renal pelvis (HCC) Discharge Disposition: Home or Self Care 05/06/2025 10:15 AM EDT Office Visit [facility] - [place] [address] [place] [address] Piyush Pierre MD Malignant neoplasm of right kidney, except renal pelvis (HCC) 04/29/2025 Travel 04/29/2025 8:30 AM EDT Office Visit [facility] Cardiology [address] [place] [address] Cricket Zimmerman MD Dizziness (Primary Dx); CAD (coronary artery disease); Primary hypertension; Diabetes (HCC); Parkinson's disease (HCC); Personal history of kidney cancer; Mixed hyperlipidemia; S/P TAVR (transcatheter aortic valve replacement) from Last 3 Months Allergies No known active allergies Medications amLODIPine (NORVASC) 10 MG tablet Take 1 tablet (10 mg total) by mouth daily. 2 Active atorvastatin (LIPITOR) 80 MG tablet Take 1 tablet (80 mg total) by mouth nightly. 2 Active carbidopa-levodo pa (SINEMET) 25-100 mg per tabletIndication s:parkinsonism Take by mouth 3 (three) times daily. Active citalopram (CeleXA) 20 MG tablet Take 1 tablet (20 mg total) by mouth daily. 2 Active glimepiride (AMARYL) 1 MG tablet Take by mouth every morning before breakfast. 3 Active magnesium oxide (MAG-OX) 400 mg (241.3 mg magnesium) tablet Take 1 tablet (400 mg total) by mouth nightly. 2 Active ezetimibe (ZETIA) 10 mg tablet Take 1 tablet (10 mg total) by mouth nightly. Active traMADoL (ULTRAM) 50 mg tablet Take 1 tablet (50 mg total) by mouth 2 (two) times daily as needed (headaches). 3 Active aspirin 81 MG EC tablet Take 1 tablet (81 mg total) by mouth daily. Active Missing or Non-Formulary Medication OTC 2 hemp capsules oral at bedtime and AM 1/2 dropper of hemp oil daily. Active aspirin/acetamin ophen/caffeine (EXCEDRIN EXTRA STRENGTH ORAL) Take by mouth. Active ferrous sulfate 325 (65 FE) MG tablet Take 1 tablet (325 mg total) by mouth daily with breakfast. Active dapagliflozin propanediol (Farxiga) 5 mg tablet Take 1 tablet (5 mg total) by mouth daily. Active atogepant (Qulipta) 10 mg tab Take 60 mg by mouth daily. Active rimegepant (Nurtec ODT) 75 mg TbDL 1 TAB(S) ORALLY ONCE 4 Active carvediloL (Coreg) 12.5 MG tablet Take 1 tablet (12.5 mg total) by mouth 2 (two) times daily. 30 tablet 11 5 05/17/20 26 Active Active Problems Problem Noted Date Diagnosed Date S/P TAVR (transcatheter aortic valve replacement ) 04/29/2025 Severe aortic stenosis 06/26/2023 CAD (coronary artery disease) 11/07/2022 Overview (11/07/2022): 12/23/18 ECHO EF 60%, mild /AI 12/17/16 [facility] graft to mid LAD: patent SVG to Dist RCA: patent SVG to OM1: patent 08/05/2011 Cardiolite No evidence of ischemia EF 58% 12/11/07 CABG X3 Murmur 11/07/2022 Overview (11/07/2022): 09/13/20 ECHO EF 60% sclerotic aortic valve leaflets mild AR mild AV max PG 23.5 and Mean PG 13.45 mmHg HTN (hypertension) 11/07/2022 HLD (hyperlipidemia) 11/07/2022 Diabetes 11/07/2022 Personal history of kidney cancer 11/07/2022 Personal history of lung cancer 11/07/2022 Parkinson's disease 11/07/2022 CAD (coronary artery disease) 11/07/2022 Malignant neoplasm of right kidney, except renal pelvis 10/02/2022 Cancer Staging:Clinical stage from 07/09/2019:Stage III(cT3a, cN0, cM0) - Unsigned Social History Tobacco Use Types Packs/Day Years Used Date Smoking Tobacco: Former Cigarettes 30 1 977 - 2006 Passive Smoke [...] Date Roni rded Speak language other than Peruvian at home Not on file 08/29/2023 Want [...] file Not on file Not on file Last Filed Vital Signs Vital Sign Reading Time Taken Comments Blood Pressure 125/71 05/06/2025 10:37 AM EDT Pulse 62 05/06/2025 10:37 AM EDT Temperature 36.6 C (97.8 F) 05/06/2025 10:37 AM EDT Respiratory Rate 18 05/06/2025 10:37 AM EDT Oxygen Saturation 95% 05/06/2025 10:37 AM EDT Inhaled Oxygen Concentration - - Weight 84.8 kg (187 lb) 04/29/2025 8:19 AM EDT Height 170.2 cm (5' 7 ) 05/06/2025 10:37 AM EDT Body Mass Index 28.43 04/29/2025 8:19 AM EDT Plan of Treatment Upcoming Encounters Date Type Department Care Team (Late st Contact Info) Description 06/21/2025 7:30 AM EST Office Visit [facility] Neurology - [place] [address] [facility] [address] [place] [address] Cricket Zimmerman MD [address] [place] [address] Jenn Celis MD [address] [employer] [facility] [address] [place], [place] [phone] 06/27/2025 11:15 AM EST Office Visit [facility] Cardiology [address] [place] [address] Cricket Zimmerman MD [address] [place] [address] 11/01/2025 10:45 AM EDT Office Visit [facility] - [place] [address] [place] [address] Piyush Pierre MD [address] [place] [address] Medical Devices Implanted Type Area Diversity Specialist Device Identifier Shelf Expiration Date Model / Serial / Lot Kt Abena 3 W/Comm Del Sys 23 [id number] - [id number] Implanted:Qty: 1 on 06/26/2023 by Diego Johnson MD at [facility] IMPLANTS Heart MOSELEY [employer]IFESCI 09/27/2025 [id number] / [id number] / Procedures Procedure Name Priority Date/Time Associated Diagnosis Comments ECHO COMPLETE (DOPPLER / COLOR) WO CONTRAST Routine 05/09/2025 12:43 PM EDT CAD (coronary artery disease) Parkinson's disease (HCC) S/P TAVR (transcatheter aortic valve replacement) HEPATIC FUNCTION PANEL Routine 05/06/2025 10:13 AM EDT Malignant neoplasm of right kidney, except renal pelvis (HCC) ONOCOLOGY CHEMISTRY PANEL Routine 05/06/2025 10:13 AM EDT Malignant neoplasm of right kidney, except renal pelvis (HCC) CBC W/ AUTO DIFF Routine 05/06/2025 10:1 3 AM EDT Malignant neoplasm of right kidney, except renal pelvis (HCC) CT CHEST ABDOMEN PELVIS WO CONTRAST Routine 05/06/2025 9:13 AM EDT Malignant neoplasm of right kidney, except renal pelvis (HCC) [id number]_IP_ECG 12-LEAD Routine 05/04/2025 8:38 AM EDT CAD (coronary artery disease) Dizziness from Last 3 Months Results * ECHO COMPLETE (DOPPLER / COLOR) WO CONTRAST (05/09/2025 12:43 PM EDT) Anatomical Region Laterality Modality Heart Vascular Ultraso und 05/09/2025 8:38 AM EDT Narrative 05/09/2025 4:37 PM EDT TRANSTHORACIC ECHOCARDIOGRAPHY REPORT Demographics Patient Name: RONI Rose : 1950 Medical Record [id number] Age: 75 year(s) Number: Corporate ID Number: [id number] Gender Male Junior Sales Assistant: Fredy Cisneros RVT Height: 67 inches ,[facility] Referring Physician: CRICKET ZIMMERMAN MD Weight: [...] A-wave: 1.01 m/s E/A ratio: 0.9 Volume kavxfcfsk979.62 ml Volume rmbqgydn70.91 ml LVOT diameter: 1.91 cm Normal sized [...] Valve TR velocity: 1.71 m/s TR gradient: 11.74584 mmHg Estimated RAP: 3 mmHg RVSP: 14.68 [...] Name: RONI Rose : 1950 Medical Record [id number] Age: 75 year(s) Number: Corporate ID Number: [id number] Gender Male Junior Sales Assistant: Fredy Cisneros RVT Height: 67 inches ,[facility] Referring Physician: CRICKET ZIMMERMAN MD Weight: [...] A-wave: 1.01 m/s E/A ratio: 0.9 Volume owldnthtx892.62 ml Volume cwboyied39.91 ml LVOT diameter: 1.91 cm Normal sized [...] Valve TR velocity: 1.71 m/s TR gradient: 11.63504 mmHg Estimated RAP: 3 mmHg RVSP: 14.68 [...] CV ECHO ORDERABLES Final Resul t * (ABNORMAL) CBC with automated diff (05/06/2025 10:13 AM EDT) WBC 5.5 4.5 - 11.0 K/ L 05/06/2025 10:25 AM EDT [facility] RBC 5.16 4.50 - 5.50 M/ L [...] Res ult [facility] [place] [address] [phone] * (ABNORMAL) Oncology Basic Metabolic Panel (05/06/2025 [...] Res ult [facility] [place] [address] [phone] * (ABNORMAL) Hepatic function panel (05/06/2025 10:13 AM EDT) Protein, Total 7.7 6.4 - 8.2 gm/dL 05/06/2025 11:37 AM EDT [facility] Albumin 3.9 3.4 - 5.0 g/dL 05/06/2025 11:37 AM EDT [facility] Total Bilirubin 0.7 0.2 - 1.3 mg/dL 05/06/2025 11:37 AM T [facility] Bilirubin, Direct 0.2 0.0 - 0.2 mg/dL 05/06/2025 11:37 AM T [facility] Alkaline Phosphatase 155(H) 27 - 136 U/L 05/06/2025 11:37 AM T [facility] Globulin 3.8 1.5 - 4.5 g/dL 05/06/2025 11:37 AM T [facility] A/G Ratio 1.0(L) 1.1 - 2.5 05/06/2025 11:37 AM T [facility] AST 16 5 - 37 U/L 05/06/2025 11:37 AM T [facility] Comment:[employer] has become aware of sulfasalazine and sulfapyridine [...] 12 - 78 U/L 05/06/2025 11:37 AM EDT [facility] Comment:[employer] has become aware of sulfasalazine and sulfapyridine [...] MD LAB BLOOD ORDERABLES Final Res ult Performing Organization Address City/State/[facility] Co de Phone Number [facility] [address] [phone] * CT CAP w/o (05/06/2025 9:13 AM [...] no acute osseous abnormality. Procedure Note Sathish Singh, - 05/06/2025 CT SCAN OF THE CHEST, [...] Pierre MD IMG CT ORDERABLES Final Result * ECG 12 lead (05/04/2025 8:38 AM EDT) Cricket Zimmerman MD ECG ORDERABLES Final Result from Last 3 Months Insurance Shelley [place] [phone] [address] [place] [address] SUPP Advance Directives For more information, please contact: [phone] * Full Code (Latest Code Status on File) Date Activated Date Inactivated Comments 06/26/2023 8:40 AM 06/27/2023 3:41 PM * Full Code Date Activated Date Inactivated Comments 06/26/2023 4:54 AM 06/26/2023 8:40 AM * Full Code Date Activated Date Inactivated Comments 06/26/2023 4:54 AM 06/26/2023 4:54 AM * Full Code Date Activated Date Inactivated Comments 12/24/2022 11:29 AM 12/25/2022 4:26 AM * Full Code Date Activated Date Inactivated Comments 12/24/2022 5:50 AM 12/24/2022 11:29 AM Care Teams Shrinker Relationship Specialty Start Date End Date Anson Davison MD [address] [place] [address] PCP - General Adolescent Medicine 05/09/25 Diego Johnson MD [address] [facility] [address] [place] [address] Interventional Cardiology 01/23/24 Piyush Pierre MD [facility] [facility] [address] [place] [address] Hematology and Oncology 01/25/25
--- OUTSIDE RECORDS SUMMARY | 2025-06-20 12:21 | XMS_ITS | Encounter Summary ---
Author Organization [employer] ([place], [place], [place], [place], [place]) Address [address] [place] [address] Care Team Providers Care Automotive Sales Professional Name Role Phone Anson Davison MD Primary Care Provider [phone] Diego Johnson MD Unavailable [phone] Piyush Pierre MD Unavailable [phone] Encounter Details Date Type Department Care Team (Latest Contact Info) Description 05/09/2025 Travel Social History Tobacco Use Types Packs/Day [...] Date Roni rded Speak language other than Swedish at home Not on file 08/29/2023 Want [...] Description 06/21/2025 7:30 AM EST Office Visit [facility] Neurology - Blarajiv Odanah [address] [place] [phone] Cricket Zimmerman MD [address] [place] [address] [phone] Jenn Celis MD [facility] [address] [place] [address] 06/27/2025 11:15 AM EST Office Visit [facility] Cardiology [address] [place] [address] [phone] Cricket Zimmerman MD [address] [place] [address] [phone] 11/01/2025 10:45 AM EDT Office Visit [facility] - [address] [place] [phone] Piyush Pierre MD [address] [place] [address] [address] [place] [address] documented as of this encounter Visit Diagnoses Not on filedocumented in this encounter Care Teams Automotive Sales Professional Relationship Specialty Start Date End Date Anson Davison MD [address] [place] [address] PCP - General Adolescent Medicine 05/09/25 Diego Johnson MD [address] [place] [address] [address] [place], [place] [id number] Interventional Cardiology 01/23/24 Piyush Pierre MD [address] [place] [address] [address] [place] [address] Hematology and Oncology 01/25/25 documented as of this encounter
--- OUTSIDE RECORDS SUMMARY | 2025-06-20 12:21 | XMS_ITS | Patient Health Record ---
Author Organization [facility] Address [address] [place] [address] Care Team Providers Care Clinical Laboratory Science Professor Name Role Phone Anson Davison Primary Care Provider [phone] Migration, Provider Unavailable Unavailable Allergies No Known Allergies Results Component Value Reference Range Notes CBC (INCLUDES DIFF/PLT) (9 9) Reviewed date:09/15/2024 08:24:33 AM Interpretation: Performing Lab:CB, [facility] [address], [place] [facility]qyhAY[address] [place] O[place]ole Notes/Report: NON-FASTING; NON-FASTING; NON-FASTING FASTING:YES FASTING: YES WHITE BLOOD CELL COUNT 7.3 3.8-10.8 Thousand/ uL RED BLOOD CELL COUNT 4.61 4.20-5.80 Million/uL HEMOGLOBIN 13.9 13.2-17.1 g/dL HEMATOCRIT 41.3 38.5-50.0 % MCV 89.6 80.0-100.0 fL MCH 30.2 27.0-33.0 pg MCHC 33.7 32.0-36.0 g/dL For adults, a slight decrease in the calculated MCHC value (in the range of 30 to 32 g/dL) is most likely not clinically significant; however, it should be interpreted with caution in correlation with other red cell parameters and the patient's clinical condition. RDW 13.4 11.0-15.0 % PLATELET COUNT 121 140-400 Thousand/uL MPV 10.7 7.5-12.5 fL ABSOLUTE NEUTROPHILS [phone] cells/uL ABSOLUTE LYMPHOCYTES 7767 880-3551 cells/uL ABSOLUTE MONOCYTES 475 200-950 cells/uL ABSOLUTE EOSINOPHILS 197 15-500 cells/uL ABSOLUTE BASOPHILS 37 0-200 cells/uL NEUTROPHILS 66.4 LYMPHOCYTES 23.9 MONOCYTES 6.5 EOSINOPHILS 2.7 BASOPHILS 0.5 COMPREHENSIVE METABOLIC PANE L (98481) Reviewed date:09/15/2024 08:24:33 AM Interpretation: Performing Lab:[facility] [employer] [employer], [facility] ClinicPqfbTG[address] [place] O[place]ole Notes/Report: NON-FASTING; NON-FASTING; NON-FASTING FASTING:YES FASTING: YES GLUCOSE 87 65-99 mg/dL Fasting reference interval UREA NITROGEN (BUN) 27 7-25 mg/dL CREATININE 2.14 0.70-1.28 mg/dL EGFR 31 > OR = 60 mL/min/1.73m2 BUN/CREATININE RATIO 13 6-22 (calc) SODIUM 138 135-146 mmol/L POTASSIUM 5.2 3.5-5.3 mmol/L CHLORIDE 104 98-110 mmol/L CARBON DIOXIDE 23 20-32 mmol/L CALCIUM 8.9 8.6-10.3 mg/dL PROTEIN, TOTAL 6.9 6.1-8.1 g/dL ALBUMIN 4.3 3.6-5.1 g/dL GLOBULIN 2.6 1.9-3.7 g/dL (calc) ALBUMIN/GLOBULIN RATIO 1.7 1.0-2.5 (calc) BILIRUBIN, TOTAL 0.8 0.2-1.2 mg/dL ALKALINE PHOSPHATASE 152 35-144 U/L AST 15 10-35 U/L ALT 22 9-46 U/L URINALYSIS, COMPLETE (5682) Reviewed date:09/15/2024 08:24:33 AM Interpretation: Performing Lab:[facility] [employer] [address] [employer], [facility] SecurityGlosFK[address] Allen Otoole Notes/Report: NON-FASTING; NON-FASTING; NON-FASTING FASTING:YES FASTING: YES COLOR YELLOW YELLOW APPEARANCE CLEAR CLEAR SPECIFIC GRAVITY 1.016 1.001-1.035 PH 7.0 5.0-8.0 GLUCOSE 2+ NEGATIVE BILIRUBIN NEGATIVE NEGATIVE KETONES NEGATIVE NEGATIVE OCCULT BLOOD NEGATIVE NEGATIVE PROTEIN 2+ NEGATIVE NITRITE NEGATIVE NEGATIVE LEUKOCYTE ESTERASE NEGATIVE NEGATIVE WBC NONE SEEN < OR = 5 /HPF RBC NONE SEEN < OR = 2 /HPF SQUAMOUS EPITHELIAL CELLS NONE SEEN < OR = 5 /HPF BACTERIA NONE SEEN NONE SEEN /HPF HYALINE CAST NONE SEEN NONE SEEN /LPF NOTE This urine was analyzed for the presence of WBC, RBC, bacteria, casts, and other formed elements. Only those elements seen were reported. HEMOGLOBIN A1c (496) Reviewed date:09/15/2024 08:24:33 AM Interpretation: Performing Lab:[facility] [employer] [id number] [facility], [facility] ClinicThizEI[address] Allen Otoole Notes/Report: NON-FASTING; NON-FASTING; NON-FASTING FASTING:YES FASTING: YES HEMOGLOBIN A1c 6.5 <5.7 % of total Hgb Your request to have a duplicate copy faxed has been acknowledged. Queued to: [phone] For someone without known diabetes, a hemoglobin A1c value of 6.5% or greater indicates that they may have diabetes and this should be confirmed with a follow-up test. For someone with known diabetes, a value <7% indicates that their diabetes is well controlled and a value greater than or equal to 7% indicates suboptimal control. A1c targets should be individualized based on duration of diabetes, age, comorbid conditions, and other considerations. Currently, no consensus exists regarding use of hemoglobin A1c for diagnosis of diabetes for children. BASIC METABOLIC PANEL (25770 ) Reviewed date:06/17/2025 12:14:23 PM Interpretation: Performing Lab:[facility] [employer] [address] [employer] [facility], [facility] ClinicDjooBD[address] Allen Otoole Notes/Report: NON-FASTING GLUCOSE 168 65-99 [...] 27 20-32 mmol/L CALCIUM 8.8 8.6-10.3 mg/dL CBC (INCLUDES DIFF/PLT) (639 9) Reviewed date:12/10/2024 08:35:14 AM Interpretation: Performing Lab:[facility] [employer] [address] [employer] [facility] ClinicMxlfRO[address] Allen Otoole Notes/Report: NON-FASTING; NON-FASTING WHITE BLOOD CELL COUNT 5.8 3.8-10.8 Thousand/ uL RED BLOOD CELL COUNT 4.77 4.20-5.80 Million/uL HEMOGLOBIN 14.2 13.2-17.1 g/dL HEMATOCRIT 43.9 38.5-50.0 % MCV 92.0 80.0-100.0 fL MCH 29.8 27.0-33.0 pg MCHC 32.3 32.0-36.0 g/dL For adults, a slight decrease in the calculated MCHC value (in the range of 30 to 32 g/dL) is most likely not clinically significant; however, it should be interpreted with caution in correlation with other red cell parameters and the patient's clinical condition. RDW 12.9 11.0-15.0 % PLATELET COUNT 113 140-400 Thousand/uL MPV 10.3 7.5-12.5 fL ABSOLUTE NEUTROPHILS 3683 4621-7163 cells/uL ABSOLUTE LYMPHOCYTES 7353 261-4697 cells/uL ABSOLUTE MONOCYTES 319 200-950 cells/uL ABSOLUTE EOSINOPHILS 157 15-500 cells/uL ABSOLUTE BASOPHILS 41 0-200 cells/uL NEUTROPHILS 63.5 LYMPHOCYTES 27.6 MONOCYTES 5.5 EOSINOPHILS 2.7 BASOPHILS 0.7 BASIC METABOLIC PANEL (90836 ) Reviewed date:12/10/2024 08:35:14 AM Interpretation: Performing Lab:[facility] [employer] [address] [employer], [facility] ClinicMvmpLI[address] Allen Otoole Notes/Report: NON-FASTING; NON-FASTING GLUCOSE 113 65-99 mg/dL Fasting reference interval For someone without known diabetes, a glucose value between 100 and 125 mg/dL is consistent with prediabetes and should be confirmed with a follow-up test. UREA NITROGEN (BUN) 28 7-25 mg/dL CREATININE 2.32 0.70-1.28 mg/dL EGFR 29 > OR = 60 mL/min/1.73m2 BUN/CREATININE RATIO 12 6-22 (calc) SODIUM 140 135-146 mmol/L POTASSIUM 4.9 3.5-5.3 mmol/L CHLORIDE 106 98-110 mmol/L CARBON DIOXIDE 25 20-32 mmol/L CALCIUM 9.2 8.6-10.3 mg/dL LIPID PANEL, STANDARD (7600) Reviewed date:09/15/2024 08:24:33 AM Interpretation: Performing Lab:[facility] [employer] [address] [employer] [facility], [facility] ClinicQbpwRH[address] [place] Otoole Notes/Report: NON-FASTING; NON-FASTING; NON-FASTING FASTING:YES FASTING: YES CHOLESTEROL, TOTAL 103 <200 mg/dL HDL CHOLESTEROL 31 > OR = 40 mg/dL TRIGLYCERIDES 140 <150 mg/dL LDL-CHOLESTEROL 50 Reference range: <100 Desirable range <100 mg/dL for primary prevention; <70 mg/dL for patients with CHD or diabetic patients with > or = 2 CHD risk factors. LDL-C is now calculated using the Ganga calculation, which is a validated novel method providing better accuracy than the Friedewald equation in the estimation of LDL-C. Yobani SS et al. CAMILO. 2013;310(19): 4365-4440 (http://education.[employer].com/faq/TCH816) CHOL/HDLC RATIO 3.3 <5.0 (calc) NON HDL CHOLESTEROL 72 <130 mg/dL (calc) For patients with diabetes plus 1 major ASCVD risk factor, treating to a non-HDL-C goal of <100 mg/dL (LDL-C of <70 mg/dL) is considered a therapeutic option. Microalbumin (In-House) Reviewed date:09/13/2024 06:33:56 PM Interpretation: Performing Lab: Notes/Report: ALB 150mg CRE 100mg A:C >300mg CBC (INCLUDES DIFF/PLT) (639 9) Reviewed date:05/18/2025 01:07:18 PM Interpretation: Performing Lab:[facility] [employer] [address] [employer], [facility] ClinicGttvJU[address] [place] Otoole Notes/Report: NON-FASTING; NON-FASTING; NON-FASTING FASTING:YES [...] MPV 9.3 7.5-12.5 fL ABSOLUTE NEUTROPHILS 3262 9936-6121 cells/uL ABSOLUTE LYMPHOCYTES 9537 050-3570 cells/uL ABSOLUTE MONOCYTES 281 200-950 cells/uL ABSOLUTE EOSINOPHILS 151 15-500 cells/uL ABSOLUTE BASOPHILS 22 0-200 cells/uL NEUTROPHILS 60.4 LYMPHOCYTES 31.2 MONOCYTES 5.2 EOSINOPHILS 2.8 BASOPHILS 0.4 COMPREHENSIVE METABOLIC PANE L (60161) Reviewed date:05/18/2025 01:07:18 PM Interpretation: Performing Lab:[facility], [facility]ale1355 [facility], [place] [facility] HospitalUyaiWV[address] [place] Otoole Notes/Report: NON-FASTING; NON-FASTING; NON-FASTING FASTING:YES [...] 13 10-35 U/L ALT 13 9-46 U/L LIPID PANEL, STANDARD (7600) Reviewed date:05/18/2025 01:07:18 PM Interpretation: Performing Lab:CB, [facility] [address], [place] McmahanDolzYO[address] Allen Otoole Notes/Report: NON-FASTING; NON-FASTING; NON-FASTING FASTING:YES FASTING: YES CHOLESTEROL, TOTAL 107 <200 mg/dL HDL CHOLESTEROL 32 > OR = 40 mg/dL TRIGLYCERIDES 130 <150 mg/dL LDL-CHOLESTEROL 54 Reference range: <100 Desirable range <100 mg/dL for primary prevention; <70 mg/dL for patients with CHD or diabetic patients with > or = 2 CHD risk factors. LDL-C is now calculated using the Ganga calculation, which is a validated novel method providing better accuracy than the Friedewald equation in the estimation of LDL-C. Yobani ALY et al. CAMILO. 2013;310(19): 8794-5635 (http://education.[employer].C4M/faq/KDZ955) CHOL/HDLC RATIO 3.3 <5.0 (calc) NON HDL CHOLESTEROL 75 <130 mg/dL (calc) For patients with diabetes plus 1 major ASCVD risk factor, treating to a non-HDL-C goal of <100 mg/dL (LDL-C of <70 mg/dL) is considered a therapeutic option. Reason For Referral Reason Medical Records - Medicine Referral Organization [facility] Referring Provider First Name Anson Referring Provider Last Name Laney Referring Provider Speciality Internal M edicine Referral Priority Routine Medications Medication SIG (Take, Route, Frequency, Duration) Notes Start Date End Date Status Qulipta 60 MG 1 tab(s) orally once a day prn 09/13/2024 Active MAGnesium-Oxide 400 (240 Mg) MG Take 1 tablet by mouth once daily for 90 days; Duration: 90 Active Glimepiride 1 MG 1 tab(s) orally once a day; Duration: 90 days Active amLODIPine Besylate 10 MG Take 1 tablet by mouth once daily; Duration: 90 Active PreserVision AREDS 2 ANTIOXIDANT MULTIPLE VITAMINS AND MINERALS 1 TAB(S) CHEWED 2 TIMES A DAY Active Aspirin 81 MG 1 tablet Orally Once a day Active Atorvastatin Calcium 80 MG Take 1 tablet by mouth once daily; Duration: 90 Active Farxiga 10 MG 1 tab(s) orally once a day Active Carvedilol 12.5 MG 1 tablet Orally Twic e a day; Duration: 30 days 05/17/2025 Active Carbidopa-Levodopa 25-100 MG 1 tablet orally 2 times a day; Duration: 90 days Active Omeprazole 40 MG Take 1 capsule by [facility] once daily; Duration: 90 Active Citalopram Hydrobromide 20 MG Take 1 tablet by mouth once daily; Duration: 90 Active traMADol HCl 50 MG 1 tab(s) orally twic e daily; Duration: 30 days prn 09/13/2024 Active Zetia 10 MG 1 tab(s) orally once a day; Duration: 90 days Active Immunizations Vaccine Route Administration Date Status Comme nts Fluzone High Dose IM Intramuscular 04/27/2018 Administered Fluzone High Dose IM Intramuscular 05/10/2019 Administered Fluzone High Dose IM Intramuscular 06/08/2020 Administered Fluzone High Dose IM Intramuscular 04/09/2021 Administered Fluzone High Dose IM Intramuscular 05/28/2022 Administered Fluzone High Dose IM Intramuscular 05/07/2023 Administered Fluzone High Dose IM Intramuscular 05/24/2024 Administered Fluzone High Dose IM Intramuscular 05/16/2025 Administered Influenza (Fluzone)--Medicar e only IM Intramuscular 05/12/2017 Administered Pneumovax 23 Unknown 05/12/2014 Administered Prevnar PCV-13 (Pneumococcal conjugate 13) IM Intramuscular 04/28/2018 Administered Britely Lot # [id number] Prevnar PCV-20 (Pneumococcal conjugate 20) IM Intramuscular 07/29/2022 Administered Social History Tobacco Use: Social History Observation Description Date Details (start date - stop date) Former Smoker NA - NA Smoking: Question Answer Notes Are you a: former smoker How long has it been since you last smoked? 5-10 years Section Notes: Is using Hemp oiol Is using Hemp oiol Is using Hemp oiol Is using Hemp oil Is using Hemp oil Is using Hemp oil Is using Hemp oil Is using Hemp oil Is using Hemp oil Is using Hemp oil Is using Hemp oil Is using Hemp oil Is using Hemp oil Is using Hemp oil Is using Hemp oil Is using Hemp oil Is using Hemp oil lives at home with and family support lives at home with and family support lives at home with and family support lives at home with and family support lives at home with and family support lives at home with and family support lives at home with and family support lives at home with and family support lives at home with and family support lives at home with and family support lives at home with and family support lives at home with and family support lives at home with and family support lives at home with and family support lives at home with and family support lives at home with and family support lives at home with and family support lives at home with and family support lives at home with and family support lives at home with and family support lives at home with and family support lives at home with and family support lives at home with and family support lives at home with and family support lives at home with and family support lives at home with and family support Problems Problem Type SNOMED Code ICD Code Onset Dates Problem Status W/U Status Risk Notes Problem Primary malignant neoplasm of kidney (03262367) Malignant neoplasm of unspecified kidney, except renal pelvis (C64.9) Active confirmed Problem Secondary malignant neoplasm of lung (77163401) Secondary malignant neoplasm of unspecified lung (C78.00) Active confirmed Problem Peripheral circulatory disorder associated with diabetes mellitus (986995081) Type 2 diabetes mellitus with other circulatory complications (E11.59) Active confirmed Problem Mixed hyperlipidemia (138918704) Mixed hyperlipidemia (E78.2) Active confirmed Problem Hypertensive heart AND chronic kidney disease with congestive heart failure (27131147954354) Hypertensive heart and chronic kidney disease with heart failure and stage 1 through stage 4 chronic kidney disease, or unspecified chronic kidney disease (I13.0) Active confirmed Problem Atherosclerotic heart disease of [place] coronary artery without angina pectoris (731739548425813) Atherosclerotic heart disease of [place] coronary artery without angina pectoris (I25.10) Active confirmed Problem Vasomotor rhinitis (0892527) Vasomotor rhinitis (J30.0) Active confirmed Problem Chronic kidney disease (462729410) Chronic kidney disease, unspecified (N18.9) Active confirmed Problem Ascites (182892365) Other ascite s (R18.8) Active confirmed Problem Somnolence (45089537) Somnolence (R40.0) Active confirmed Problem Absent kidney (838019719) Acquired absence of kidney (Z90.5) Active confirmed Problem Parkinson disease (73459137) Parkinson disease (G20) Active confirmed Problem Hallucinations (6546750) Hallucination (R44.3) Active confirmed Problem Diabetes mellitus type 2 in nonobese (288827174) Diabetes mellitus type 2 in nonobese (E11.9) Active confirmed Problem Essential hypertension (94157959) Hypertension, essential (I10) Active confirmed Problem Gastric reflux (308789320) Gastric reflux (K21.9) Active confirmed Problem Primary malignant neoplasm of kidney (17719468) Malignant neoplasm of kidney excluding renal pelvis (C64.9) Active confirmed Problem Acute on chronic systolic heart failure (741831743) Acute on chronic clinical systolic heart failure (I50.23) Active confirmed Problem Primary osteoarthritis (068156151) Primary osteoarthritis involving multiple joints (M15.0) Active confirmed Problem Recurrent falls (431312669) Frequent falls (R29.6) Active confirmed Problem Chronic fatigue syndrome (12067459) Chronic fatigue (R53.82) Active confirmed Problem Peripheral edema (41023348) Peripheral edema (R60.9) Active confirmed Problem Ataxia (05278850) Ataxia (R27.0) Active confirm ed Problem Migraine (13478448) Migraine syn drome (G43.909) Active confirmed Problem Iron deficiency anemia (32775463) Iron deficiency anemia, unspecified iron deficiency anemia type (D50.9) Active confirmed Problem Hypertensive heart AND chronic kidney disease with congestive heart failure (38018063487739) Hyp hrt & chr kdny dis w hrt fail and stg 1-4/unsp chr kdny (I13.0) Active confirmed Problem Chronic kidney disease (067521471) Chronic kidney disease (N18.9) Active confirmed Problem Primary malignant neoplasm of kidney (19993770) Renal cell carcinoma, unspecified laterality (C64.9) Active confirmed Problem Protein malnutrition (99227987) Protein malnutrition (E46) Active confirmed Problem Severe protein calorie malnutrition (549529242) Other severe protein-calorie malnutrition (E43) Active confirmed Problem Acute on chronic systolic heart failure (456213412) Acute on chronic systolic congestive heart failure (I50.23) Active confirmed Problem Loss of appetite (60798402) Loss of appetite (R63.0) Active confirmed Problem Mild recurrent major depression (69338970) Mild episode of recurrent major depressive disorder (F33.0) Active confirmed Problem Primary localized osteoarthrosis of multiple sites (78454173) Primary localized osteoarthrosis of multiple sites (M19.91) Active confirmed Problem Benign prostatic hypertrophy with outflow obstruction (309018244) BPH loc w urin obs/LUTS (N40.1) Active confirmed Problem Gastroesophageal reflux disease (disorder) (121078371) Chronic GERD (K21.9) Active confirmed Problem History of heart valve repair with prosthesis (230157747039803) S/P TAVR (transcatheter aortic valve replacement) (Z95.2) Active confirmed Problem Major depression single episode, in partial remission (96042644) Major depressive disorder with single episode, 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) Active confirmed Problem Prothrombin Q67757J mutation (630347750) 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) Active confirmed Problem Malaise (513158539) Physical nilson ility (R53.81) Active confirmed Problem Pain due to neoplastic disease (15364357618546) Cancer related pain (G89.3) Active confirmed Problem Hearing loss (51356361) Bilateral hearing loss, unspecified hearing loss type (H91.93) Active confirmed Problem Atherosclerotic heart disease of [place] coronary artery without angina pectoris (198347010896846) 2-vessel coronary artery disease (I25.10) Active confirmed Problem Absent kidney (390715482) Acquired solitary kidney (Z90.5) Active confirmed Problem Secondary malignant neoplasm of lung (12885329) Secondary carcinoma of left lung (C78.02) Active confirmed Problem Malignant tumor of kidney (527469494) Renal cell carcinoma of right kidney (C64.1) Active confirmed Problem Diabetic renal disease (822210589) Chronic kidney disease due to diabetes mellitus (E11.22) Active confirmed Problem Deficiency of macronutrients (disorder) (699392862) Protein-calorie malnutrition, unspecified severity (E46) Active confirmed Problem Secondary malignant neoplasm of lung (76071288) Secondary carcinoma of lung, unspecified laterality (C78.00) Active confirmed Problem Headache disorder (689919451) Headache disorder (R51.9) Active confirmed Problem Personal history of primary malignant neoplasm of kidney (322594739) History of renal carcinoma (Z85.528) Active confirmed Problem Chronic kidney disease stage 3B (disorder) (293541123) Stage 3b chronic kidney disease (CKD) (N18.32) Active confirmed Problem Hypertensive heart AND chronic kidney disease with congestive heart failure (disorder) (35093956229093) Cardiorenal syndrome with renal failure, stage 1-4 or unspecified chronic kidney disease, with heart failure (I13.0) Active confirmed Problem Parkinson's disease (disorder) (00999605) Parkinson's disease without dyskinesia or fluctuating manifestations (G20.A1) Active confirmed Problem Chronic migraine with aura without status migrainosus, not intractable (G43.E09) Active confirmed Vital Signs Heart Rate 72 /min 06/15/2025 Temperature 98.4 degrees Fahrenheit 06/15/2025 Blood pressure diastolic 80 mm Hg 06/15/2025 Height 67.2 in 06/15/2025 Blood pressure systolic 162 mm Hg 06/15/2025 Weight 184 lbs 06/15/2025 BMI 28.64 kg/m2 06/15/2025 Encounters Encounter Location Date Provider Diagnosis [facility] [address] [facility] [address] [place], [place] [address] 11/20/2024 Provider Migration [facility] [address] [place], [place] [address] 09/13/2024 Anson Besson Hypertension, essent ial I10 ; Major depressive disorder with single episode, in partial remission F32.4 ; Type 2 diabetes mellitus with other circulatory complications E11.59 ; Atherosclerotic heart disease of [place] coronary artery without angina pectoris I25.10 ; Migraine without status migrainosus, not intractable, unspecified migraine type G43.909 and History of renal carcinoma Z85.528 [facility] [address] [facility] [address] [place], [place] [address] 10/04/2024 Anson Besson Hypertension, essent ial I10 and Migraine without status migrainosus, not intractable, unspecified migraine type G43.909 [facility] [address] [facility] [address] [place], [place] [address] 12/06/2024 Anson Davison Hypertension, essent ial I10 ; Stage 3b chronic kidney disease (CKD) N18.32 and Migraine syndrome G43.909 [facility] [address] [place] [address] 02/14/2025 Anson Davison Hypertension, essent ial I10 ; Major depressive disorder with single episode, in partial remission F32.4 ; Renal cell carcinoma of right kidney C64.1 ; Stage 3b chronic kidney disease (CKD) N18.32 ; Type 2 diabetes mellitus with other circulatory complications E11.59 ; Atherosclerotic heart disease of [place] coronary artery without angina pectoris I25.10 ; Chronic migraine with aura without status migrainosus, not intractable G43.E09 and Routine medical exam Z00.00 [facility] [address] [place] [address] 05/16/2025 Anson Davison Hypertension, essent ial I10 ; Mixed hyperlipidemia E78.2 ; Parkinson's disease without dyskinesia or fluctuating manifestations G20.A1 ; Stage 3b chronic kidney disease (CKD) N18.32 ; Immunization(s) administered Z23 and Headache disorder R51.9 [facility] [address] [place] [address] 06/15/2025 Anson Davison Stage 3b chronic kid jeni disease (CKD) N18.32 ; Hypertension, essential I10 and Headache disorder R51.9 [facility] [address] [place] [address] 05/17/2025 Anson Davison Hypertension, essent ial I10 Assessments Encounter Date Diagnosis (ICD Code) Assessment Notes Treatment Notes Treatment Clinical Notes Section Notes 09/13/2024 Hypertension, essential (ICD-10 - I10) Blood pressure slightly elevated, possibly from pain. He also did not take his medication today. Check labs. I will review all personally 09/13/2024 Major depressive disorder with single episode, in partial remission (ICD-10 - F32.4) Overall seems to be stable. No changes 10/04/2024 Hypertension, essential (ICD-10 - I10) BP elevated in clinic today with systolic 180, patient notes he did not take his medications due to possibility of needing labs. currently asymptomatic. Instructed patient to take medications and keep blood pressure log at home so we can get a good idea of where his BP is while on current medical therapy. 12/06/2024 Stage 3b chronic kidney disease (CKD) (ICD-10 - N18.32) Doing well on rx... farxiga samples given.... will follow labs.. 02/14/2025 Hypertension, essential (ICD-10 - I10) Blood pressure under good control. No changes in plan. Kidney function stable, following with nephrology 02/14/2025 Major depressive disorder with single episode, in partial remission (ICD-10 - F32.4) Doing well on current antidepressant. No changes 05/16/2025 Mixed hyperlipidemia (ICD-10 - E78.2) Labs ordered. Drawn in the office today. Please note I have ordered these and I will review these personally. 05/16/2025 Hypertension, essential (ICD-10 - I10) Blood pressure slightly elevated but did not take medicines today, there is some confusion about whether or not he is taking it one half or a full carvedilol tablet. He will try to sort this out, see cardiology in the interim and I will see him back in 4 weeks to reevaluate his blood pressure. 12/06/2024 Hypertension, essential (ICD-10 - I10) 05/17/2025 Hypertension, essential (ICD-10 - I10) 06/15/2025 Hypertension, essential (ICD-10 - I10) Blood pressure remains little bit higher than I had like, has appoint with cardiology next week to adjust medications. Will reevaluate after this 06/15/2025 Stage 3b chronic kidney disease (CKD) (ICD-10 - N18.32) Will track kidney function today, patient does not seem fluid overloaded. 05/16/2025 Parkinson's disease without dyskinesia or fluctuating manifestations (ICD-10 - G20.A1) Patient's tremors gone away. I think he is tolerating the carbidopa/levod opa well. His concerned about the nausea-he seems less so. He will follow with neurology and continue the medication 06/15/2025 Headache disorder (ICD-10 - R51.9) Qulipta samples given. Patient is benefiting from these 12/06/2024 Migraine syndrome (ICD-10 - G43.909) samples of CGRP given... doing well with this. 02/14/2025 Renal cell carcinoma of right kidney (ICD-10 - C64.1) 09/13/2024 Type 2 diabetes mellitus with other circulatory complications (ICD-10 - E11.59) 09/13/2024 Atherosclerotic heart disease of [place] coronary artery without angina pectoris (ICD-10 - I25.10) 02/14/2025 Stage 3b chronic kidney disease (CKD) (ICD-10 - N18.32) 05/16/2025 Stage 3b chronic kidney disease (CKD) (ICD-10 - N18.32) Labs ordered today. Remains on xiga. 05/16/2025 Immunization(s) administered (ICD-10 - Z23) 02/14/2025 Type 2 diabetes mellitus with other circulatory complications (ICD-10 - E11.59) Follows nephrology A1c normal 09/13/2024 Migraine without status migrainosus, not intractable, unspecified migraine type (ICD-10 - G43.909) Trial of long-acting CGRP, samples given 10/04/2024 Migraine without status migrainosus, not intractable, unspecified migraine type (ICD-10 - G43.909) Improved on Qulipta, continue current management. 09/13/2024 History of renal carcinoma (ICD-10 - Z85.528) Check CBC 02/14/2025 Atherosclerotic heart disease of [place] coronary artery without angina pectoris (ICD-10 - I25.10) Asymptomatic. No changes in plan, LDL normal. On appropriate goal-directed therapy 05/16/2025 Headache disorder (ICD-10 - R51.9) Getting good relief with Qulipta. Samples given 02/14/2025 Chronic migraine with aura without status migrainosus, not intractable (ICD-10 - G43.E09) Takes occasional CGRP receptor blockers. No changes in plan, 02/14/2025 Routine medical exam (ICD-10 - Z00.00) Aged out of cancer screening. Up-to-date with vaccines. Falls in the past year but fall prevention plan in place. / word recall. Depression screening not done because of active diagnosis of depression. is healthcare surrogate Plan Of Treatment Pending Test Test Name Order Date Echocardiogram 08/04/2017 Physical Therapy 10/29/2021 C-CBC 11/10/2017 C-CMP 11/10/2017 C-LIPID PANEL 11/10/2017 C-PSA 11/10/2017 C-HGBA1C 11/10/2017 Pulmonary Function Test- Complete 2018 M-Vitamin B12 03/07/2021 M-Vitamin D 25 Hydroxy 03/07/2021 BASIC METABOLIC PANEL (02663) 08/13/2023 CBC (INCLUDES DIFF/PLT) (6399) 3 Next Appt Details Provider Name:Anson Davison, 09/14/2025 09:30:00 AM, [address], [address], [place], [address], Insurance Providers Payer Name Payer Address Payer Phone Subscriber Number Group Number Insured Name Patient Relationship to Insured Coverage Start Date Coverage End Date [place] [place] [phone] [id number] DanielTito nur Self - patient is the insured [employer] [address] [address] [place] [address] [id number] Daniel Tito Self - patient is the insured [employer] [facility] Floor [address] [place], [place] [address] ACL DanielTito nur Self - patient is the insured Medications Administered Medication Instructions Date of Administration Dosage Notes Triamcinolone Acetonide 40mg Injection 01/24/2021 1 mL Medical (General) History Medical History History ICD Code Diabetes, Hypertension, Hyperlipidemia, Arthritis, Heart Disease c-scope 06/[address] abd with lesion c/w renal cell ca May-nephrectomy pending Right nephrectomy Parkinsons Surgical History Surgery Date(Month/Year) Heart Cath - with clear bypass grafts Colonoscopy Triple bypass 2007 Tonsillectomy 1970 Kidney stone removal Heart Cath 11/2016 lt eye-cataract surgery 10/2018 colonoscopy 05/2019 Right nephrectomy 06/2019 biopsy on head 11/2020 Valve in heart stretched 12/2022 Aorta Valve Replaced 06/2023 Hospitalization History Reason Date(Month/Year) A[facility] Val[facility], [facility]- Right nephrectomy 06/2019 Triple bypass, tonsillectomy, kidney sto ne 2008
--- OUTSIDE RECORDS SUMMARY | 2025-06-20 12:21 | XMS_ITS | Encounter Summary ---
Author Organization [employer] ([place], [place], [place], [place], [place]) Address [address] [place] [address] Care Team Providers Care Hide Inspector Name Role Phone Anson Davison MD Primary Care Provider [phone] Diego Johnson MD Unavailable [phone] Piyush Pierre MD Unavailable [phone] Encounter Details Date Type Department Care Team (Late st Contact Info) Description 05/17/2025 Orders Only [facility] Cardiology [address] [place] [address] Alysia Ellison Social History Tobacco Use Types Packs/Day Years [...] Date Roni rded Speak language other than Thai at home Not on file 08/29/2023 Want [...] Description 06/21/2025 7:30 AM EST Office Visit [facility] Neurology - Blarajiv Rolfe [address] [place] [phone] [place] [address] [place] [phone] Jenn Celis MD [address] [place], [place] [id number] 06/27/2025 11:15 AM EST Office Visit [facility] Cardiology [address] [place] [phone] [place] [address] [place] [phone] 11/01/2025 10:45 AM EDT Office Visit [facility] - [address] [place] [phone] Piyush Pierre MD [address] [place] [address] documented as of this encounter Visit Diagnoses Not on filedocumented in this encounter Care Teams Hide Inspector Relationship Specialty Start Date End Date Anson Davison MD [address] [place] [address] PCP - General Adolescent Medicine 05/09/25 Diego Johnson MD [address] [facility] [address] [place], [place] [id number] Interventional Cardiology 01/23/24 Piyush Pierre MD [address] [facility] [address] [place] [address] Hematology and Oncology 01/25/25 documented as of this encounter
--- OUTSIDE RECORDS SUMMARY | 2025-06-20 12:21 | XMS_ITS ---
Author Organization [employer] ([place], [place], [place], [place], [place]) Address [address] [place] [address] Care Team Providers Care Any Commodity Buyer Name Role Phone Anson Davison MD Primary Care Provider [phone] Diego Johnson MD Unavailable [phone] Piyush Pierre MD Unavailable [phone] Active Problems Problem Noted Date Diagnosed Date S/P TAVR (transcatheter aortic valve replacement ) 04/29/2025 Severe aortic stenosis 06/26/2023 CAD (coronary artery disease) 11/07/2022 Overview (11/07/2022): 12/23/18 ECHO EF 60%, mild /AI 12/17/16 [facility] WILLIAM graft to mid LAD: [...] from 07/09/2019:Stage III(cT3a, cN0, cM0) - Unsigned Current Treatment and Therapy Plans No current plan information found. Past Treatment and Therapy Plans No past plan information found. Lifetime Dose Tracking * Chemical Lifetime Dose Automatic Entry Manual Entr y Radiation 988 mGy 988 mGy 0 mGy
--- OUTSIDE RECORDS SUMMARY | 2025-06-20 12:21 | XMS_ITS | Clinical Summary ---
Author Organization [employer] ([place], [place], [place], [place], [place]) Address [address] [place] [address] Care Team Providers Care Air Defence Officer Name Role Phone Anson Davison MD Primary Care Provider [phone] Diego Johnson MD Unavailable [phone] Piyush Pierre MD Unavailable [phone] Allergies No known active allergies Medications amLODIPine [...] 12/23/18 ECHO EF 60%, mild /AI 12/17/16 [facility] WILLIAM graft to mid LAD: patent SVG [...] from 07/09/2019:Stage III(cT3a, cN0, cM0) - Unsigned Encounters Date Type Department Care Team Description 05/17/2025 Orders Only [facility] Cardiology [address] [place] [address] Alysia Ellison 05/09/2025 8:16 AM EDT - 05/09/2025 11:59 PM EDT Hospital Encounter [facility] Non-Invasive Cardiology [address] [place] [address] Cricket Zimmerman MD CAD (coronary artery disease); Parkinson's disease (HCC); S/P TAVR (transcatheter aortic valve replacement) Discharge Disposition: Home or Self Care 05/09/2025 Travel 05/06/2025 12:30 PM EDT Office Visit [facility] Electrophysiology [address] [place] [address] CAD (coronary artery disease); Parkinson's disease (HCC); S/P TAVR (transcatheter aortic valve replacement) 05/06/2025 10:15 AM EDT Office Visit [facility] - [address] [place] [address] Piyush Pierre MD Malignant neoplasm of right kidney, except renal pelvis (HCC) 05/06/2025 8:21 AM EDT - 05/06/2025 11:59 PM EDT Hospital Encounter [facility] [address] [facility] [address] [place] [address] Piyush Pierre MD Malignant neoplasm of right kidney, except renal pelvis (HCC) Discharge Disposition: Home or Self Care 05/06/2025 Travel 04/29/2025 8:30 AM EDT Office Visit [facility] Cardiology [address] [place] [address] Cricket Zimmerman MD Dizziness (Primary Dx); CAD (coronary artery disease); Primary hypertension; Diabetes (HCC); Parkinson's disease (HCC); Personal history of kidney cancer; Mixed hyperlipidemia; S/P TAVR (transcatheter aortic valve replacement) 04/29/2025 Travel from Last 3 Months Family History Medical History Relation Name Comments Heart disease Brother 1 Heart disease Brother 2 Heart attack Father No Known Problem Maternal Aunt No Known Problem Maternal Grandfather No Known Problem Maternal Grandmother No Known Problem Maternal Uncle Kidney cancer Mother No Known Problem Paternal Aunt No Known Problem Paternal Grandfather No Known Problem Paternal Grandmother No Known Problem Paternal Uncle Breast cancer Sister 1 Kidney cancer Sister 2 Heart disease Sister 3 Relation Name Status Comments Brother 1 Brother 2 Father Maternal Aunt Maternal Grandfather Maternal Grandmother Maternal Uncle Mother Paternal Aunt Paternal Grandfather Paternal Grandmother Paternal Uncle Sister 1 Sister 2 Sister 3 Social History Tobacco Use Types Packs/Day Years Used Date Smoking Tobacco: Former Cigarettes 2006 Passive Smoke Exposure: Past Smokeless Tobacco: [...] Date Roni rded Speak language other than [place] at home Not on file 08/29/2023 Want [...] Description 06/21/2025 7:30 AM EST Office Visit [facility] Neurology - [facility] [address] [place] [phone] [place] [address] [place] [phone] Jenn Celis MD [facility] [address] [place], [place] [address] 06/27/2025 11:15 AM EST Office Visit [facility] Cardiology [address] [place] [phone] [place] [address] [place] [address] 11/01/2025 10:45 AM EDT Office Visit [facility] - [facility] [address] [place] [address] Piyush Pierre MD [facility] [place] [address] Health Maintenance Due Date Last Done Comments Medicare Initial AWV G0438 Diabetic Kidney Health Evalu ation (KED) 1950 Diabetic Eye Exam 1959 Depression Screening (12+) 1961 Hepatitis C Screening 1967 DTAP/TDAP/TD VACCINES (1 - Tdap) 1968 Shingles Vaccine (Zoster) (1 of 2) 1999 Hemoglobin A1C 11/07/2022 Respiratory Syncytial Virus (RSV) Adult or (1 - 1-dose 75+ series) 2024 Falls Risk Screening 08/18/2024 COVID-19 VACCINE (4 - 2024-2 6 season) 2025 10/03/2021, 10/25/2020, 09/27/2020 Influenza Vaccine (#1) 2025 2, 05/28/2022, 04/09/2021, Additional history exists Tobacco Cessation Counseling and Screening (12+) 05/06/2026 05/06/2025 Pneumococcal 50+ years Completed 2, 04/28/2018, 04/27/2018, Additional history exists Medical Devices Implanted Type Area Acid Purification Equipment Operator Device Identifier Shelf Expiration Date Model / Serial / Lot Kt Abena 3 W/Comm Del Sys 23 [id number] - [id number] Implanted:Qty: 1 on 06/26/2023 by Diego Johnson MD at [facility] IMPLANTS Heart MOSELEY LIFESCI 09/27/2025 [id number] / [id number] / Procedures Procedure Name Priority Date/Time Associated [...] Name: RONI Rose : 1950 Medical Record [id number] Age: 75 year(s) Number: Corporate ID Number: [id number] Gender Male Microbiology Coordinator: Fredy Cisneros T Height: 67 inches ,[facility] Referring Physician: CRICKET ZIMMERMAN MD Weight: 187 [...] A-wave: 1.01 m/s E/A ratio: 0.9 Volume ydysqickd384.62 ml Volume waimgyfn57.91 ml LVOT diameter: 1.91 cm Normal sized [...] Valve TR velocity: 1.71 m/s TR gradient: 11.85698 mmHg Estimated RAP: 3 mmHg RVSP: 14.68 [...] Name: RONI Rose : 1950 Medical Record [id number] Age: 75 year(s) Number: Corporate ID Number: [id number] Gender Male Microbiology Coordinator: Fredy Cisneros Navi Height: 67 inches ,[facility] Referring Physician: CRICKET [...] A-wave: 1.01 m/s E/A ratio: 0.9 Volume iuxgghnid248.62 ml Volume afwhkakc26.91 ml LVOT diameter: 1.91 cm Normal sized [...] Valve TR velocity: 1.71 m/s TR gradient: 11.78309 mmHg Estimated RAP: 3 mmHg RVSP: 14.68 [...] with automated diff (05/06/2025 10:13 AM EDT) Pathologist [facility] WBC 5.5 4.5 - 11.0 K/ L [...] Blast? Flag noted Atypical Lymph flag noted Piyush Pierre MD LAB BLOOD ORDERABLES Final Res ult [facility] [address] [phone] * (ABNORMAL) Oncology Basic Metabolic Panel (05/06/2025 [...] ORDERABLES Final Res ult [facility] - [place] [address] [place] [id number], [facility] [phone] * (ABNORMAL) Hepatic function panel (05/06/2025 10:13 AM EDT) Protein, Total 7.7 6.4 - 8.2 gm/dL 05/06/2025 11:37 AM T [facility] Albumin 3.9 3.4 - 5.0 g/dL 05/06/2025 11:37 AM [facility] Total Bilirubin 0.7 0.2 - 1.3 mg/dL 05/06/2025 11:37 AM [facility] Bilirubin, Direct 0.2 0.0 - 0.2 mg/dL 05/06/2025 11:37 AM [facility] Alkaline Phosphatase 155(H) 27 - 136 U/L 05/06/2025 11:37 AM [facility] Globulin 3.8 1.5 - 4.5 g/dL 05/06/2025 11:37 AM [facility] A/G Ratio 1.0(L) 1.1 - 2.5 05/06/2025 11:37 AM [facility] AST 16 5 - 37 U/L 05/06/2025 11:37 AM [facility] Comment:[facility] has become aware of sulfasalazine and sulfapyridine [...] 12 - 78 U/L 05/06/2025 11:37 AM [facility] Comment:[facility] has become aware of sulfasalazine and sulfapyridine [...] MD LAB BLOOD ORDERABLES Final Res ult [facility] [address] [phone] * CT CAP w/o (05/06/2025 9:13 AM [...] Final Result from Last 3 Months Insurance MEDICARE [place] [address] [place] [address] Advance Directives For more information, please contact: [phone] * Full Code (Latest Code Status on [...] 5:50 AM 12/24/2022 11:29 AM Care Teams Air Defence Officer Relationship Specialty Start Date End Date Anson Davison MD [address] [facility] [address] [place] [address] PCP - General Adolescent Medicine 05/09/25 Diego Johnson MD [address] [facility] [address] [place] [address] Interventional Cardiology 01/23/24 Piyush Pierre MD [address] [facility] [address] [place] [address] Hematology and Oncology 01/25/25
--- OUTSIDE RECORDS SUMMARY | 2025-06-20 12:21 | XMS_ITS | Encounter Summary ---
Author Organization [employer] ([place], [place], [place], [place], [place]) Address [address] [place] [address] Care Team Providers Care Certified Court/Medical Interpreter Name Role Phone Diego Johnson MD Unavailable [phone] Piyush Pierre MD Unavailable [phone] Encounter Details Date Type Department Care Team (Latest Contact Info) Description 05/06/2025 Travel Social History Tobacco Use Types Packs/Day [...] Date Roni rded Speak language other than Maltese at home Not on file 08/29/2023 Want [...] Description 06/21/2025 7:30 AM EST Office Visit [facility] Neurology - Lacey García [address] [place] [phone] [place] [address] [place] [phone] Jenn Celis MD [address] [place] [address] 06/27/2025 11:15 AM EST Office Visit [facility] Cardiology [address] [place], [place] [phone] [place] [address] [place] [address] 11/01/2025 10:45 AM EDT Office Visit [facility] - [address] [place] [phone] Piyush Pierre MD [address] [place] [address] documented as of this encounter Visit Diagnoses Not on filedocumented in this encounter Care Teams Certified Court/Medical Interpreter Relationship Specialty [place] [address] [place] [address] [address] [place] [address] Interventional Cardiology 01/23/24 Piyush Pierre MD [address] [place] [address] Hematology and Oncology 01/25/25 documented as of this encounter
--- OUTSIDE RECORDS SUMMARY | 2025-06-20 12:22 | XMS_ITS | Clinical Summary ---
Author Organization [facility] Address [address] [place] [address] Care Team Providers Care Product Safety Associate Name Role Phone Anson Davison MD Primary Care Provider [phone] Allergies No known active allergies Medications Aspirin Buf,CaCarb-MgCarb- MgO, 81 MG tablet TAKE 1 TABLET DAILY. 7 Active atorvastatin (Lipitor) 80 MG tablet TAKE 1 TABLET Bedtime 7 Active citalopram (CeleXA) 20 MG tablet TAKE 1 TABLET DAILY. 7 Active ezetimibe (Zetia) 10 MG tablet 8 Active omeprazole (PriLOSEC) [address] capsule 9 Active PAZOPanib (Votrient) 200 MG chemo tablet Take by mouth 1 (one) time each day. Take on an empty stomach, at least 1 hour before or 2 hours after a meal. Active amLODIPine (Norvasc) 10 MG tablet 1 Active diclofenac (Voltaren) 1 % topical gel 1 Active omega-3 (Fish Oil) 1000 MG capsule Take 1 capsule (1,000 mg) by mouth 1 (one) time each day. Active sulfamethoxazole-t rimethoprim (Bactrim DS) 800-160 MG tablet 9 Active potassium chloride CR (Klor-Con M20) 20 MEQ ER tablet 1 (one) time each day at the same time. Active potassium chloride CR (K-Tab) 20 MEQ ER tablet 2 Active omega-3 acid ethyl esters (Lovaza) 1 g capsule 1 Active furosemide (Lasix) 20 MG tablet 1 Active diphenoxylate-atro pine (Lomotil) 2.5-0.025 MG tablet 1 Active diphenhydrAMINE (BENADryl) 12.5 MG/5ML elixir every 6 (six) hours. Active carbidopa-levodopa (Sinemet) 25-100 MG tablet every 8 (eight) hours. Active calcium 500 MG tablet every 8 (eight) hours. Active ondansetron (Zofran) 4 MG tablet every 8 (eight) hours. Active magnesium oxide (Mag-Ox) 400 (240 Mg) MG tablet TAKE 1 TABLET BY MOUTH ONCE DAILY FOR 90 DAYS 2 Active carvedilol (Coreg) 25 MG tablet 2 Active NON FORMULARY Hemp Oil Active traMADol (Ultram) 50 MG tablet TAKE 1 TABLET BY MOUTH TWICE DAILY NEEDED FOR 30 DAYS 3 Active Azelastine HCl 137 MCG/SPRAY solution USE 2 SPRAY(S) IN EACH NOSTRIL TWICE DAILY 3 Active Multiple Vitamins-Minerals (PreserVision AREDS 2) chewable tablet 2 (two) times a day. Active sodium zirconium cyclosilicate (Lokelma) 10 g packet Take 10 g by mouth. Active omeprazole (PriLOSEC) [address] capsule Take 1 capsule (40 mg) by mouth 1 (one) time each day. 4 Active Rimegepant Sulfate (Nurtec) 75 MG tablet dispersible 1 tab(s) orally once 4 Active fluticasone (Flonase) 50 MCG/ACT nasal spray 1 (one) time each day at the same time. Active ferrous sulfate 325 (65 Fe) MG tablet Take 1 tablet (325 mg) by mouth 1 (one) time each day with breakfast. Active sodium zirconium cyclosilicate (Lokelma) 5 g packet Take by mouth. (LOKELMA ORAL) Active ASPIRIN-ACETAMINOP HEN-CAFFEINE PO Take by mouth. (EXCEDRIN EXTRA STRENGTH ORAL) Active Farxiga 10 MG tablet Take 1 tablet (10 mg) by mouth 1 (one) time each day. 4 Active Atogepant (Qulipta) 30 MG tablet Take 1 tablet by mouth Daily. 5 Active HEMP OIL-VANILLYL BUTYL ETHER EX Apply topically. Active glimepiride (Amaryl) 1 MG tabletIndications: Type 2 diabetes mellitus with other specified complication, with long-term current use of insulin TAKE 1 TABLET BY MOUTH ONCE DAILY BEFORE BREAKFAST 90 tablet 3 5 Active Active Problems Problem Noted Date Diagnosed Date Pseudophakia of left eye 09/08/2023 Absent kidney 06/28/2022 Acute on chronic systolic heart failure 06/28/20 Ascites 06/28/2022 Ataxia 06/28/2022 Atherosclerosis of coronary artery without angin a pectoris 06/28/2022 Benign prostatic hyperplasia with urinary obstru ction 06/28/2022 Chronic fatigue syndrome 06/28/2022 Chronic GERD 06/28/2022 Chronic kidney disease 06/28/2022 Diabetes mellitus type 2 in nonobese 06/28/2022 Gastric reflux 06/28/2022 Hallucinations 06/28/2022 Hearing loss 06/28/2022 Hypertensive heart and chron ic kidney disease with heart failure and stage 1 through stage 4 chronic kidney disease, or unspecified chronic kidney disease 06/28/2022 Hypertensive heart disease w ith congestive heart failure and chronic kidney disease 06/28/2022 Loss of appetite 06/28/2022 Major depression single episode, in partial deedee ssion 06/28/2022 Malignant tumor of kidney 06/28/2022 Primary malignant neoplasm of kidney 06/28/2022 Renal cell carcinoma 06/28/2022 Mild recurrent major depression 06/28/2022 Parkinson disease 06/28/2022 Primary localized osteoarthrosis of multiple sit es 06/28/2022 Primary osteoarthritis 06/28/2022 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 06/28/2022 Recurrent falls 06/28/2022 Secondary malignant neoplasm of lung 06/28/2022 Somnolence 06/28/2022 Stage 3b chronic kidney disease (CKD) 06/28/2022 Unspecified protein-calorie malnutrition 022 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 06/16/2020 Status post nephrectomy 07/10/2019 Coronary artery disease 07/09/2019 Diabetes 07/09/2019 Essential hypertension 07/09/2019 Mixed hyperlipidemia 07/09/2019 Renal mass 07/09/2019 Bilateral dry eyes 06/03/2019 Early dry stage nonexudative 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 10/07/2016 Age-related nuclear cataract of right eye 2016 Exudative age-related macula r degeneration of left eye with active choroidal neovascularization 04/29/2016 Mild nonproliferative diabet ic retinopathy of both eyes without macular edema associated with type 2 diabetes mellitus 10/16/2015 Resolved Problems Problem Noted Date Diagnosed Date Resolved Date Age-related cataract of both eyes 08/04/2023 09/08/2023 Malaise 06/28/2022 05/08/2025 Peripheral edema 06/28/2022 05/08/2025 Severe protein-calorie malnu trition (Iqbal: less than 60% of standard weight) 06/28/20222024 After cataract of left eye n ot obscuring vision 06/03/2019 09/08/2023 Bilateral presbyopia 09/09/2016 025 Encounters Date Type Department Care Team Description 04/26/2025 8:00 AM EDT Procedure Visit [facility] [address] [place] [address] Tushar Mcgee MD Exudative age-related macular degeneration of left eye with active choroidal neovascularization (CMS/HCC) (Primary Dx); Early dry stage nonexudative 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; Mild nonproliferative diabetic retinopathy of both eyes without macular edema associated with type 2 diabetes mellitus; Combined forms of age-related cataract of right eye; Pseudophakia of left eye 04/26/2025 7:40 AM EDT Ancillary Procedure [facility] [address] [place] [address] 04/26/2025 Travel from Last 3 Months Immunizations Immunization Administration Dates Next Due Influenza, high-dose, quadrivalent 05/28,04/09/2021,06/08/2020, 019,04/27/2018 Influenza, injectable, quadrivalent 05/12/2017 Pneumococcal 20-alejandra Conj Vaccine 07/29/2022 Pneumococcal Conjugate PCV 13 04/28/2018, 018 Pneumococcal Polysaccharide PPV23 05/12/2014 Family History Medical History Relation Name Comments Cardiac disorder Brother 1 Diabetes Brother 2 Hypertension Brother 3 Obesity Brother 4 Hyperlipidemia Brother 5 Cardiac disorder Father Hyperlipidemia Father Hypertension Father Stomach cancer Mother Stroke Sister 1 Diabetes Sister 2 Hypertension Sister 3 Breast cancer Sister 4 Kidney cancer Sister 5 Heart attack Sister 6 Obesity Sister 7 Relation Name Status Comments Brother 1 Brother 2 Brother 3 Brother 4 Brother 5 Father Mother Sister 1 Sister 2 Sister 3 Sister 4 Sister 5 Sister 6 Sister 7 Social History Tobacco Use Types Packs/Day Years [...] on file Sexual Orientation Not on file Last Filed Vital Signs Vital Sign Reading Time Taken Comments Blood Pressure 155/81 01/04/2025 9:20 AM EDT Pulse 80 01/04/2025 9:20 AM EDT Temperature 36.8 C (98.3 F) 05/01/2020 8:02 AM EDT Respiratory Rate - - Oxygen Saturation - - Inhaled Oxygen Concentration - - Weight 84.5 kg (186 lb 4.6 oz) 01/04/2025 8:28 A M EDT Height 170.2 cm (5' 7 ) 01/04/2025 8:28 AM EDT Body Mass Index 29.18 01/04/2025 8:28 AM EDT Plan of Treatment Upcoming Encounters Date Type Department Care Team (Late st Contact Info) Description 06/28/2025 11:00 AM EST Office Visit [facility] [address] [place] [address] Tushar Mcgee MD [address] [place] [address] 07/12/2025 8:00 AM EST Office Visit [facility] [address] [place] [address] (1), Elliott Worthy Fellow 09/07/2025 9:15 AM EST Office Visit [facility] [address] [place] [address] Leonardo Cali MD [address] [place] [address] Health Maintenance Due Date Last Done Comments [facility]-Hepatitis C Screening 1950 [facility]-Medicare Annual Wellness (AWV) 1950 [facility]-Infant/Child/Adol SDOH Screenings 1950 Diabetes: Dental Exam 1959 [facility]- SDOH Screenings 1967 [facility]-Adult SDOH Screenings 1967 [facility]-DTaP,Tdap,and Td Vaccines (1 - Tdap) 1968 [facility]-Zoster Vaccines (1 of 2) 1968 [facility]-RSV Vaccine: 60+ Years or (1 - 1-dose 75+ series) 2024 [id number] Vaccine (6 - Moderna risk 2023- season) 2025 05/24/2024, 06/05/2023, 10/03/2021, Additional history exists [facility]-Influenza Vaccine (#1) 04/18/202505/24, 05/07/2023, 05/28/2022, Additional history exists [facility]-Diabetes: Hemoglobin A1C 07/04/2025 01/04/2025, 07/06/2024, 12/30/2023, Additional history exists [facility]-Depression Screening 01/04/2026 01/04/2025 [facility]-Pneumococcal Vaccine: 50+ Years Completed 07/29/2022, 04/28/2018, 04/27/2018, Additional history exists [facility]-Obesity Intervention Completed 025, 01/04/2025, 12/02/2024, Additional history exists HPV Vaccines Aged Out No longer eligi ble based on patient's age to complete this topic [facility]-HIB Vaccines Aged Out No longer e ligible based on patient's age to complete this topic [facility]-Hepatitis A Vaccines Aged Out No longer eligible based on patient's age to complete this topic [facility]-IPV Vaccines Aged Out No longer e ligible based on patient's age to complete this topic [facility]-Rotavirus Vaccines Aged Out No lo nger eligible based on patient's age to complete this topic Procedures Procedure Name Priority Date/Time Associated Diagnosis Comments INTRAVITREAL INJECTION, PHARMACOLOGIC AGENT - OS - LEFT EYE Routine 04/26/2025 9:13 AM EDT Exudative age-related macular degeneration of left eye with active choroidal neovascularization (CMS/HCC) OCT, RETINA - OU - BOTH EYES Routine 04/26/2025 9:12 AM EDT Exudative age-related macular degeneration of left eye with active choroidal neovascularization (CMS/HCC) POCT GLYCOSYLATED HEMOGLOBIN (HGB A1C) Routine 01/04/2025 8:48 AM EDT Type 2 diabetes mellitus with other specified complication, with long-term current use of insulin (CMS/HCC) from Last 3 Months or Most Recently Relevant to Health Maintenance Results * Intravitreal Injection, Pharmacologic Agent - [...] 2 MG/0.05ML Route: Intravitreal, Site: Left Eye [facility]: 02935-058-38, Lot: [id number], Expiration date: 07/17/2026 Post-op Post injection exam [...] Tushar Mcgee MD OPHTH TOMOGRAPHY Final Result * (ABNORMAL) POCT glycosylated hemoglobin (Hb A1C) (01/04/2025 8:48 AM EDT) POCT Hemoglobin A1C 5.9 <5.7% Non-Diabet ic % [facility] Kit Lot Number [id number] [facility] Kit Expiration Date 11/11 [facility]ALTH[facility]ARE [facility] Blood Venous blood specimen / Unknown 01/04/2025 8:48 AM EDT Elliott Worthy MD POINT OF CARE TEST ENTER/EDIT ORDERABLES Final Result Performing Organization Address City/State/[facility] Co de Phone Number [facility] [address] [place] [phone] from Last 3 Months or Most Recently Relevant to Health Maintenance Insurance MEDICARE [facility] Care Teams Product Safety Associate Relationship Specialty Start Date End Date Anson Davison MD [address] [place] [address] PCP - General 12/29/20
--- OUTSIDE RECORDS SUMMARY | 2025-06-20 12:22 | XMS_ITS | Encounter Summary ---
Author Organization Healthcare Address [address] [place] [address] Care Team Providers Care Manufacturing Chief Engineer Name Role Phone Anson Davison MD Primary Care Provider [phone] Encounter Details Date Type Department Care Team (Latest Contact Info) Description 04/26/2025 Travel Social History Tobacco Use Types Packs/Day [...] Description 06/28/2025 11:00 AM EST Office Visit [facility] [address] [place] [address] Tushar Mcgee MD [address] [facility] [address] [address] 07/12/2025 8:00 AM EST Office Visit [facility] [address] [place] [phone] (1), Elliott Worhty Fellow 09/07/2025 9:15 AM EST Office Visit [facility] [address] [place] [address] Leonardo Cali MD [address] [place] [address] documented as of this encounter Visit Diagnoses Not on filedocumented in this encounter Additional Health Concerns Assessment Noted Time A fall risk assessment has been complete d for the patient 04/26/2025 8:08 AM EDT A Body Mass Index follow-up plan has been documented for the patient 02/07/2025 8:43 AM EDT documented as of this encounter Care Teams Manufacturing Chief Engineer Relationship Specialty Start Date End Date Anson Davison MD [address] [place] [address] PCP - General 12/29/20 documented as of this encounter
[2025-06-20] MEDS: LACTATED RINGERS 1000ML 1,000 ML 999 ML IV (12:25)
--- NOTE | 2025-06-20 12:25 | CT_ITS ---
FINAL REPORT TECHNIQUE: Thin section axial images were obtained from skull base to vertex without contrast. Coronal reconstruction images were obtained from the axial data. Exam was performed using dose reduction techniques such as automated exposure control, adjustment of the mA and kV according to patient size, and use of iterative reconstruction technique. CLINICAL HISTORY: aMS COMPARISON: None FINDINGS: There is atrophy. No mass effect or midline shift. No intracranial hemorrhage. No hydrocephalus. Periventricular low density is likely related to changes of chronic small vessel ischemia. The basilar cisterns are preserved. The posterior fossa is without acute abnormality. There is mucoperiosteal thickening in bilateral maxillary sinuses. No acute osseous abnormality is identified. IMPRESSION: No evidence of acute hemorrhage or large cortical infarct. Atrophy and changes suggesting chronic small vessel ischemia. Reviewed, Interpreted and Dictated by Angela Childers MD Transcribed by Cassi Lao Authenticated and [facility]
--- NOTE | 2025-06-20 12:25 | XR_ITS ---
FINAL REPORT CLINICAL HISTORY: abdominal pain COMPARISON: None FINDINGS: A single supine view the abdomen was obtained. The bowel gas pattern is nonspecific but nonobstructive. There is mild gaseous distention of small-bowel loops but gas and stool is seen throughout the colon. There are no pathologic calcifications. Osseous structures are within normal limits. IMPRESSION: Nonspecific but nonobstructive bowel gas pattern. Reviewed, Interpreted and Dictated by Angela Childers MD Transcribed by Cassi Lao Authenticated and [facility]
--- NOTE | 2025-06-20 12:25 | XR_ITS ---
FINAL REPORT CLINICAL HISTORY: altered FINDINGS: A portable view of the chest is obtained. There is no prior exam for comparison. Prior median sternotomy. The heart is mildly enlarged. [id number] basilar opacities favored to represent atelectasis. Pneumonia not excluded. There is no pleural effusion or pneumothorax. IMPRESSION: Basilar opacities favor atelectasis but pneumonia not excluded. Reviewed, Interpreted and Dictated by Angela Childers MD Transcribed by Cassi Lao Authenticated and [facility]
[2025-06-20 12:31] LABS: Coronavirus 19, PCR Not Detected (NotDetected); Influenza A, PCR Not Detected (NotDetected); Influenza B, PCR Not Detected (NotDetected)
--- NOTE | 2025-06-20 12:34 | ED_ITS ---
<Statement entered by Yobani Sheth MD - 06/20/25 16:47> I consulted the PEDRO, and we discussed the complexity of the problems being addressed. I approved the treatment and management plan for this patient's care in the emergency department, thus performing a substantial portion of the medical decision making. Lobo Sheth MD Discharge Plan Disposition Chief Complaint: Altered Mental Status Prescriptions Prescriptions: No Action carvedilol 25 mg tablet 25 mg PO Patient Comments: TAKE 1/2 (ONE-HALF) TABLET BY MOUTH TWICE DAILY tramadol 50 mg tablet 50 mg PO BIDP PRN (Reason: Pain) atorvastatin 80 MG tablet 80 mg PO HS 30 Days Qty: 30 0RF carvedilol 12.5 MG tablet 12.5 mg PO BID 30 Days Qty: 60 0RF carbidopa-levodopa 1 EACH tablet extended release 1 tab PO TID 30 Days Qty: 90 0RF aspirin 81 MG tablet,delayed release (DR/EC) 81 mg PO DAILY 30 Days Qty: 30 0RF glimepiride 1 MG tablet 1 mg PO DAILY 30 Days Qty: 30 0RF citalopram 20 MG tablet 20 mg PO DAILY 30 Days Qty: 30 0RF amlodipine 10 MG tablet 10 mg PO DAILY 30 Days Qty: 30 0RF Referrals Follow up/Referrals: Anson Davison MD [Primary Care Provider, Internal Medicine] - See instructions Instructions Patient Instructions: DI for Altered Mental Status Print Language Print Language: Chinese Discharge ED Provider: Yobani Sheth General Adult HPI General Chief complaint: Altered Mental Status Stated complaint: Fall Time Seen by Provider: 06/20/25 12:17 Mode of Arrival: EMS Source of Information: EMS Description of Symptoms (Recalled from ER Triage Doc. by RN): EMS states that patient was on the floor in the bathroom between the toilet and shower. Patient is confused. Alert to self only. Family now at bedside and states this started on Friday. Reports that patient has become increasingly confused and soiling himself. History of Present Illness HPI narrative: 75-year-old male presents to the ED today for complaint of a fall prior to arrival. He has been weak and altered since Friday. His temp on arrival to the ED was 103.1 rectally. Patient has history of heart failure, diabetes, renal cell carcinoma, anemia, Parkinson's and depression. Patient has been increasing confused and soiling himself which is not normal for patient. He is typically alert and oriented x 4. Patient's is at bedside. Patient has been evaluated by Dr. Johnson and has been evaluated for pacer according to his because of his Related Data Home Medications ?Medication ?Instructions ?Recorded ?Confirmed tramadol 50 mg tablet 50 mg PO BIDP PRN Pain 08/1411/11/23 carvedilol 25 mg tablet 25 mg PO 10/02/23 11/11/23 Previous Rx's ?Medication ?Instructions ?Recorded amlodipine 10 mg tablet 10 mg PO DAILY bp 30 days #3 0 tabs 07/13/21 aspirin 81 mg tablet,delayed 81 mg PO DAILY CIRCULATIO N 30 days 07/13/21 release #30 tabs atorvastatin 80 mg tablet 80 mg PO HS Cholesterol 30 d ays 07/13/21 #30 tabs carbidopa ER 50 mg-levodopa 200 mg 1 tab PO TID michael sons 30 days 07/13/21 tablet,extended release #90 tabs carvedilol 12.5 mg tablet 12.5 mg PO BID High blood pr essure 07/13/21 30 days #60 tabs citalopram 20 mg tablet 20 mg PO DAILY Anxiety 30 da ys #30 07/13/21 tabs glimepiride 1 mg tablet 1 mg PO DAILY Diabetes 30 da ys #30 07/13/21 tabs Allergies Allergy/AdvReac Type Severity Reaction Status Date / Time No Known Allergies Allergy Verified 11/11/23 11:00 [facility] Disclaimer: The information contained in this section may have been updated after the patient was seen, as this information can be updated by other users. Medical History Heart failure HLD (hyperlipidemia) Parkinson disease Depression HTN (hypertension) Diabetes type 2, controlled Renal cell carcinoma Iron deficiency anemia Anemia Surgical History History of colonoscopy History of esophagogastroduodenoscopy (EGD) Family History Other No significant family history Social History Smoking Status: Never smoker second hand exposure: No alcohol intake: former substance use type: denies use current occupational status: retired Travel in the last 8 weeks?: Outside the [facility] States household members: spouse housing: house caffeine: No Have you lived/traveled outside [place] in past 30 days?: No Contact w/someone who lives/traveled outside [place] past 30 days?: No Exposure to someone with infectious disease in past 14 days?: No Do you have a fever (greater than 100.4 F or 38 C)?: No Have you tested positive for COVID-19?: No Exposed to someone with COVID-19 in past 14 days?: No Do you have a sore throat?: No Do you have a cough?: No Do you have any weakness?: No Do you have any diarrhea?: No Are you experiencing any unusual bleeding?: No Do you have any muscle aches/pain?: No Do you have any abdominal pain?: No Are you experiencing loss of taste or smell?: No Other Medical History Have you received the Flu Vaccine for this season: No Have you received the Pneumonia Vaccine: Yes ROS Obtained: Yes Systems reviewed as appropriate & no additional complaints except as documented Constitutional Constitutional: Reports as per HPI Physical Exam General General appearance: other (Altered) Comment: Altered mental status Head Head exam: atraumatic and normocephalic Eye Eye exam: Present PERRL and EOMI ENT ENT exam: Present normal oropharynx and mucous membranes dry Neck Neck exam: Present trachea midline Respiratory Respiratory exam: Present other (rhonchi ) Cardiovascular Cardiovascular exam: Present normal rhythm, tachycardia, normal heart sounds, +S1 and +S2 Abdominal Exam Abdominal exam: Present soft and normal bowel sounds Extremities Exam Extremities exam: Present full ROM and normal capillary refill Neurological Exam Neurological exam: Present alert and oriented X3 Skin Skin exam: Present warm, dry and pallor Medical Decision Making Medical Records Screening: Per USPSTF and CDC recommendations, given the prevalence of disease in our region, it is our hospital?s policy to screen for HIV and viral Hepatitis for all patients aged 18 and over and those with ongoing risk factors. Sina Inquiry Pt receiving controlled substance: No Sina was queried for this patient: No Vital Signs: 06/20/25 12:10 Temperature 100.2 F H Temperature Source Temporal Artery Scan Pulse Rate [Radial] 102 H Respiratory Rate 20 Blood Pressure [Right Arm] 164/76 H Blood Pressure Mean [Right Arm] 105 Blood Pressure Source [Right Arm] Automatic Cuff Blood Pressure Position [Right Arm] Sitting 02 Sat by Pulse Oximetry 95 Oxygen Delivery Method Room Air Lab Data Lab Results 06/20/25 12:03: SARS-CoV-2 (PCR) Not detected, Influenza A Untype (PCR) Not detected, Influenza Type B (PCR) Not detected 06/20/25 12:20: WBC 10.3, RBC 4.94, Hgb 14.8, Hct 43.6, MCV 88.3, MCH 30.0, MCHC 33.9, RDW 13.8, Plt Count 68 L, MPV 9.8, Neut % (Auto) 94.0 H, Lymph % (Auto) 2.7 L, [place] % (Auto) 2.6, Eos % (Auto) 0.0 L, Baso % (Auto) 0.2, Neut # (Auto) 9.7 H, Lymph # (Auto) 0.3 L, [place] # (Auto) 0.3, Eos # (Auto) 0.0, Baso # (Auto) 0.0, ESR 37 H, PT 12.7 H, INR 1.16 H, APTT 29.3, Sodium 138, Potassium 4.3, Chloride 107, Carbon Dioxide 19 L, Anion Gap 16.3 H, BUN 39 H, Creatinine 2.90 H , Estimated Creat Clear 26, Estimated GFR 21 L, Est GFR ( Amer) 26 L, G lucose 188 H, Lactate 4.2 H, Calcium 8.7, Total Bilirubin 2.2 H, AST 90 H, ALT 81 H, Alkaline Phosphatase 184 H, Total Creatine Kinase 840 H*, C-Reactive Protein 248.9 H, Total Protein 7.7, Albumin 4.3, Globulin 3.4 H, Albumin/Globulin Ratio 1.3 06/20/25 12:20 06/20/25 12:20 Orders (Tests/Meds): ED MEDICATIONS Generic Name Dose Route Start Last Admin Trade Name Freq PRN Reason Stop Dose Admin Lactated Ringer's 2,580 mls @ 1,290 mls/hr 06/20/25 12:26 Lactated Ringer's 1000 Ml Bag 30 ml/kg infuse over 2 hr (2580 ml) 06/20/25 14:25 IV .Q2H ONE Protocol Piperacillin Sod/Tazobactam 50 mls @ 100 mls/hr 06/20/25 12:30 06/20/25 13:37 Sod 3.375 gm/ Sodium Chloride IV 06/30/25 12:29 Infused Q6H PELON Infusion Vancomycin/PEG/NADA/Lysine/Water 1.5 gm in 300 mls @ 150 mls/hr 06/20/25 12:30 06/20/25 13:13 Vancomycin 1.5gm/300ml (Peg) Premix IV 06/20/25 14:29 150 mls/hr ONCE ONE Administration Miscellaneous 1 each 06/20/25 12:30 06/20/25 13:10 Vancomycin Consult Request NOTAPPLIC 07/20/25 12:29 1 each CONSULT [facility] Administration Discontinued Medications Generic Name Dose Route Start Last Admin Trade Name Freq PRN Reason Stop Dose Admin Lactated Ringer's 1,000 mls @ 999 mls/hr 06/20/25 12:16 06/20/25 12:25 Lactated Ringer's 1000 Ml Bag IV 06/20/25 13:16 999 mls/hr .Q1H1M ONE Administration ORDERS Category Date Time Status CT head/brain wo con Stat Cat Scan 06/20/25 12:25 Completed Chest XR -- portable [XR chest portable] Stat Exams 06/20/25 12:25 Completed KUB (single view) [XR KUB] Stat Exams 06/20/25 12:25 Completed Activated Partial Thrombo Time Stat Lab 06/20/25 12:20 Completed C-Reactive Protein Stat Lab 06/20/25 12:20 Completed Complete Blood Count Auto Diff Stat Lab 06/20/25 12:20 Results Comprehensive Metabolic Panel Stat Lab 06/20/25 12:20 Completed Creatine Kinase Stat Lab 06/20/25 12:20 Completed Erythrocyte Sedimentation Rate Stat Lab 06/20/25 12:20 Completed Full Resp Panel w/COVID ([facility]) Routine Lab 06/20/25 12:03 Received HIV Combo Stat Lab 06/20/25 12:20 Received Hepatitis C Ab Qual. W/ RFX Stat Lab 06/20/25 12:20 Received Lactic Acid Stat Lab 06/20/25 12:20 Completed Prothrombin Time INR Stat Lab 06/20/25 12:20 Completed Rapid PCR Covid and Flu A/B Stat Lab 06/20/25 12:03 Completed Urinalysis and Microscopic Routine Lab 06/20/25 12:26 Ordered Blood Culture Stat Micro 06/20/25 12:20 Received Medical Decision Narrative: patient is a 75-year-old male presenting to the emergency department for evaluation of altered mental status, fever, . Patient is hemodynamically stable, febrile at 103.1, heart rate 102, altered mental status. Differential diagnosis includes acute kidney failure, rhabdo, heart failure, among others. Workup will be conducted with hematologic labs, specific imaging, provocative tests. Initial inventions include I gave patient 500 mL bolus but did not give the sepsis bolus because of his heart failure, patient has received antibiotics Zosyn and vanc empirically. Initial workup reviewed by me hematologic labs are remarkable for normal white count at 10, platelet count of 68, ESR 37, PT 12.7 INR 1.16, CO2 19 anion gap 16.3, BUN 39, creatinine 2.9. Patient GFR 21, lactate 4.2, AST 90, ALT 81, CK is 840, CRP is 248,. Chest x-ray shows pneumonia read by myself. The radiology report says0.3, basilar opacities favor atelectasis but pneumonia not excluded. KUB showed nonspecific but nonobstructive bowel gas pattern. I have discussed this patient with Dr. Sheth. I called hospitalist and talked to Kamryn about admission. Patient will be admitted. Critical Care Critical Care Time Critical Care Time: No
[2025-06-20 12:41] LABS: Hematocrit 43.6 % (42.0-52.0); Hemoglobin 14.8 g/dL (14.1-18.0); Immature Granulocytes % 0.5 %; Mean Corpuscular HGB Conc 33.9 g/dL (31.8-35.4); Mean Corpuscular Hemoglobin 30.0 pg (27.0-31.2); Mean Corpuscular Volume 88.3 fl (80-94); Nucleated Red Blood Cells % 0 %; Platelet Count 68 K/mm3 (142-424); Red Blood Count 4.94 M/mm3 (4.60-6.20); Red Cell Distribution Width-SD 44.1 fL; White Blood Count 10.3 K/mm3 (4.8-10.8)
[2025-06-20] MEDS: PIPERCILLIN/TAZO 3.375 GM in 0.9 % SODIUM CHLORIDE 50 ML IV ×2 (12:55→18:31)
[2025-06-20 12:57] LABS: Alanine Aminotransferase 81 U/L (12-78); Albumin Level 4.3 g/dl (3.5-5.0); Albumin/Globulin Ratio 1.3 (1.1-1.8); Alkaline Phosphatase 184 U/L (38-126); Anion Gap 16.3 mEq/L (5-15); Aspartate Amino Transferase 90 U/L (17-59); Bilirubin,Total 2.2 mg/dl (0.2-1.3); Blood Urea Nitrogen 39 mg/dl (9-20); Calcium 8.7 mg/dl (8.4-10.2); Carbon Dioxide 19 mmol/L (22.0-30.0); Chloride 107 mmol/L (98-107); Creatine Kinase 840 U/L (55-170); Creatinine Clearance Estimated 26 mL/min (50-200); Creatinine,Serum 2.90 mg/dl (0.66-1.25); Estimated Glomerular Filt Rate 21 ml/min (>60); GFR (African American) 26 ML/MIN (>60); Globulin 3.4 g/dL (1.3-3.2); Glucose 188 mg/dl (74-100); Potassium 4.3 mmoL/L (3.5-5.1); Sodium 138 mmol/L (136-145); Total Protein,Serum 7.7 g/dl (6.3-8.2)
[2025-06-20 13:00] LABS: Activated Partial Thrombo Time 29.3 seconds (22.8-30.6); INR 1.16 (0.9-1.1); Prothrombin Time 12.7 seconds (10.1-12.5)
[2025-06-20 13:02] LABS: C-Reactive Protein 248.9 mg/L (0-4)
--- NOTE | 2025-06-20 13:03 | PC.NURSE ---
Kay from lab called with critical Lactic level of 4.2 @1256
[2025-06-20] MEDS: VANCOMYCIN CONSULT REQUEST 1 EACH NOTAPPLIC (13:10)
[2025-06-20] MEDS: VANCOMYCIN/WATER FOR INJ (PEG) 1.5 GM/300 ML PIGGYBACK IV (13:13)
[2025-06-20 13:43] LABS: Adenovirus,PCR Not Detected (NotDetected); Chlamydophila Pneumoniae, PCR Not Detected (NotDetected); Coronavirus 19, PCR Not Detected (NotDetected); Coronovirus HKU1,PCR Not Detected (NotDetected); Influenza A, PCR Not Detected (NotDetected); Influenza AH1, 2009 Not Detected (NotDetected); Influenza AH1, PCR Not Detected (NotDetected); Influenza AH3,PCR Not Detected (NotDetected); Influenza B, PCR Not Detected (NotDetected); Mycoplasma Pneumoniae, PCR Not Detected (NotDetected); Parainfluenza 1, PCR Not Detected (NotDetected); Parainfluenza 2, PCR Not Detected (NotDetected); Parainfluenza 3, PCR Not Detected (NotDetected); Parainfluenza 4, PCR Not Detected (NotDetected)
--- NOTE | 2025-06-20 14:06 | CA_ITS ---
APPROVED REPORT EXAM: Comprehensive 2D, Doppler, and color-flow Echocardiogram Beverage Manager: Carolyn Murillo RVT Ht: 5 ft 6 in Wt: 189lbs BSA: 1.95 BP: 115/69 mmHg Indications: altered mental status,avr 2D Dimensions LA Volume 46.10 mL LA Volume Index 23.64 mL/m2 (M/F) 16-34 M-Mode Dimensions RVDd 4.84 cm (0.9-2.6) LA Diam 3.58 cm (1.9-4.0) LVDd 3.53 cm (3.5-5.7) LVDs 2.51 cm (3.5-5.7) IVSd 1.32 cm (0.6-1.1) PWd 0.93 cm (0.6-1.1) EF (Teich) 56.60% FS 28.90% EDV (Teich) 51.90 mL TAPSE 1.41 (<1.7) ESV (Teich) 22.50 mL LV Diastology E Decel Time 150 (160-240 msec) E/A Ratio 0.6 Aortic Valve GELY Index 0.86 cm2/m2 AoV Peak Teofilo. 228.0 (50-130 cm/s) AO Peak GR. 21.00 mmHg AO Mean GR. 10.00 (<5 mmHg) AO VTI 33.4 (18-25 cm) GELY (VTI) 1.71 (2.5-4.5 cm2) Mitral Valve MV E Max Teofilo. 58.0 (40-130 cm/s) MV A Velocity 100.0 (40-130 cm/s) E/A Ratio 0.58 MV PHT 44.0 ms Pulmonary Valve PV Peak Velocity 94.0 (50-150 cm/s) Left Ventricle The left ventricle is normal size. Left ventricular systolic function is normal. The left ventricular ejection fraction is within the normal range. There is increased left ventricular wall thickness. There is normal LV segmental wall motion. The left ventricular diastolic function is normal. LVEF is 55% Right Ventricle The right ventricle is moderately dilated. The right ventricular systolic function is mildly reduced. Atria The left atrium is mildly dilated. The right atrium is mildly dilated. There is no color Doppler evidence of interatrial shunt. Aortic Valve s/p TAVR. The prosthesis is well-seated. Peak velocity 2.1 m/s. Mean AV gradient is 11 mmHg. Max AV gradient is 20 mmHg. Mild central aortic regurgitation is present. Mitral Valve The mitral valve is normal in structure. No evidence of mitral valve stenosis. Trace mitral regurgitation is present. Tricuspid Valve The tricuspid valve leaflets are thin and pliable. Trace tricuspid regurgitation. There is insufficient TR jet to estimate RVSP. Pulmonic Valve The pulmonary valve is grossly normal in structure. Mild pulmonic valve regurgitation is present. Great Vessels The aortic root is normal in size. IVC is normal in size and collapses >50% with inspiration. Pericardium There is no pericardial effusion. Other Information Study Quality: Fair Conclusion Normal LV systolic function. Moderate RV dilation with mild reduction in RV function. Mild biatrial dilation. s/p TAVR. Mild central AI. Peak velocity 2.1 m/s. Mean AV gradient is 11 mmHg. Max AV gradient is 20 mmHg. Mild PI. Electronically signed by : Mague Hernadez MD 06/21/2025 12:54:11
[2025-06-20] MEDS: ACETAMINOPHEN 1,000MG/100ML VIAL 1000 MG IV (14:13)
[2025-06-20 14:21] LABS: Microscopic, Urine URINE MICROSCOPIC (MICROSCOPIC)
[2025-06-20 14:21] LABS: RBC Morphology Normal; Total Cells Counted 100
--- NOTE | 2025-06-20 14:29 | EXP.HP ---
History of Present Illness *Admission Date: 06/20/25 *Reason for visit:: Confusion, weakness, falling *History of present illness: 75-year-old male with history of Parkinson's, diabetes, history of metastatic renal cell carcinoma. He presented to the ER via EMS after being found on the floor in his bathroom by his . He has been more confused over the past 2 days. States that he was having accidents and urinating on himself. On arrival to the ER, patient found to be tachycardic, tachypneic, febrile to 102.8. Meeting sepsis criteria. Workup concerning for severe sepsis with HEIDE, mild elevation in liver enzymes. Initiated on empiric antibiotics with vancomycin and Zosyn. Blood cultures obtained. Unclear exact etiology however differential includes UTI or intra-abdominal infection given tenderness of belly. CT obtained at time of admission. Medicine consulted for admission and further management. On evaluation, patient appears mildly confused and is not at baseline per . Not acting himself or answering questions very well. Localizes to pain with palpation of his abdomen but otherwise unable to provide history or review of systems. This information was obtained from at bedside. States he is been taking his medications up until today. He has been struggling with some bradycardia and is currently being evaluated by his drain tile press operator Dr. Johnson to potentially have pacemaker placed in the coming weeks. [facility] Disclaimer: The information contained in this section may have been updated after the patient was seen, as this information can be updated by other users. Medical History (Updated 06/20/25 @ 23:20 by Tito Franklin MD) Heart failure HLD (hyperlipidemia) Parkinson disease Depression HTN (hypertension) Diabetes type 2, controlled Renal cell carcinoma Iron deficiency anemia Anemia Surgical History History of colonoscopy History of esophagogastroduodenoscopy (EGD) Family History Other No significant family history Social History Smoking Status: Never smoker second hand exposure: No alcohol intake: former substance use type: denies use current occupational status: retired Travel in the last 8 weeks?: Outside the [place] household members: spouse housing: house caffeine: No Have you lived/traveled outside US in past 30 days?: No Contact w/someone who lives/traveled outside US past 30 days?: No Exposure to someone with infectious disease in past 14 days?: No Do you have a fever (greater than 100.4 F or 38 C)?: No Have you tested positive for COVID-19?: No Exposed to someone with COVID-19 in past 14 days?: No Do you have a sore throat?: No Do you have a cough?: No Do you have any weakness?: No Do you have any diarrhea?: No Are you experiencing any unusual bleeding?: No Do you have any muscle aches/pain?: No Do you have any abdominal pain?: No Are you experiencing loss of taste or smell?: No Other Medical History Have you received the Flu Vaccine for this season: No Have you received the Pneumonia Vaccine: Yes Review of Systems Review of Systems Review of systems (narrative): 14 point review of systems performed, pertinent positives and negatives as per [facility] Meds Home Medications and Allergies Home Medications ?Medication ?Instructions ?Recorded ?Confirmed ?Type amlodipine 10 mg tablet 10 mg PO DAILY bp 30 days #30 tabs 07/13/21 06/20/25 Rx aspirin 81 mg tablet,delayed 81 mg PO DAILY CIRCULATION 30 days 07/13/21 06/20/25 Rx release #30 tabs atorvastatin 80 mg tablet 80 mg PO HS Cholesterol 30 days 07/13/21 06/20/25 Rx #30 tabs carvedilol 12.5 mg tablet 12.5 mg PO BID High blood pressure 07/13/21 06/20/25 Rx 30 days #60 tabs citalopram 20 mg tablet 20 mg PO DAILY Anxiety 30 days #30 07/13/21 06/20/25 Rx tabs glimepiride 1 mg tablet 1 mg PO DAILY Diabetes 30 days #30 07/13/21 06/20/25 Rx tabs tramadol 50 mg tablet 50 mg PO BIDP PRN Pain 08/14/23 06/20/25 History atogepant 60 mg tablet (Qulipta) 60 mg PO DAILY 06/20/25 06/20/25 History carbidopa ER 50 mg-levodopa 200 mg 1 tab PO BID parkinsons 06/20/25 06/20/25 History tablet,extended release dapagliflozin propanediol 10 mg 10 mg PO DAILY 06/20/25 06/20/25 History tablet (Farxiga) ezetimibe 10 mg tablet (Zetia) 10 mg PO DAILY 06/20/25 06/20/25 History ferrous sulfate 325 mg (65 mg 325 mg PO DAILY 06/20/25 06/20/25 History iron) tablet (iron) magnesium oxide 400 mg (241.3 mg 400 mg PO DAILY 06/20/25 06/20/25 History magnesium) tablet omeprazole 40 mg capsule,delayed 40 mg PO DAILY 06/20/25 06/20/25 History release vit C 250 mg-vit E 90 mg-zinc 40 1 tab PO BID 06/20/25 06/20/25 History mg-copper 1 [id number] capsule (PreserVision AREDS-2) New Prescriptions to Start Prescriptions: Allergies Allergy/AdvReac Type Severity Reaction Status Date / Time No Known Allergies Allergy Verified 11/11/23 11:00 Exam Data for Last 24 hours Vital signs and Labs for Last 24 Hours: Temp Pulse Resp BP Pulse Ox O2 Del Method 102.8 F H 104 H 32 H 168/86 H 95 Room Air 06/20/25 14:04 06/20/25 13:17 06/20/25 13:30 06/20/25 13:30 06/20/25 13:17 06/20/25 12:10 Laboratory Results - last 24 hr 06/20/25 12:03: SARS-CoV-2 (PCR) Not detected, Influenza A Untype (PCR) Not detected, Influenza Type B (PCR) Not detected 06/20/25 12:20: WBC 10.3, RBC 4.94, Hgb 14.8, Hct 43.6, MCV 88.3, MCH 30.0, MCHC 33.9, RDW 13.8, Plt Count 68 L, MPV 9.8, Neut % (Auto) 94.0 H, Lymph % (Auto) 2.7 L, [place] % (Auto) 2.6, Eos % (Auto) 0.0 L, Baso % (Auto) 0.2, Neut # (Auto) 9.7 H, Lymph # (Auto) 0.3 L, [place] # (Auto) 0.3, Eos # (Auto) 0.0, Baso # (Auto) 0.0, Total Counted 100, Neutrophils % (Manual) 82 H, Band Neutrophils % 14.0 H, Lymphocytes % (Manual) 1 L, Monocytes % (Manual) 3, Platelet Estimate Moderate decrease, RBC Morphology Normal, ESR 37 H, PT 12.7 H, INR 1.16 H, APTT 29.3, Sodium 138, Potassium 4.3, Chloride 107, Carbon Dioxide 19 L, Anion Gap 16.3 H, BUN 39 H, Creatinine 2.90 H, Estimated Creat Clear 26, Estimated GFR 21 L, Est GFR ( Amer) 26 L, Glucose 188 H, Lactate 4.2 H, Calcium 8.7, Total Bilirubin 2.2 H, AST 90 H, ALT 81 H, Alkaline Phosphatase 184 H, Total Creatine Kinase 840 H*, C-Reactive Protein 248.9 H, Total Protein 7.7, Albumin 4.3, Globulin 3.4 H, Albumin/Globulin Ratio 1.3 I & O for Last 24 hours: Intake & Output 06/17/25 06/18/25 06/19/25 06/20/25 23:59 23:59 22:59 23:59 Intake Total 632.75 / 632.75 Balance 632.75 / 632.75 Weight 85.956 kg Constitutional Constitutional: moderate distress, obese, chronically ill appearing and cooperative *Routine HEENT Exam Head: Present normocephalic Eye: Present EOMI and PERRL ENT: Present mucous membranes moist *Routine Neck Exam Neck: Present supple; Absent lymphadenopathy *Routine Respiratory Exam Respiratory: Present CTA bilaterally; Absent rhonchi, wheezes or crackles *Routine Cardiovascular Exam Cardiovascular: Present tachycardia *Routine Abdominal Exam Abdominal: Present soft, normoactive bowel sounds, tenderness (Prominent in right lower quadrant) and distended; Absent rebound or guarding *Routine Rectal Exam Rectal:: deferred *Routine Genitalia Exam Genitalia:: deferred *Routine Extremities Exam Extremities: Absent cyanosis, clubbing or edema *Routine Skin Exam Skin: Present intact and warm; Absent rash *Routine Neurological Exam Neurological: Present alert, altered mental status and moving all extremities Comments: Slow to answer questions. Most of history from . GCS of 14 Assessment and Plan *Assessment and plan (1) Sepsis: Status: Acute Category: Medical Code(s): A41.9 - Sepsis, unspecified organism (2) Altered mental status: Problem Comment: Acute metabolic encephalopathy Status: Acute Qualifiers: Coma depth: [place] coma 13-15 Category: Medical Code(s): R41.82 - Altered mental status, unspecified (3) 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 Category: Medical Code(s): C78.00 - Secondary malignant neoplasm of unspecified lung; C64.9 - Malignant neoplasm of unspecified kidney, except renal pelvis (4) Type 2 diabetes mellitus: Status: Chronic Qualifiers: Diabetes mellitus complication status: without complication Diabetes mellitus group home insulin use: without termite helper use Qualified Code(s): E11.9 - Type 2 diabetes mellitus without complications Category: Medical Code(s): E11.9 - Type 2 diabetes mellitus without complications (5) Essential (primary) hypertension: Status: Chronic Category: Medical Code(s): I10 - Essential (primary) hypertension (6) HEIDE (acute kidney injury): Status: Acute Category: Medical Code(s): N17.9 - Acute kidney failure, unspecified (7) Dehydration: Status: Resolved Category: Medical Code(s): E86.0 - Dehydration (8) Anemia: Status: Acute Category: Medical Code(s): D64.9 - Anemia, unspecified (9) Rhabdomyolysis: Status: Acute Category: Medical Code(s): M62.82 - Rhabdomyolysis (10) Constipation: Status: Acute Category: Medical Code(s): K59.00 - Constipation, unspecified (11) Parkinson disease: Status: Chronic Category: Medical Code(s): G20.A1 - Parkinson's disease without dyskinesia, without mention of fluctuations Plan 75-year-old male with diabetes, Parkinson's, history of metastatic renal cell carcinoma. Presents meeting sepsis criteria. Discussed case with ER physician, request admission for further antibiotics and workup of his sepsis. I decided to admit for further care. Continuing Zosyn and vancomycin. Admitted to ICU due to risk for decompensation. Problems addressed as follows: Severe sepsis Suspected UTI versus intra-abdominal infection Metabolic encephalopathy - White count normal at 10, platelets 68, hemoglobin 14.8. Neutrophil predominance at 94%. ESR elevated at 37, CRP severely elevated to 48 with procalcitonin of 48. -Sepsis criteria with tachycardia, tachypnea, fever 102.8. Suspected infection intra-abdominal he or UTI. - Comprehensive respiratory panel negative. - CT was obtained. Shows severely enlarged prostate. Also has constipation per my review. No significant inflammation of gut however. Low concern for appendicitis or cholecystitis. - Urine and blood cultures pending. - Urinalysis obtained, positive for 3+ blood, 5-10 whites, 2+ bacteria - Continue broad-spectrum antibiotics with vancomycin, renally dosed. Zosyn 3.375 g every 6 hours - Status post sepsis bolus. Having improvement in heart rate and respiratory rate after bolus. Lactate improved from 4-2.8 - Fever of 102.8 on presentation. Tylenol as needed every 6 hours 650 mg for fever pain HEIDE on CKD 3b: kidney function abnormal with BUN 39, creatinine 2.9 baseline approximately 1.9-2.0; avoiding contrast due to solitary kidney and HEIDE. Repeat CBC, CMP, magnesium ordered for the morning to monitor for improvement in kidney function. Parkinsonism: Continue carbidopa/levodopa 25/100 mg 3 times a day Diabetes: Glucose 188 on presentation. Repeat A1c ordered for the morning. TSH pending. Holding home glimepiride and Farxiga Hypertension: CAD: - Holding home amlodipine. Resume aspirin 81 mg daily, carvedilol 12.5 mg twice daily, -Holding Lipitor with mild elevation of liver enzymes with bilirubin 2.2, AST 90, ALT 81. Appears to have constipation on CT per my review. Will administer enema x 1. Continue omeprazole 40 mg daily for GERD Continue citalopram 20 mg daily for anxiety Full code Heparin subcu 5000 units 3 times daily, caution with thrombocytopenia. If continues to drop, will discontinue Diabetic diet
--- NOTE | 2025-06-20 14:58 | P.CONPHA_ITS ---
Pharmacy Consult Date: 06/20/25 Time: 14:58 Referring provider: DR VEGA Reason for Consult:: VANCOMYCIN DOSING CONSULT Allergies Allergy/AdvReac Type Severity Reaction Status Date / Time No Known Allergies Allergy Verified 11/11/23 11:00 Home Medications ?Medication ?Instructions ?Recorded ?Confirmed ?Type amlodipine 10 mg tablet 10 mg PO DAILY bp 30 days #3 0 tabs 07/13/21 11/11/23 Rx aspirin 81 mg tablet,delayed 81 mg PO DAILY CIRCULATIO N 30 days 07/13/21 11/11/23 Rx release #30 tabs atorvastatin 80 mg tablet 80 mg PO HS Cholesterol 30 d ays 07/13/21 11/11/23 Rx #30 tabs carbidopa ER 50 mg-levodopa 200 mg 1 tab PO TID michael sons 30 days 07/13/21 11/11/23 Rx tablet,extended release #90 tabs carvedilol 12.5 mg tablet 12.5 mg PO BID High blood pr essure 07/13/21 11/11/23 Rx 30 days #60 tabs citalopram 20 mg tablet 20 mg PO DAILY Anxiety 30 da ys #30 07/13/21 11/11/23 Rx tabs glimepiride 1 mg tablet 1 mg PO DAILY Diabetes 30 da ys #30 07/13/21 11/11/23 Rx tabs tramadol 50 mg tablet 50 mg PO BIDP PRN Pain 08/1411/11/23 History carvedilol 25 mg tablet 25 mg PO 10/02/23 11/11/23 H istory New Prescriptions to Start Prescriptions: Height: 1.68 m Weight: 85.956 kg Laboratory Results:: Laboratory Results - last 24 hr 06/20/25 12:03: SARS-CoV-2 (PCR) Not detected, Influenza A Untype (PCR) Not detected, Influenza Type B (PCR) Not detected 06/20/25 12:20: WBC 10.3, RBC 4.94, Hgb 14.8, Hct 43.6, MCV 88.3, MCH 30.0, MCHC 33.9, RDW 13.8, Plt Count 68 L, MPV 9.8, Neut % (Auto) 94.0 H, Lymph % (Auto) 2.7 L, [place] % (Auto) 2.6, Eos % (Auto) 0.0 L, Baso % (Auto) 0.2, Neut # (Auto) 9.7 H, Lymph # (Auto) 0.3 L, [place] # (Auto) 0.3, Eos # (Auto) 0.0, Baso # (Auto) 0.0, Total Counted 100, Neutrophils % (Manual) 82 H, Band Neutrophils % 14.0 H, Lymphocytes % (Manual) 1 L, Monocytes % (Manual) 3, Platelet Estimate Moderate decrease, RBC Morphology Normal, ESR 37 H, PT 12.7 H, INR 1.16 H, APTT 29.3, Sodium 138, Potassium 4.3, Chloride 107, Carbon Dioxide 19 L, Anion Gap 16.3 H, BUN 39 H, Creatinine 2.90 H, Estimated Creat Clear 26, Estimated GFR 21 L, Est GFR ( Amer) 26 L, Glucose 188 H, Lactate 4.2 H, Calcium 8.7, Total Bilirubin 2.2 H, AST 90 H, ALT 81 H, Alkaline Phosphatase 184 H, Total Creatine Kinase 840 H*, C-Reactive Protein 248.9 H, Total Protein 7.7, Albumin 4.3, Globulin 3.4 H, Albumin/Globulin Ratio 1.3 Medical History: Medical History (Updated 06/20/25 @ 14:07 by Kari Perez (ED), EQUINE BREEDER) Heart failure HLD (hyperlipidemia) Parkinson disease Depression HTN (hypertension) Diabetes type 2, controlled Renal cell carcinoma Iron deficiency anemia Anemia Assessment and Plan Assessment and plan all Dx Assessment and Plan for all problems:: Pharmacokinetic dosing service Objective: Age: 75 yo Serum creatinine: 2.9 mg/dL Height: 66.0 Inches Weight (kg): 85.956 Diagnosis: SEPSIS Assessment: IBW (kg): 63.80 Dosing wt(kg): 85.956 Estimated Creatinine clearance (ml/min): 19.6 CRCL method: Cockcroft and Gault using ibw(default). Drug selected: Vancomycin Vd (liters): 64.5 (factor used: 0.75 L/kg) Catrachito (hr-1): 0.021 Half life (hrs): 33.01 CLvanco=?? 1.355 L/hr Recommended dose: 1500 mg Interval: 48 hrs Infusion time (hrs): 2.0 Predicted peak (mcg/mL): 35.9 Predicted trough (mcg/mL): 13.66 Total body weight is being used for vancomycin dosing. Recommendations: Give Vancomycin 1500 mg q 48 hrs with an expected Cpeak of 35.9 mcg/ml and an expected Ctrough of 13.66 mcg/ml AUC 0-24 /ABBY Data: ABBY 0.5 mcg/mL:?? AUC/ABBY:? 1107.0 ABBY 1.0 mcg/mL:?? AUC/ABBY:? 553.5 --------- ABBY 1.5 mcg/mL:?? AUC/ABBY:? 369.0 ABBY 2.0 mcg/mL:?? AUC/ABBY:? 276.8 Thank you for the consult
--- NOTE | 2025-06-20 15:17 | PC.NURSE ---
1509 - Dr Franklin & Sherine Mckenna,YOKASTA @ bedside speaking w/ pt's .
[2025-06-20 15:23] LABS: Procalcitonin 48.0 ng/mL (0.0-2.0)
--- NOTE | 2025-06-20 15:24 | PC.NURSE ---
Report called to SONIA Puente.
[2025-06-20 15:25] LABS: Ammonia < 9 umol/L (9-30)
--- NOTE | 2025-06-20 15:42 | PC.NURSE ---
ARRIVED TO THE UNIT BY STRETCHER WITH OB STAFF
--- NOTE | 2025-06-20 15:47 | CT_ITS ---
PROCEDURE INFORMATION: Exam: CT Abdomen And Pelvis Without Contrast Exam date and time: 06/20/2025 4:29 PM Age: 75 years old Clinical indication: Abdominal pain; Additional info: Right lower quadrant pain, unable to get contrast TECHNIQUE: Imaging protocol: Computed tomography of the abdomen and pelvis without contrast. Radiation optimization: All CT scans at this facility use at least one of these dose optimization techniques: automated exposure control; mA and/or kV adjustment per patient size (includes targeted exams where dose is matched to clinical indication); or iterative reconstruction. COMPARISON: CT ABDOMEN PELVIS WO CON 10/13/2023 8:43 AM FINDINGS: Coronary arteries: Coronary atherosclerosis. Liver: Normal. No mass. Gallbladder and biliary ducts: Dependent stone is seen in the gallbladder no wall thickening or pericholecystic fluid noted. Pancreas: Normal. No ductal dilation. Spleen: Normal. No splenomegaly. Adrenal glands: Normal. No mass. Kidneys and ureters: Right nephrectomy. Stomach and bowel: Unremarkable. No obstruction. No mucosal thickening. Appendix: No evidence of appendicitis. Intraperitoneal space: Unremarkable. No free air. No significant fluid collection. Vasculature: Unremarkable. No abdominal aortic aneurysm. Lymph nodes: Unremarkable. No enlarged lymph nodes. Urinary bladder: Unremarkable as visualized. Reproductive: Mild prostatomegaly. Bones/joints: Degenerative disc disease with vacuum disc phenomena and disc space narrowing this is most prominent at L5-S1. Soft tissues: Unremarkable. IMPRESSION: 1. Cholelithiasis without acute cholecystitis. 2. Absent right kidney. 3. Coronary atherosclerosis. 4. Prostatomegaly.
[2025-06-20 16:33] LABS: Reflex Lactic Add Lactic Reflex
[2025-06-20 17:12] LABS: POC Glucose,Bedside 125 gm/dL (70-110)
[2025-06-20 17:27] LABS: Lactic Acid Follow Up (RFLX 1) 2.8 mmol/L (0.7-2.1)
--- NOTE | 2025-06-20 17:28 | PC.NURSE ---
noted patient also takes hemp oil and capsules
[2025-06-20] MEDS: CARBIDOPA/LEVODOPA 25/100MG TABLET 1 EACH PO ×2 (18:28→20:58)
--- NOTE | 2025-06-20 18:44 | PC.NURSE ---
relayed to md that the mineral oil enema was not in stock. asked abuot glycerin suppository and 1.2gm was noted to be in stock in ed. relayed this to and he stated he would place new orders
[2025-06-20 18:48] LABS: Hepatitis C Ab Qual. W/ RFX NEGATIVE (Negative)
[2025-06-20 18:56] LABS: Reflex Lactic (2 hrs) Add Lactic Reflex
[2025-06-20 19:49] LABS: Lactic Acid Follow up (RFLX 2) 3.0 mmol/L (0.7-2.1)
[2025-06-20 19:58] LABS: POC Glucose,Bedside 135 gm/dL (70-110)
[2025-06-20 20:37] LABS: Acinetobacter calcoaceticus-ba Not Detected; Bacteroides fragilis Not Detected; Candida auris Not Detected; Candida glabrata Not Detected; Enterobacterales Not Detected; Enterococcus faecalis Not Detected; Enterococcus faecium Not Detected; Klebsiella aerogenes Not Detected; Klebsiella pneumoniae grp Not Detected; Proteus spp. Not Detected; Salmonella spp. Not Detected; Serratia marcescens Not Detected; Staphylococcus epidermidis Not Detected; Staphylococcus lugdunensis Not Detected; Staphylococcus spp. Detected; Stenotrophomonas maltophilia Not Detected; Streptococcus agalactiae(GrpB) Not Detected; Streptococcus pyogenes Group A Not Detected; Streptococcus spp. Not Detected; mecA/C and MREJ (MRSA) Not Detected
[2025-06-20 20:40] LABS: Bilirubin,Urine Negative (Negative); Color,Urine YELLOW (Yellow); Glucose,Urine (UA) 3+ (Negative); Ketones,Urine Negative (Negative); Leukocyte Esterase,Urine Negative (Negative); PH,Urine 6.0 (5.0-8.5); Protein,Urine 3+ (Negative); Specific Gravity, Urine 1.015 (1.005-1.030); Urobilinogen,Urine 1.0 EU/dl (0.2)
[2025-06-20] MEDS: PANTOPRAZOLE 40MG TABLET 40 MG PO (20:58)
[2025-06-20] MEDS: CARVEDILOL 12.5MG TABLET 12.5 MG PO (20:58)
[2025-06-20 20:59] LABS: Acinetobacter calcoaceticus-ba Not Detected; Bacteroides fragilis Not Detected; Candida auris Not Detected; Candida glabrata Not Detected; Enterobacterales Not Detected; Enterococcus faecalis Not Detected; Enterococcus faecium Not Detected; Klebsiella aerogenes Not Detected; Klebsiella pneumoniae grp Not Detected; Proteus spp. Not Detected; Salmonella spp. Not Detected; Serratia marcescens Not Detected; Staphylococcus epidermidis Not Detected; Staphylococcus lugdunensis Not Detected; Staphylococcus spp. Detected; Stenotrophomonas maltophilia Not Detected; Streptococcus agalactiae(GrpB) Not Detected; Streptococcus pyogenes Group A Not Detected; Streptococcus spp. Not Detected; mecA/C and MREJ (MRSA) Not Detected
[2025-06-20] MEDS: SENNOSIDES 8.6MG/DOCUSATE 50MG TABLET 1 TAB PO (20:59)
[2025-06-20 21:14] LABS: Bacteria,Urine 2+ /lpf; Squamous Epithelial Cell,Urine Occasional #/hpf (0-5)
[2025-06-21] VITALS (18 sets, daily range): BP systolic 99–123; BP diastolic 60–76; PULSE 75–94; RESP 16–27; TEMP 36.6–37.1; O2SAT 93–100; BMI 30.2
[2025-06-21] MEDS: PIPERCILLIN/TAZO 3.375 GM in 0.9 % SODIUM CHLORIDE 50 ML IV ×2 (01:31→06:42)
[2025-06-21 05:41] LABS: POC Glucose,Bedside 149 gm/dL (70-110)
[2025-06-21 06:17] LABS: Hematocrit 36.7 % (42.0-52.0); Immature Granulocytes % 2.0 %; Mean Corpuscular HGB Conc 33.8 g/dL (31.8-35.4); Mean Corpuscular Hemoglobin 30.0 pg (27.0-31.2); Mean Corpuscular Volume 88.6 fl (80-94); Nucleated Red Blood Cells % 0 %; Red Blood Count 4.14 M/mm3 (4.60-6.20); Red Cell Distribution Width-SD 44.6 fL; White Blood Count 13.3 K/mm3 (4.8-10.8)
[2025-06-21 06:20] LABS: Albumin Level 3.9 g/dl (3.5-5.0); Chloride 105 mmol/L (98-107); Potassium 4.3 mmoL/L (3.5-5.1); Sodium 137 mmol/L (136-145)
[2025-06-21 06:21] LABS: Hemoglobin 12.4 g/dL (14.1-18.0); Platelet Count 50 K/mm3 (142-424)
[2025-06-21 06:22] LABS: Hemoglobin A1C 5.9 % (4.0-6.0)
[2025-06-21 06:23] LABS: Alanine Aminotransferase 22 U/L (12-78); Albumin/Globulin Ratio 1.7 (1.1-1.8); Alkaline Phosphatase 162 U/L (38-126); Anion Gap 15.3 mEq/L (5-15); Aspartate Amino Transferase 190 U/L (17-59); Bilirubin,Total 2.4 mg/dl (0.2-1.3); Blood Urea Nitrogen 48 mg/dl (9-20); Calcium 7.8 mg/dl (8.4-10.2); Carbon Dioxide 21 mmol/L (22.0-30.0); Creatinine Clearance Estimated 24 mL/min (50-200); Creatinine,Serum 3.10 mg/dl (0.66-1.25); Estimated Glomerular Filt Rate 20 ml/min (>60); GFR (African American) 24 ML/MIN (>60); Globulin 2.3 g/dL (1.3-3.2); Glucose 149 mg/dl (74-100); Phosphorous 5.0 mg/dl (2.5-4.5); Total Protein,Serum 6.2 g/dl (6.3-8.2)
[2025-06-21 06:24] LABS: Magnesium 1.9 mg/dl (1.6-2.3)
[2025-06-21 06:58] LABS: Thyroid Stimulating Hormone 0.64 uIU/mL (0.465-4.68)
[2025-06-21] MEDS: POLYETHYLENE GLYCOL 3350 17 GM PACKET PO (08:31)
[2025-06-21] MEDS: CITALOPRAM 20MG TABLET 20 MG PO (08:31)
[2025-06-21] MEDS: CARVEDILOL 12.5MG TABLET 12.5 MG PO ×2 (08:31→20:14)
[2025-06-21] MEDS: MAGNESIUM OXIDE 400MG TABLET 400 MG PO (08:31)
[2025-06-21] MEDS: CARBIDOPA/LEVODOPA 25/100MG TABLET 1 EACH PO ×3 (08:31→20:14)
--- NOTE | 2025-06-21 09:15 | HMH.OTEV ---
OT Evaluation Rehab OT IP Evaluation Start: 06/20/25 17:06 Freq: ONCE Status: Active Protocol: Document 06/21/25 09:11 [id number] (Rec: 06/21/25 09:15 [facility] [id number]) Rehab OT IP Assessment Subjective History Pt oriented x 2 on arrival. Pt admitted on 06/20/25 due to fall, kidney failure, and rhabdo. History and physical: 75-year-old male with history of Parkinson's, diabetes, history of metastatic renal cell carcinoma. He presented to the ER via EMS after being found on the floor in his bathroom by his . He has been more confused over the past 2 days. States that he was having accidents and urinating on himself. On arrival to the ER, patient found to be tachycardic, tachypneic, febrile to 102.8. Meeting sepsis criteria. Workup concerning for severe sepsis with HEIDE, mild elevation in liver enzymes. Initiated on empiric antibiotics with vancomycin and Zosyn. Blood cultures obtained. Unclear exact etiology however differential includes UTI or intra-abdominal infection given tenderness of belly. CT obtained at time of admission. Medicine consulted for admission and further management. On evaluation, patient appears mildly confused and is not at baseline per . Not acting himself or answering questions very well. Localizes to pain with palpation of his abdomen but otherwise unable to provide history or review of systems. This information was obtained from at bedside. States he is been taking his medications up until today. He has been struggling with some bradycardia and is currently being evaluated by his calender wind up tender Dr. Johnson to potentially have pacemaker placed in the coming weeks Subjective Prior to being in the hospital, pt lived at home with his . His completes all IADLs for patient and assists him as needed with ADLs. reports normally he is able to dress and feed himself. Pt does use a rolling walker intermittently. Objective Patient Orientation Person,Birthday Right Upper Min Limitation <25% Extremity Gross ROM Left Upper Extremity Min Limitation <25% Gross ROM Bed Mobility bed mobility-scooting,bed mobility - supine/sit Assist Level Moderate x 2 (50% assist) Transfer Training Sit/Stand Transfer Assist Level Minimal x 2 (25% assist) Rehab OT IP prob,goals,plan Problems Date of Evaluation: 11/04/25 OT IP Problems Bed Mobility,Transfers,Balance,Self care,Safety Rehab Potential Rehab Potential Good Equipment Needs Assistive Devices Rolling / Wheeled Walker Plan OT intervention Plan Bed Mobility,Transfers,Balance,Self care,Safety, Therapeutic Exercise OT Plan Frequency Daily Duration LOS Discharge Goals Bed Mobility Ability Assistance x1 Sit to Stand Chair Minimal x 1 (25% assist) Transfer Ability Chair Transfer Minimal x 1 (25% assist) Ability Chair Transfer Sit to/from Ambulatory Technique Chair Transfer Rolling Walker Assistive Devices Lower Body Dressing Moderate Assistance Ability Upper Body Dressing Minimal Assistance Ability Performing Toilet Moderate Assistance Hygiene Ability Overall Commode/ Minimal Assistance Toilet Transfer Ability Commode/Toilet Sit to/from Ambulatory Transfer Technique Discharge Plan OT Discharge Plan Pt will continue to be seen for OT services while at [facility]. At this time, pt would benefit most from short term rehab at [facility] for continued skilled therapy. If pt demonstrates improvement while at hospital, he could possibly return home with his with 24/7 assistance and HH OT evaluation. Continued skilled therapy is important in order for patient to improve strength, safety, endurance, ADL independence, and functional transfers to reach PLOF. Eval Complexity Eval Charge Codes 42091 - Moderate Complexity PHYSICIAN CERTIFICATION: I certify the specified therapy services for Tito Daniel are required, authorized, and reviewed every 30 days.
--- NOTE | 2025-06-21 09:21 | HMH.PTEV ---
Physical Therapy Evaluation Rehab PT IP Evaluation Start: 06/20/25 17:06 Freq: ONCE Status: Active Protocol: Document 06/21/25 09:11 ALANNAH (Rec: 06/21/25 09:21 ALANNAH [id number]) Subjective/History History History Per H&P: *History of present illness: 75-year-old male with history of Parkinson's, diabetes, history of metastatic renal cell carcinoma. He presented to the ER via EMS after being found on the floor in his bathroom by his . He has been more confused over the past 2 days. States that he was having accidents and urinating on himself. On arrival to the ER, patient found to be tachycardic, tachypneic, febrile to 102.8. Meeting sepsis criteria. Workup concerning for severe sepsis with HEIDE, mild elevation in liver enzymes. Initiated on empiric antibiotics with vancomycin and Zosyn. Blood cultures obtained. Unclear exact etiology however differential includes UTI or intra-abdominal infection given tenderness of belly. CT obtained at time of admission. Medicine consulted for admission and further management. On evaluation, patient appears mildly confused and is not at baseline per . Not acting himself or answering questions very well. Localizes to pain with palpation of his abdomen but otherwise unable to provide history or review of systems. This information was obtained from at bedside. States he is been taking his medications up until today. He has been struggling with some bradycardia and is currently being evaluated by his sales service representative Dr. Johnson to potentially have pacemaker placed in the coming weeks. Subjective Subjective Pt still confused per some inconsistent answers during hx taking. Pt's present and provided hx. Pt lives with his and is normally IND with all mobility. Pt uses a SPC for community level ambulation and no AD for household level ambulation. [facility] How much help from another person do you currently need... Turning from your A little back to your side while in a flat bed without using bedrails? Moving from lying on A little back to sitting on the side of a flat bed without using bedrails? Moving to and from a A little bed to a chair ( including a wheelchair)? Standing up from a A little chair using your arms? (e.g., wheelchair, bedside chair) Walking in hospital A lot room? Climbing 3-5 steps A lot with a railing? Mobility Score 16 Mobility Level [facility] Mobility 5 Stand (1 or more minutes) Mobility Calculator Rehab PT IP Eval Objective Appearance Patient Behavior Appropriate,Cooperative Difficulty following none instructions Speech Pattern Soft-Spoken Ambulation Patient Able to No Ambulate Balance Ability to Arise Able, uses arms to help Sitting Balance Steady, safe Standing Balance Steady, wide stance Dynamic Sitting Good Balance Ability Dynamic Standing Fair Balance Ability Transfers Bed Transfer Ability Moderate x 1 (50% assist) Sit to Stand Bed Minimal x 1 (25% assist) Transfer Ability Rehab PT IP prob,goals,plan Problems Date of Evaluation: 06/21/25 PT IP Problems Bed Mobility,Transfers,Gait,Balance,Self care,Safety Rehab Potential Rehab Potential Good Plan PT Intervention Plan Bed Mobility,Transfers,Gait,Balance,Self care,Safety, Therapeutic Exercise Other Intervention 1-2 times Plan PT Plan Frequency Daily Duration LOS Discharge Goals Bed Transfer Ability Supervision/Stand by Sit to Stand Chair Supervision/Stand by Transfer Ability Ambulation Distance 10 (feet) Discharge Plan PT Discharge Plan Pt most appropriate for skilled inpatient rehabilitation upon d/c from [facility] to address deficits and maximize safety with mobility. Pt may be safe to return home is he has 24/7 assistance with mobility and PT. Pt would benefit from skilled acute care PT while at [facility] to address deficits. Eval Complexity Eval Charge Codes 25692 - Moderate Complexity PHYSICIAN CERTIFICATION: I certify the specified therapy services for Tito Daniel are required, authorized, and reviewed every 30 days.
[2025-06-21 10:47] LABS: POC Glucose,Bedside 176 gm/dL (70-110)
--- NOTE | 2025-06-21 11:42 | SW/DCPLANNER ---
Addendum entered by Gardenia Daniel RN 06/24/25 12:02: Followed up with patient and . They still continue to want [facility] and not SNF even though he had a decline overnight and therapy recommends rehab. Addendum entered by Patricia Romero 06/22/25 14:18: Patient was accepted by [facility]. Thiago Mcbride Addendum entered by Patricia Romero 06/22/25 13:46: Spoke with patient and patient's and they are interested in home health and that they did not have a preference in what agency i send the information to. I faxed patient's information to [facility] and will update once i hear back if they can accept or not. Thiago Mcbride Addendum entered by Cindi Juarez 06/22/25 08:36: [facility] now has a male bed available.Family has also expressed an interest in [facility]. I will fax patient information to both facilities this AM. Original Note: I spoke w/ patient and his this AM regarding plans once medically stable for discharge. PT/OT evaluated patient and recommended SNF level of care. Patient/ are agreeable to placement in [place]. I did update patient/ that there are currently no skilled beds in [place]. I offered to search in surrounding counties for SNF level of care. stated that she would need additional time to speak w/ family members prior to making a decision about out of town placement. CM will continue to follow up. Discharge date is unknown at this time.
[2025-06-21] MEDS: ACETAMINOPHEN 325MG TAB 650 MG PO (12:50)
--- NOTE | 2025-06-21 15:59 | PC.NURSE ---
arrived by bed from ICU
[2025-06-21 16:44] LABS: POC Glucose,Bedside 174 gm/dL (70-110)
--- NOTE | 2025-06-21 17:30 | P.PN_ITS ---
Subjective *Date: 06/21/25 *Time: 17:30 Interval history: Slowly improving, still slightly encephalopathic. Bacteremia with Staph aureus, continue vancomycin. Pending placement. Exam Data for Last 24 hours Vital signs and Labs for Last 24 Hours: Temp Pulse Resp BP Pulse Ox O2 Del Method 98.5 F 83 18 115/63 95 Room Air 06/21/25 16:00 06/21/25 16:00 06/21/25 16:00 06/21/25 16:00 06/21/25 16:00 06/21/25 16:00 Laboratory Results - last 24 hr 06/20/25 12:20: A. baumannii (PCR) Not detected 06/20/25 12:20: A. baumannii (PCR) Not detected, Bacteroides fragilis Not detected 06/20/25 12:20: Bacteroides fragilis Not detected, Janice albicans (PCR) Not detected 06/20/25 12:20: Janice albicans (PCR) Not detected, Janice auris (PCR) Not detected 06/20/25 12:20: Janice auris (PCR) Not detected, C. glabrata (PCR) Not detected 06/20/25 12:20: C. glabrata (PCR) Not detected, C. krusei (PCR) Not detected 06/20/25 12:20: C. krusei (PCR) Not detected, C. parapsilosis (PCR) Not detected 06/20/25 12:20: C. parapsilosis (PCR) Not detected, C. tropicalis (PCR) Not detected 06/20/25 12:20: C. tropicalis (PCR) Not detected, Cryptococcus neoformans PCR Not detected 06/20/25 12:20: Cryptococcus neoformans PCR Not detected, Enterobacterales (PCR) Not detected 06/20/25 12:20: Enterobacterales (PCR) Not detected, Enterococc faecalis PCR Not detected 06/20/25 12:20: Enterococc faecalis PCR Not detected, Enterococc faecium PCR Not detected 06/20/25 12:20: Enterococc faecium PCR Not detected, E. coli (PCR) Not detected 06/20/25 12:20: E. coli (PCR) Not detected, H. influenzae DNA Not detected 06/20/25 12:20: H. influenzae DNA Not detected, HCV Ab MARIZA w/Rflx PCR Qn Negative, HIV Ag/Ab Combo Qual Negative, Klebsiella aerogenes (PCR) Not detected 06/20/25 12:20: Klebsiella aerogenes (PCR) Not detected, Klebsiella oxytoca PCR Not detected 06/20/25 12:20: Klebsiella oxytoca PCR Not detected, K. pneumoniae group (PCR) Not detected 06/20/25 12:20: K. pneumoniae group (PCR) Not detected, List. monocytogenes PCR Not detected 06/20/25 12:20: List. monocytogenes PCR Not detected, N. meningitidis (PCR) Not detected 06/20/25 12:20: N. meningitidis (PCR) Not detected, Proteus species (PCR) Not detected 06/20/25 12:20: Proteus species (PCR) Not detected, Salmonella spp. (PCR) Not detected 06/20/25 12:20: Salmonella spp. (PCR) Not detected, Serratia marcescens PCR Not detected 06/20/25 12:20: Serratia marcescens PCR Not detected, Staphylococcus sp PCR Detected A 06/20/25 12:20: Staphylococcus sp PCR Detected A, Staph aureus (PCR) Detected A 06/20/25 12:20: Staph aureus (PCR) Detected A, mecA/C & MREJ Resist Gene Not detected 06/20/25 12:20: mecA/C & MREJ Resist Gene Not detected, mecA/C-Methicil Resis Gene Not applicable 06/20/25 12:20: mecA/C-Methicil Resis Gene Not applicable, Staph epidermidis (PCR) Not detected 06/20/25 12:20: Staph epidermidis (PCR) Not detected, Staph lugdunensis (TEM- PCR) Not detected 06/20/25 12:20: Staph lugdunensis (TEM-PCR) Not detected, S. maltophilia (PCR) Not detected 06/20/25 12:20: S. maltophilia (PCR) Not detected, Streptococcus sp PCR Not detected 06/20/25 12:20: Streptococcus sp PCR Not detected, S.agalactiae Grp B PRISCILLA Not detected 06/20/25 12:20: S.agalactiae Grp B PRISCILLA Not detected, Strep pneumoniae (PCR) Not detected 06/20/25 12:20: Strep pneumoniae (PCR) Not detected, S. pyogenes GrpA PRISCILLA Not detected 06/20/25 12:20: S. pyogenes GrpA PRISCILLA Not detected, P. aeruginosa (PCR) Not detected 06/20/25 12:20: P. aeruginosa (PCR) Not detected, Steve/B-Vanco Res Genes Not applicable 06/20/25 12:20: Steve/B-Vanco Res Genes Not applicable, blaIMP Car res Gene PCR Not applicable 06/20/25 12:20: blaIMP Car res Gene PCR Not applicable, KPC-Carbap Res Gene PCR Not applicable 06/20/25 12:20: KPC-Carbap Res Gene PCR Not applicable, blaNDM Car Res Gene PCR Not applicable 06/20/25 12:20: blaNDM Car Res Gene PCR Not applicable, OXA-48 Carbapenem Resis Gene (PCR) Not applicable 06/20/25 12:20: OXA-48 Carbapenem Resis Gene (PCR) Not applicable, blaVIM Car Res Gene PCR Not applicable 06/20/25 12:20: blaVIM Car Res Gene PCR Not applicable, CTX-M Gene Resistance (PCR) Not applicable 06/20/25 12:20: CTX-M Gene Resistance (PCR) Not applicable, MCR-1 Resistance Gene Not applicable 06/20/25 12:20: MCR-1 Resistance Gene Not applicable 06/20/25 14:15: Urine Color Yellow, Urine Appearance Clear, Urine pH 6.0, Ur Specific [place] 1.015, Urine Protein 3+ A, Urine Glucose (UA) 3+, Urine Ketones Negative, Urine Blood 3+ A, Urine Nitrate Negative, Urine Bilirubin Negative, Urine Urobilinogen 1.0, Ur Leukocyte Esterase Negative, Urine RBC None, Urine WBC 5-10, Ur Squamous Epith Cells Occasional, Urine Bacteria 2+ 06/20/25 19:15: Lactate 3.0 H 06/20/25 19:45: POC Glucose 135 H 06/21/25 05:02: WBC 13.3 H D, RBC 4.14 L, Hgb 12.4 L D, Hct 36.7 L, MCV 88.6, MCH 30.0, MCHC 33.8, RDW 13.7, Plt Count 50 L D, MPV 10.5 H, Neut % (Auto) 88.8 H, Lymph % (Auto) 4.7 L, [place] % (Auto) 4.1, Eos % (Auto) 0.0 L, Baso % (Auto) 0.4, Neut # (Auto) 11.8 H, Lymph # (Auto) 0.6 L, [place] # (Auto) 0.6, Eos # (Auto) 0.0, Baso # (Auto) 0.1, Sodium 137, Potassium 4.3, Chloride 105, Carbon Dioxide 21 L, Anion Gap 15.3 H, BUN 48 H, Creatinine 3.10 H, Estimated Creat Clear 24, Estimated GFR 20 L, Est GFR ( Amer) 24 L, Glucose 149 H D, Hemoglobin A1c 5.9, Calcium 7.8 L, Phosphorus 5.0 H, Magnesium 1.9, Total Bilirubin 2.4 H, AST 190 H D, ALT 22 D, Alkaline Phosphatase 162 H, Total Protein 6.2 L, Albumin 3.9, Globulin 2.3, Albumin/Globulin Ratio 1.7, TSH 0.64 06/21/25 05:35: POC Glucose 149 H 06/21/25 10:36: POC Glucose 176 H 06/21/25 16:36: POC Glucose 174 H I & O for Last 24 hours: Intake & Output 06/18/25 06/19/25 06/20/25 06/21/25 23:59 22:59 23:59 23:59 Intake Total 1880 / 1880 690 / 690 Output Total 400 / 400 900 / 900 Balance 1480 / 1480 -210 / -210 Weight 85.956 kg 85.26 kg Microbiology Reports for the Last 24 Hours: Microbiology 06/20/25 12:20 Blood Blood Culture - Preliminary Gram Positive Cocci 06/20/25 12:20 Blood Blood Culture - Preliminary Gram Positive Cocci Constitutional Constitutional: no acute distress and chronically ill appearing *Routine HEENT Exam Head: Present normocephalic Eye: Present EOMI and PERRL ENT: Present mucous membranes moist *Routine Neck Exam Neck: Present supple; Absent lymphadenopathy *Routine Respiratory Exam Respiratory: Present CTA bilaterally *Routine Cardiovascular Exam Cardiovascular: Present RRR *Routine Abdominal Exam Abdominal: Present soft and normoactive bowel sounds; Absent tenderness *Routine Extremities Exam Extremities: Absent cyanosis, clubbing or edema *Routine Skin Exam Skin: Present warm; Absent rash *Routine Neurological Exam Neurological: Present alert and oriented X3 Assessment and Plan *Assessment and plan (1) Sepsis: Status: Acute Category: Medical Code(s): A41.9 - Sepsis, unspecified organism (2) Altered mental status: Problem Comment: Acute metabolic encephalopathy Status: Acute Qualifiers: Coma depth: [place] coma 13-15 Category: Medical Code(s): R41.82 - Altered mental status, unspecified (3) 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 Category: Medical Code(s): C78.00 - Secondary malignant neoplasm of unspecified lung; C64.9 - Malignant neoplasm of unspecified kidney, except renal pelvis (4) Type 2 diabetes mellitus: Status: Chronic Qualifiers: Diabetes mellitus usp insulin use: without supervisor estimator and drafter use Diabetes mellitus complication status: without complication Qualified Code(s): E11.9 - Type 2 diabetes mellitus without complications Category: Medical Code(s): E11.9 - Type 2 diabetes mellitus without complications (5) Essential (primary) hypertension: Status: Chronic Category: Medical Code(s): I10 - Essential (primary) hypertension (6) HEIDE (acute kidney injury): Status: Acute Category: Medical Code(s): N17.9 - Acute kidney failure, unspecified (7) Dehydration: Status: Resolved Category: Medical Code(s): E86.0 - Dehydration (8) Anemia: Status: Acute Category: Medical Code(s): D64.9 - Anemia, unspecified (9) Rhabdomyolysis: Status: Acute Category: Medical Code(s): M62.82 - Rhabdomyolysis (10) Constipation: Status: Acute Category: Medical Code(s): K59.00 - Constipation, unspecified (11) Parkinson disease: Status: Chronic Category: Medical Code(s): G20.A1 - Parkinson's disease without dyskinesia, without mention of fluctuations Plan Tito Daniel 75-year-old male with diabetes, Parkinson's, history of metastatic renal cell carcinoma. Presents meeting sepsis criteria. Discussed case with ER physician, request admission for further antibiotics and workup of his sepsis. I decided to admit for further care. Continuing Zosyn and vancomycin. Admitted to ICU due to risk for decompensation. Problems addressed as follows: Severe sepsis, resolved, #Community-acquired pneumonia, POA #Staph aureus bacteremia #Acute metabolic encephalopathy, resolving -Initial White count normal at 10, platelets 68, hemoglobin 14.8. Neutrophil predominance at 94%. ESR elevated at 37, CRP severely elevated to 48 with procalcitonin of 48. -Sepsis criteria with tachycardia, tachypnea, fever 102.8, lactic acid 4.3. Suspected infection intra-abdominal he or UTI. ?CXR notable for bibasilar pneumonia. Blood cultures growing Staph aureus in 2/2 bottles. Follow-up repeat BC. ? Continue vancomycin, discontinue Zosyn. Follow-up sensitivities. - CT was obtained. Shows severely enlarged prostate. Also has constipation per my review. No significant inflammation of gut however. Low concern for appendicitis or cholecystitis. - Continue broad-spectrum antibiotics with vancomycin, renally dosed. Zosyn 3.375 g every 6 hours - Status post sepsis bolus. Having improvement in heart rate and respiratory r ate after bolus. Lactate improved from 4-2.8 - Fever of 102.8 on presentation. Tylenol as needed every 6 hours 650 mg for fever pain HEIDE on CKD 3b: kidney function abnormal with BUN 39, creatinine 2.9 baseline approximately 1.9-2.0; avoiding contrast due to solitary kidney and HEIDE. Repeat CBC, CMP, magnesium ordered for the morning to monitor for improvement in kidney function. Creatinine up to 3.1 today, continue monitor. Parkinsonism: Continue carbidopa/levodopa 25/100 mg 3 times a day Diabetes: Glucose 188 on presentation. Repeat A1c ordered for the morning. TSH pending. Holding home glimepiride and Farxiga Hypertension: CAD: - Holding home amlodipine. Resume aspirin 81 mg daily, carvedilol 12.5 mg twice daily, -Holding Lipitor with mild elevation of liver enzymes with bilirubin 2.2, AST 90, ALT 81. Appears to have constipation on CT per my review. Will administer enema x 1. Continue omeprazole 40 mg daily for GERD Continue citalopram 20 mg daily for anxiety Full code Heparin subcu 5000 units 3 times daily, caution with thrombocytopenia. If continues to drop, will discontinue Diabetic diet
--- NOTE | 2025-06-21 18:35 | PC.NURSE ---
pt resting in bed with at bedside, came from ICU today, delayed on responses when asked questions, purwick in place, call light in reach
[2025-06-21 19:54] LABS: POC Glucose,Bedside 186 gm/dL (70-110)
[2025-06-21] MEDS: SENNOSIDES 8.6MG/DOCUSATE 50MG TABLET 1 TAB PO (20:14)
[2025-06-21] MEDS: PANTOPRAZOLE 40MG TABLET 40 MG PO (20:14)
[2025-06-22] VITALS (9 sets, daily range): BP systolic 113–131; BP diastolic 58–73; PULSE 79–90; RESP 16–17; TEMP 36.6–37.2; O2SAT 92–94; BMI 29.9
--- NOTE | 2025-06-22 03:13 | PC.NURSE ---
Pt AOx4. Tolerating room air. Denies pain or any additional needs. Currently resting in bed with eyes open. Respirations even and unlabored. Bed low, locked, and call light is in reach.
[2025-06-22 05:30] LABS: Acinetobacter calcoaceticus-ba Not Detected; Bacteroides fragilis Not Detected; Candida auris Not Detected; Candida glabrata Not Detected; Enterobacterales Not Detected; Enterococcus faecalis Not Detected; Enterococcus faecium Not Detected; Klebsiella aerogenes Not Detected; Klebsiella pneumoniae grp Not Detected; Proteus spp. Not Detected; Salmonella spp. Not Detected; Serratia marcescens Not Detected; Staphylococcus epidermidis Not Detected; Staphylococcus lugdunensis Not Detected; Staphylococcus spp. Detected; Stenotrophomonas maltophilia Not Detected; Streptococcus agalactiae(GrpB) Not Detected; Streptococcus pyogenes Group A Not Detected; Streptococcus spp. Not Detected; mecA/C and MREJ (MRSA) Not Detected
[2025-06-22 06:15] LABS: Hematocrit 34.6 % (42.0-52.0); Hemoglobin 11.4 g/dL (14.1-18.0); Immature Granulocytes % 2.3 %; Mean Corpuscular HGB Conc 32.9 g/dL (31.8-35.4); Mean Corpuscular Hemoglobin 28.9 pg (27.0-31.2); Mean Corpuscular Volume 87.6 fl (80-94); Nucleated Red Blood Cells % 0 %; Red Blood Count 3.95 M/mm3 (4.60-6.20); Red Cell Distribution Width-SD 43.7 fL; White Blood Count 9.3 K/mm3 (4.8-10.8)
[2025-06-22 06:16] LABS: POC Glucose,Bedside 132 gm/dL (70-110)
[2025-06-22 06:17] LABS: Platelet Count 47 K/mm3 (142-424)
[2025-06-22 06:18] LABS: Albumin Level 3.7 g/dl (3.5-5.0); Chloride 106 mmol/L (98-107)
[2025-06-22 06:19] LABS: Potassium 4.0 mmoL/L (3.5-5.1); Sodium 135 mmol/L (136-145)
[2025-06-22 06:21] LABS: Alanine Aminotransferase 12 U/L (12-78); Alkaline Phosphatase 208 U/L (38-126); Anion Gap 10.0 mEq/L (5-15); Aspartate Amino Transferase 113 U/L (17-59); Bilirubin,Total 1.9 mg/dl (0.2-1.3); Blood Urea Nitrogen 60 mg/dl (9-20); Carbon Dioxide 23 mmol/L (22.0-30.0); Creatinine Clearance Estimated 21 mL/min (50-200); Creatinine,Serum 3.50 mg/dl (0.66-1.25); Estimated Glomerular Filt Rate 17 ml/min (>60); GFR (African American) 21 ML/MIN (>60)
[2025-06-22 06:22] LABS: Albumin/Globulin Ratio 1.6 (1.1-1.8); Calcium 7.9 mg/dl (8.4-10.2); Globulin 2.3 g/dL (1.3-3.2); Glucose 131 mg/dl (74-100); Magnesium 2.3 mg/dl (1.6-2.3); Total Protein,Serum 6.0 g/dl (6.3-8.2)
[2025-06-22 06:53] LABS: C-Reactive Protein 296.0 mg/L (0-4)
[2025-06-22 07:04] LABS: Procalcitonin 89.8 ng/mL (0.0-2.0)
[2025-06-22] MEDS: CITALOPRAM 20MG TABLET 20 MG PO (08:09)
[2025-06-22] MEDS: MAGNESIUM OXIDE 400MG TABLET 400 MG PO (08:09)
[2025-06-22] MEDS: CARVEDILOL 12.5MG TABLET 12.5 MG PO ×2 (08:09→21:08)
[2025-06-22] MEDS: POLYETHYLENE GLYCOL 3350 17 GM PACKET PO (08:09)
[2025-06-22] MEDS: CARBIDOPA/LEVODOPA 25/100MG TABLET 1 EACH PO ×3 (08:09→21:08)
[2025-06-22] MEDS: LACTATED RINGERS 1000ML 500 ML IV (09:36)
[2025-06-22] MEDS: MEROPENEM 1 GM in 0.9 % SODIUM CHLORIDE 100 ML IV ×2 (09:39→21:07)
[2025-06-22 11:00] LABS: Acinetobacter calcoaceticus-ba Not Detected; Bacteroides fragilis Not Detected; Candida auris Not Detected; Candida glabrata Not Detected; Enterobacterales Not Detected; Enterococcus faecalis Not Detected; Enterococcus faecium Not Detected; Klebsiella aerogenes Not Detected; Klebsiella pneumoniae grp Not Detected; Proteus spp. Not Detected; Salmonella spp. Not Detected; Serratia marcescens Not Detected; Staphylococcus epidermidis Not Detected; Staphylococcus lugdunensis Not Detected; Staphylococcus spp. Detected; Stenotrophomonas maltophilia Not Detected; Streptococcus agalactiae(GrpB) Not Detected; Streptococcus pyogenes Group A Not Detected; Streptococcus spp. Not Detected; mecA/C and MREJ (MRSA) Not Detected
[2025-06-22 11:22] LABS: POC Glucose,Bedside 187 gm/dL (70-110)
[2025-06-22 12:44] LABS: Anion Gap 11.0 mEq/L (5-15); Blood Urea Nitrogen 58 mg/dl (9-20); Calcium 8.1 mg/dl (8.4-10.2); Carbon Dioxide 21 mmol/L (22.0-30.0); Chloride 105 mmol/L (98-107); Creatinine Clearance Estimated 23 mL/min (50-200); Creatinine,Serum 3.20 mg/dl (0.66-1.25); Estimated Glomerular Filt Rate 19 ml/min (>60); GFR (African American) 23 ML/MIN (>60); Glucose 166 mg/dl (74-100); Potassium 4.0 mmoL/L (3.5-5.1); Sodium 133 mmol/L (136-145)
[2025-06-22 13:15] LABS: Vancomycin,Trough 8.7 ug/mL (5.0-10.0)
[2025-06-22] MEDS: VANCOMYCIN/WATER FOR INJ (PEG) 1.5 GM/300 ML PIGGYBACK IV (13:59)
[2025-06-22] MEDS: MORPHINE 2MG/ML SYRINGE 2 MG IV (14:00)
--- NOTE | 2025-06-22 15:38 | P.PN_ITS ---
Subjective *Date: 06/22/25 *Time: 15:38 Interval history: Patient slightly more energetic, talkative today. Persistent Staph aureus bacteremia, follow-up repeat blood cultures at 6 PM. Exam Data for Last 24 hours Vital signs and Labs for Last 24 Hours: Temp Pulse Resp BP Pulse Ox O2 Del Method 98 F 80 16 120/68 94 L Room Air 06/22/25 11:39 06/22/25 12:00 06/22/25 11:39 06/22/25 11:39 06/22/25 11:39 06/22/25 11:39 Laboratory Results - last 24 hr 06/21/25 11:48: A. baumannii (PCR) Not detected, Bacteroides fragilis Not detected, Janice albicans (PCR) Not detected, Janice auris (PCR) Not detected, C. glabrata (PCR) Not detected, C. krusei (PCR) Not detected, C. parapsilosis (PCR) Not detected, C. tropicalis (PCR) Not detected, Cryptococcus neoformans PCR Not detected, Enterobacterales (PCR) Not detected, Enterococc faecalis PCR Not detected, Enterococc faecium PCR Not detected, E. coli (PCR) Not detected, H. influenzae DNA Not detected, Klebsiella aerogenes (PCR) Not detected, Klebsiella oxytoca PCR Not detected, K. pneumoniae group (PCR) Not detected, List. monocytogenes PCR Not detected, N. meningitidis (PCR) Not detected, Proteus species (PCR) Not detected, Salmonella spp. (PCR) Not detected, Serratia marcescens PCR Not detected, Staphylococcus sp PCR Detected A, Staph aureus (PCR) Detected A, mecA/C & MREJ Resist Gene Not detected, mecA/C-Methicil Resis Gene Not applicable, Staph epidermidis (PCR) Not detected, Staph lugdunensis (TEM-PCR) Not detected, S. maltophilia (PCR) Not detected, Streptococcus sp PCR Not detected, S.agalactiae Grp B PRISCILLA Not detected, Strep pneumoniae (PCR) Not detected, S. pyogenes GrpA PRISCILLA Not detected, P. aeruginosa (PCR) Not detected, Steve/B-Vanco Res Genes Not applicable, blaIMP Car res Gene PCR Not applicable, KPC-Carbap Res Gene PCR Not applicable, blaNDM Car Res Gene PCR Not applicable, OXA-48 Carbapenem Resis Gene (PCR) Not applicable, blaVIM Car Res Gene PCR Not applicable, CTX-M Gene Resistance (PCR) Not applicable, MCR-1 Resistance Gene Not applicable 06/21/25 11:54: A. baumannii (PCR) Not detected, Bacteroides fragilis Not detected, Janice albicans (PCR) Not detected, Janice auris (PCR) Not detected, C. glabrata (PCR) Not detected, C. krusei (PCR) Not detected, C. parapsilosis (PCR) Not detected, C. tropicalis (PCR) Not detected, Cryptococcus neoformans PCR Not detected, Enterobacterales (PCR) Not detected, Enterococc faecalis PCR Not detected, Enterococc faecium PCR Not detected, E. coli (PCR) Not detected, H. influenzae DNA Not detected, Klebsiella aerogenes (PCR) Not detected, Klebsiella oxytoca PCR Not detected, K. pneumoniae group (PCR) Not detected, List. monocytogenes PCR Not detected, N. meningitidis (PCR) Not detected, Proteus species (PCR) Not detected, Salmonella spp. (PCR) Not detected, Serratia marcescens PCR Not detected, Staphylococcus sp PCR Detected A, Staph aureus (PCR) Detected A, mecA/C & MREJ Resist Gene Not detected, mecA/C-Methicil Resis Gene Not applicable, Staph epidermidis (PCR) Not detected, Staph lugdunensis (TEM-PCR) Not detected, S. maltophilia (PCR) Not detected, Streptococcus sp PCR Not detected, S.agalactiae Grp B PRISCILLA Not detected, Strep pneumoniae (PCR) Not detected, S. pyogenes GrpA PRISCILLA Not detected, P. aeruginosa (PCR) Not detected, Steve/B-Vanco Res Genes Not applicable, blaIMP Car res Gene PCR Not applicable, KPC-Carbap Res Gene PCR Not applicable, blaNDM Car Res Gene PCR Not applicable, OXA-48 Carbapenem Resis Gene (PCR) Not applicable, blaVIM Car Res Gene PCR Not applicable, CTX-M Gene Resistance (PCR) Not applicable, MCR-1 Resistance Gene Not applicable 06/21/25 16:36: POC Glucose 174 H 06/21/25 19:45: POC Glucose 186 H 06/22/25 05:50: WBC 9.3 D, RBC 3.95 L, Hgb 11.4 L, Hct 34.6 L, MCV 87.6, MCH 28.9, MCHC 32.9, RDW 13.6, Plt Count 47 L*, MPV 11.0 H, Neut % (Auto) 84.5 H, Lymph % (Auto) 7.3 L, [place] % (Auto) 5.5, Eos % (Auto) 0.3, Baso % (Auto) 0.1, Neut # (Auto) 7.9 H, Lymph # (Auto) 0.7, [place] # (Auto) 0.5, Eos # (Auto) 0.0, Baso # (Auto) 0.0, Sodium 135 L, Potassium 4.0, Chloride 106, Carbon Dioxide 23, Anion Gap 10.0, BUN 60 H, Creatinine 3.50 H, Estimated Creat Clear 21, Estimated GFR 17 L*, Est GFR ( Amer) 21 L, Glucose 131 H, Calcium 7.9 L, Magnesium 2.3 D, Total Bilirubin 1.9 H, AST 113 H D, ALT 12 D, Alkaline Phosphatase 208 H, C-Reactive Protein 296.0 H, Total Protein 6.0 L, Albumin 3.7, Globulin 2.3, Albumin/Globulin Ratio 1.6, Procalcitonin 89.8 H 06/22/25 06:07: POC Glucose 132 H 06/22/25 11:14: POC Glucose 187 H 06/22/25 12:17: Sodium 133 L, Potassium 4.0, Chloride 105, Carbon Dioxide 21 L, Anion Gap 11.0, BUN 58 H, Creatinine 3.20 H, Estimated Creat Clear 23, Estimated GFR 19 L*, Est GFR ( Amer) 23 L, Glucose 166 H D, Calcium 8.1 L, Vancomycin Trough 8.7 I & O for Last 24 hours: Intake & Output 06/19/25 06/20/25 06/21/25 06/22/25 22:59 23:59 23:59 23:59 Intake Total 1880 / 1880 930 / 1170 1320 / 1320 Output Total 400 / 400 900 / 900 500 / 500 Balance 1480 / 1480 30 / 270 820 / 820 Weight 85.956 kg 85.26 kg 84.368 kg Microbiology Reports for the Last 24 Hours: Microbiology 06/21/25 11:54 Blood Blood Culture - Preliminary 06/20/25 16:05 Rectum CRE Surveillance Culture - Final Negative 06/20/25 14:55 Urine,Clean Catch Urine Culture - Final No growth. 06/20/25 12:20 Blood Blood Culture - Final Staphylococcus aureus 06/20/25 12:20 Blood Blood Culture - Final Staphylococcus aureus 06/21/25 11:48 Blood Blood Culture - Preliminary Constitutional Constitutional: no acute distress and chronically ill appearing Comments: Looks weak, slightly somnolent. *Routine HEENT Exam Head: Present normocephalic Eye: Present EOMI and PERRL ENT: Present mucous membranes moist *Routine Neck Exam Neck: Present supple; Absent lymphadenopathy *Routine Respiratory Exam Respiratory: Present CTA bilaterally *Routine Cardiovascular Exam Cardiovascular: Present RRR *Routine Abdominal Exam Abdominal: Present soft and normoactive bowel sounds; Absent tenderness *Routine Extremities Exam Extremities: Absent cyanosis, clubbing or edema *Routine Skin Exam Skin: Present warm; Absent rash *Routine Neurological Exam Neurological: Present alert Assessment and Plan *Assessment and plan (1) Sepsis: Status: Acute Category: Medical Code(s): A41.9 - Sepsis, unspecified organism (2) Altered mental status: Problem Comment: Acute metabolic encephalopathy Status: Acute Qualifiers: Coma depth: [place] coma 13-15 Category: Medical Code(s): R41.82 - Altered mental status, unspecified (3) 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 Category: Medical Code(s): C78.00 - Secondary malignant neoplasm of unspecified lung; C64.9 - Malignant neoplasm of unspecified kidney, except renal pelvis (4) Type 2 diabetes mellitus: Status: Chronic Qualifiers: Diabetes mellitus director long term care insulin use: without residential use Diabetes mellitus complication status: without complication Qualified Code(s): E11.9 - Type 2 diabetes mellitus without complications Category: Medical Code(s): E11.9 - Type 2 diabetes mellitus without complications (5) Essential (primary) hypertension: Status: Chronic Category: Medical Code(s): I10 - Essential (primary) hypertension (6) HEIDE (acute kidney injury): Status: Acute Category: Medical Code(s): N17.9 - Acute kidney failure, unspecified (7) Dehydration: Status: Resolved Category: Medical Code(s): E86.0 - Dehydration (8) Anemia: Status: Acute Category: Medical Code(s): D64.9 - Anemia, unspecified (9) Rhabdomyolysis: Status: Acute Category: Medical Code(s): M62.82 - Rhabdomyolysis (10) Constipation: Status: Acute Category: Medical Code(s): K59.00 - Constipation, unspecified (11) Parkinson disease: Status: Chronic Category: Medical Code(s): G20.A1 - Parkinson's disease without dyskinesia, without mention of fluctuations Plan Tito Daniel 75-year-old male with diabetes, Parkinson's, history of metastatic renal cell carcinoma. Presents meeting sepsis criteria. Discussed case with ER physician, request admission for further antibiotics and workup of his sepsis. I decided to admit for further care. Continuing Zosyn and vancomycin. Admitted to ICU due to risk for decompensation. Problems addressed as follows: Severe sepsis, resolved #Community-acquired pneumonia, POA #Staph aureus bacteremia #Acute metabolic encephalopathy, resolving ? Presented with confusion, initial WBC 10, CRP 248, procalcitonin 48, with lactic acidosis, tachycardia and fevers. ? CXR on admission notable for bibasilar pneumonia. Blood cultures growing Staph aureus in 2/2 bottles. Repeat blood culture also positive for Staph aureus. Will repeat at 6 PM today. ? Patient gradually getting better, slightly more energy and talkative per today. ? However, CRP increased from 248-296, procalcitonin from 48-89. Will continue to monitor. No fevers, tachycardia, leukocytosis today. ? Continue vancomycin renally dosed, started meropenem 1 g twice daily empirically. ? Follow-up repeat blood cultures. #HEIDE on CKD 3B ? Creatinine bumped from 3.1-3.5 overnight, but improved to 3.2 this afternoon after 500 cc bolus. Patient is not drinking much water or eating due to illness, per . ? Started LR at 75 mL/h. Parkinsonism: Continue carbidopa/levodopa 25/100 mg 3 times a day Diabetes: A1c 5.9%. Holding home glimepiride and Farxiga. Consider discontinue at discharge. Hypertension: CAD: - Holding home amlodipine, BP stable. Resume aspirin 81 mg daily, carvedilol 12.5 mg twice daily, -Holding Lipitor with mild elevation of liver enzymes with bilirubin 2.2, AST 90, ALT 81. Appears to have constipation on CT per my review. Will administer enema x 1. No bowel movement yet, continue MiraLAX 17 g daily. Continue omeprazole 40 mg daily for GERD Continue citalopram 20 mg daily for anxiety Full code IPC's due to thrombocytopenia Diabetic diet
[2025-06-22 16:35] LABS: POC Glucose,Bedside 187 gm/dL (70-110)
[2025-06-22] MEDS: LACTATED RINGERS 1000ML 1,000 ML 75 ML IV (17:08)
--- NOTE | 2025-06-22 17:52 | PC.NURSE ---
pt resting in bed, call light in reach, had a ok day did require 1 dose of PRN morphine for bad headache.
[2025-06-22] MEDS: PANTOPRAZOLE 40MG TABLET 40 MG PO (21:08)
[2025-06-22] MEDS: SENNOSIDES 8.6MG/DOCUSATE 50MG TABLET 1 TAB PO (21:08)
[2025-06-22 21:19] LABS: POC Glucose,Bedside 153 gm/dL (70-110)
[2025-06-23] VITALS (10 sets, daily range): BP systolic 110–135; BP diastolic 50–73; PULSE 39–75; RESP 16–20; TEMP 36.8–37.8; O2SAT 92–94; BMI 29.5
--- NOTE | 2025-06-23 03:23 | PC.NURSE ---
Pt AOx4, pleasant. Tolerating room air. q2h turns. Pt continually denies pain or additional needs. Purewick in place. x1 assist to BSC. LR running at 75mL/hr. Currently resting in bed with eyes closed. Respirations even and unlabored. Bed is low, locked, and call light is in reach.
[2025-06-23 05:50] LABS: POC Glucose,Bedside 152 gm/dL (70-110)
[2025-06-23 06:20] LABS: Hematocrit 33.0 % (42.0-52.0); Hemoglobin 11.4 g/dL (14.1-18.0); Immature Granulocytes % 0.2 %; Mean Corpuscular HGB Conc 34.5 g/dL (31.8-35.4); Mean Corpuscular Hemoglobin 29.9 pg (27.0-31.2); Mean Corpuscular Volume 86.6 fl (80-94); Nucleated Red Blood Cells % 0 %; Red Blood Count 3.81 M/mm3 (4.60-6.20); Red Cell Distribution Width-SD 44.0 fL; White Blood Count 8.5 K/mm3 (4.8-10.8)
[2025-06-23 06:29] LABS: Platelet Count 43 K/mm3 (142-424)
[2025-06-23 06:36] LABS: Alanine Aminotransferase 12 U/L (12-78); Albumin Level 3.0 g/dl (3.5-5.0); Albumin/Globulin Ratio 0.9 (1.1-1.8); Alkaline Phosphatase 258 U/L (38-126); Anion Gap 9.0 mEq/L (5-15); Aspartate Amino Transferase 68 U/L (17-59); Bilirubin,Total 1.4 mg/dl (0.2-1.3); Blood Urea Nitrogen 60 mg/dl (9-20); Calcium 8.1 mg/dl (8.4-10.2); Carbon Dioxide 21 mmol/L (22.0-30.0); Chloride 107 mmol/L (98-107); Creatinine Clearance Estimated 22 mL/min (50-200); Creatinine,Serum 3.30 mg/dl (0.66-1.25); Estimated Glomerular Filt Rate 18 ml/min (>60); GFR (African American) 22 ML/MIN (>60); Globulin 3.3 g/dL (1.3-3.2); Glucose 151 mg/dl (74-100); Magnesium 2.4 mg/dl (1.6-2.3); Potassium 4.0 mmoL/L (3.5-5.1); Sodium 133 mmol/L (136-145); Total Protein,Serum 6.3 g/dl (6.3-8.2)
[2025-06-23 07:07] LABS: C-Reactive Protein 158.3 mg/L (0-4)
[2025-06-23 07:18] LABS: Procalcitonin 59.6 ng/mL (0.0-2.0)
[2025-06-23] MEDS: POLYETHYLENE GLYCOL 3350 17 GM PACKET PO (08:37)
[2025-06-23] MEDS: CARBIDOPA/LEVODOPA 25/100MG TABLET 1 EACH PO ×3 (08:38→20:02)
[2025-06-23] MEDS: MAGNESIUM OXIDE 400MG TABLET 400 MG PO (08:38)
[2025-06-23] MEDS: CARVEDILOL 12.5MG TABLET 12.5 MG PO (08:38)
[2025-06-23] MEDS: CITALOPRAM 20MG TABLET 20 MG PO (08:38)
[2025-06-23] MEDS: MEROPENEM 1 GM in 0.9 % SODIUM CHLORIDE 100 ML IV (08:38)
[2025-06-23] MEDS: ACETAMINOPHEN 325MG TAB 650 MG PO ×2 (09:21→20:02)
[2025-06-23] MEDS: LACTATED RINGERS 1000ML 500 ML 250 ML IV (09:56)
[2025-06-23 11:22] LABS: POC Glucose,Bedside 211 gm/dL (70-110)
--- NOTE | 2025-06-23 11:41 | ECG_ITS ---
APPROVED REPORT Exam: Resting ECG HR:42 bpm ECG Measurements Heart Rate 42 AXES WA 323 P 140 QRSd 164 QRS 83 QT 522 T 35 QTc 461 Conclusion SINUS BRADYCARDIA WITH FIRST DEGREE AV BLOCK WITH OCCASIONAL SUPRAVENTRICULAR PREMATURE COMPLEXES RIGHT BUNDLE BRANCH BLOCK [120+ ms QRS DURATION, UPRIGHT V1, 40+ ms S IN I/aVL/V4/V5/V6] ABNORMAL ECG UNCONFIRMED REPORT Electronically signed by : Anson Davison MD 06/24/2025 17:21:58
[2025-06-23 12:23] LABS: Troponin I 0.11 ng/ml (0.00-0.034)
--- NOTE | 2025-06-23 12:42 | PC.NURSE ---
patients heart rate 38-40 npm at 1130. notified MD. vitals obtained and charted. EKG obtained. patient states he feels fine. and is sitting up in bed talking to . cards consulted. call light within reach, plan of care ongoing.
--- NOTE | 2025-06-23 13:50 | EXP.CARD.CON ---
History of Present Illness History of Present Illness Consult date: 06/23/25 Requesting physician: Gamaliel Batista Chief complaint: Bradycardia Additional Medical History:: 1. CAD with history of bypass in 2007 -Followed by Dr. Zimmerman in [place], [place] 2. History of TAVR, 2023 3. Diabetes mellitus type 2 4. Parkinson disease 5. Metastatic renal carcinoma to the lung 6. CKD, stage IV with creatinine of 3.3 and GFR of 18 -Baseline creatinine 3 with GFR of 18 7. History of iron deficiency anemia, hemoglobin around 11, and thrombocytopenia with platelets of 60,000 8. First degree AVB with RBBB History of present illness: 75-year-old white male with history as noted above presented to the ER after being found on the floor in his bathroom by his . She reports he has been confused more confused over the past 2 days and was having difficulty controlling his bowels and bladder. ER evaluation found him to be tachycardic, tachypneic and febrile with a temp of 102.8 meeting sepsis criteria. He was subsequently admitted and started on antibiotics with blood cultures obtained. Per patient sometimes just does not answer questions or give any information. This made it difficult to identify any possible source for his infection. 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 His carvedilol had recently been decreased by half. Patient has been identified as having staph bacteremia with improvement on antibiotics. Mentation has returned towards baseline. Of note patient has continued to have some bradycardia and consult put into cardiology for further evaluation. Telemetry reveals sinus bradycardia in the 40s with intermittent PACs and compensatory pauses. Patient denies any chest pain, pressure or tightness at this time. His states he has been having a lot of dizziness and difficulty ambulating recently. Troponin noted to be mildly elevated at 0.11 but in the setting of recent sepsis and CKD, stage IV/V this may all be just demand ischemia from the pneumonia. [facility] Disclaimer: The information contained in this section may have been updated after the patient was seen, as this information can be updated by other users. Medical History (Updated 06/23/25 @ 14:22 by NORBERT Zaman) Heart failure HLD (hyperlipidemia) Parkinson disease Depression HTN (hypertension) Diabetes type 2, controlled Renal cell carcinoma Iron deficiency anemia Anemia Surgical History History of colonoscopy History of esophagogastroduodenoscopy (EGD) Family History Other No significant family history Social History Smoking Status: Never smoker second hand exposure: No alcohol intake: former substance use type: denies use current occupational status: retired Travel in the last 8 weeks?: Outside the [facility] household members: spouse housing: house caffeine: No Have you lived/traveled outside [place] in past 30 days?: No Contact w/someone who lives/traveled outside US past 30 days?: No Exposure to someone with infectious disease in past 14 days?: No Do you have a fever (greater than 100.4 F or 38 C)?: No Have you tested positive for COVID-19?: No Exposed to someone with COVID-19 in past 14 days?: No Do you have a sore throat?: No Do you have a cough?: No Do you have any weakness?: No Do you have any diarrhea?: No Are you experiencing any unusual bleeding?: No Do you have any muscle aches/pain?: No Do you have any abdominal pain?: No Are you experiencing loss of taste or smell?: No Review of Systems Review of Systems Review of systems:: pertinent systems reviewed and negative unless documented below *Cardiovascular Cardiovascular: Denies chest pain and Reports dyspnea on exertion *Respiratory Respiratory: Reports dyspnea on exertion Exam Data for Last 24 hours Vital signs and Labs for Last 24 Hours: Temp Pulse Resp BP Pulse Ox O2 Del Method 98.2 F 40 L 20 110/50 L 94 L Room Air 06/23/25 07:56 06/23/25 12:00 06/23/25 11:35 06/23/25 11:35 06/23/25 11:35 06/23/25 11:35 Laboratory Results - last 24 hr 06/21/25 11:54: A. baumannii (PCR) Not detected, Bacteroides fragilis Not detected, Janice albicans (PCR) Not detected, Janice auris (PCR) Not detected, C. glabrata (PCR) Not detected, C. krusei (PCR) Not detected, C. parapsilosis (PCR) Not detected, C. tropicalis (PCR) Not detected, Cryptococcus neoformans PCR Not detected, Enterobacterales (PCR) Not detected, Enterococc faecalis PCR Not detected, Enterococc faecium PCR Not detected, E. coli (PCR) Not detected, H. influenzae DNA Not detected, Klebsiella aerogenes (PCR) Not detected, Klebsiella oxytoca PCR Not detected, K. pneumoniae group (PCR) Not detected, List. monocytogenes PCR Not detected, N. meningitidis (PCR) Not detected, Proteus species (PCR) Not detected, Salmonella spp. (PCR) Not detected, Serratia marcescens PCR Not detected, Staphylococcus sp PCR Detected A, Staph aureus (PCR) Detected A, mecA/C & MREJ Resist Gene Not detected, mecA/C-Methicil Resis Gene Not applicable, Staph epidermidis (PCR) Not detected, Staph lugdunensis (TEM-PCR) Not detected, S. maltophilia (PCR) Not detected, Streptococcus sp PCR Not detected, S.agalactiae Grp B PRISCILLA Not detected, Strep pneumoniae (PCR) Not detected, S. pyogenes GrpA PIRSCILLA Not detected, P. aeruginosa (PCR) Not detected, Steve/B-Vanco Res Genes Not applicable, blaIMP Car res Gene PCR Not applicable, KPC-Carbap Res Gene PCR Not applicable, blaNDM Car Res Gene PCR Not applicable, OXA-48 Carbapenem Resis Gene (PCR) Not applicable, blaVIM Car Res Gene PCR Not applicable, CTX-M Gene Resistance (PCR) Not applicable, MCR-1 Resistance Gene Not applicable 06/22/25 16:26: POC Glucose 187 H 06/22/25 21:11: POC Glucose 153 H 06/23/25 04:55: POC Glucose 152 H 06/23/25 06:01: WBC 8.5, RBC 3.81 L, Hgb 11.4 L, Hct 33.0 L, MCV 86.6, MCH 29.9, MCHC 34.5, RDW 13.7, Plt Count 43 L*, MPV 11.3 H, Neut % (Auto) 80.2 H, Lymph % (Auto) 10.3, [place] % (Auto) 8.6, Eos % (Auto) 0.5, Baso % (Auto) 0.2, Neut # (Auto) 6.8, Lymph # (Auto) 0.9, [place] # (Auto) 0.7, Eos # (Auto) 0.0, Baso # (Auto) 0.0, Sodium 133 L, Potassium 4.0, Chloride 107, Carbon Dioxide 21 L, Anion Gap 9.0, BUN 60 H, Creatinine 3.30 H, Estimated Creat Clear 22, Estimated GFR 18 L*, Est GFR ( Amer) 22 L, Glucose 151 H, Calcium 8.1 L, Magnesium 2.4 H, Total Bilirubin 1.4 H, AST 68 H D, ALT 12, Alkaline Phosphatase 258 H, C-Reactive Protein 158.3 H, Total Protein 6.3, Albumin 3.0 L D, Globulin 3.3 H, Albumin/Globulin Ratio 0.9 L, Procalcitonin 59.6 H 06/23/25 11:07: POC Glucose 211 H 06/23/25 11:51: Troponin I 0.11 H I & O for Last 24 hours: Intake & Output 06/21/25 06/22/25 06/23/25 06/24/25 11:59 11:59 11:59 11:59 Intake Total 2334 / 2334 1556 / 1556 840 / 840 300 / 300 Output Total 900 / 900 900 / 900 1000 / 1000 Balance 1434 / 1434 656 / 656 -160 / -160 300 / 300 Weight 187 lb 15.458 oz 186 lb 183 lb 9.6 oz Microbiology Reports for the Last 24 Hours: Microbiology 06/22/25 12:17 Blood Blood Culture - Preliminary NO GROWTH AFTER 24 HOURS 06/22/25 12:17 Blood Blood Culture - Preliminary NO GROWTH AFTER 24 HOURS 06/21/25 11:48 Blood Blood Culture - Preliminary Gram Positive Cocci 06/21/25 11:54 Blood Blood Culture - Preliminary Gram Positive Cocci 06/20/25 16:05 Rectum CRE Surveillance Culture - Final Negative 06/20/25 14:55 Urine,Clean Catch Urine Culture - Final No growth. 06/20/25 12:20 Blood Blood Culture - Final Staphylococcus aureus 06/20/25 12:20 Blood Blood Culture - Final Staphylococcus aureus Constitutional Constitutional: no acute distress *Routine Respiratory Exam Respiratory: Present decreased breath sounds and diminished air movement *Routine Cardiovascular Exam Cardiovascular: Present RRR, murmur and bradycardia; Absent gallop or rubs Comments: Harsh grade 3 out of 6 systolic ejection murmur noted at the left upper sternal border with radiation towards the neck. *Routine Extremities Exam Extremities: Absent edema *Routine Neurological Exam Neurological: Present alert Meds Home Medications and Allergies Home Medications ?Medication ?Instructions ?Recorded ?Confirmed ?Type aspirin 81 mg tablet,delayed 81 mg PO DAILY CIRCULATION 30 days 07/13/21 06/20/25 Rx release #30 tabs atorvastatin 80 mg tablet 80 mg PO HS Cholesterol 30 days 07/13/21 06/20/25 Rx #30 tabs carvedilol 12.5 mg tablet 12.5 mg PO BID High blood pressure 07/13/21 06/20/25 Rx 30 days #60 tabs citalopram 20 mg tablet 20 mg PO DAILY Anxiety 30 days #30 07/13/21 06/20/25 Rx tabs glimepiride 1 mg tablet 1 mg PO DAILY Diabetes 30 days #30 07/13/21 06/20/25 Rx tabs tramadol 50 mg tablet 50 mg PO BIDP PRN Pain 08/14/23 06/20/25 History atogepant 60 mg tablet (Qulipta) 60 mg PO DAILY 06/20/25 06/20/25 History carbidopa ER 50 mg-levodopa 200 mg 1 tab PO BID 06/20/25 06/20/25 History tablet,extended release dapagliflozin propanediol 10 mg 10 mg PO DAILY 06/20/25 06/21/25 History tablet (Farxiga) ezetimibe 10 mg tablet (Zetia) 10 mg PO DAILY 06/20/25 06/20/25 History ferrous sulfate 325 mg (65 mg 325 mg PO DAILY 06/20/25 06/20/25 History iron) tablet (iron) magnesium oxide 400 mg (241.3 mg 400 mg PO DAILY 06/20/25 06/20/25 History magnesium) tablet omeprazole 40 mg capsule,delayed 40 mg PO DAILY 06/20/25 06/20/25 History release vit C 250 mg-vit E 90 mg-zinc 40 1 tab PO BID 06/20/25 06/20/25 History mg-copper 1 fa-ornulu-zhdyxh capsule (PreserVision AREDS-2) amlodipine 10 mg tablet 10 mg PO DAILY 06/21/25 06/20/25 History New Prescriptions to Start Prescriptions: Allergies Allergy/AdvReac Type Severity Reaction Status Date / Time No Known Allergies Allergy Verified 03/26/24 11:00 Assessment and Plan *Assessment and plan (1) Sinus bradycardia: Status: Acute Category: Medical Code(s): R00.1 - Bradycardia, unspecified (2) Sepsis: Status: Acute Qualifiers: Sepsis type: sepsis due to unspecified organism Sepsis acute organ dysfunction status: with acute organ dysfunction Severe sepsis acute organ dysfunction type: encephalopathy Severe sepsis shock status: without septic shock Qualified Code(s): A41.9 - Sepsis, unspecified organism; R65.20 - Severe sepsis without septic shock; G93.41 - Metabolic encephalopathy Category: Medical Code(s): A41.9 - Sepsis, unspecified organism (3) 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 Qualifiers: Laterality: unspecified laterality Qualified Code(s): C78.00 - Secondary malignant neoplasm of unspecified lung; C64.9 - Malignant neoplasm of unspecified kidney, except renal pelvis Category: Medical Code(s): C78.00 - Secondary malignant neoplasm of unspecified lung; C64.9 - Malignant neoplasm of unspecified kidney, except renal pelvis (4) Type 2 diabetes mellitus: Status: Chronic Qualifiers: Diabetes mellitus half-way insulin use: without half-way use Diabetes mellitus complication status: without complication Qualified Code(s): E11.9 - Type 2 diabetes mellitus without complications Category: Medical Code(s): E11.9 - Type 2 diabetes mellitus without complications (5) Essential (primary) hypertension: Status: Chronic Category: Medical Code(s): I10 - Essential (primary) hypertension (6) Parkinson disease: Status: Chronic Qualifiers: Dyskinesia presence: unspecified whether dyskinesia Fluctuating manifestations: unspecified whether manifestations fluctuate Qualified Code(s): G20.A1 - Parkinson's disease without dyskinesia, without mention of fluctuations Category: Medical Code(s): G20.A1 - Parkinson's disease without dyskinesia, without mention of fluctuations Plan 1. sinus bradycardia with first degree AV block and RBBB -on coreg with unknown history of tachycardia -per there was a plan for possible pacemaker if bradycardia didn't improve with lowering beta mike 2. Sepsis with staph bacteremia - Encephalopathy has resolved -on meropenem 3. Met renal cancer to lung 4. DM, type 2 -On Farxiga, glimepiride at home 5. Parkinson disease -On carbidopa-levodopa 6. Hypertension -Currently holding amlodipine and reducing carvedilol with well controlled blood pressure 7. CAD with prior CABG 2007 -mild elevated troponin in setting of sepsis and CKD stage 4-5 -On statin and Zetia therapy at home -Continue aspirin 81 mg daily 8. TAVR in 2023 -Echo this admission shows normal LVEF and TAVR functioning appropriately 9. CKD stage, stage IV-V -Creatinine 3.3 with GFR 18 10. Chronic anemia with thrombocytopenia -Hemoglobin stable at 11.4 -Platelets 43,000 Restart aspirin 81 mg daily Reduce coreg to 6.25 mg tonight and then 3.125 mg in AM Continue telemetry to monitor If bradycardia resolves then patient will keep outpatient follow-up with his regular tin recovery worker next week.
--- NOTE | 2025-06-23 15:41 | P.PN_ITS ---
Subjective *Date: 06/23/25 *Time: 15:41 Interval history: Patient looks better today, but continues to be a little weak. states this is not baseline but he is also not very energetic at baseline. Will monitor heart rate overnight after decreasing dose of Coreg. Exam Data for Last 24 hours Vital signs and Labs for Last 24 Hours: Temp Pulse Resp BP Pulse Ox O2 Del Method 98.2 F 40 L 20 110/50 L 94 L Room Air 06/23/25 07:56 06/23/25 12:00 06/23/25 11:35 06/23/25 11:35 06/23/25 11:35 06/23/25 14:56 Laboratory Results - last 24 hr 06/21/25 11:54: A. baumannii (PCR) Not detected, Bacteroides fragilis Not detected, Janice albicans (PCR) Not detected, Janice auris (PCR) Not detected, C. glabrata (PCR) Not detected, C. krusei (PCR) Not detected, C. parapsilosis (PCR) Not detected, C. tropicalis (PCR) Not detected, Cryptococcus neoformans PCR Not detected, Enterobacterales (PCR) Not detected, Enterococc faecalis PCR Not detected, Enterococc faecium PCR Not detected, E. coli (PCR) Not detected, H. influenzae DNA Not detected, Klebsiella aerogenes (PCR) Not detected, Klebsiella oxytoca PCR Not detected, K. pneumoniae group (PCR) Not detected, List. monocytogenes PCR Not detected, N. meningitidis (PCR) Not detected, Proteus species (PCR) Not detected, Salmonella spp. (PCR) Not detected, Serratia marcescens PCR Not detected, Staphylococcus sp PCR Detected A, Staph aureus (PCR) Detected A, mecA/C & MREJ Resist Gene Not detected, mecA/C-Methicil Resis Gene Not applicable, Staph epidermidis (PCR) Not detected, Staph lugdunensis (TEM-PCR) Not detected, S. maltophilia (PCR) Not detected, Streptococcus sp PCR Not detected, S.agalactiae Grp B PRISCILLA Not detected, Strep pneumoniae (PCR) Not detected, S. pyogenes GrpA PRISCILLA Not detected, P. aeruginosa (PCR) Not detected, Steve/B-Vanco Res Genes Not applicable, blaIMP Car res Gene PCR Not applicable, KPC-Carbap Res Gene PCR Not applicable, blaNDM Car Res Gene PCR Not applicable, OXA-48 Carbapenem Resis Gene (PCR) Not applicable, blaVIM Car Res Gene PCR Not applicable, CTX-M Gene Resistance (PCR) Not applicable, MCR-1 Resistance Gene Not applicable 06/22/25 16:26: POC Glucose 187 H 06/22/25 21:11: POC Glucose 153 H 06/23/25 04:55: POC Glucose 152 H 06/23/25 06:01: WBC 8.5, RBC 3.81 L, Hgb 11.4 L, Hct 33.0 L, MCV 86.6, MCH 29.9, MCHC 34.5, RDW 13.7, Plt Count 43 L*, MPV 11.3 H, Neut % (Auto) 80.2 H, Lymph % (Auto) 10.3, [place] % (Auto) 8.6, Eos % (Auto) 0.5, Baso % (Auto) 0.2, Neut # (Auto) 6.8, Lymph # (Auto) 0.9, [place] # (Auto) 0.7, Eos # (Auto) 0.0, Baso # (Auto) 0.0, Sodium 133 L, Potassium 4.0, Chloride 107, Carbon Dioxide 21 L, Anion Gap 9.0, BUN 60 H, Creatinine 3.30 H, Estimated Creat Clear 22, Estimated GFR 18 L*, Est GFR ( Amer) 22 L, Glucose 151 H, Calcium 8.1 L, Magnesium 2.4 H, Total Bilirubin 1.4 H, AST 68 H D, ALT 12, Alkaline Phosphatase 258 H, C- Reactive Protein 158.3 H, Total Protein 6.3, Albumin 3.0 L D, Globulin 3.3 H, Albumin/Globulin Ratio 0.9 L, Procalcitonin 59.6 H 06/23/25 11:07: POC Glucose 211 H 06/23/25 11:51: Troponin I 0.11 H I & O for Last 24 hours: Intake & Output 06/20/25 06/21/25 06/22/25 06/23/25 23:59 23:59 23:59 23:59 Intake Total 1880 / 1880 930 / 1170 1820 / 1820 1700 / 1700 Output Total 400 / 400 900 / 900 1325 / 1325 175 / 175 Balance 1480 / 1480 30 / 270 495 / 495 1525 / 1525 Weight 85.956 kg 85.26 kg 84.368 kg 83.28 kg Microbiology Reports for the Last 24 Hours: Microbiology 06/22/25 12:17 Blood Blood Culture - Preliminary NO GROWTH AFTER 24 HOURS 06/22/25 12:17 Blood Blood Culture - Preliminary NO GROWTH AFTER 24 HOURS 06/21/25 11:48 Blood Blood Culture - Preliminary Gram Positive Cocci 06/21/25 11:54 Blood Blood Culture - Preliminary Gram Positive Cocci 06/20/25 16:05 Rectum CRE Surveillance Culture - Final Negative Constitutional Constitutional: no acute distress and chronically ill appearing *Routine HEENT Exam Head: Present normocephalic Eye: Present EOMI and PERRL ENT: Present mucous membranes moist *Routine Neck Exam Neck: Present supple; Absent lymphadenopathy *Routine Respiratory Exam Respiratory: Present CTA bilaterally *Routine Cardiovascular Exam Cardiovascular: Present RRR *Routine Abdominal Exam Abdominal: Present soft and normoactive bowel sounds; Absent tenderness *Routine Extremities Exam Extremities: Absent cyanosis, clubbing or edema *Routine Skin Exam Skin: Present warm; Absent rash *Routine Neurological Exam Neurological: Present alert Assessment and Plan *Assessment and plan (1) Sepsis: Status: Acute Qualifiers: Sepsis acute organ dysfunction status: with acute organ dysfunction Sepsis type: sepsis due to unspecified organism Severe sepsis acute organ dysfunction type: encephalopathy Severe sepsis shock status: without septic shock Qualified Code(s): A41.9 - Sepsis, unspecified organism; R65.20 - Severe sepsis without septic shock; G93.41 - Metabolic encephalopathy Category: Medical Code(s): A41.9 - Sepsis, unspecified organism (2) Altered mental status: Problem Comment: Acute metabolic encephalopathy Status: Acute Qualifiers: Coma depth: [place] coma 13-15 Category: Medical Code(s): R41.82 - Altered mental status, unspecified (3) 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 Qualifiers: Laterality: unspecified laterality Qualified Code(s): C78.00 - Secondary malignant neoplasm of unspecified lung; C64.9 - Malignant neoplasm of unspecified kidney, except renal pelvis Category: Medical Code(s): C78.00 - Secondary malignant neoplasm of unspecified lung; C64.9 - Malignant neoplasm of unspecified kidney, except renal pelvis (4) Type 2 diabetes mellitus: Status: Chronic Qualifiers: Diabetes mellitus jail insulin use: without 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 use Diabetes mellitus complication status: without complication Qualified Code(s): E11.9 - Type 2 diabetes mellitus without complications Category: Medical Code(s): E11.9 - Type 2 diabetes mellitus without complications (5) Essential (primary) hypertension: Status: Chronic Category: Medical Code(s): I10 - Essential (primary) hypertension (6) HEIDE (acute kidney injury): Status: Acute Category: Medical Code(s): N17.9 - Acute kidney failure, unspecified (7) Dehydration: Status: Resolved Category: Medical Code(s): E86.0 - Dehydration (8) Anemia: Status: Acute Category: Medical Code(s): D64.9 - Anemia, unspecified (9) Rhabdomyolysis: Status: Acute Category: Medical Code(s): M62.82 - Rhabdomyolysis (10) Constipation: Status: Acute Category: Medical Code(s): K59.00 - Constipation, unspecified (11) Parkinson disease: Status: Chronic Qualifiers: Dyskinesia presence: unspecified whether dyskinesia Fluctuating manifestations: unspecified whether manifestations fluctuate Qualified Code(s): G20.A1 - Parkinson's disease without dyskinesia, without mention of fluctuations Category: Medical Code(s): G20.A1 - Parkinson's disease without dyskinesia, without mention of fluctuations Plan Tito Daniel 75-year-old male with diabetes, Parkinson's, history of metastatic renal cell carcinoma. Presents meeting sepsis criteria. Discussed case with ER physician, request admission for further antibiotics and workup of his sepsis. I decided to admit for further care. #Severe sepsis, resolved #Community-acquired pneumonia, POA #Staph aureus bacteremia #Acute metabolic encephalopathy, resolving ? Presented with confusion, initial WBC 10, CRP 248, procalcitonin 48, with lactic acidosis, tachycardia and fevers. ? CXR on admission notable for bibasilar pneumonia. Blood cultures growing Staph aureus in 2/2 bottles. Second set of blood cultures also positive for Staph aureus, third set NGTD. ? Patient again gradually getting better, slightly more energy and talkative per today. But not at baseline. ? CRP down from 296-158, procalcitonin from 89-59, WBC normal. Will continue to monitor. No fevers, tachycardia, leukocytosis today. ? Continue vancomycin renally dosed, discontinue meropenem. #Symptomatic sinus bradycardia #History of CABG ? Patient did bradycardia down to 30s to 40s, EKG revealing sinus bradycardia with chronic RVH and right bundle branch block. Had been in 70s prior to this. During this episode, patient was lightheaded but he also states this is a chronic issue for him. Vital signs otherwise stable. ? 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 Patient takes Coreg 12.5 mg twice daily currently. ? Cardiology consulted, recommend decreasing Coreg to 6.25 mg tonight and then 3.25 mg twice daily tomorrow. ? Continue home aspirin 81 mg. #HEIDE on CKD 3B ? Creatinine bumped from 2-3.3 today, from 3.2. Baseline around 2.9. Patient has not been doing much fluids. Will give 500 cc bolus. Continue LR at 75 mL/h. Parkinsonism: Continue carbidopa/levodopa 25/100 mg 3 times a day Diabetes: A1c 5.9%. Holding home glimepiride and Farxiga. Consider discontinue at discharge. Hypertension: CAD: - Holding home amlodipine, BP stable. Decrease Coreg as above. Resume aspirin 81 mg daily. - Holding Lipitor with mild elevation of liver enzymes with bilirubin 2.2, AST 90, ALT 81. Appears to have constipation on CT per my review. Will administer enema x 1. No bowel movement yet, continue MiraLAX 17 g daily. Continue omeprazole 40 mg daily for GERD Continue citalopram 20 mg daily for anxiety Full code IPC's due to thrombocytopenia Diabetic diet
[2025-06-23 16:28] LABS: POC Glucose,Bedside 201 gm/dL (70-110)
[2025-06-23 17:08] LABS: Troponin I 0.10 ng/ml (0.00-0.034)
[2025-06-23 19:57] LABS: POC Glucose,Bedside 188 gm/dL (70-110)
[2025-06-23] MEDS: PANTOPRAZOLE 40MG TABLET 40 MG PO (20:02)
[2025-06-23] MEDS: SENNOSIDES 8.6MG/DOCUSATE 50MG TABLET 1 TAB PO (20:02)
[2025-06-24] VITALS (40 sets, daily range): BP systolic 103–160; BP diastolic 50–66; PULSE 29–69; RESP 13–28; TEMP 37–39.3; O2SAT 90–95; BMI 30.4
[2025-06-24] MEDS: LACTATED RINGERS 1000ML 1,000 ML 75 ML IV (01:02)
--- NOTE | 2025-06-24 02:29 | PC.NURSE ---
Pt AOx4. Reports feeling very tired at the beginning of the shift. Tolerating room air. HR running in 40s. LR running at 75 mL/hr. Currently resting in bed with eyes closed. respirations even and unlabored. Bed is low, locked, and call light is in reach.
[2025-06-24 06:24] LABS: Hematocrit 33.5 % (42.0-52.0); Hemoglobin 11.4 g/dL (14.1-18.0); Immature Granulocytes % 0.4 %; Mean Corpuscular HGB Conc 34.0 g/dL (31.8-35.4); Mean Corpuscular Hemoglobin 30.1 pg (27.0-31.2); Mean Corpuscular Volume 88.4 fl (80-94); Nucleated Red Blood Cells % 0 %; Red Blood Count 3.79 M/mm3 (4.60-6.20); Red Cell Distribution Width-SD 45.8 fL; White Blood Count 7.8 K/mm3 (4.8-10.8)
[2025-06-24 06:32] LABS: Albumin Level 3.4 g/dl (3.5-5.0); Chloride 105 mmol/L (98-107); Platelet Count 43 K/mm3 (142-424); Potassium 4.1 mmoL/L (3.5-5.1); Sodium 134 mmol/L (136-145)
[2025-06-24 06:35] LABS: Alanine Aminotransferase 13 U/L (12-78); Albumin/Globulin Ratio 1.4 (1.1-1.8); Alkaline Phosphatase 273 U/L (38-126); Anion Gap 12.1 mEq/L (5-15); Aspartate Amino Transferase 56 U/L (17-59); Bilirubin,Total 1.4 mg/dl (0.2-1.3); Blood Urea Nitrogen 74 mg/dl (9-20); Calcium 7.5 mg/dl (8.4-10.2); Carbon Dioxide 21 mmol/L (22.0-30.0); Creatinine Clearance Estimated 19 mL/min (50-200); Estimated Glomerular Filt Rate 14 ml/min (>60); GFR (African American) 17 ML/MIN (>60); Globulin 2.4 g/dL (1.3-3.2); Glucose 155 mg/dl (74-100); Magnesium 2.6 mg/dl (1.6-2.3); Total Protein,Serum 5.8 g/dl (6.3-8.2)
[2025-06-24 07:11] LABS: Creatinine,Serum 4.10 mg/dl (0.66-1.25)
[2025-06-24 07:17] LABS: C-Reactive Protein 136.7 mg/L (0-4)
[2025-06-24 07:30] LABS: Procalcitonin 46.3 ng/mL (0.0-2.0)
[2025-06-24] MEDS: CARBIDOPA/LEVODOPA 25/100MG TABLET 1 EACH PO ×3 (08:06→20:14)
[2025-06-24] MEDS: CITALOPRAM 20MG TABLET 20 MG PO (08:06)
[2025-06-24] MEDS: ACETAMINOPHEN 325MG TAB 650 MG PO ×3 (08:06→23:23)
[2025-06-24] MEDS: MAGNESIUM OXIDE 400MG TABLET 400 MG PO (08:06)
[2025-06-24] MEDS: POLYETHYLENE GLYCOL 3350 17 GM PACKET PO (08:07)
--- NOTE | 2025-06-24 10:24 | CT_ITS ---
FINAL REPORT TECHNIQUE: Axial images were obtained through the chest without contrast. Multiplanar reconstructions were performed in the sagittal and coronal planes. This study was performed with techniques to keep radiation doses as low as reasonably achievable (ALARA). Individualized dose reduction techniques using automated exposure control or adjustment of mA and/or kV according to the patient's size were employed. CLINICAL HISTORY: increased work of breathing, fevers COMPARISON: 10/13/2023 FINDINGS: CT CHEST: There is streak artifact from a prosthetic cardiac valve, and dense coronary artery calcifications are present. There is a spiculated nodule in the right middle lobe measuring 1.4 x 0.9 cm in size, stable since prior examinations as far back as September 2022. There are tiny pleural effusions noted bilaterally, new since the prior examination. There is likely atelectasis in the lung bases, although pneumonia cannot be excluded. Surgical clips are noted in the right retroperitoneum. IMPRESSION: Stable spiculated nodule in the right middle lobe as described. Tiny pleural effusions and probable atelectasis in the lung bases, although early pneumonia cannot be excluded. Reviewed, Interpreted and Dictated by Micheal Parker MD Transcribed by Pamela Healy Authenticated and [facility]
--- NOTE | 2025-06-24 10:28 | P.PN_ITS ---
Subjective Subjective Date: 06/24/25 Time: 10:28 Principal diagnosis: bradycardia, sepsis Interval history: 75-year-old white male in bed in no acute distress. He has a wet washcloth across his forehead due to complaints of a headache. Temperature is 100.7 during my examination today. Patient denies any chest pain, pressure or tightness. Despite weaning off of his carvedilol yesterday his heart rate is still in the high 30s low 40s overnight. Heart rate currently at around 42 bpm. Had a discussion with the regarding possible need for pacemaker implantation this admission but will need to wait until his temperature is normal for 24 hours before implanting any cardiac device. She does not feel that she wants to take him home with him having such a low heart rate and falling prior to coming in. He was previously scheduled to be considered for a pacemaker next week in [place], [place] but this will likely need to be done at this hospital during this admission. Exam Data for Last 24 hours Vital signs and Labs for Last 24 Hours: Temp Pulse Resp BP Pulse Ox O2 Del Method 100.7 F H 42 L 14 117/50 L 91 L Room Air 06/24/25 10:02 06/24/25 08:00 06/24/25 07:50 06/24/25 07:50 06/24/25 08:00 06/24/25 08:00 Laboratory Results - last 24 hr 06/23/25 11:07: POC Glucose 211 H 06/23/25 11:51: Troponin I 0.11 H 06/23/25 16:22: POC Glucose 201 H 06/23/25 16:27: Troponin I 0.10 H 06/23/25 19:47: POC Glucose 188 H 06/24/25 06:04: WBC 7.8, RBC 3.79 L, Hgb 11.4 L, Hct 33.5 L, MCV 88.4, MCH 30.1, MCHC 34.0, RDW 14.2, Plt Count 43 L*, MPV 11.5 H, Neut % (Auto) 76.1, Lymph % (Auto) 12.1, [place] % (Auto) 10.2 H, Eos % (Auto) 0.9, Baso % (Auto) 0.3, Neut # (Auto) 6.0, Lymph # (Auto) 1.0, [place] # (Auto) 0.8, Eos # (Auto) 0.1, Baso # (Auto) 0.0, Sodium 134 L, Potassium 4.1, Chloride 105, Carbon Dioxide 21 L, Anion Gap 12.1, BUN 74 H, Creatinine 4.10 H D, Estimated Creat Clear 19, Estimated GFR 14 L*, Est GFR ( Amer) 17 L* D, Glucose 155 H, Calcium 7.5 L, Magnesium 2.6 H, Total Bilirubin 1.4 H, AST 56, ALT 13, Alkaline Phosphatase 273 H, C-Reactive Protein 136.7 H, Total Protein 5.8 L, Albumin 3.4 L D, Globulin 2.4, Albumin/Globulin Ratio 1.4, Procalcitonin 46.3 H I & O for Last 24 hours: Intake & Output 06/21/25 06/22/25 06/23/25 06/24/25 11:59 11:59 11:59 11:59 Intake Total 2334 / 2334 1556 / 1556 2140 / 2140 1130 / 1130 Output Total 900 / 900 900 / 900 1000 / 1000 575 / 575 Balance 1434 / 1434 656 / 656 1140 / 1140 555 / 555 Weight 187 lb 15.458 oz 186 lb 183 lb 9.6 oz 189 lb 9 oz Microbiology Reports for the Last 24 Hours: Microbiology 06/22/25 12:17 Blood Blood Culture - Preliminary NO GROWTH AFTER 24 HOURS 06/22/25 12:17 Blood Blood Culture - Preliminary NO GROWTH AFTER 24 HOURS 06/21/25 11:48 Blood Blood Culture - Preliminary Gram Positive Cocci 06/21/25 11:54 Blood Blood Culture - Preliminary Gram Positive Cocci Constitutional Constitutional: no acute distress *Routine Respiratory Exam Respiratory: Present diminished air movement; Absent rhonchi or wheezes *Routine Cardiovascular Exam Cardiovascular: Present murmur and bradycardia; Absent gallop or rubs *Routine Extremities Exam Extremities: Present edema Progress Note: A&P Assessment and plan (1) Sepsis: Status: Acute (2) Altered mental status: Problem details: Acute metabolic encephalopathy Status: Acute (3) 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 (4) Type 2 diabetes mellitus: Status: Chronic (5) Essential (primary) hypertension: Status: Chronic (6) HEIDE (acute kidney injury): Status: Acute (7) Dehydration: Status: Resolved (8) Anemia: Status: Acute (9) Rhabdomyolysis: Status: Acute (10) Constipation: Status: Acute (11) Parkinson disease: Status: Chronic Assessment and Plan Assessment and Plan for All Diagnoses:: 1. sinus bradycardia with first degree AV block and RBBB -previously on coreg with unknown history of tachycardia. Last dose 06/23/2025 PM -Will likely need pacer this admission when afebrile for 24 hours 2. Sepsis with staph bacteremia -Encephalopathy has resolved -on meropenem 3. Met renal cancer to lung -will need more information on treatment/prognosis 4. DM, type 2 -On Farxiga, glimepiride at home 5. Parkinson disease -On carbidopa-levodopa 6. Hypertension -Currently holding amlodipine and carvedilol with well controlled blood pressure 7. CAD with prior CABG 2007 -mild elevated troponin in setting of sepsis and CKD stage 4-5 -On statin and Zetia therapy at home -Continue aspirin 81 mg daily 8. TAVR in 2023 -Echo this admission shows normal LVEF and TAVR functioning appropriately 9. CKD stage, stage IV-V, baseline this year between Cr 3.0-3.5 with GFR 20 -Creatinine 4.1 with GFR 14, today 10. Chronic anemia with thrombocytopenia -Hemoglobin stable at 11.4 -Platelets 43,000 Continue to monitor blood pressure and heart rate off carvedilol. Febrile illness management per Dr. Batista. I would expect that the patient will be hospitalized through the weekend and we can consider pacemaker insertion next week once he is afebrile. Would like more information on the patient's history of metastatic renal cancer to lung.
[2025-06-24 10:55] LABS: Anion Gap 11.2 mEq/L (5-15); Blood Urea Nitrogen 75 mg/dl (9-20); Calcium 8.0 mg/dl (8.4-10.2); Carbon Dioxide 19 mmol/L (22.0-30.0); Chloride 105 mmol/L (98-107); Creatinine Clearance Estimated 19 mL/min (50-200); Estimated Glomerular Filt Rate 15 ml/min (>60); GFR (African American) 18 ML/MIN (>60); Glucose 227 mg/dl (74-100); Potassium 4.2 mmoL/L (3.5-5.1); Sodium 131 mmol/L (136-145)
[2025-06-24 10:57] LABS: Creatinine,Serum 4.00 mg/dl (0.66-1.25)
[2025-06-24 11:33] LABS: NT Pro Brain Natriuretic Pep. 33600 pg/mL (0-450)
[2025-06-24 11:36] LABS: NT Pro Brain Natriuretic Pep. 35600 pg/mL (0-450)
[2025-06-24 11:36] LABS: POC Glucose,Bedside 202 gm/dL (70-110)
[2025-06-24] MEDS: FUROSEMIDE 20 MG/2 ML VIAL IV (11:53)
[2025-06-24 12:10] LABS: Adenovirus,PCR Not Detected (NotDetected); Chlamydophila Pneumoniae, PCR Not Detected (NotDetected); Coronavirus 19, PCR Not Detected (NotDetected); Coronovirus HKU1,PCR Not Detected (NotDetected); Influenza A, PCR Not Detected (NotDetected); Influenza AH1, 2009 Not Detected (NotDetected); Influenza AH1, PCR Not Detected (NotDetected); Influenza AH3,PCR Not Detected (NotDetected); Influenza B, PCR Not Detected (NotDetected); Mycoplasma Pneumoniae, PCR Not Detected (NotDetected); Parainfluenza 1, PCR Not Detected (NotDetected); Parainfluenza 2, PCR Not Detected (NotDetected); Parainfluenza 3, PCR Not Detected (NotDetected); Parainfluenza 4, PCR Not Detected (NotDetected)
[2025-06-24 15:02] LABS: Vancomycin,Trough 12.4 ug/mL (5.0-10.0)
[2025-06-24] MEDS: VANCOMYCIN/WATER FOR INJ (PEG) 1.25 GM/250 ML PIGGYBACK IV (15:03)
--- NOTE | 2025-06-24 15:34 | EXP.PHA.CONS ---
Pharmacy Consult Date: 06/24/25 Time: 15:34 Referring provider: DR. WARREN Reason for Consult:: VANCOMYCIN TROUGH LEVEL Allergies Allergy/AdvReac Type Severity Reaction Status Date / Time No Known Allergies Allergy Verified 11/11/23 11:00 Home Medications ?Medication ?Instructions ?Recorded ?Confirmed ?Type aspirin 81 mg tablet,delayed 81 mg PO DAILY CIRCULATION 30 days 07/13/21 06/20/25 Rx release #30 tabs atorvastatin 80 mg tablet 80 mg PO HS Cholesterol 30 days 07/13/21 06/20/25 Rx #30 tabs carvedilol 12.5 mg tablet 12.5 mg PO BID High blood pressure 07/13/21 06/20/25 Rx 30 days #60 tabs citalopram 20 mg tablet 20 mg PO DAILY Anxiety 30 days #30 07/13/21 06/20/25 Rx tabs glimepiride 1 mg tablet 1 mg PO DAILY Diabetes 30 days #30 07/13/21 06/20/25 Rx tabs tramadol 50 mg tablet 50 mg PO BIDP PRN Pain 08/14/23 06/20/25 History atogepant 60 mg tablet (Qulipta) 60 mg PO DAILY 06/20/25 06/20/25 History carbidopa ER 50 mg-levodopa 200 mg 1 tab PO BID 06/20/25 06/20/25 History tablet,extended release dapagliflozin propanediol 10 mg 10 mg PO DAILY 06/20/25 06/21/25 History tablet (Farxiga) ezetimibe 10 mg tablet (Zetia) 10 mg PO DAILY 06/20/25 06/20/25 History ferrous sulfate 325 mg (65 mg 325 mg PO DAILY 06/20/25 06/20/25 History iron) tablet (iron) magnesium oxide 400 mg (241.3 mg 400 mg PO DAILY 06/20/25 06/20/25 History magnesium) tablet omeprazole 40 mg capsule,delayed 40 mg PO DAILY 06/20/25 06/20/25 History release vit C 250 mg-vit E 90 mg-zinc 40 1 tab PO BID 06/20/25 06/20/25 History mg-copper 1 [id number] capsule (PreserVision AREDS-2) amlodipine 10 mg tablet 10 mg PO DAILY 06/21/25 06/20/25 History New Prescriptions to Start Prescriptions: Height: 1.68 m Weight: 85.984 kg Laboratory Results:: Laboratory Results - last 24 hr 06/23/25 16:22: POC Glucose 201 H 06/23/25 16:27: Troponin I 0.10 H 06/23/25 19:47: POC Glucose 188 H 06/24/25 06:04: WBC 7.8, RBC 3.79 L, Hgb 11.4 L, Hct 33.5 L, MCV 88.4, MCH 30.1, MCHC 34.0, RDW 14.2, Plt Count 43 L*, MPV 11.5 H, Neut % (Auto) 76.1, Lymph % (Auto) 12.1, [place] % (Auto) 10.2 H, Eos % (Auto) 0.9, Baso % (Auto) 0.3, Neut # (Auto) 6.0, Lymph # (Auto) 1.0, [place] # (Auto) 0.8, Eos # (Auto) 0.1, Baso # (Auto) 0.0, Sodium 134 L, Potassium 4.1, Chloride 105, Carbon Dioxide 21 L, Anion Gap 12.1, BUN 74 H, Creatinine 4.10 H D, Estimated Creat Clear 19, Estimated GFR 14 L*, Est GFR ( Amer) 17 L* D, Glucose 155 H, Calcium 7.5 L, Magnesium 2.6 H, Total Bilirubin 1.4 H, AST 56, ALT 13, Alkaline Phosphatase 273 H, C-Reactive Protein 136.7 H, NT-Pro-B Natriuret Pep 34473 H, Total Protein 5.8 L, Albumin 3.4 L D, Globulin 2.4, Albumin/Globulin Ratio 1.4, Procalcitonin 46.3 H 06/24/25 10:35: Sodium 131 L, Potassium 4.2, Chloride 105, Carbon Dioxide 19 L, Anion Gap 11.2, BUN 75 H, Creatinine 4.00 H, Estimated Creat Clear 19, Estimated GFR 15 L*, Est GFR ( Amer) 18 L*, Glucose 227 H D, Calcium 8.0 L, NT-Pro-B Natriuret Pep 41038 H 06/24/25 11:28: POC Glucose 202 H 06/24/25 11:54: Chlamy pneumoniae PCR Not detected, Adenovirus (PCR) Not detected, B. pertussis DNA (PCR) Not detected, Coronavirus OC43 (PCR) Not detected, Coronavirus HKU1 (PCR) Not detected, Coronavirus 229E (PCR) Not detected, SARS-CoV-2 (PCR) Not detected, Coronavirus NL63 (PCR) Not detected, Human Metapneumovir PCR Not detected, Influenza A (H1) PCR Not detected, Influ A (H1N1/09) PCR Not detected, Influenza A (H3) PCR Not detected, Influenza Type A (PCR) Not detected, Influenza Type B (PCR) Not detected, M. pneumoniae (PCR) Not detected, Parainfluenza 1 (PCR) Not detected, Parainfluenza 2 (PCR) Not detected, Parainfluenza 3 (PCR) Not detected, Parainfluenza 4 (PCR) Not detected, RSV (PCR) Not detected, Entero/Rhino (PCR) Not detected 06/24/25 13:17: Vancomycin Trough 12.4 H Medical History: Medical History (Updated 06/23/25 @ 14:22 by NORBERT Zaman) Heart failure HLD (hyperlipidemia) Parkinson disease Depression HTN (hypertension) Diabetes type 2, controlled Renal cell carcinoma Iron deficiency anemia Anemia Assessment and Plan Assessment and plan all Dx Assessment and Plan for all problems:: BASED ON PATIENT FACTORS AND VANCOMYCIN TROUGH LEVEL OF 12.4, RECOMMEND SLIGHTLY DECREASING CURRENT VANCOMYCIN DOSE OF 1,500MG TO 1,250MG AT THE SAME INTERVAL OF Q48H D/T PATIEN'TS WORSENING RENAL FUNCTION. PHARMACY WILL CONTINTUE TO MONITOR AND WILL ADJUST DOSE APPROPRIATE. -DAPHNIE NIELSEN PHARMD
--- NOTE | 2025-06-24 15:59 | P.PN_ITS ---
Subjective *Date: 06/24/25 *Time: 15:59 Interval history: Patient feels a looks worse today, has increased work of breathing. Will trial Lasix challenge due to worsening kidney function in setting of IV fluids. Also having fevers, follow-up repeat blood cultures. Exam Data for Last 24 hours Vital signs and Labs for Last 24 Hours: Temp Pulse Resp BP Pulse Ox O2 Del Method 98.6 F 40 L 16 126/57 L 95 Room Air 06/24/25 14:07 06/24/25 15:41 06/24/25 11:57 06/24/25 11:57 06/24/25 11:57 06/24/25 15:00 Laboratory Results - last 24 hr 06/23/25 16:22: POC Glucose 201 H 06/23/25 16:27: Troponin I 0.10 H 06/23/25 19:47: POC Glucose 188 H 06/24/25 06:04: WBC 7.8, RBC 3.79 L, Hgb 11.4 L, Hct 33.5 L, MCV 88.4, MCH 30.1, MCHC 34.0, RDW 14.2, Plt Count 43 L*, MPV 11.5 H, Neut % (Auto) 76.1, Lymph % (Auto) 12.1, [place] % (Auto) 10.2 H, Eos % (Auto) 0.9, Baso % (Auto) 0.3, Neut # (Auto) 6.0, Lymph # (Auto) 1.0, [place] # (Auto) 0.8, Eos # (Auto) 0.1, Baso # (Auto) 0.0, Sodium 134 L, Potassium 4.1, Chloride 105, Carbon Dioxide 21 L, Anion Gap 12.1, BUN 74 H, Creatinine 4.10 H D, Estimated Creat Clear 19, Estimated GFR 14 L*, Est GFR ( Amer) 17 L* D, Glucose 155 H, Calcium 7.5 L, Magnesium 2.6 H, Total Bilirubin 1.4 H, AST 56, ALT 13, Alkaline Phosphatase 273 H, C-Reactive Protein 136.7 H, NT-Pro-B Natriuret Pep 14034 H, Total Protein 5.8 L, Albumin 3.4 L D, Globulin 2.4, Albumin/Globulin Ratio 1.4, Procalcitonin 46.3 H 06/24/25 10:35: Sodium 131 L, Potassium 4.2, Chloride 105, Carbon Dioxide 19 L, Anion Gap 11.2, BUN 75 H, Creatinine 4.00 H, Estimated Creat Clear 19, Estimated GFR 15 L*, Est GFR ( Amer) 18 L*, Glucose 227 H D, Calcium 8.0 L, NT-Pro-B Natriuret Pep 22922 H 06/24/25 11:28: POC Glucose 202 H 06/24/25 11:54: Chlamy pneumoniae PCR Not detected, Adenovirus (PCR) Not detected, B. pertussis DNA (PCR) Not detected, Coronavirus OC43 (PCR) Not detected, Coronavirus HKU1 (PCR) Not detected, Coronavirus 229E (PCR) Not detected, SARS-CoV-2 (PCR) Not detected, Coronavirus NL63 (PCR) Not detected, Human Metapneumovir PCR Not detected, Influenza A (H1) PCR Not detected, Influ A (H1N1/09) PCR Not detected, Influenza A (H3) PCR Not detected, Influenza Type A (PCR) Not detected, Influenza Type B (PCR) Not detected, M. pneumoniae (PCR) Not detected, Parainfluenza 1 (PCR) Not detected, Parainfluenza 2 (PCR) Not detected, Parainfluenza 3 (PCR) Not detected, Parainfluenza 4 (PCR) Not detected, RSV (PCR) Not detected, Entero/Rhino (PCR) Not detected 06/24/25 13:17: Vancomycin Trough 12.4 H I & O for Last 24 hours: Intake & Output 06/21/25 06/22/25 06/23/25 06/24/25 23:59 23:59 23:59 23:59 Intake Total 930 / 1170 1820 / 1820 2020 / 2260 1030 / 1030 Output Total 900 / 900 1325 / 1325 650 / 650 250 / 250 Balance 30 / 270 495 / 495 1370 / 1610 780 / 780 Weight 85.26 kg 84.368 kg 83.28 kg 85.984 kg Microbiology Reports for the Last 24 Hours: Microbiology 06/22/25 12:17 Blood Blood Culture - Preliminary NO GROWTH AFTER 48 HOURS 06/22/25 12:17 Blood Blood Culture - Preliminary NO GROWTH AFTER 48 HOURS 06/21/25 11:54 Blood Blood Culture - Final Staphylococcus aureus 06/21/25 11:48 Blood Blood Culture - Final Staphylococcus aureus Constitutional Constitutional: no acute distress and chronically ill appearing *Routine HEENT Exam Head: Present normocephalic Eye: Present EOMI and PERRL ENT: Present mucous membranes moist *Routine Neck Exam Neck: Present supple; Absent lymphadenopathy *Routine Respiratory Exam Respiratory: Present CTA bilaterally *Routine Cardiovascular Exam Cardiovascular: Present RRR *Routine Abdominal Exam Abdominal: Present soft and normoactive bowel sounds; Absent tenderness *Routine Extremities Exam Extremities: Absent cyanosis, clubbing or edema *Routine Skin Exam Skin: Present warm; Absent rash *Routine Neurological Exam Neurological: Present alert Assessment and Plan *Assessment and plan (1) Sepsis: Status: Acute Qualifiers: Sepsis acute organ dysfunction status: with acute organ dysfunction Sepsis type: sepsis due to unspecified organism Severe sepsis acute organ dysfunction type: encephalopathy Severe sepsis shock status: without septic shock Qualified Code(s): A41.9 - Sepsis, unspecified organism; R65.20 - Severe sepsis without septic shock; G93.41 - Metabolic encephalopathy Category: Medical Code(s): A41.9 - Sepsis, unspecified organism (2) Altered mental status: Problem Comment: Acute metabolic encephalopathy Status: Acute Qualifiers: Coma depth: [place] coma 13-15 Category: Medical Code(s): R41.82 - Altered mental status, unspecified (3) 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 Qualifiers: Laterality: unspecified laterality Qualified Code(s): C78.00 - Secondary malignant neoplasm of unspecified lung; C64.9 - Malignant neoplasm of unspecified kidney, except renal pelvis Category: Medical Code(s): C78.00 - Secondary malignant neoplasm of unspecified lung; C64.9 - Malignant neoplasm of unspecified kidney, except renal pelvis (4) Type 2 diabetes mellitus: Status: Chronic Qualifiers: Diabetes mellitus buttermaker continuous churn insulin use: without buttermaker continuous churn use Diabetes mellitus complication status: without complication Qualified Code(s): E11.9 - Type 2 diabetes mellitus without complications Category: Medical Code(s): E11.9 - Type 2 diabetes mellitus without complications (5) Essential (primary) hypertension: Status: Chronic Category: Medical Code(s): I10 - Essential (primary) hypertension (6) HEIDE (acute kidney injury): Status: Acute Category: Medical Code(s): N17.9 - Acute kidney failure, unspecified (7) Dehydration: Status: Resolved Category: Medical Code(s): E86.0 - Dehydration (8) Anemia: Status: Acute Category: Medical Code(s): D64.9 - Anemia, unspecified (9) Rhabdomyolysis: Status: Acute Category: Medical Code(s): M62.82 - Rhabdomyolysis (10) Constipation: Status: Acute Category: Medical Code(s): K59.00 - Constipation, unspecified (11) Parkinson disease: Status: Chronic Qualifiers: Dyskinesia presence: unspecified whether dyskinesia Fluctuating manifestations: unspecified whether manifestations fluctuate Qualified Code(s): G20.A1 - Parkinson's disease without dyskinesia, without mention of fluctuations Category: Medical Code(s): G20.A1 - Parkinson's disease without dyskinesia, without mention of fluctuations Plan Tito Daniel 75-year-old male with diabetes, Parkinson's, history of metastatic renal cell carcinoma. Presents meeting sepsis criteria. Discussed case with ER physician, request admission for further antibiotics and workup of his sepsis. I decided to admit for further care. #Severe sepsis, resolved #Community-acquired pneumonia, POA #Staph aureus bacteremia #Acute metabolic encephalopathy, resolving ? Presented with confusion, initial WBC 10, CRP 248, procalcitonin 48, with lactic acidosis, tachycardia and fevers. ? CXR on admission notable for bibasilar pneumonia. Blood cultures growing Staph aureus in 2/2 bottles. Second set of blood cultures also positive for Staph aureus, third set NGTD. ? Unfortunately, patient states he feels worse today but cannot give focal symptoms due to history of Parkinson's dementia. He is having increased work of breathing today. Also having fevers up to 101.5. ? Will repeat blood cultures, follow-up CT chest on 06/24/2025 does show pulmonary edema and/or pneumonia. Repeat respiratory panel today normal. ? CRP down from 158-136, procalcitonin from 59-46, WBC normal. Will continue to monitor. ? Continue vancomycin renally dosed, meropenem had been discontinued. 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 Creatinine bumped from 3.5-4.1 this morning, had been receiving IV fluids at 75 mL/h. Looks slightly volume overloaded today. ? Will trial IV Lasix 20 mg, follow-up BMP this afternoon. ? BNP elevated to 35,600, however this is in the setting of advanced CKD. Will trial Lasix as above. #Symptomatic sinus bradycardia #History of CABG ? Patient did bradycardia down to 30s to 40s during admission, EKG revealing sinus bradycardia with chronic RVH and right bundle branch block. Had been in 70s prior to this. During this episode, patient was lightheaded but he also states this is a chronic issue for him. Vital signs otherwise stable. ? 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 Patient takes Coreg 12.5 mg twice daily currently. ? Patient heart rate continues to be in the 40s, will discontinue Coreg for now. ? Cardiology consulted, planning for pacemaker on Friday. ? Continue home aspirin 81 mg. #Thrombocytopenia ? Platelets 43, in the setting of acute illness. Continue monitor. Parkinsonism: Continue carbidopa/levodopa 25/100 mg 3 times a day Diabetes: A1c 5.9%. Holding home glimepiride and Farxiga. Consider discontinue at discharge. Hypertension: CAD: - Holding home amlodipine, BP stable. Decrease Coreg as above. Resume aspirin 81 mg daily. - Holding Lipitor during illness. Continue omeprazole 40 mg daily for GERD Continue citalopram 20 mg daily for anxiety Full code IPC's due to thrombocytopenia Diabetic diet
[2025-06-24 16:01] LABS: Anion Gap 12.1 mEq/L (5-15); Blood Urea Nitrogen 79 mg/dl (9-20); Calcium 7.9 mg/dl (8.4-10.2); Carbon Dioxide 19 mmol/L (22.0-30.0); Chloride 103 mmol/L (98-107); Creatinine Clearance Estimated 19 mL/min (50-200); Estimated Glomerular Filt Rate 14 ml/min (>60); GFR (African American) 17 ML/MIN (>60); Glucose 265 mg/dl (74-100); Potassium 4.1 mmoL/L (3.5-5.1); Sodium 130 mmol/L (136-145)
[2025-06-24 16:14] LABS: Creatinine,Serum 4.10 mg/dl (0.66-1.25)
[2025-06-24 16:54] LABS: POC Glucose,Bedside 284 gm/dL (70-110)
[2025-06-24] MEDS: IPRATROPIUM/ALBUTEROL 3 ML NEB IH (18:07)
[2025-06-24 19:58] LABS: POC Glucose,Bedside 267 gm/dL (70-110)
--- NOTE | 2025-06-24 20:11 | P.EN_ITS ---
<Statement entered by Gamaliel Batista MD - 06/25/25 14:15> Agree with the plan of care as outlined by the [employer]. Called by nursing staff stating that patient's heart rate was in the 20s and 30s previously in the 30s and 40s. Presented to patient's bedside. Assessment complete: Patient is alert somewhat drowsy he reports that his lightheadedness is worsening. S1-S2 no murmur. Patient has rhythm consistent with junctional/idioventricular intermittently. Will obtain EKG and move patient to the intensive care unit. Patient has been without Coreg since the 6. Least likely beta-mike toxicity. He is pending pacemaker placement on Friday. Will transition patient to the intensive care unit and placed on dopamine to maintain heart rate back in the 40s to 50s. Will update attending physician.
--- NOTE | 2025-06-24 20:12 | ECG_ITS ---
APPROVED REPORT Exam: Resting ECG HR:33 bpm ECG Measurements Heart Rate 33 AXES QRSd 182 QRS 89 QT 625 T 65 QTc 511 Conclusion SINUS RHYTHM WITH HIGH GRADE AV BLOCK INTRAVENTRICULAR CONDUCTION DELAY [130+ ms QRS DURATION] PROLONGED QT INTERVAL CRITICAL TEST RESULT UNCONFIRMED REPORT Electronically signed by : Anson Davison MD 06/26/2025 08:13:01
[2025-06-24] MEDS: PANTOPRAZOLE 40MG TABLET 40 MG PO (20:14)
[2025-06-24] MEDS: SENNOSIDES 8.6MG/DOCUSATE 50MG TABLET 1 TAB PO (20:14)
--- NOTE | 2025-06-24 20:25 | PC.NURSE ---
Patient left floor with staff for ICU at 20:24.
[2025-06-24] MEDS: DOPAMINE HCL/D5W 250 ML 8.06 MG IV (20:46)
--- NOTE | 2025-06-24 20:54 | PC.NURSE ---
goal for Dopamine gtt - HR > 50.
[2025-06-25] VITALS (45 sets, daily range): BP systolic 112–181; BP diastolic 55–89; PULSE 34–59; RESP 16–28; TEMP 37.1–37.8; O2SAT 91–98; BMI 30.7
--- NOTE | 2025-06-25 00:08 | PC.NURSE ---
notified Jesús, Hospitalist of pts SBP >150 x1 hour. States to decrease Dopamine gtt to 5 mcg/kg/min and new goal is HR >40
--- NOTE | 2025-06-25 00:36 | PC.NURSE ---
After titrating Dopamine gtt to 5 mcg/kg/min, Pts heart rate started to decreased to 30's, less than goal rate, with SBP now high 140's. Notified Jesús TEMPLETON. States OK to titrate back up on Dopamine. New goal for SBP is less than 170 (previous goal SBP<150). Goal for HR is the same- >40.
[2025-06-25] MEDS: IPRATROPIUM/ALBUTEROL 3 ML NEB IH ×3 (00:44→11:45)
[2025-06-25] MEDS: DOPAMINE HCL/D5W 250 ML 32.24 MG IV (04:55)
[2025-06-25] MEDS: ATROPINE 1MG/10ML SYRINGE (CRASH CART) 0.5 MG IV (05:06)
--- NOTE | 2025-06-25 05:26 | PC.NURSE ---
@0445, pt noted to have 2 pauses on tele, with monitor reading asystole . HR then increased back into the 40's w/o intervention. Pt assessed immediately. Pt sleeping but arousable to verbal stimuli. Pt reports feeling the same as he has felt. No better, or worse. YOKASTA Espinosa was notified and came to bedside to assess pt. Verbal orders received and carried out for Atropine 0.5mg IV. Given @0506 with no significant change in HR. Dopamine gtt continued @10 mcg/kg/min. Pts zoll pads were connected to zolle.
[2025-06-25 06:02] LABS: POC Glucose,Bedside 252 gm/dL (70-110)
[2025-06-25] MEDS: EPINEPHrine 5 MG in 0.9 % SODIUM CHLORIDE 250 ML 6.12 MG IV (06:03)
--- NOTE | 2025-06-25 06:46 | PC.NURSE ---
@0554 pts HR decreased to 22-23 and sustained . Pt slower to respond than his baseline. Rapid response called @0555. Jesús TEMPLETON to bedside. Received verbal orders to stop dopamine gtt and start epi gtt. Gtts changed @0603. See MAR
[2025-06-25] MEDS: ONDANSETRON 4MG/2ML VIAL 4 MG IV (07:07)
[2025-06-25] MEDS: DOPAMINE HCL/D5W 250 ML 55.35 MG IV (07:26)
[2025-06-25 07:43] LABS: Hematocrit 37.1 % (42.0-52.0); Hemoglobin 12.4 g/dL (14.1-18.0); Immature Granulocytes % 1.5 %; Mean Corpuscular HGB Conc 33.4 g/dL (31.8-35.4); Mean Corpuscular Hemoglobin 30.0 pg (27.0-31.2); Mean Corpuscular Volume 89.6 fl (80-94); Nucleated Red Blood Cells % 0 %; Platelet Count 102 K/mm3 (142-424); Red Blood Count 4.14 M/mm3 (4.60-6.20); Red Cell Distribution Width-SD 45.7 fL; White Blood Count 15.7 K/mm3 (4.8-10.8)
[2025-06-25 08:09] LABS: Alanine Aminotransferase 15 U/L (12-78); Albumin Level 3.3 g/dl (3.5-5.0); Albumin/Globulin Ratio 1.0 (1.1-1.8); Alkaline Phosphatase 348 U/L (38-126); Anion Gap 16.1 mEq/L (5-15); Aspartate Amino Transferase 37 U/L (17-59); Bilirubin,Total 1.3 mg/dl (0.2-1.3); Calcium 8.2 mg/dl (8.4-10.2); Carbon Dioxide 15 mmol/L (22.0-30.0); Chloride 102 mmol/L (98-107); Creatinine Clearance Estimated 18 mL/min (50-200); Estimated Glomerular Filt Rate 14 ml/min (>60); GFR (African American) 17 ML/MIN (>60); Globulin 3.4 g/dL (1.3-3.2); Glucose 283 mg/dl (74-100); Magnesium 2.7 mg/dl (1.6-2.3); Potassium 4.1 mmoL/L (3.5-5.1); Sodium 129 mmol/L (136-145); Total Protein,Serum 6.7 g/dl (6.3-8.2)
[2025-06-25 08:19] LABS: Blood Urea Nitrogen 85 mg/dl (9-20); Creatinine,Serum 4.20 mg/dl (0.66-1.25)
[2025-06-25 08:21] LABS: C-Reactive Protein 196.5 mg/L (0-4)
[2025-06-25 08:32] LABS: Procalcitonin 28.9 ng/mL (0.0-2.0)
[2025-06-25 09:22] LABS: RBC Morphology Normal; Total Cells Counted 100
[2025-06-25 09:36] LABS: Creatine Kinase 154 U/L (55-170)
[2025-06-25 09:41] LABS: Microscopic, Urine URINE MICROSCOPIC (MICROSCOPIC)
[2025-06-25 09:56] LABS: Bilirubin,Urine Negative (Negative); Color,Urine YELLOW (Yellow); Glucose,Urine (UA) TRACE (Negative); Ketones,Urine Negative (Negative); Leukocyte Esterase,Urine Negative (Negative); PH,Urine 5.5 (5.0-8.5); Protein,Urine 1+ (Negative); Specific Gravity, Urine 1.020 (1.005-1.030); Urobilinogen,Urine 0.2 EU/dl (0.2)
[2025-06-25] MEDS: MAGNESIUM OXIDE 400MG TABLET 400 MG PO (10:13)
[2025-06-25] MEDS: CARBIDOPA/LEVODOPA 25/100MG TABLET 1 EACH PO (10:13)
[2025-06-25] MEDS: CITALOPRAM 20MG TABLET 20 MG PO (10:13)
[2025-06-25] MEDS: POLYETHYLENE GLYCOL 3350 17 GM PACKET PO (10:13)
[2025-06-25] MEDS: MEROPENEM 1 GM in 0.9 % SODIUM CHLORIDE 100 ML IV (10:14)
[2025-06-25 10:19] LABS: Amorphous Sediment,Urine 1+ /lpf
[2025-06-25] MEDS: humaLOG 100 UNITS/ML 10ML VIAL (SSI) SUBCUT (12:29)
--- NOTE | 2025-06-25 12:47 | EXP.DC.SUM ---
General Admission date:: 06/20/25 HPI HPI HPI: 75-year-old male with history of Parkinson's, diabetes, history of metastatic renal cell carcinoma. He presented to the ER via EMS after being found on the floor in his bathroom by his . He has been more confused over the past 2 days. States that he was having accidents and urinating on himself. On arrival to the ER, patient found to be tachycardic, tachypneic, febrile to 102.8. Meeting sepsis criteria. Workup concerning for severe sepsis with HEIDE, mild elevation in liver enzymes. Initiated on empiric antibiotics with vancomycin and Zosyn. Blood cultures obtained. Unclear exact etiology however differential includes UTI or intra-abdominal infection given tenderness of belly. CT obtained at time of admission. Medicine consulted for admission and further management. On evaluation, patient appears mildly confused and is not at baseline per . Not acting himself or answering questions very well. Localizes to pain with palpation of his abdomen but otherwise unable to provide history or review of systems. This information was obtained from at bedside. States he is been taking his medications up until today. He has been struggling with some bradycardia and is currently being evaluated by his coil shaper Dr. Johnson to potentially have pacemaker placed in the coming weeks. Hospital Course Hospital Course Hospital Course: Tito Daniel 75-year-old male with medical history significant for type 2 diabetes, CKD stage IIIb, solitary left kidney/history of renal cell carcinoma (s/p right total nephrectomy), CAD/CABG, sick sinus syndrome, Parkinson's disease/dementia, hypertension GERD, anxiety/depression who presented after found him down in the home bathroom floor and confused. Initially found to have sepsis secondary to bibasilar community-acquired pneumonia, and rhabdomyolysis. Hospital course complicated by MSSA bacteremia, progressive HEIDE on CKD stage IIIb in setting of solitary kidney, symptomatic sinus bradycardia. #Sepsis #Community-acquired pneumonia, POA #MSSA bacteremia #Acute metabolic encephalopathy ? Presented with confusion, initial WBC 10, CRP 248, procalcitonin 48, with lactic acidosis, tachycardia and fevers with CXR showing bibasilar pneumonia. ? Blood cultures growing MSSA in 2/2 bottles. Second set of blood cultures also positive for MSSA, third set NGTD. Sensitive to vancomycin, clindamycin, daptomycin, erythromycin, gentamicin, minocycline, oxacillin, rifampin, tetracycline, Bactrim. Resistant penicillin. ? Patient's fevers and resolved 3 days ago, with procalcitonin and CRP downtrending. However, began having fevers again as high as 102.5 Fahrenheit starting 2 days ago. No new source of infection on CT chest, CT abdomen/pelvis, new set of blood cultures pending at this time. Full respiratory panel also normal. ? CRP had been downtrending, but up trended from 136-186 today, procalcitonin down from 46-28.9 today, WBC bumped from 7.8-15.7. ? Continue vancomycin renally dosed, restarted meropenem today due to fevers overnight and uptrending WBC and CRP. ? Currently requiring 1 L nasal cannula, heart rate 50s, blood pressure slightly elevated 163/70. Patient does look weak, slow to answer which is not baseline. #HEIDE on CKD 3B #Rhabdomyolysis, resolved #Elevated BNP #History of RCC s/p right total nephrectomy ? Patient was initially fluid resuscitated in the setting of rhabdomyolysis and poor oral intake in the setting of sepsis, initial CK 840 which normalized. ? Renal function continues to worsen in spite of one-time dose of IV Lasix diuresis. Initial creatinine 3.5, currently 4.2, BUN 85. GFR 14. No severe electrolyte abnormalities. Patient is making urine. ? BNP elevated to 35,600, though in the setting of advanced CKD. Did not respond well to initial dose of IV Lasix. Will refrain from giving further Lasix at this time given progressive renal failure, and solitary kidney without nephrology. ? Given progressive renal failure in the setting of symptomatic bradycardia, sepsis patient would benefit from being in a tertiary center with nephrology. Discussed case with Dr. Hilton at [facility] in [facility] who graciously accepted patient to their ICU. Patient will be transported in critical condition. #Symptomatic sinus bradycardia #History of sick sinus syndrome #History of right bundle branch block #History of CABG ? Patient began having bradycardia down to 30s to 40s during admission around a 3, EKG revealing sinus bradycardia with chronic RVH and right bundle branch block. Had been in 70s prior to this. During this episode, patient was slightly lightheaded but he also states this is a chronic issue for him. Vital signs otherwise stable. Patient is Coreg 12.5 mg twice daily was discontinued after this wrist episode. ? Patient heart rate has been maintaining in the 40s to 50s, relatively asymptomatic. ? Unfortunately, last night patient did bradycardia down to the 20s with EKG showing sinus bradycardia with pauses with dizziness, worsening fatigue. ? Started on dopamine drip but did not tolerate doses greater than 15 without nausea/vomiting, therefore started concomitant epinephrine drip at 6 mcg/h. Patient heart rate currently in the 40s to 50s and relatively asymptomatic. ? Interventional cardiology was consulted, planned to put permanent pacemaker on Friday but will be transferred to [place] for further evaluation. ? Continue home aspirin 81 mg. #Thrombocytopenia ? Platelets improved from 43-102, in the setting of acute illness. Continue monitor, no signs of bleeding. Parkinsonism: Continued carbidopa/levodopa 25/100 mg 3 times a day Diabetes: A1c 5.9%. Held home glimepiride and Farxiga. Hypertension: CAD: - Holding home amlodipine, Coreg. Continued aspirin 81 mg daily. - Holding Lipitor during illness. Continue omeprazole 40 mg daily for GERD Continue citalopram 20 mg daily for anxiety Total time spent on discharge: 32 minutes on chart review, counseling, documentation, and direct care with patient. Exam Data for Last 24 hours Vital signs and Labs for Last 24 Hours: Temp Pulse Resp BP Pulse Ox O2 Del Method O2 Flow Rate 99.9 F H 50 L 16 163/70 H 93 L Nasal Cannula 1 06/25/25 11:21 06/25/25 12:00 06/25/25 11:21 06/25/25 11:21 06/25/25 11:21 06/25/25 11:21 06/25/25 11:21 Laboratory Results - last 24 hr 06/24/25 11:54: Chlamy pneumoniae PCR Not detected, Adenovirus (PCR) Not detected, B. pertussis DNA (PCR) Not detected, Coronavirus OC43 (PCR) Not detected, Coronavirus HKU1 (PCR) Not detected, Coronavirus 229E (PCR) Not detected, SARS-CoV-2 (PCR) Not detected, Coronavirus NL63 (PCR) Not detected, Human Metapneumovir PCR Not detected, Influenza A (H1) PCR Not detected, Influ A (H1N1/09) PCR Not detected, Influenza A (H3) PCR Not detected, Influenza Type A (PCR) Not detected, Influenza Type B (PCR) Not detected, M. pneumoniae (PCR) Not detected, Parainfluenza 1 (PCR) Not detected, Parainfluenza 2 (PCR) Not detected, Parainfluenza 3 (PCR) Not detected, Parainfluenza 4 (PCR) Not detected, RSV (PCR) Not detected, Entero/Rhino (PCR) Not detected 06/24/25 13:17: Vancomycin Trough 12.4 H 06/24/25 15:30: Sodium 130 L, Potassium 4.1, Chloride 103, Carbon Dioxide 19 L, Anion Gap 12.1, BUN 79 H, Creatinine 4.10 H, Estimated Creat Clear 19, Estimated GFR 14 L*, Est GFR ( Amer) 17 L*, Glucose 265 H, Calcium 7.9 L 06/24/25 16:39: POC Glucose 284 H 06/24/25 19:50: POC Glucose 267 H 06/25/25 05:55: POC Glucose 252 H 06/25/25 06:55: WBC 15.7 H D, RBC 4.14 L, Hgb 12.4 L, Hct 37.1 L, MCV 89.6, MCH 30.0, MCHC 33.4, RDW 13.9, Plt Count 102 L D, MPV 10.9 H, Neut % (Auto) 60.6, Lymph % (Auto) 25.0, [place] % (Auto) 11.9 H, Eos % (Auto) 0.6, Baso % (Auto) 0.4, Neut # (Auto) 9.5 H, Lymph # (Auto) 3.9, [place] # (Auto) 1.9 H, Eos # (Auto) 0.1, Baso # (Auto) 0.1, Total Counted 100, Neutrophils % (Manual) 60, Lymphocytes % (Manual) 27, Monocytes % (Manual) 12 H, Eosinophils % (Manual) 1, Platelet Estimate Slight decrease, RBC Morphology Normal, Sodium 129 L, Potassium 4.1, Chloride 102, Carbon Dioxide 15 L, Anion Gap 16.1 H, BUN 85 H, Creatinine 4.20 H, Estimated Creat Clear 18, Estimated GFR 14 L*, Est GFR ( Amer) 17 L*, Glucose 283 H, Calcium 8.2 L, Magnesium 2.7 H, Total Bilirubin 1.3, AST 37 D, ALT 15, Alkaline Phosphatase 348 H, Total Creatine Kinase 154, CK-MB (CK-2) 1.2, C-Reactive Protein 196.5 H, Total Protein 6.7, Albumin 3.3 L, Globulin 3.4 H, Albumin/Globulin Ratio 1.0 L, Procalcitonin 28.9 H 06/25/25 08:25: Urine Color Yellow, Urine Appearance Clear, Urine pH 5.5, Ur Specific [place] 1.020, Urine Protein 1+ A, Urine Glucose (UA) Trace, Urine Ketones Negative, Urine Blood Trace-i, Urine Nitrate Negative, Urine Bilirubin Negative, Urine Urobilinogen 0.2, Ur Leukocyte Esterase Negative, Urine RBC 3-5, Urine WBC None, Ur Squamous Epith Cells None, Amorphous Sediment 1+, Urine Bacteria None I & O for Last 24 hours: Intake & Output 06/22/25 06/23/25 06/24/25 06/25/25 23:59 23:59 23:59 23:59 Intake Total 1820 / 1820 2020 / 2260 2885.911 / 2885.911 526.354 / 526.354 Output Total 1325 / 1325 650 / 650 550 / 550 440 / 440 Balance 495 / 495 1370 / 1610 2335.911 / 2335.911 86.354 / 86.354 Weight 84.368 kg 83.28 kg 85.984 kg 86.818 kg Microbiology Reports for the Last 24 Hours: Microbiology 06/22/25 12:17 Blood Blood Culture - Preliminary NO GROWTH AFTER 48 HOURS 06/22/25 12:17 Blood Blood Culture - Preliminary NO GROWTH AFTER 48 HOURS 06/21/25 11:54 Blood Blood Culture - Final Staphylococcus aureus 06/21/25 11:48 Blood Blood Culture - Final Staphylococcus aureus Constitutional Constitutional: mild distress and chronically ill appearing *Routine HEENT Exam Head: Present normocephalic Eye: Present EOMI and PERRL ENT: Present mucous membranes moist *Routine Neck Exam Neck: Present supple; Absent lymphadenopathy *Routine Respiratory Exam Respiratory: Present CTA bilaterally *Routine Cardiovascular Exam Cardiovascular: Present RRR *Routine Abdominal Exam Abdominal: Present soft and normoactive bowel sounds; Absent tenderness *Routine Extremities Exam Extremities: Absent cyanosis, clubbing or edema *Routine Skin Exam Skin: Present warm; Absent rash *Routine Neurological Exam Neurological: Present alert Results Data Completed and Pending Labs on day of discharge: Labs from last 24 hours 06/25/25 06/25/25 06/25/25 08:25 06:55 05:55 WBC 15.7 H D RBC 4.14 L Hgb 12.4 L Hct 37.1 L MCV 89.6 MCH 30.0 MCHC 33.4 RDW 13.9 Plt Count 102 L D MPV 10.9 H Neut % (Auto) 60.6 Lymph % (Auto) 25.0 [place] % (Auto) 11.9 H Eos % (Auto) 0.6 Baso % (Auto) 0.4 Neut # (Auto) 9.5 H Lymph # (Auto) 3.9 [place] # (Auto) 1.9 H Eos # (Auto) 0.1 Baso # (Auto) 0.1 Total Counted 100 Neutrophils % (Manual) 60 Lymphocytes % (Manual) 27 Monocytes % (Manual) 12 H Eosinophils % (Manual) 1 Platelet Estimate Slight decrease RBC Morphology Normal Sodium 129 L Potassium 4.1 Chloride 102 Carbon Dioxide 15 L Anion Gap 16.1 H BUN 85 H Creatinine 4.20 H Estimated Creat Clear 18 Estimated GFR 14 L* Est GFR ( Amer) 17 L* Glucose 283 H POC Glucose 252 H Calcium 8.2 L Magnesium 2.7 H Total Bilirubin 1.3 AST 37 D ALT 15 Alkaline Phosphatase 348 H Total Creatine Kinase 154 CK-MB (CK-2) 1.2 C-Reactive Protein 196.5 H Total Protein 6.7 Albumin 3.3 L Globulin 3.4 H Albumin/Globulin Ratio 1.0 L Procalcitonin 28.9 H Urine Color Yellow Urine Appearance Clear Urine pH 5.5 Ur Specific [place] 1.020 Urine Protein 1+ A Urine Glucose (UA) Trace Urine Ketones Negative Urine Blood Trace-i Urine Nitrate Negative Urine Bilirubin Negative Urine Urobilinogen 0.2 Ur Leukocyte Esterase Negative Urine RBC 3-5 Urine WBC None Ur Squamous Epith Cells None Amorphous Sediment 1+ Urine Bacteria None Vancomycin Trough Chlamy pneumoniae PCR Adenovirus (PCR) B. pertussis DNA (PCR) Coronavirus OC43 (PCR) Coronavirus HKU1 (PCR) Coronavirus 229E (PCR) SARS-CoV-2 (PCR) Coronavirus NL63 (PCR) Human Metapneumovir PCR Influenza A (H1) PCR Influ A (H1N1/09) PCR Influenza A (H3) PCR Influenza Type A (PCR) Influenza Type B (PCR) M. pneumoniae (PCR) Parainfluenza 1 (PCR) Parainfluenza 2 (PCR) Parainfluenza 3 (PCR) Parainfluenza 4 (PCR) RSV (PCR) Entero/Rhino (PCR) 06/24/25 06/24/25 06/24/25 19:50 16:39 15:30 WBC RBC Hgb Hct MCV MCH MCHC RDW Plt Count MPV Neut % (Auto) Lymph % (Auto) [place] % (Auto) Eos % (Auto) Baso % (Auto) Neut # (Auto) Lymph # (Auto) [place] # (Auto) Eos # (Auto) Baso # (Auto) Total Counted Neutrophils % (Manual) Lymphocytes % (Manual) Monocytes % (Manual) Eosinophils % (Manual) Platelet Estimate RBC Morphology Sodium 130 L Potassium 4.1 Chloride 103 Carbon Dioxide 19 L Anion Gap 12.1 BUN 79 H Creatinine 4.10 H Estimated Creat Clear 19 Estimated GFR 14 L* Est GFR ( Amer) 17 L* Glucose 265 H POC Glucose 267 H 284 H Calcium 7.9 L Magnesium Total Bilirubin AST ALT Alkaline Phosphatase Total Creatine Kinase CK-MB (CK-2) C-Reactive Protein Total Protein Albumin Globulin Albumin/Globulin Ratio Procalcitonin Urine Color Urine Appearance Urine pH Ur Specific [place] Urine Protein Urine Glucose (UA) Urine Ketones Urine Blood Urine Nitrate Urine Bilirubin Urine Urobilinogen Ur Leukocyte Esterase Urine RBC Urine WBC Ur Squamous Epith Cells Amorphous Sediment Urine Bacteria Vancomycin Trough Chlamy pneumoniae PCR Adenovirus (PCR) B. pertussis DNA (PCR) Coronavirus OC43 (PCR) Coronavirus HKU1 (PCR) Coronavirus 229E (PCR) SARS-CoV-2 (PCR) Coronavirus NL63 (PCR) Human Metapneumovir PCR Influenza A (H1) PCR Influ A (H1N1/09) PCR Influenza A (H3) PCR Influenza Type A (PCR) Influenza Type B (PCR) M. pneumoniae (PCR) Parainfluenza 1 (PCR) Parainfluenza 2 (PCR) Parainfluenza 3 (PCR) Parainfluenza 4 (PCR) RSV (PCR) Entero/Rhino (PCR) 06/24/25 06/24/25 13:17 11:54 WBC RBC Hgb Hct MCV MCH MCHC RDW Plt Count MPV Neut % (Auto) Lymph % (Auto) [place] % (Auto) Eos % (Auto) Baso % (Auto) Neut # (Auto) Lymph # (Auto) [place] # (Auto) Eos # (Auto) Baso # (Auto) Total Counted Neutrophils % (Manual) Lymphocytes % (Manual) Monocytes % (Manual) Eosinophils % (Manual) Platelet Estimate RBC Morphology Sodium Potassium Chloride Carbon Dioxide Anion Gap BUN Creatinine Estimated Creat Clear Estimated GFR Est GFR ( Amer) Glucose POC Glucose Calcium Magnesium Total Bilirubin AST ALT Alkaline Phosphatase Total Creatine Kinase CK-MB (CK-2) C-Reactive Protein Total Protein Albumin Globulin Albumin/Globulin Ratio Procalcitonin Urine Color Urine Appearance Urine pH Ur Specific [place] Urine Protein Urine Glucose (UA) Urine Ketones Urine Blood Urine Nitrate Urine Bilirubin Urine Urobilinogen Ur Leukocyte Esterase Urine RBC Urine WBC Ur Squamous Epith Cells Amorphous Sediment Urine Bacteria Vancomycin Trough 12.4 H Chlamy pneumoniae PCR Not detected Adenovirus (PCR) Not detected B. pertussis DNA (PCR) Not detected Coronavirus OC43 (PCR) Not detected Coronavirus HKU1 (PCR) Not detected Coronavirus 229E (PCR) Not detected SARS-CoV-2 (PCR) Not detected Coronavirus NL63 (PCR) Not detected Human Metapneumovir PCR Not detected Influenza A (H1) PCR Not detected Influ A (H1N1/09) PCR Not detected Influenza A (H3) PCR Not detected Influenza Type A (PCR) Not detected Influenza Type B (PCR) Not detected M. pneumoniae (PCR) Not detected Parainfluenza 1 (PCR) Not detected Parainfluenza 2 (PCR) Not detected Parainfluenza 3 (PCR) Not detected Parainfluenza 4 (PCR) Not detected RSV (PCR) Not detected Entero/Rhino (PCR) Not detected Preliminary micro results at discharge 06/22/25 12:17 Blood Culture - Preliminary Blood NO GROWTH AFTER 48 HOURS 06/22/25 12:17 Blood Culture - Preliminary Blood NO GROWTH AFTER 48 HOURS DS: Diagnosis Discharge Diagnosis (1) Sepsis: Status: Acute Code(s): A41.9 - Sepsis, unspecified organism Qualifiers: Sepsis acute organ dysfunction status: with acute organ dysfunction Sepsis type: sepsis due to unspecified organism Severe sepsis acute organ dysfunction type: encephalopathy Severe sepsis shock status: without septic shock Qualified Code(s): A41.9 - Sepsis, unspecified organism; R65.20 - Severe sepsis without septic shock; G93.41 - Metabolic encephalopathy (2) Altered mental status: Status: Acute Code(s): R41.82 - Altered mental status, unspecified Qualifiers: Coma depth: Hima coma 13-15 Problem details: Acute metabolic encephalopathy (3) 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 Code(s): C78.00 - Secondary malignant neoplasm of unspecified lung; C64.9 - Malignant neoplasm of unspecified kidney, except renal pelvis Qualifiers: Laterality: unspecified laterality Qualified Code(s): C78.00 - Secondary malignant neoplasm of unspecified lung; C64.9 - Malignant neoplasm of unspecified kidney, except renal pelvis (4) Type 2 diabetes mellitus: Status: Chronic Code(s): E11.9 - Type 2 diabetes mellitus without complications Qualifiers: Diabetes mellitus alf insulin use: without alf use Diabetes mellitus complication status: without complication Qualified Code(s): E11.9 - Type 2 diabetes mellitus without complications (5) Essential (primary) hypertension: Status: Chronic Code(s): I10 - Essential (primary) hypertension (6) HEIDE (acute kidney injury): Status: Acute Code(s): N17.9 - Acute kidney failure, unspecified (7) Dehydration: Status: Resolved Code(s): E86.0 - Dehydration (8) Anemia: Status: Acute Code(s): D64.9 - Anemia, unspecified (9) Rhabdomyolysis: Status: Acute Code(s): M62.82 - Rhabdomyolysis (10) Constipation: Status: Acute Code(s): K59.00 - Constipation, unspecified (11) Parkinson disease: Status: Chronic Code(s): G20.A1 - Parkinson's disease without dyskinesia, without mention of fluctuations Qualifiers: Dyskinesia presence: unspecified whether dyskinesia Fluctuating manifestations: unspecified whether manifestations fluctuate Qualified Code(s): G20.A1 - Parkinson's disease without dyskinesia, without mention of fluctuations Meds Home Medications and Allergies Home Medications ?Medication ?Instructions ?Recorded ?Confirmed ?Type aspirin 81 mg tablet,delayed 81 mg PO DAILY CIRCULATION 30 days 07/13/21 06/20/25 Rx release #30 tabs atorvastatin 80 mg tablet 80 mg PO HS Cholesterol 30 days 07/13/21 06/20/25 Rx #30 tabs carvedilol 12.5 mg tablet 12.5 mg PO BID High blood pressure 07/13/21 06/20/25 Rx 30 days #60 tabs citalopram 20 mg tablet 20 mg PO DAILY Anxiety 30 days #30 07/13/21 06/20/25 Rx tabs glimepiride 1 mg tablet 1 mg PO DAILY Diabetes 30 days #30 07/13/21 06/20/25 Rx tabs tramadol 50 mg tablet 50 mg PO BIDP PRN Pain 08/14/23 06/20/25 History atogepant 60 mg tablet (Qulipta) 60 mg PO DAILY 06/20/25 06/20/25 History carbidopa ER 50 mg-levodopa 200 mg 1 tab PO BID 06/20/25 06/20/25 History tablet,extended release dapagliflozin propanediol 10 mg 10 mg PO DAILY 06/20/25 06/21/25 History tablet (Farxiga) ezetimibe 10 mg tablet (Zetia) 10 mg PO DAILY 06/20/25 06/20/25 History ferrous sulfate 325 mg (65 mg 325 mg PO DAILY 06/20/25 06/20/25 History iron) tablet (iron) magnesium oxide 400 mg (241.3 mg 400 mg PO DAILY 06/20/25 06/20/25 History magnesium) tablet omeprazole 40 mg capsule,delayed 40 mg PO DAILY 06/20/25 06/20/25 History release vit C 250 mg-vit E 90 mg-zinc 40 1 tab PO BID 06/20/25 06/20/25 History mg-copper 1 [id number] capsule (PreserVision AREDS-2) amlodipine 10 mg tablet 10 mg PO DAILY 06/21/25 06/20/25 History New Prescriptions to Start Prescriptions: Allergies Allergy/AdvReac Type Severity Reaction Status Date / Time No Known Allergies Allergy Verified 11/11/23 11:00 Discharge Plan Disposition Patient Disposition: Xfer Short-Term Hosp Condition: Critical Discharge Order Discharge Orders: Discharge Order (Routine); Ordered 06/25/25 Ordered By: Gamaliel Batista Follow up Plan Prescriptions/Medication Reconciliation: No Action tramadol 50 mg tablet 50 mg PO BIDP PRN (Reason: Pain) omeprazole 40 mg Capsule,Delayed Release(Dr/Ec) 40 mg PO DAILY magnesium oxide 400 mg (241.3 mg magnesium) tablet 400 mg PO DAILY Patient Comments: TAKE 1 TABLET BY MOUTH ONCE DAILY FOR 90 DAYS ferrous sulfate [iron] 325 mg (65 mg iron) Tablet 325 mg PO DAILY ezetimibe [Zetia] 10 mg Tablet 10 mg PO DAILY PreserVision AREDS-2 250-90-40-1 mg Capsule 1 tab PO BID dapagliflozin propanediol [Farxiga] 10 mg Tablet 10 mg PO DAILY Qulipta 60 mg Tablet 60 mg PO DAILY carbidopa-levodopa 1 EACH tablet extended release 1 tab PO BID amlodipine 10 MG tablet 10 mg PO DAILY atorvastatin 80 MG tablet 80 mg PO HS 30 Days Qty: 30 0RF carvedilol 12.5 MG tablet 12.5 mg PO BID 30 Days Qty: 60 0RF aspirin 81 MG tablet,delayed release (DR/EC) 81 mg PO DAILY 30 Days Qty: 30 0RF glimepiride 1 MG tablet 1 mg PO DAILY 30 Days Qty: 30 0RF citalopram 20 MG tablet 20 mg PO DAILY 30 Days Qty: 30 0RF Problem Reconciliation Problems Reviewed?: Yes Patient Discharge Instructions Patient Instructions: High Blood Pressure, Acute Kidney Injury, Stop Light Pneumonia, Stop Light Infection Print Language: [place]er Providers Primary Care Provider: Anson Davison Admit Provider: Tito Franklin Attending Provider: Tito Franklin
--- NOTE | 2025-06-25 13:18 | ECG_ITS ---
APPROVED REPORT Exam: Resting ECG HR:46 bpm ECG Measurements Heart Rate 46 AXES QRSd 169 QRS 92 QT 571 T 19 QTc 532 Conclusion ATRIAL FIBRILLATION WITH SLOW VENTRICULAR RESPONSE RIGHT BUNDLE BRANCH BLOCK [120+ ms QRS DURATION, UPRIGHT V1, 40+ ms S IN I/aVL/V4/V5/V6] PROLONGED QT INTERVAL CRITICAL TEST RESULT UNCONFIRMED REPORT Electronically signed by : DONALD HERNÁNDEZ, 06/26/2025 02:16:32
--- NOTE | 2025-06-25 13:39 | PC.NURSE ---
Patient transferred out to [facility] to CCU report called to SONIA De Oliveira at [phone] Patient VSS on D/C HR 43 BP 179/89 Oximetry 94% on 1 L NC Patient being flown out via [employer] [facility] 1330.
--- NOTE | 2025-06-25 13:50 | PC.NURSE ---
1247 contacted [facility] about air transport to [facility] 1252 [employer] called back. 22 min ETA 1335 [employer] on unit. Care of patient assumed by [employer] team
--- NOTE | 2025-06-25 13:55 | PC.NURSE ---
1318 EKG states critical result . EKG taken to MD for review at 1322
--- NOTE | 2025-06-25 14:21 | PC.NURSE ---
patient left with [employer] [facility] to go to [facility] via stretcher @[phone]
[2025-06-28 15:04] LABS: POC Glucose,Bedside 294 gm/dL (70-110)
[2025-06-28 15:17] LABS: POC Glucose,Bedside 168 gm/dL (70-110)
== END 2025-06-25 13:55 | disposition short-term general hospital (02) | DRG 871 ==
LOC: ER 14:07 → ICU 14:51 → 2ND 06-21 15:49 → ICU 06-24 20:15
PROVIDERS: Nurse Practitioner; Student in an Organized Health Care Education/Training Program; Admitting Provider Internal Medicine Adolescent Medicine; Emergency Provider Student in an Organized Health Care Education/Training Program; PCP Internal Medicine Adolescent Medicine; Visit Provider Internal Medicine Adolescent Medicine
DX: A41.01 Sepsis due to Methicillin susceptible Staphylococcus aureus (principal); G93.41 Metabolic encephalopathy; J18.9 Pneumonia, unspecified organism; E87.20 Acidosis, unspecified; Z16.11 Resistance to penicillins; N17.9 Acute kidney failure, unspecified; M62.82 Rhabdomyolysis; C64.1 Malignant neoplasm of right kidney, except renal pelvis; C78.00 Secondary malignant neoplasm of unspecified lung; N18.5 Chronic kidney disease, stage 5; I12.0 Hypertensive chronic kidney disease with stage 5 chronic kidney disease or end stage renal disease; I44.2 Atrioventricular block, complete; R65.20 Severe sepsis without septic shock; E11.22 Type 2 diabetes mellitus with diabetic chronic kidney disease; I25.10 Atherosclerotic heart disease of native coronary artery without angina pectoris; I49.5 Sick sinus syndrome; G20.A1 Parkinson's disease without dyskinesia, without mention of fluctuations; F02.80 Dementia in other diseases classified elsewhere, unspecified severity, without behavioral disturbance, psychotic disturbance, mood disturbance, and anxiety; K21.9 Gastro-esophageal reflux disease without esophagitis; F41.9 Anxiety disorder, unspecified; F32.A Depression, unspecified; I45.10 Unspecified right bundle-branch block; D69.6 Thrombocytopenia, unspecified; E86.0 Dehydration; D63.1 Anemia in chronic kidney disease; D50.9 Iron deficiency anemia, unspecified; D63.0 Anemia in neoplastic disease; K59.00 Constipation, unspecified; Z95.1 Presence of aortocoronary bypass graft; Z90.5 Acquired absence of kidney; Z95.2 Presence of prosthetic heart valve; Z79.82 Long term (current) use of aspirin; Z79.84 Long term (current) use of oral hypoglycemic drugs; Z79.899 Other long term (current) drug therapy
CPT/HCPCS: 0223U; 36415; 70450; 71045; 71250; 74018; 74176; 80048; 80053; 80202; 81001; 82140; 82550; 82553; 82962; 83036; 83605; 83735; 83880; 84100; 84145; 84443; 84484; 85007; 85025; 85610; 85651; 85730; 86140; 86803; 87040; 87077; 87081; 87086; 87154; 87186; 87389; 87636; 93005; 93306; 94640; 94761; 97110; 97162; 97166; 97530; 99285; J0131; J0169; J0461; J1265; J1938; J2185; J2270; J2405; J2543; J3375; J7030; J7050; J7120